=== PATIENT | male | born 1945 | race Caucasian/White ===

== ENCOUNTER 2016-12-29 17:23 | Inpatient (IN) | payer OTHER ==
[~2016-12-29] VITALS: Ht 177.8 cm; Wt 87.8 kg
--- NOTE | 2016-12-29 17:45 | EMERGENCY ROOM VISIT NOTE ---
History Report prepared by Lane: Trevon Dewitt Under the Supervision of: Dr. Fritz Camacho M.D. First contact with patient: 17:33 Chief Complaint: CHEST PAIN Stated Complaint: CHEST PAIN Nursing Triage Summary: PT VERBALIZES HX OF BYPASS WITH STENTS. RECENTLY AT [facility]. PT HAS CARDIOLOGY APPT IN JANUARY FOR NUC STRESS TEST, ECHO, AND BLOODWORK. TODAY PT WALKED UP STREET ABOUT 100 YARDS WHEN HE DEVELOPED CHEST PAIN WITH NUMBNESS IN LEFT ARM AND LEFT SHOULDER. TOOK BP AT HOME FOR 174/85. TOOK 1 NITRO WITH RELIEF. History of Present Illness The patient is a 71 year old male who presents to the Emergency Room with complaints of centralized chest pain that occurred recently. The patient is currently not in any pain. He was walking up the road when the pain began. He went home and he took Nitroglycerin PO, and then the pain went away. When the pain was occurring, he was mildly short of breath and his pain was radiating toward his left arm. This is the second time this has happened to the patient, the first time being last week. The patient states that he took a baby Aspirin today like usual. He has a history of a heart surgery that occurred in 2002 and heart stents that were placed in 2014. He currently has no symptoms and is feeling well. Source of History: patient Onset: recently Position: chest Symptom Intensity: 0/10 Quality: numbness Timing: resolved Modifying Factors (Worsening): exertion Associated Symptoms: + SOB Review of Systems See HPI for pertinent positives & negatives. A total of 10 systems reviewed and were otherwise negative. Past Medical & Surgical Medical Problems: (1) CAD (coronary artery disease) (2) DM type 2 (diabetes mellitus, type 2) (3) Heart disease (4) Hypertension (5) Hypothyroidism (6) NSTEMI (non-ST elevated myocardial infarction) (7) Paroxysmal atrial fibrillation Surgical Problems: (1) H/O heart artery stent (2) S/P CABG x 5 (3) S/P coronary artery stent placement Family History Omitted due to age. Social History Smoking Status: Current Some Day Smoker Smokeless Tobacco Use: Unknown Drug Use: none Marital Status: Housing Status: lives with family Current/Historical Medications Scheduled Aspirin (Aspirin Ec), 81 MG PO DAILY Atenolol (Tenormin), 50 MG PO DAILY Atorvastatin (Lipitor), 80 MG PO DAILY Clopidogrel (Plavix), 75 MG PO DAILY Glimepiride (Glimepiride), 1 TAB PO UD Levothyroxine Sodium (Levothyroxine Sodium), 1 TAB PO DAILY Losartan Potassium (Cozaar), 50 MG PO DAILY Metformin Hcl (Glucophage), 1,000 MG PO BID Multiple Vitamins W/ Minerals (Adult Gummy), 1 TABS PO DAILY Nitroglycerin (Nitrostat), 0.4 MG UT PRN Allergies Coded Allergies: No Known Allergies (Unverified , 12/29/16) Physical Exam Vital Signs Date Time Temp Pulse Resp B/P Pulse Ox O2 Delivery O2 Flow Rate FiO2 12/29/16 19:07 54 16 167/82 96 Room Air 12/29/16 18:04 60 18 145/79 96 Room Air 12/29/16 17:48 69 12/29/16 17:46 63 18 168/77 96 Room Air 12/29/16 17:27 36.7 58 18 160/78 96 Room Air Physical Exam GENERAL: Patient is well appearing and in no acute distress. HEENT: No acute trauma, normocephalic atraumatic, mucous membranes moist, no nasal congestion, no scleral icterus. NECK: No stridor, no adenopathy, no meningismus, trachea is midline. LUNGS: No dyspnea. Clear to auscultation and equal bilaterally. No wheeze, no rhonchi. HEART: Regular rate and rhythm. No murmurs, rubs, gallops appreciated. ABDOMEN: Soft, nontender, bowel sounds positive, no masses appreciated, no peritonitis. BACK: No midline tenderness, no CVA tenderness EXTREMITIES: Normal motion all extremities, no cyanosis, no edema. NEUROLOGIC: Alert and oriented, no acute motor or sensory deficits, no focal weakness, cranial nerves grossly intact. SKIN: No rash, no jaundice, no diaphoresis. Medical Decision & Procedures ER Provider Diagnostic Interpretation: X ray results are stated below per my interpretation and the radiologist's interpretation. CHEST ONE VIEW PORTABLE HISTORY: Atypical Chest Pain COMPARISON: None. FINDINGS: The lungs are clear. Cardiac silhouette is normal in size. No pleural effusions. No pneumothorax. Poststernotomy changes. IMPRESSION: No acute process. Electronically signed by: Domenic Wells M.D. 12/29/2016 6:11 PM Dictated Date/Time: 12/29/2016 6:09 PM Laboratory Results 12/29/16 17:40 Red Blood Count 4.81, Mean Corpuscular Volume 95.2, Mean Corpuscular Hemoglobin 34.1, Mean Corpuscular Hemoglobin Concent 35.8, Mean Platelet Volume 10.6, Neutrophils (%) (Auto) 59.9, Lymphocytes (%) (Auto) 24.6, Monocytes (%) (Auto) 8.0, Eosinophils (%) (Auto) 6.5, Basophils (%) (Auto) 0.6, Neutrophils # (Auto) 6.56, Lymphocytes # (Auto) 2.70, Monocytes # (Auto) 0.88, Eosinophils # (Auto) 0.71, Basophils # (Auto) 0.07 12/29/16 17:40 Test 12/29/16 17:40 White Blood Count 10.96 K/uL (4.8-10.8) Red Blood Count 4.81 M/uL (4.7-6.1) Hemoglobin 16.4 g/dL (14.0-18.0) Hematocrit 45.8 % (42-52) Mean Corpuscular Volume 95.2 fL (80-100) Mean Corpuscular Hemoglobin 34.1 pg (25-34) Mean Corpuscular Hemoglobin Concent 35.8 g/dl (32-36) Platelet Count 211 K/uL (130-400) Mean Platelet Volume 10.6 fL (7.4-10.4) Neutrophils (%) (Auto) 59.9 % Lymphocytes (%) (Auto) 24.6 % Monocytes (%) (Auto) 8.0 % Eosinophils (%) (Auto) 6.5 % Basophils (%) (Auto) 0.6 % Neutrophils # (Auto) 6.56 K/uL (1.4-6.5) Lymphocytes # (Auto) 2.70 K/uL (1.2-3.4) Monocytes # (Auto) 0.88 K/uL (0.11-0.59) Eosinophils # (Auto) 0.71 K/uL (0-0.5) Basophils # (Auto) 0.07 K/uL (0-0.2) RDW Standard Deviation 43.7 fL (36.4-46.3) RDW Coefficient of Variation 12.5 % (11.5-14.5) Immature Granulocyte % (Auto) 0.4 % Immature Granulocyte # (Auto) 0.04 K/uL (0.00-0.02) Prothrombin Time 10.5 SECONDS (9.0-12.0) Prothromb Time International Ratio 1.0 (0.9-1.1) D-Dimer 320 ug/L FEU (0-500) Anion Gap 6.0 mmol/L (3-11) Est Creatinine Clear Calc Drug Dose 63.1 ml/min Estimated GFR () 71.1 Estimated GFR (Non- 61.3 BUN/Creatinine Ratio 11.3 (10-20) Calcium Level 9.0 mg/dl (8.5-10.1) Total Creatine Kinase 115 U/L (39-308) Laboratory results as reviewed by me. Medications Administered Medications (Trade) Dose Ordered Sig/Laure Route Start Time Stop Time Status Last Admin Dose Admin Aspirin (Aspirin Chew) 324 mg NOW STAT PO 12/29/16 17:49 12/29/16 17:51 DC 12/29/16 18:03 324 MG Heparin Sodium (Porcine) (Heparin Sq 5000 Unit/0.5ml) 10,000 unit STK-MED ONCE .ROUTE 12/29/16 19:22 12/29/16 19:23 DC 12/29/16 19:25 6,000 UNIT Heparin Sodium/ Dextrose (Heparin 25,000 Unit/500ml D5W) 25,000 unit STK-MED ONCE .ROUTE 12/29/16 19:23 12/29/16 19:24 DC 12/29/16 19:26 25,000 UNIT ECG Indication: chest pain Rate (beats per minute): 63 Rhythm: normal sinus Findings: no acute ischemic change, no ectopy ED Course 1732: The patient was evaluated in room C9. A complete history and physical exam was performed. 1748: Ordered Aspirin Chew 324 mg PO 1899: I discussed the patient's case with Dr. Saravia of [facility]. They wanted me to call Cardiology to discuss the case further. 1906: I spoke with Dr. Dinh of Cardiology. They wish to start the patient on Heparin and be further evaluated by [facility]. 1921: Ordered Heparin Sodium 10,000 unit .ROUTE 1922: Heparin Sodium/ Dextrose 25,000 unit .ROUTE 1939: Upon reevaluation, the patient is resting. Discussed results and treatment plan with the patient. He verbalized understanding and agreement with the treatment plan. The patient will be evaluated for further management. Medical Decision Differential: Cardiac Ischemia (STEMI, NSTEMI, Unstable Angina, etc), Aortic Dissection, Arrhythmia, Pulmonary Embolism, Pneumonia, Pneumothorax, MSK, Infectious, Pericarditis/Myocarditis, Esophageal Rupture, Gastrointestinal, amongst other pathologies entertained. Pleasant 71 yr old male with CABG over ten years ago and stents 2 years ago who continues to smoke with several other CAD risk factors. Arrives for evaluation of exertional chest pain which relieves with rest/nitro. No pain on arrival. EKG without stemi. Given ASA 324mg PO. CXR clear. No evidence of pe, dissection, infectious etiology of symptoms. Trop is positive consistent with NSTEMI. Discussed with Cardiology who agree with heparin and bring in to hospitalist service. I discussed pros/cons of Heparin. He does not have any current nor recent contraindications to heparin use. Denies headache, head injuries, recent trauma, rectal bleeding, black/bloody stools, abdominal pain, easy bruising/bleeding, etc. Patient agrees to starting heparin. Consults Time Called: 1854 Consulting Physician: Dr. Saravia - [facility] Hospitalist Returned Call: 1899 They would like me to contact Cardiology to discuss the patient before being treated as an inpatient. Additional Consults: Time Called: 1902 Consulted Physician: Dr. Dinh - Cardiology Returned Call: 1906 Additional Comments: We discussed the patient's case. They wish to start to patient on Heparin. He will be evaluated by [facility]. Impression Primary Impression: NSTEMI (non-ST elevated myocardial infarction) Additional Impression: Crescendo angina Critical Care I have personally spent greater than 35 minutes of critical care time in the direct management of this patient. This was a life/limb threatening event. This includes time spent evaluating patient, direct bedside care, chart review, placing orders, interpretation of diagnostic studies, discussion with consultants, patient, and family members, as well as other required patient management activities. This 35 minutes is in excess of all separately billable procedures. Scribe Attestation The scribe's documentation has been prepared under my direction and personally reviewed by me in its entirety. I confirm that the note above accurately reflects all work, treatment, procedures, and medical decision making performed by me. Departure Information Dispostion Being Evaluated By Hospitalist Patient Instructions [facility] Problem Qualifiers
[2016-12-29] MEDS ORDERED: ASPIRIN 324 MG CHEW PO STA (17:49)
[2016-12-29 18:00] LABS: BASO % 0.6 %; BASO ABS # 0.07 K/uL (0-0.2); COMPLETE YES; EOS % 6.5 %; HEMATOCRIT 45.8 % (42-52); IG% 0.4 %; LYMPH % 24.6 %; MEAN CELL VOLUME 95.2 fL (80-100); MEAN CORPUSCULAR HEMOGLOBIN 34.1 pg (25-34); MEAN CORPUSCULAR HGB CONC 35.8 g/dl (32-36); MEAN PLATELET VOLUME 10.6 fL (7.4-10.4); NEUT % 59.9 %; PLATELET COUNT 211 K/uL (130-400); RED BLOOD COUNT 4.81 M/uL (4.7-6.1); WHITE BLOOD COUNT 10.96 K/uL (4.8-10.8)
[2016-12-29 18:06] LABS: BUN/CREATININE RATIO 11.3 (10-20); CREATININE 1.2 mg/dl (0.60-1.40); POTASSIUM 4.3 mmol/L (3.5-5.1)
[2016-12-29] MEDS ORDERED: ATEN50TA8 PO (18:12)
[2016-12-29] MEDS ORDERED: LEVO150T9 PO (18:12)
[2016-12-29] MEDS ORDERED: ATOR-26 PO (18:12)
[2016-12-29] MEDS ORDERED: GLIM2TAB2 PO (18:12)
[2016-12-29] MEDS ORDERED: NTRGSL/4 UT (18:12)
[2016-12-29] MEDS ORDERED: ASPI81TA28 PO (18:12)
[2016-12-29] MEDS ORDERED: MULT1CHW4 PO (18:12)
[2016-12-29] MEDS ORDERED: CLOP1TAB15 PO (18:12)
[2016-12-29] MEDS ORDERED: METF-384 PO (18:13)
--- NOTE | 2016-12-29 18:13 | DIAGNOSTIC IMAGING REPORT ---
CHEST ONE VIEW PORTABLE HISTORY: Atypical Chest Pain COMPARISON: None. FINDINGS: The lungs are clear. Cardiac silhouette is normal in size. No pleural effusions. No pneumothorax. Poststernotomy changes. IMPRESSION: No acute process. Electronically signed by: Domenic Wells M.D. 12/29/2016 6:11 PM Dictated Date/Time: 12/29/2016 6:09 PM
[2016-12-29] MEDS ORDERED: LOSA50TA54 PO (18:19)
[2016-12-29 18:20] LABS: CKMB/CK RATIO 1.5 (0-3.0)
[2016-12-29 19:14] LABS: PROTHROMBIN TIME (PATIENT) 10.5 SECONDS (9.0-12.0)
[2016-12-29] MEDS ORDERED: HEPARIN SOD 5000 UNIT/0.5 ML CARP ONE (19:22)
[2016-12-29] MEDS ORDERED: HEPARIN 25000 UNIT/500 ML D5W ONE (19:23)
[2016-12-29] MEDS ORDERED: ALUMINUM/MAGNESIUM/SIMETH (MAALOX MAX) 30 ML UDC PO PRN (19:30)
[2016-12-29] MEDS ORDERED: ZOLPIDEM TARTRATE 5 MG TAB PO PRN (19:30)
[2016-12-29] MEDS ORDERED: POLYETHYLENE (MIRALAX) 17 GM PACK PO PRN (19:30)
[2016-12-29] MEDS ORDERED: ONDANSETRON INJ 2 MG/ML 2 ML VIAL IV PRN (19:30)
[2016-12-29] MEDS ORDERED: NITROGLYCERIN 0.4 MG SL PER TAB CHARGE SL PRN (19:30)
[2016-12-29] MEDS ORDERED: MAGNESIUM HYDROXIDE SUSP 30 ML UDC PO PRN (19:30)
[2016-12-29] MEDS ORDERED: ACETAMINOPHEN 325 MG TAB PO PRN (19:30)
[2016-12-29] MEDS ORDERED: GLUCAGON FOR INJ 1 MG VIAL SQ PRN (19:45)
[2016-12-29] MEDS ORDERED: GLUCOSE 10 TABS/TUBE PO PRN (19:45)
[2016-12-29] MEDS ORDERED: GLUCOSE 40% GEL 15 GM TUBE PO PRN (19:45)
[2016-12-29] MEDS ORDERED: DEXTROSE 50% 50 ML SYR IV PRN (19:45)
[2016-12-29 20:50] VITALS: BP 189/78; PULSE 65; TEMP 36.6; O2SAT 97; Ht 177.8 cm; Wt 87.8 kg
[2016-12-29] MEDS ORDERED: HEPARIN 25,000 UNIT/500ML D5W 500 ML IV PRN (21:00)
--- NOTE | 2016-12-29 21:31 | History and Physical ---
History & Physical Date & Time of Service: Dec 29, 2016 at 20:29 Chief Complaint: Nstemi (Non-St Elevated Myocardial Infarction) Primary Care Physician: No Doctor, Assigned History of Present Illness Source: patient, clinic records This is a 71 year old male with PMH of CAD s/p CABG and stent, remote hx of post -op PAF after CABG no longer on anticoagulation, DM type 2, HTN, hypothyroidism , and other problems listed below who presents to the ED with chest pain. Pt follows with [facility] cardiology. Patient was recently hospitalized at [facility] from 12/22-12/23 for similar chest pain and [place] was ruled out with negative troponin x 3. He was seen in clinic for follow up by Analilia Ulloa PA-C. He is scheduled for stress test Jan 20 2017. He states yesterday after cleaning up small rocks in the yard then walking outside he "was not feeling right" and felt short of breath which resolved. Usually he could tolerate such activity without becoming SOB. Then today he was walking uphill on the road around 4 pm and developed substernal chest tightness. He reports associated numbness radiating to his left arm and shortness of breath. He went inside and took nitro which relieved his symptoms within minutes. Since then he is feeling asymptomatic. Patient denies diaphoresis, dizziness, syncope, URI symptoms, cough, palpitations, nausea, vomiting, diarrhea, urinary changes, calf pain, edema, weight gain, abnormal bleeding. Past Medical/Surgical History Medical Problems: (1) CAD (coronary artery disease) Status: Chronic (2) DM type 2 (diabetes mellitus, type 2) Status: Chronic (3) Heart disease Status: Resolved (4) Hypertension Status: Chronic (5) Hypothyroidism Status: Chronic (6) Paroxysmal atrial fibrillation Permanent Comment: remote, postop s/p CABG Status: Chronic Surgical Problems: (1) H/O heart artery stent Status: Resolved (2) S/P CABG x 5 Permanent Comment: CABG x5 vessel (07/28/03): ARREOLA-LAD, SVG-RCA, SVG-OM, SVG- ramus, SVG-D1 Status: Chronic (3) S/P coronary artery stent placement Permanent Comment: Cardiac catheterization 05/[place] [facility] [place] Severe buckland vessel disease w/ 95% LAD, 95% Cx, 100% prox RCA, Patent ARREOLA-LAD, Patent SVG-OM, Patent SVG-RCA - mid portion of graft with turbulence of flow secondary to valve vs thrombus but has WILY III flow through graft into distal RCA run off, Patent [id number] w/ 80% lesion in mid body of graft --> Stent placed - bare metal stent Status: Chronic Family History Diabetes mellitus FATHER SISTER Social History Smoking Status: Current Every Day Smoker (3 packs per week. counselled for smoking cessation. ) Smokeless Tobacco Use: Unknown Alcohol Use: occasionally Marital Status: Housing status: lives with significant other Allergies Coded Allergies: No Known Allergies (Unverified , 12/29/16) Home Medications Scheduled Aspirin (Aspirin Ec), 81 MG PO DAILY Atorvastatin (Lipitor), 80 MG PO DAILY Clopidogrel (Plavix), 75 MG PO DAILY Glimepiride (Glimepiride), 1 TAB PO UD Levothyroxine Sodium (Levothyroxine Sodium), 1 TAB PO DAILY Losartan Potassium (Cozaar), 50 MG PO DAILY Metformin Hcl (Glucophage), 1,000 MG PO BID Metoprolol Tartrate (Lopressor), 25 MG PO BID Multiple Vitamins W/ Minerals (Adult Gummy), 1 TABS PO DAILY Nitroglycerin (Nitrostat), 0.4 MG UT PRN Review of Systems Ten point ROS performed with pertinent positives and negatives noted in HPI. Physical Exam Vital Signs Date Time Temp Pulse Resp B/P Pulse Ox O2 Delivery O2 Flow Rate FiO2 12/29/16 19:59 53 20 153/84 96 12/29/16 19:07 54 16 167/82 96 Room Air 12/29/16 18:04 60 18 145/79 96 Room Air 12/29/16 17:48 69 12/29/16 17:46 63 18 168/77 96 Room Air 12/29/16 17:27 36.7 58 18 160/78 96 Room Air General Appearance: WD/WN, no apparent distress, + pertinent finding (pleasant 71 year old male, in good spirits, lying in bed, no distress, at bedside) Head: normocephalic, atraumatic Eyes: normal inspection, PERRL, EOMI ENT: hearing grossly normal, pharynx normal Neck: supple, no JVD, trachea midline Respiratory/Chest: chest non-tender, lungs clear, normal breath sounds, no respiratory distress, no accessory muscle use Cardiovascular: regular rate, rhythm, no murmur Abdomen/GI: normal bowel sounds, non tender, soft Extremities/Musculoskelatal: no calf tenderness (grossly nonfocal), no pedal edema Neurologic/Psych: alert, normal mood/affect, oriented x 3, + pertinent finding Skin: normal color, warm/dry Diagnostics Laboratory Results Results Past 24 Hours Test 12/29/16 17:40 Range/Units White Blood Count 10.96 4.8-10.8 K/uL Red Blood Count 4.81 4.7-6.1 M/uL Hemoglobin 16.4 14.0-18.0 g/dL Hematocrit 45.8 42-52 % Mean Corpuscular Volume 95.2 80-100 fL Mean Corpuscular Hemoglobin 34.1 25-34 pg Mean Corpuscular Hemoglobin Concent 35.8 32-36 g/dl Platelet Count 211 130-400 K/uL Mean Platelet Volume 10.6 7.4-10.4 fL Neutrophils (%) (Auto) 59.9 % Lymphocytes (%) (Auto) 24.6 % Monocytes (%) (Auto) 8.0 % Eosinophils (%) (Auto) 6.5 % Basophils (%) (Auto) 0.6 % Neutrophils # (Auto) 6.56 1.4-6.5 K/uL Lymphocytes # (Auto) 2.70 1.2-3.4 K/uL Monocytes # (Auto) 0.88 0.11-0.59 K/uL Eosinophils # (Auto) 0.71 0-0.5 K/uL Basophils # (Auto) 0.07 0-0.2 K/uL RDW Standard Deviation 43.7 36.4-46.3 fL RDW Coefficient of Variation 12.5 11.5-14.5 % Immature Granulocyte % (Auto) 0.4 % Immature Granulocyte # (Auto) 0.04 0.00-0.02 K/uL Prothrombin Time 10.5 9.0-12.0 SECONDS Prothromb Time International Ratio 1.0 0.9-1.1 Activated Partial Thromboplast Time 26.1 21.0-31.0 SECONDS Partial Thromboplastin Ratio 1.0 D-Dimer 320 0-500 ug/L FEU Sodium Level 143 136-145 mmol/L Potassium Level 4.3 3.5-5.1 mmol/L Chloride Level 106 98-107 mmol/L Carbon Dioxide Level 31 21-32 mmol/L Anion Gap 6.0 3-11 mmol/L Blood Urea Nitrogen 14 7-18 mg/dl Creatinine 1.20 0.60-1.40 mg/dl Est Creatinine Clear Calc Drug Dose 63.1 ml/min Estimated GFR () 71.1 Estimated GFR (Non- 61.3 BUN/Creatinine Ratio 11.3 10-20 Random Glucose 148 70-99 mg/dl Calcium Level 9.0 8.5-10.1 mg/dl Total Creatine Kinase 115 39-308 U/L Creatine Kinase MB 1.7 0.5-3.6 ng/ml Creatine Kinase MB Ratio 1.5 0-3.0 Troponin I 0.054 0-0.045 ng/ml Diagnostic Radiology CHEST ONE VIEW PORTABLE HISTORY: Atypical Chest Pain COMPARISON: None. FINDINGS: The lungs are clear. Cardiac silhouette is normal in size. No pleural effusions. No pneumothorax. Poststernotomy changes. IMPRESSION: No acute process. EKG NSR, 63 bpm, nonspecific STTWA in aVL, [address] elevation in V3. Compared to prior EKG in [facility] from December 23 2016- at that time had T wave inversion in I and aVL. Impression Assessment and Plan CHEST PAIN Possible ACS; pain suspicious for angina; known hx of CAD s/p CABG in 2002 and stent in 05/2015 Resolved with nitro tab EKG- nonspecific findings Initial troponin 0.054 CXR- no acute findings LV EF 55-59% on prior echo 05/2015 ER provider discussed case with on-call supervisor instant potato processing Dr. Dinh Heparin drip started in ER Received aspirin 325 mg Beta morgan changed from atenolol to Lopressor Continue aspirin, Plavix, statin, ARB Check echo Consult cardiology REMOTE H/O PAROXYSMAL AFIB Occurred postoperatively after CABG 2002 Coumadin discontinued in June 2015 to avoid triple therapy with ASA, Plavix, and Coumadin, after site monitor revealed no recurrent AF Currently in NSR On beta morgan HYPERTENSION BP is elevated Continue Losartan Beta morgan changed from atenolol to Lopressor DM TYPE 2 Hold PO antidiabetic meds Insulin sliding scale coverage HYPOTHYROIDISM Continue levothyroxine DVT PROPHYLAXIS On heparin drip CODE STATUS Full code per my discussion with the patient Patient seen in collaboration with Dr. Ann. Please see her addendum. ATTENDING ADDENDUM : pt seen and examined, in agreement with above H&P by Naty Carrasco PA-C 71 yo M with past medical hx of significant CAD S/P CABG X5 vessels in 2002 , Cardiac catheterization 05/2015 [place] [facility] [place] bare metal stent placement on Diagonal graft recent admission to [facility] with similar complain discharged with Cardiology follow and scheduled out pt cardiac stress test presented with typical anginal symptom with chest heaviness , radiation to left arm symptom resolved with SL nitro currently chest pain free EKG -T wave flattening in lateral leads Troponin elevated 0.054 with normal CK/CKMB P/E : GEN : no apparent distress, comfortable HEENT; sclera non icteric , PERRLA/EOMI HT ; regular S1/S2 , no JVD , no lower ext edema Lungs; CTA , no wheeze or rales abdomen : soft, non tender Ext ; no lower ext edema Neuro : no focal neurological deficit A/p : CHEST PAIN /UNSTABLE ANGINA : symptom concerning for cardiac ischemia /angina recent admission at [facility] with similar symptom o Scheduled to have out pt cardiac stress test in January pt will be admitted to Tele at present chest pain free, no complain of SOB or orthopnea IV heparin wt based protocol serial cardiac markers ECHO to assess wall motion abnormality Cardiology eval requested -known to [facility] Cardiology team may need cardiac angiogram given hx of CAD /recurrent angina pt will be kept NPO past midnight rest of the chronic problems as outlined above VTE Prophylaxis VTE Risk Assessment Done? Y/N: Yes Risk Level: Moderate
[2016-12-29] MEDS: INSULIN HUMAN REGULAR SC SCH (21:44)
[2016-12-29] MEDS: CLOPIDOGREL BISULFATE 75 MG TAB PO SCH (21:47)
[2016-12-29] MEDS: METOPROLOL TARTRATE 25 MG TAB PO SCH (21:47)
[2016-12-29] MEDS: ATORVASTATIN 40 MG TAB PO SCH (21:47)
[2016-12-29 23:05] VITALS: BP 124/68; PULSE 54; TEMP 36.5; O2SAT 96
[2016-12-30] VITALS (30 sets, daily range): BP systolic 121–161; BP diastolic 50–75; PULSE 50–63; TEMP 36.4–36.8; O2SAT 94–97
[2016-12-30 01:35] LABS: PARTIAL THROMBOPLASTIN RATIO 3.1
[2016-12-30] MEDS: LEVOTHYROXINE 150 MCG TAB PO SCH (05:38)
[2016-12-30] MEDS: INSULIN HUMAN REGULAR SC SCH ×4 (07:00→20:55)
[2016-12-30] MEDS ORDERED: PERFLUTREN LIPID MICROSPHERE (DEFINITY) IV ONE (07:30)
[2016-12-30] MEDS: ASPIRIN 81 MG ECTAB PO SCH (07:34)
[2016-12-30] MEDS: CEROVITE ADV FORMULA TAB PO SCH (07:34)
[2016-12-30] MEDS: CLOPIDOGREL BISULFATE 75 MG TAB PO SCH (07:34)
[2016-12-30] MEDS: LOSARTAN POTASSIUM 50 MG TAB PO SCH (07:34)
[2016-12-30] MEDS: METOPROLOL TARTRATE 25 MG TAB PO SCH ×2 (07:34→21:00)
[2016-12-30] MEDS: ATORVASTATIN 40 MG TAB PO SCH (07:34)
[2016-12-30 08:36] LABS: PARTIAL THROMBOPLASTIN RATIO 2.1
[2016-12-30 08:38] LABS: HEMATOCRIT 44.8 % (42-52); MEAN CELL VOLUME 95.1 fL (80-100); MEAN CORPUSCULAR HEMOGLOBIN 33.8 pg (25-34); MEAN CORPUSCULAR HGB CONC 35.5 g/dl (32-36); MEAN PLATELET VOLUME 10.5 fL (7.4-10.4); PLATELET COUNT 176 K/uL (130-400); RED BLOOD COUNT 4.71 M/uL (4.7-6.1); WHITE BLOOD COUNT 11.48 K/uL (4.8-10.8)
[2016-12-30 09:00] LABS: CALCIUM 8.7 mg/dl (8.5-10.1); CREATININE 1.1 mg/dl (0.60-1.40); MAGNESIUM 1.8 mg/dl (1.8-2.4); POTASSIUM 3.9 mmol/L (3.5-5.1)
[2016-12-30] MEDS ORDERED: ASPIRIN 81 MG ECTAB PO SCH (09:00)
[2016-12-30 09:03] LABS: CHOLESTEROL/HDL RATIO 5.4
[2016-12-30 09:30] LABS: ESTIMATED AVERAGE GLUCOSE 157 mg/dl; HA1C FLAG Normal (Normal)
--- NOTE | 2016-12-30 10:06 | ECHOCARDIOGRAM REPORT ---
*NOTICE TO RECEIVING [employer] This information is strictly Confidential and protected under [place] law. [place] law prohibits you from making any further disclosure of this information unless further disclosure is expressly permitted by the written consent of the person to whom it pertains or is authorized by law. A general authorization for the release of medical or other information is not sufficient for this purpose. Hospital accepts no responsibility if the information is made available to any other person, INCLUDING THE PATIENT. Interpretation Summary * Name: BRIDGET ZHAO Study Date: 12/30/2016 07:00 AM BP: 128/73 mmHg * Patient Location: C.2E\S\E202\S\1 HR: 58 * : 1945 (M/d/yyyy) Gender: Male Height: 69 in * Age: 71 yrs Ethnicity: CA Weight: 189 lb * Ordering Physician: Marisol Ann * Performed By: Kate Pablo RDCS * * Reason For Study: AMI * BSA: 2.0 m2 * -- Conclusions -- * Normal LV chamber size with mild concentric LVH. * Normal LV systolic function, EF 55-60%. * No segmental left ventricular wall motion abnormalities are noted. * Grade II diastolic dysfunction. * Aortic valve sclerosis mild, without significant aortic valvular stenosis. Procedure Details * A complete two-dimensional transthoracic echocardiogram was performed (2D, M-mode, Doppler and color flow Doppler). * A contrast injection of Definity was performed to improve assessment of LV function. * Contrast was injected into an intravenous site in the right arm. * One vial of Definity ultrasound contrast was diluted in normal saline to a total volume of 10 ml. A total of '2' ml of solution was administered during imaging. * Lot # [id number] of Definity utilized for procedure. * Expiration date 1 NOV 09. * The attending nurse who injected the contrast agent was Vincent Bazzi RN. Left Ventricle * The left ventricle is normal in size. * There is mild concentric left ventricular hypertrophy. * Left ventricular systolic function is normal. * No segmental left ventricular wall motion abnormalities are noted. * Ejection Fraction = 55-60%. * The left ventricular wall motion is normal. Right Ventricle * The right ventricular cavity size is normal (basal dimension <4.2 cm in right ventricular apical 4-chamber view). * The right ventricular systolic function is normal as assessed by tricuspid annular plane systolic excursion (TAPSE) (normal >1.5 cm). Atria * The left atrial size is normal. * Right atrial size is normal. * No ASD detected; PFO is not assessed. Mitral Valve * The mitral valve leaflets appear normal. There is no evidence of stenosis, fluttering, or prolapse. Tricuspid Valve * The tricuspid valve is normal. Aortic Valve * The aortic valve is trileaflet. * Aortic valve sclerosis mild, without significant aortic valvular stenosis. * No hemodynamically significant valvular aortic stenosis. * There is no significant aortic regurgitation. Pulmonic Valve * The pulmonary valve is not well seen, but the Doppler examination is normal without significant regurgitation or stenosis. Great Vessels * The aortic root and proximal ascending aorta are normal sized. Pericardium/Pleural * There is no pericardial effusion. Left Ventricular Diastolic Function * Diastolic dysfunction, Grade II (pseudonormalization pattern). MMode 2D Measurements and Calculations IVSd 1.2 cm IVSs 1.9 cm LVIDd 5.2 cm LVIDs 3.6 cm LVPWd 1.3 cm LVPWs 1.7 cm IVS/LVPW 0.97 FS 30.3 % EDV(Teich) 130.5 ml ESV(Teich) 55.8 ml EF(Teich) 57.3 % EDV(cubed) 142.0 ml ESV(cubed) 48.1 ml EF(cubed) 66.1 % % IVS thick 53.7 % % LVPW thick 37.5 % LV mass(C)d 261.8 grams LV mass(C)dI 129.8 grams/m\S\2 LV mass(C)s 276.9 grams LV mass(C)sI 137.3 grams/m\S\2 CO(Teich) 4.3 l/min CI(Teich) 2.1 l/min/m\S\2 SV(Teich) 74.7 ml SI(Teich) 37.0 ml/m\S\2 CO(cubed) 5.4 l/min CI(cubed) 2.7 l/min/m\S\2 SV(cubed) 93.9 ml SI(cubed) 46.6 ml/m\S\2 ACS 2.5 cm asc Aorta Diam 3.4 cm LVOT diam 2.1 cm LVOT area 3.5 cm\S\2 LVAd ap4 32.7 cm\S\2 LVLd ap4 8.3 cm EDV(MOD-sp4) 106.0 ml LVAs ap4 19.1 cm\S\2 LVLs ap4 7.0 cm ESV(MOD-sp4) 45.6 ml EF(MOD-sp4) 57.0 % LVAd ap2 38.0 cm\S\2 LVLd ap2 9.1 cm EDV(MOD-sp2) 132.0 ml LVAs ap2 22.4 cm\S\2 LVLs ap2 7.2 cm ESV(MOD-sp2) 56.8 ml EF(MOD-sp2) 57.0 % CO(MOD-sp4) 3.4 l/min CI(MOD-sp4) 1.7 l/min/m\S\2 SV(MOD-sp4) 60.4 ml SI(MOD-sp4) 30.0 ml/m\S\2 CO(MOD-sp2) 4.3 l/min CI(MOD-sp2) 2.1 l/min/m\S\2 SV(MOD-sp2) 75.2 ml SI(MOD-sp2) 37.3 ml/m\S\2 Doppler Measurements and Calculations MV E max marylou 58.7 cm/sec MV A max marylou 53.8 cm/sec MV E/A 1.1 MV P1/2t max marylou 65.2 cm/sec MV P1/2t 96.9 msec MVA(P1/2t) 2.3 cm\S\2 MV dec slope 196.9 cm/sec\S\2 MV dec time 0.35 sec Ao V2 max 101.8 cm/sec Ao max PG 4.1 mmHg Ao max PG (full) 1.2 mmHg DANIAL(V,A) 2.9 cm\S\2 DANIAL(V,D) 2.9 cm\S\2 LV V1 max PG 2.9 mmHg LV V1 max 85.4 cm/sec PA V2 max 112.7 cm/sec PA max PG 5.1 mmHg
--- NOTE | 2016-12-30 10:51 | Cardiology Consultation ---
Cardiology Consultation Date of Service Dec 30, 2016. (Analilia Ulloa, GLORIA) Cardiology Consultation SUBJECTIVE: Yonatan Carver Jr. is a 71 year old year old male who carries a PMH significant for remote CABG x5 vessel (07/28/03): ARREOLA-LAD, SVG-RCA, SVG-OM , SVG-ramus, SVG-D1. In 05/2015 patient was admitted to [facility] for NSTEMI, transferred to [facility] for cardiac catheterization with ROT-Eciue-Sjdn w/ 80% lesion in mid body of graft - bare metal stent placed. Otherwise severe [place] vessel disease noted w/ 95% LAD, 95% Cx, 100% prox RCA, with Patent ARREOLA- LAD, patent SVG-OM. Patent SVG-RCA - mid graft turbulence, but WILY III flow. Other history includes questionable medication compliance, history of post op afib stopping Coumadin in 2014 when Plavix initiated to avoid triple therapy, hypertension, dyslipidemia, DM type II, He was recently hospitalized at [facility] for complaints of chest pain. Cardiac enzymes were unremarkable. He had ST/T wave changes in lateral leads noted on EKG. Stress testing was recommended, however patient declined, preferring out patient treatment. He was subsequently evaluated last week by the undersigned in the cardio office. At that time he had no recurrent chest pain, but did admit to mild worsening of dyspnea with exertional activities. He was scheduled for updated 2D echo and nuclear stress testing. Over the weekend patient states he was doing "light" yard work, moving small rocks/stones into a wheelbarrow. He denies actual chest discomfort but states he did not feel well after this activity. The rest of the day he felt "off" but no specific complaints and he rested and took it easy. Friday after orthodox he went for a 100 yard walk and developed chest tightness and SOB. He noted left shoulder pain and numbness down his arm. He took 1 SL nitro with quick resolution of his symptoms. He came to ER for evaluation. Initial troponin mildly elevated. EKG demosntrated wided QRS, consistent wiht incomplete LBBB and mild ST/T wave inversion in lateral leads. He was started on IV heparin and admitted for further observation/treatment. Repeat cardiac enzymes were unremarkable. At time of consult, patient is feeling ok. He denies worsening chest pain or SOB since admission. He is concerned with his symptoms that are now occurring with minimal walking/exertional activities. He denies current symptoms. No palpitations, dizziness, syncope. No SOB at rest. No orthopnea, PND or edema. No cough. He does anticipate oral surgery in the future. Extensive ROS: A Complete Review of 10 Systems is as stated above or negative. Patient Active Problem List HYPOTHYROIDISM OLD MYOCARDIAL INFARCT PAROXYSMAL ATRIAL FIBRILLATION Aortocoronary bypass status Type 2 diabetes mellitus with hemoglobin A1c goal of less than 7.5% Dyslipidemia, goal LDL below 70 Coronary arteriosclerosis in [place] artery History of non-ST elevation myocardial infarction (NSTEMI) HTN, goal below STRENGTH Clinical Trial Zachery Parson [id number] Past Surgical History: CABG, ARTERY-VEIN, FIVE 2002 COLONOSCOPY 06/26 diverticulosis. Repeat 5-10 years CORONARY ANGIOGRAPHY W/LEFT HEART CATH 05/25/2015 CORONARY ANGIOGRAPHY W/LEFT HEART CATH performed by Bruce Ocampo DO at [facility] Social History Smoking status: Former Smoker Packs/day: 0.50 Quit date: 09/22/1968 Smokeless tobacco: Never Used Alcohol use Yes - Occasional Family History: No history of premature CAD or sudden . Review of patient's allergies indicates: No Known Allergies Reported Home Medications Medications Dose Route/Sig Max Daily Dose Days Date Category Dose Instructions Cozaar (Losartan Potassium) 50 Mg Tab 50 Mg PO DAILY 12/29/16 Reported Glucophage (Metformin Hcl) 1,000 Mg Tab 1,000 Mg PO BID 12/29/16 Reported Levothyroxine Sodium 150 Mcg Tab 1 Tab PO DAILY 90 12/29/16 Reported Nitrostat (Nitroglycerin) 0.4 Mg Tab 0.4 Mg UT PRN 12/29/16 Reported Lipitor (Atorvastatin Calcium) 80 Mg Tab 80 Mg PO DAILY 12/29/16 Reported Plavix (Clopidogrel Bisulfate) 75 Mg Tab 75 Mg PO DAILY 12/29/16 Reported Adult Gummy (Multiple Vitamins W/ Minerals) 1 Chw Chw 1 Tabs PO DAILY 12/29/16 Reported Aspirin Ec (Aspirin) 81 Mg Tab 81 Mg PO DAILY 12/29/16 Reported Tenormin (Atenolol) 50 Mg Tab 50 Mg PO DAILY 12/29/16 Reported Glimepiride 2 Mg Tab 1 Tab PO UD 90 12/29/16 Reported 1 tablet with smaller meals and 2 tablets with largest meal tonya the day OBJECTIVE/PHYSICAL EXAMINATION: Last 8 Hrs Date Time Temp Pulse Resp B/P Pulse Ox O2 Delivery O2 Flow Rate FiO2 12/30/16 08:17 36.8 56 22 133/70 97 Room Air 12/30/16 04:00 Room Air 12/30/16 03:34 36.5 58 18 128/73 95 Room Air General: no acute distress and stated age Eyes: conjunctiva are pink and non-injected, sclera clear Neck: normal jugular venous pulse, no hepatojugular reflux Chest: normal shape and normal respiratory effort Lungs: clear to auscultation and percussion Cardiac Exam: - regular heart sounds, no murmurs, rubs, or gallops Abdomen: abdomen soft, non-tender, no abnormal masses and no hepatosplenomegaly Musculoskeletal: no gait disturbance, no weakness Extremities: no edema and no cyanosis Neuro: grossly normal exam Psych: appropriate affect and insight. Data: EKG on admission: Normal sinus rhythm Nonspecific ST/T wave abnormality in lateral leads Compared with prior EKG's in [facility], no significant changes noted. Telemetry reviewed: NSR with rare PVC Echo pending Chest xray on admission - No acute cardiopulmonary process. Last 24 Hours Test 12/29/16 17:40 12/29/16 20:36 12/30/16 01:10 12/30/16 06:32 White Blood Count 10.96 K/uL Red Blood Count 4.81 M/uL Hemoglobin 16.4 g/dL Hematocrit 45.8 % Mean Corpuscular Volume 95.2 fL Mean Corpuscular Hemoglobin 34.1 pg Mean Corpuscular Hemoglobin Concent 35.8 g/dl Platelet Count 211 K/uL Mean Platelet Volume 10.6 fL Neutrophils (%) (Auto) 59.9 % Lymphocytes (%) (Auto) 24.6 % Monocytes (%) (Auto) 8.0 % Eosinophils (%) (Auto) 6.5 % Basophils (%) (Auto) 0.6 % Neutrophils # (Auto) 6.56 K/uL Lymphocytes # (Auto) 2.70 K/uL Monocytes # (Auto) 0.88 K/uL Eosinophils # (Auto) 0.71 K/uL Basophils # (Auto) 0.07 K/uL RDW Standard Deviation 43.7 fL RDW Coefficient of Variation 12.5 % Immature Granulocyte % (Auto) 0.4 % Immature Granulocyte # (Auto) 0.04 K/uL Prothrombin Time 10.5 SECONDS Prothromb Time International Ratio 1.0 Activated Partial Thromboplast Time 26.1 SECONDS 80.1 SECONDS Partial Thromboplastin Ratio 1.0 3.1 D-Dimer 320 ug/L FEU Sodium Level 143 mmol/L Potassium Level 4.3 mmol/L Chloride Level 106 mmol/L Carbon Dioxide Level 31 mmol/L Anion Gap 6.0 mmol/L Blood Urea Nitrogen 14 mg/dl Creatinine 1.20 mg/dl Est Creatinine Clear Calc Drug Dose 63.1 ml/min Estimated GFR () 71.1 Estimated GFR (Non- 61.3 BUN/Creatinine Ratio 11.3 Random Glucose 148 mg/dl Calcium Level 9.0 mg/dl Total Creatine Kinase 115 U/L Creatine Kinase MB 1.7 ng/ml 1.2 ng/ml Creatine Kinase MB Ratio 1.5 Troponin I 0.054 ng/ml 0.040 ng/ml Bedside Glucose 75 mg/dl 127 mg/dl Test 12/30/16 08:13 White Blood Count 11.48 K/uL Red Blood Count 4.71 M/uL Hemoglobin 15.9 g/dL Hematocrit 44.8 % Mean Corpuscular Volume 95.1 fL Mean Corpuscular Hemoglobin 33.8 pg Mean Corpuscular Hemoglobin Concent 35.5 g/dl RDW Standard Deviation 44.1 fL RDW Coefficient of Variation 12.6 % Platelet Count 176 K/uL Mean Platelet Volume 10.5 fL Activated Partial Thromboplast Time 54.5 SECONDS Partial Thromboplastin Ratio 2.1 Sodium Level 142 mmol/L Potassium Level 3.9 mmol/L Chloride Level 106 mmol/L Carbon Dioxide Level 29 mmol/L Anion Gap 7.0 mmol/L Blood Urea Nitrogen 13 mg/dl Creatinine 1.10 mg/dl Est Creatinine Clear Calc Drug Dose 65.4 ml/min Estimated GFR () 79.0 Estimated GFR (Non- 68.1 BUN/Creatinine Ratio 12.0 Random Glucose 143 mg/dl Calcium Level 8.7 mg/dl Magnesium Level 1.8 mg/dl Triglycerides Level 173 mg/dl Cholesterol Level 140 mg/dl HDL Cholesterol 26 mg/dl LDL Cholesterol, Calculated 79 mg/dl VLDL Cholesterol, Calculated 35 mg/dl Cholesterol/HDL Ratio 5.4 ttecho 05/26/15: The qualitative LV ejection fraction is 55-59% (normal). There is a small sized basal septal and inferior wall motion abnormality with akinesis of the segments. The right ventricular cavity is mildly dilated. The right ventricular systolic function is qualitatively normal. No significant valvular disease is present. ASSESSMENT: 70 year old male 1. Recent chest pain, concerning for crescendo angina --initial troponin mildly elevated --ST/T wave changes noted in lateral leads compared to prior EKG's (also noted during admission to [facility]) -echo pending 2. History of CAD s/p remote CABG with bare mental stent to SV-Diagonal in 2014. 3. History of paroxysmal afib post op - coumadin discontinued when plavix initiated in 2014. No known recurrence. 4. Hypertension - borderline. Patient has not been taking losartan 5. Dyslipidemia - Patient has not been taking atorvastatin 6. Plans for future oral surgery for teeth extraction PLAN: Continue IV heparin Patient is NPO Plan for cardiac catheterization this AM with Dr. Dinh. In the interim, continue ASA, plavix, metoprolol, atorvastatin, losartan. Further plans pending catheterization findings. Discussed case with Dr. Dinh. Patient agreeable to this plan. Will follow. (Analilia Ulloa, PA-C) Patient seen and examined, agree with assessment as ablove. 71 yo with history of known coronary artery disease, prior CABG now with accelerating angina. Plan cardiac cath today, procedure and risks explained in detail. Elijah Dinh MD (Elijah DinhMJuliette.)
[2016-12-30] MEDS ORDERED: FENTANYL CITRATE INJ 50 MCG/1 ML 2 ML VIAL ONE (13:30)
[2016-12-30] MEDS ORDERED: HEPARIN SOD (PORCINE) 1000 UNIT/ML 10 ML VIAL ONE (13:30)
[2016-12-30] MEDS ORDERED: NiCARDipine HCL INJ 2.5 MG/ML 10 ML AMP ONE (13:30)
[2016-12-30] MEDS ORDERED: MIDAZOLAM HCL 1 MG/ML 2ML VIAL ONE (13:30)
[2016-12-30] MEDS ORDERED: NITROGLYCERIN/D5W 100MCG/ML 20ML SYR ONE (13:31)
[2016-12-30] MEDS ORDERED: DIAZEPAM 5MG TAB ONE (13:45)
[2016-12-30] MEDS ORDERED: EPTIFIBATIDE 0.75 MG/ML 75MG VIAL IV ONE (15:28)
[2016-12-30] MEDS ORDERED: EPTIFIBATIDE 2 MG/ML 10 ML VIAL IV ONE (15:28)
[2016-12-30] MEDS ORDERED: MoRPHine SULFATE 2 MG/ML CARP IV PRN (16:30)
[2016-12-30] MEDS ORDERED: EPTIFIBATIDE BOLUS / DRIP IV ONE (16:30)
[2016-12-30] MEDS ORDERED: ACETAMINOPHEN 325 MG TAB PO PRN (16:30)
[2016-12-30] MEDS ORDERED: ONDANSETRON INJ 2 MG/ML 2 ML VIAL IV PRN (16:30)
[2016-12-30] MEDS ORDERED: ATROPINE SULFATE 0.1 MG/ML 5ML SYR IV PRN (16:30)
--- NOTE | 2016-12-30 16:42 | Procedure Note ---
Post-Mod Sedation Assessment General Date of Moderate Sedation Dec 30, 2016. Vital Signs: Vital Signs Past 12 Hours Date Time Temp Pulse Resp B/P Pulse Ox O2 Delivery O2 Flow Rate FiO2 12/30/16 16:30 59 18 138/56 95 Room Air 12/30/16 16:15 57 18 142/66 96 Room Air 155/58 12/30/16 16:00 71 18 151/73 99 Nasal Cannula 4 12/30/16 12:20 Room Air 12/30/16 11:53 36.6 59 20 144/75 94 Room Air 12/30/16 09:38 Room Air 12/30/16 08:17 36.8 56 22 133/70 97 Room Air Review - Discharge Criteria Vital Signs Stable: Yes Alert/Oriented/Conversant: Yes Returned to Baseline Mental St: Yes Nausea Absent/Minimal: Yes Pain/Discomfort/Absent/Minimal: Yes Normal/Baseline Respirations: Yes Active Bleeding?: No Pt Received D/C Instructions: N/A Prescriptions Given: None Specific Proced. D/C Criteria Distal Pulses Present (Cardiac: Yes Groin site assessed-Card Cath: Yes (Sheath still in place) Voided Prior To Discharge: No Discharged Patients Adult Escort/Transportation: N/A
[2016-12-30 17:04] LABS: BASO % 0.3 %; BASO ABS # 0.04 K/uL (0-0.2); HEMATOCRIT 42.5 % (42-52); IG% 0.2 %; LYMPH % 13.8 %; LYMPH ABS # 1.76 K/uL (1.2-3.4); MEAN CELL VOLUME 94.2 fL (80-100); MEAN CORPUSCULAR HEMOGLOBIN 34.1 pg (25-34); MEAN PLATELET VOLUME 10.2 fL (7.4-10.4); MONO % 7.3 %; NEUT % 74.4 %; PLATELET COUNT 163 K/uL (130-400); RED BLOOD COUNT 4.51 M/uL (4.7-6.1); WHITE BLOOD COUNT 12.75 K/uL (4.8-10.8)
--- NOTE | 2016-12-30 17:05 | Cardiac Catheterization ---
Procedure Note Procedure Date Dec 30, 2016. Pre-Procedure Diagnosis Non STEMI AUC Score 9 for PCI Post-Procedure Diagnosis Severe CAD, Successful PCI Procedure(s) Performed Coronary Angiography, Drug Eluting Stent Stretch Box Tender Dr. Colby Tobacco Weigher(s) Jeannine Auguste, Estimated Blood Loss 25 ml Medication(s) Fentanyl, Heparin, Integrilin, Nicardipine (intracoronary), Versed, Lidocaine 1% Summary of Findings Clinical indications: Severe stenosis in saphenous vein graft to left circumflex marginal and LAD diagonal. History of bare metal stent to the vein graft performed at [facility] in [place]. The previously deployed stent was a 2.5 x 18 millimeter bare metal stent. This stenosis was located in the mid segment of the vein graft just distal to the previously deployed stent. Diagnostic angiography performed by Dr. Elijah Dinh. Please see Dr. Dinh's report for complete indications for diagnostic catheterization, symptom and testing classifications, and diagnostic angiographic findings. Catheterization site: 6 Italian sheath right femoral artery. Interventional equipment and protocol: A 6 Italian 3DRC guide catheter was 1st used to cannulate the vein graft. Through this guide catheter a [place] guidewire was attempted to be passed through the vein graft stenosis. The catheter would not traverse a previously deployed 2.5 x 18 millimeter bare metal stent. This stent was located proximal to the stenosis. The guide catheter did not provide good backup. It was exchanged for a 6 Italian left coronary bypass guide catheter. This catheter would not cannulate the vein graft. The vein graft was recannulated with the 3DRC guide catheter. A luge guidewire was able to traverse the previous stent. Its tip was placed in the left circumflex marginal. A 2.5 x 12 millimeter Medtronic Resolute drug- eluting stent was then advanced over the wire. It was deployed in a primary fashion to the stenosis in the mid segment of the vein graft. It was placed in overlapping fashion with the previously deployed bare metal stent. it was deployed at a pressure of 16 atmospheres for duration of 45 seconds. The overlap site of the stents was post dilated with the stent delivery balloon to a pressure of 16 atmospheres for duration of 15 seconds. Intravenous Integrilin and heparin had been given prior to intervention. A therapeutic activated clotting time was documented. It was then attempted to perform repeat angiography after the stent delivery balloon was withdrawn. However, the guide catheter lost position. Guidewire position was lost. Follow-up angiography was then performed with the guide catheter without the guidewire in place. On initial angiography there was no Re flow in the distal segment of the vein graft to the LAD diagonal. After administration of intra coronary nicardipine WILY 3 flow was established. There is no evidence of dissection, thrombus, perforation, or distal embolic event on final angiography. Angiography was performed from orthogonal projections. At the completion of procedure the patient was without any anginal-type complaints. He is hemodynamically stable. Plan: He will remain on intravenous Integrilin for 18 hours. Will remain on aspirin, angiotensin receptor morgan, clopidogrel, beta-morgan, and statin therapy. When the sheath was inserted at time of diagnostic angiography there was the presence of a significant amount of scar tissue. Because of this is planned for the sheath to be removed when the ACT is less than 150 seconds. Manual pressure will be used to achieve hemostasis. The patient will continue to have cardiology follow-up with the [facility] cardiology service. postprocedure CBC, electrocardiogram, and troponin I will be assessed. Hemodynamics Rest Ao: 148/59/90 millimeters Hg Final Ao: 139/53/86 millimeters Hg LV: na Recommendations Medical therapy and/or Counseling, PCI without planned CABG Specimens None Radiation Exposure (mGy) TOTAL OF 4213 FOR BOTH DIAGNOSTIC AND INTERVENTIONAL PROCEDURES. Contrast (mls) TOTAL OF 330 MILLILITERS VISIPAQUE FOR BOTH PROCEDURES. Fluids (cc crystalloids) TOTAL OF 440 MILLILITERS FOR BOTH PROCEDURES. Drains none Anesthesia Intravenous Versed and fentanyl. Procedural Complication(s) None Disposition ICU ACC Data Cardiac Status Clinical evaluation leading to the procedure CAD Presntation: Non STEMI Diagnostic Physician's Name: Elijah Dinh M.D. Status: Elective Closure Device Percutaneous Entry Location: Femoral Closure Device: none - manual hold Recommendations: Medical therapy and/or Counseling, PCI without planned CABG PCI Indication: PCI for high risk Non-STEMI Lesion Segment Name: SVG to left circumfllex marginal. Mid segment. Culprit Artery: Yes Stenosis Prior to Rx (%): 90 Chronic Total Occlusion: No IVUS: No FFR: No Pre-Procedure WILY Flow: 3 Lesion Complexity: Non-High/Non-C Lesion Length (mm): 8 Thrombus Present: Yes Bifurcation Lesion: No Guidewire Across Lesion: Yes Guidewire: Stenosis Post-Procedure (%): 0 Post-Procedure WILY Flow: 3 Type of Device(s): Medtronic Resolute 2.5 x 12 millimeter drug eluting stent Intraprocedure Events Significant Dissection: No Perforation: No
[2016-12-30 17:08] LABS: COMPLETE YES; MEAN CORPUSCULAR HGB CONC 36.2 g/dl (32-36)
[2016-12-30] MEDS: SODIUM CHLORIDE 0.9% 1000ML 1,000 ML IV SCH (17:31)
--- NOTE | 2016-12-30 18:44 | Critical Care Consultation ---
Critical Care Consultation Date of Consultation: Dec 30, 2016. Attending Physician: Ivonne Bishop MD Reason for Consultation: ICU Management History of Present Illness Mr Carver is a 71 year old male with history of known CAD, s/p 5 vessel CABG, who presents to the ICU after a successful cardiac catheterization for an NSTEMI. He initially presented 12/29/16 and was admitted for evaluation of recurrent chest pain with exertion. He underwent cardiac cath with Dr Dinh and then intervention with Dr Colby today. He was found to have severe stenosis in saphenous vein graft to left circumflex marginal and LAD diagonal. His catheterization was done via the R femoral approach. Currently, he is awake and alert. He denies any further chest pain or shortness of breath. He does report still smoking 3-4 cigarettes per day. He reports he also has diabetes and is not on insulin. Past Medical/Surgical History Medical Problems: (1) CAD (coronary artery disease) (2) DM type 2 (diabetes mellitus, type 2) (3) Heart disease (4) Hypertension (5) Hypothyroidism (6) NSTEMI (non-ST elevated myocardial infarction) (7) Paroxysmal atrial fibrillation Surgical Problems: (1) H/O heart artery stent (2) S/P CABG x 5 (3) S/P coronary artery stent placement Family History Diabetes mellitus FATHER SISTER Social History Smoking Status: Current Every Day Smoker (4 cigarettes per day) Smokeless Tobacco Use: Unknown Alcohol Use: occasionally Marital Status: Housing Status: lives with family Occupation Status: retired Allergies Coded Allergies: No Known Allergies (Unverified , 12/29/16) Home Medications Scheduled Aspirin (Aspirin Ec), 81 MG PO DAILY Atenolol (Tenormin), 50 MG PO DAILY Atorvastatin (Lipitor), 80 MG PO DAILY Clopidogrel (Plavix), 75 MG PO DAILY Glimepiride (Glimepiride), 1 TAB PO UD Levothyroxine Sodium (Levothyroxine Sodium), 1 TAB PO DAILY Losartan Potassium (Cozaar), 50 MG PO DAILY Metformin Hcl (Glucophage), 1,000 MG PO BID Multiple Vitamins W/ Minerals (Adult Gummy), 1 TABS PO DAILY Nitroglycerin (Nitrostat), 0.4 MG UT PRN Current Inpatient Medications Current Inpatient Medications Medications (Trade) Dose Ordered Sig/Laure Route Start Time Stop Time Status Last Admin Dose Admin Acetaminophen (Tylenol Tab) 650 mg Q4H PRN PO 12/29/16 19:30 01/28/17 19:29 Al Hydrox/Mg Hydrox/Simethicone (Maalox Max Susp) 15 ml Q4H PRN PO 12/29/16 19:30 01/28/17 19:29 Magnesium Hydroxide (Milk Of Magnesia Susp) 30 ml Q12H PRN PO 12/29/16 19:30 01/28/17 19:29 Zolpidem Tartrate (Ambien Tab) 5 mg HSZ PRN PO 12/29/16 19:30 01/28/17 19:29 Ondansetron HCl (Zofran Inj) 4 mg Q6H PRN IV 12/29/16 19:30 01/28/17 19:29 Nitroglycerin (Nitrostat Tab) 0.4 mg UD PRN SL 12/29/16 19:30 01/28/17 19:29 Polyethylene (Miralax Powder Packet) 17 gm DAILY PRN PO 12/29/16 19:30 01/28/17 19:29 Aspirin (Ecotrin Tab) 81 mg DAILY PO 12/30/16 09:00 01/29/17 08:59 12/30/16 07:34 81 MG Atorvastatin Calcium (Lipitor Tab) 80 mg DAILY PO 12/29/16 21:30 01/28/17 21:29 12/30/16 07:34 80 MG Clopidogrel Bisulfate (plAVix TAB) 75 mg DAILY PO 12/29/16 21:30 01/28/17 21:29 12/30/16 07:34 75 MG Levothyroxine Sodium (Synthroid Tab) 150 mcg DAILYBB PO 12/30/16 06:00 01/29/17 05:59 12/30/16 05:38 150 MCG Losartan Potassium (coZAAR TAB) 50 mg DAILY PO 12/30/16 09:00 01/29/17 08:59 12/30/16 07:34 50 MG Multivitamins/ Minerals (Multivitamin W/ Minerals Tab) 2 tab QAM PO 12/30/16 09:00 01/29/17 08:59 12/30/16 07:34 2 TAB Metoprolol Tartrate (Lopressor Tab) 12.5 mg BID PO 12/29/16 21:30 01/28/17 21:29 12/30/16 07:34 12.5 MG Insulin Human Regular (novoLIN-R) SLIDING SCALE IF C... ACHS SC 12/29/16 21:00 01/28/17 20:59 Glucose (Glucose 40% Gel) 15-30 GRAMS 15 GRAMS... UD PRN PO 12/29/16 19:45 01/28/17 19:44 Glucose (Glucose Chew Tab) 4-8 Tablets 4 Tabl... UD PRN PO 12/29/16 19:45 01/28/17 19:44 Dextrose (Dextrose 50% 50ML Syringe) 25-50ML OF 50% DW IV FOR... UD PRN IV 12/29/16 19:45 01/28/17 19:44 Glucagon 1 mg 1 mg UD PRN SQ 12/29/16 19:45 01/28/17 19:44 Sodium Chloride (Nss 1000ml) 1,000 ml @ 125 mls/hr Q8H IV 12/30/16 16:30 01/29/17 16:29 12/30/16 17:31 125 MLS/HR Atropine Sulfate (Atropine Sulfate 0.1MG/Ml Inj) 0.5 mg ONE PRN IV 12/30/16 16:30 01/29/17 16:29 Ondansetron HCl (Zofran Inj) 4 mg Q6H PRN IV 12/30/16 16:30 01/29/17 16:29 Morphine Sulfate 2 mg 2 mg Q5M PRN IV 12/30/16 16:30 01/13/17 16:29 Eptifibatide (Integrilin Inj) 100 ml @ 14 mls/hr Q7H9M IV 12/30/16 22:00 12/31/16 09:30 Miscellaneous (Stop Order) 1 ea TODAY@0930 ONCE N/A 12/31/16 09:30 12/31/16 09:31 Review of Systems See HPI for pertinent positives & negatives. A total of 10 systems reviewed and were otherwise negative. Physical Exam Date Time Temp Pulse Resp B/P Pulse Ox O2 Delivery O2 Flow Rate FiO2 12/30/16 17:45 57 18 140/55 95 Room Air 12/30/16 17:30 56 16 138/53 94 Room Air 12/30/16 17:15 59 13 129/50 95 4/10/17 17:11 36.7 63 16 144/67 94 Room Air 12/30/16 17:00 36.7 61 16 147/54 94 Room Air 12/30/16 17:00 56 16 152/60 93 Room Air 12/30/16 17:00 36.7 56 16 152/60 94 Room Air 4.0 12/30/16 17:00 Room Air 12/30/16 16:45 55 18 132/55 95 Room Air 12/30/16 16:30 59 18 138/56 95 Room Air 12/30/16 16:15 57 18 142/66 96 Room Air 155/58 12/30/16 16:00 71 18 151/73 99 Nasal Cannula 4 12/30/16 12:20 Room Air 12/30/16 11:53 36.6 59 20 144/75 94 Room Air 12/30/16 09:38 Room Air 12/30/16 08:17 36.8 56 22 133/70 97 Room Air 12/30/16 04:00 Room Air 12/30/16 03:34 36.5 58 18 128/73 95 Room Air 12/30/16 00:00 Room Air 12/29/16 23:05 36.5 54 18 124/68 96 Room Air 12/29/16 20:50 36.6 65 18 189/78 97 Room Air 12/29/16 19:59 53 20 153/84 96 12/29/16 19:07 54 16 167/82 96 Room Air General Appearance: well-appearing, WD/WN, no apparent distress Head: normocephalic, atraumatic Eyes: PERRLA, no discharge ENT: poor dentition (missing front teeth) Neck: no tenderness, trachea midline, supple Respiratory: breath sounds normal, clear to auscultation, clear to percussion Cardiovasular: regular rate/rhythm, normal S1S2, no M/G/R Abdomen: non tender, normal bowel sounds, no rebound, no guarding Back: other (laying flat ) Upper Extremities: no edema Lower Extremities: no edema, no deformity, normal ROM Neuro: alert, oriented x 3 Psychiatric: normal affect Laboratory Results Last 24 Hours Test 12/29/16 20:36 12/30/16 01:10 12/30/16 06:32 12/30/16 08:13 Bedside Glucose 75 mg/dl 127 mg/dl Activated Partial Thromboplast Time 80.1 SECONDS 54.5 SECONDS Partial Thromboplastin Ratio 3.1 2.1 Creatine Kinase MB 1.2 ng/ml Creatine Kinase MB Ratio Troponin I 0.040 ng/ml White Blood Count 11.48 K/uL Red Blood Count 4.71 M/uL Hemoglobin 15.9 g/dL Hematocrit 44.8 % Mean Corpuscular Volume 95.1 fL Mean Corpuscular Hemoglobin 33.8 pg Mean Corpuscular Hemoglobin Concent 35.5 g/dl RDW Standard Deviation 44.1 fL RDW Coefficient of Variation 12.6 % Platelet Count 176 K/uL Mean Platelet Volume 10.5 fL Sodium Level 142 mmol/L Potassium Level 3.9 mmol/L Chloride Level 106 mmol/L Carbon Dioxide Level 29 mmol/L Anion Gap 7.0 mmol/L Blood Urea Nitrogen 13 mg/dl Creatinine 1.10 mg/dl Est Creatinine Clear Calc Drug Dose 65.4 ml/min Estimated GFR () 79.0 Estimated GFR (Non- 68.1 BUN/Creatinine Ratio 12.0 Random Glucose 143 mg/dl Estimated Average Glucose 157 mg/dl Hemoglobin A1c 7.1 % Calcium Level 8.7 mg/dl Magnesium Level 1.8 mg/dl Triglycerides Level 173 mg/dl Cholesterol Level 140 mg/dl HDL Cholesterol 26 mg/dl LDL Cholesterol, Calculated 79 mg/dl VLDL Cholesterol, Calculated 35 mg/dl Cholesterol/HDL Ratio 5.4 Test 12/30/16 09:25 12/30/16 09:29 12/30/16 11:28 12/30/16 15:10 Creatine Kinase MB 1.2 ng/ml Troponin I 0.039 ng/ml Creatine Kinase MB Ratio Bedside Glucose 138 mg/dl [place] Activated Coagulation Time 137 SECONDS Test 12/30/16 15:25 12/30/16 16:01 12/30/16 16:47 12/30/16 16:55 Kaolin Activated Coagulation Time 271 SECONDS 276 SECONDS 229 SECONDS White Blood Count 12.75 K/uL Red Blood Count 4.51 M/uL Hemoglobin 15.4 g/dL Hematocrit 42.5 % Mean Corpuscular Volume 94.2 fL Mean Corpuscular Hemoglobin 34.1 pg Mean Corpuscular Hemoglobin Concent 36.2 g/dl Platelet Count 163 K/uL Mean Platelet Volume 10.2 fL Neutrophils (%) (Auto) 74.4 % Lymphocytes (%) (Auto) 13.8 % Monocytes (%) (Auto) 7.3 % Eosinophils (%) (Auto) 4.0 % Basophils (%) (Auto) 0.3 % Neutrophils # (Auto) 9.48 K/uL Lymphocytes # (Auto) 1.76 K/uL Monocytes # (Auto) 0.93 K/uL Eosinophils # (Auto) 0.51 K/uL Basophils # (Auto) 0.04 K/uL RDW Standard Deviation 43.3 fL RDW Coefficient of Variation 12.6 % Immature Granulocyte % (Auto) 0.2 % Immature Granulocyte # (Auto) 0.03 K/uL Test 12/30/16 17:18 Bedside Glucose 100 mg/dl Diagnostic Results CXR 12/29/16: IMPRESSION: No acute process. EKG: Sinus bradycardia, 57bpm Assessment & Plan Problem list: 1. Successful PCI s/p cardiac catheterization 2. Known CAD, s/p CABG x 5 vessels 3. Persistent tobacco use 4. Hyperlipidemia 5. Type 2 DM 6. History of paroxysmal atrial fibrilltation 7. Hypertension 8. Hypothyroidism NEURO: GCS 15. For pain, has morphine / Tylenol ordered. CVS: Is on Integrillin after cath. We will monitor BP / HR as we are holding his PO hypertension medications. RESP: Oxygenating well. Continue to monitor. ENDO: Metformin on hold. Insulin sliding scale coverage. Restart Synthroid when taking PO. RENAL: Electrolytes WNL, will continue to monitor. GI/NUTRITION: Regular diet HEME: Hb/Hct stable. DVT Prophylaxis: Integrillin CODE STATUS: FULL Resident Physician Supervision Note: Dr. Nichole was resident physician during care of patient. I separately evaluated patient and did history and exam. I discussed the case with the resident and generally agree with the findings and plan. 18 hours of Integrilin, close monitoring in ICU. Documented By: Omkar Morton DO Resident Tracking Resident Involvement: Resident Care Provided Care Provided: Adult Hospital Medicine (ICU)
--- NOTE | 2016-12-30 19:08 | Progress Note ---
Medicine Progress Note Date & Time of Visit: Dec 30, 2016 at 18:57. Subjective Patient seen and examined. Had cardiac catheterization today without complication. Denies chest pain or SOB. Objective Last 8 Hrs Date Time Temp Pulse Resp B/P Pulse Ox O2 Delivery O2 Flow Rate FiO2 12/30/16 18:47 53 16 143/53 95 Room Air 12/30/16 17:45 57 18 140/55 95 Room Air 12/30/16 17:30 56 16 138/53 94 Room Air 12/30/16 17:15 59 13 129/50 95 12/30/16 17:11 36.7 63 16 144/67 94 Room Air 12/30/16 17:00 36.7 61 16 147/54 94 Room Air 12/30/16 17:00 56 16 152/60 93 Room Air 12/30/16 17:00 36.7 56 16 152/60 94 Room Air 4.0 12/30/16 17:00 Room Air 12/30/16 16:45 55 18 132/55 95 Room Air 12/30/16 16:30 59 18 138/56 95 Room Air 12/30/16 16:15 57 18 142/66 96 Room Air 155/58 12/30/16 16:00 71 18 151/73 99 Nasal Cannula 4 12/30/16 12:20 Room Air 12/30/16 11:53 36.6 59 20 144/75 94 Room Air Physical Exam: General-awake; alert; NAD Eyes-EOMI; no scleral icterus Neck-no stridor; trachea midline Lungs-CTA bilaterally anteriorly Heart-RRR; no m/r/g Abdomen-soft; NTND; nBS Extremities-no c/c/e; no deformity Neuro-no focal deficits Laboratory Results: Last 24 Hours Test 12/29/16 20:36 12/30/16 01:10 12/30/16 06:32 12/30/16 08:13 Bedside Glucose 75 mg/dl 127 mg/dl Activated Partial Thromboplast Time 80.1 SECONDS 54.5 SECONDS Partial Thromboplastin Ratio 3.1 2.1 Creatine Kinase MB 1.2 ng/ml Creatine Kinase MB Ratio Troponin I 0.040 ng/ml White Blood Count 11.48 K/uL Red Blood Count 4.71 M/uL Hemoglobin 15.9 g/dL Hematocrit 44.8 % Mean Corpuscular Volume 95.1 fL Mean Corpuscular Hemoglobin 33.8 pg Mean Corpuscular Hemoglobin Concent 35.5 g/dl RDW Standard Deviation 44.1 fL RDW Coefficient of Variation 12.6 % Platelet Count 176 K/uL Mean Platelet Volume 10.5 fL Sodium Level 142 mmol/L Potassium Level 3.9 mmol/L Chloride Level 106 mmol/L Carbon Dioxide Level 29 mmol/L Anion Gap 7.0 mmol/L Blood Urea Nitrogen 13 mg/dl Creatinine 1.10 mg/dl Est Creatinine Clear Calc Drug Dose 65.4 ml/min Estimated GFR () 79.0 Estimated GFR (Non- 68.1 BUN/Creatinine Ratio 12.0 Random Glucose 143 mg/dl Estimated Average Glucose 157 mg/dl Hemoglobin A1c 7.1 % Calcium Level 8.7 mg/dl Magnesium Level 1.8 mg/dl Triglycerides Level 173 mg/dl Cholesterol Level 140 mg/dl HDL Cholesterol 26 mg/dl LDL Cholesterol, Calculated 79 mg/dl VLDL Cholesterol, Calculated 35 mg/dl Cholesterol/HDL Ratio 5.4 Test 12/30/16 09:25 12/30/16 09:29 12/30/16 11:28 12/30/16 15:10 Creatine Kinase MB 1.2 ng/ml Troponin I 0.039 ng/ml Creatine Kinase MB Ratio Bedside Glucose 138 mg/dl Kaolin Activated Coagulation Time 137 SECONDS Test 12/30/16 15:25 12/30/16 16:01 12/30/16 16:47 12/30/16 16:55 Kaolin Activated Coagulation Time 271 SECONDS 276 SECONDS 229 SECONDS White Blood Count 12.75 K/uL Red Blood Count 4.51 M/uL Hemoglobin 15.4 g/dL Hematocrit 42.5 % Mean Corpuscular Volume 94.2 fL Mean Corpuscular Hemoglobin 34.1 pg Mean Corpuscular Hemoglobin Concent 36.2 g/dl Platelet Count 163 K/uL Mean Platelet Volume 10.2 fL Neutrophils (%) (Auto) 74.4 % Lymphocytes (%) (Auto) 13.8 % Monocytes (%) (Auto) 7.3 % Eosinophils (%) (Auto) 4.0 % Basophils (%) (Auto) 0.3 % Neutrophils # (Auto) 9.48 K/uL Lymphocytes # (Auto) 1.76 K/uL Monocytes # (Auto) 0.93 K/uL Eosinophils # (Auto) 0.51 K/uL Basophils # (Auto) 0.04 K/uL RDW Standard Deviation 43.3 fL RDW Coefficient of Variation 12.6 % Immature Granulocyte % (Auto) 0.2 % Immature Granulocyte # (Auto) 0.03 K/uL Test 12/30/16 17:18 Bedside Glucose 100 mg/dl Date/Time Source Procedure Growth Status 12/30/16 00:00 Nasal MRSA DNA Surveillance Screen Pending Received Assessment & Plan CHEST PAIN Presented with accelerating angina Cardiology consulted [facility] with PCI 12/30/16 Continue Integrilin for 18 hours TTE with pEF, no wall motion abnormalities and grade 2 diastolic dysfunction Continue aspirin, losartan, metoprolol (atenolol was discontinued), atorvastatin , clopidogrel HYPERTENSION Continue Losartan and metoprolol DM TYPE 2 Hold PO medications Insulin sliding scale coverage HYPOTHYROIDISM Continue levothyroxine DVT PROPHYLAXIS SCD's CODE STATUS Full code Consultants: Cardiology Procedures: TTE * Normal LV chamber size with mild concentric LVH. * Normal LV systolic function, EF 55-60%. * No segmental left ventricular wall motion abnormalities are noted. * Grade II diastolic dysfunction. * Aortic valve sclerosis mild, without significant aortic valvular stenosis. [facility] A 6 Indian 3DRC guide catheter was 1st used to cannulate the vein graft. Through this guide catheter a [place] guidewire was attempted to be passed through the vein graft stenosis. The catheter would not traverse a previously deployed 2.5 x 18 millimeter bare metal stent. This stent was located proximal to the stenosis. The guide catheter did not provide good backup. It was exchanged for a 6 Indian left coronary bypass guide catheter. This catheter would not cannulate the vein graft. The vein graft was recannulated with the 3DRC guide catheter. A luge guidewire was able to traverse the previous stent. Its tip was placed in the left circumflex marginal. A 2.5 x 12 millimeter Medtronic Resolute drug-eluting stent was then advanced over the wire. It was deployed in a primary fashion to the stenosis in the mid segment of the vein graft. It was placed in overlapping fashion with the previously deployed bare metal stent. it was deployed at a pressure of 16 atmospheres for duration of 45 seconds. The overlap site of the stents was post dilated with the stent delivery balloon to a pressure of 16 atmospheres for duration of 15 seconds. Intravenous Integrilin and heparin had been given prior to intervention. A therapeutic activated clotting time was documented. It was then attempted to perform repeat angiography after the stent delivery balloon was withdrawn. However, the guide catheter lost position. Guidewire position was lost. Follow -up angiography was then performed with the guide catheter without the guidewire in place. On initial angiography there was no Re flow in the distal segment of the vein graft to the LAD diagonal. After administration of intra coronary nicardipine WILY 3 flow was established. There is no evidence of dissection, thrombus, perforation, or distal embolic event on final angiography. Angiography was performed from orthogonal projections. At the completion of procedure the patient was without any anginal-type complaints. He is hemodynamically stable. Current Inpatient Medications: Current Inpatient Medications Medications (Trade) Dose Ordered Sig/Laure Route Start Time Stop Time Status Last Admin Dose Admin Acetaminophen (Tylenol Tab) 650 mg Q4H PRN PO 12/29/16 19:30 01/28/17 19:29 Al Hydrox/Mg Hydrox/Simethicone (Maalox Max Susp) 15 ml Q4H PRN PO 12/29/16 19:30 01/28/17 19:29 Magnesium Hydroxide (Milk Of Magnesia Susp) 30 ml Q12H PRN PO 12/29/16 19:30 01/28/17 19:29 Zolpidem Tartrate (Ambien Tab) 5 mg HSZ PRN PO 12/29/16 19:30 01/28/17 19:29 Ondansetron HCl (Zofran Inj) 4 mg Q6H PRN IV 12/29/16 19:30 01/28/17 19:29 Nitroglycerin (Nitrostat Tab) 0.4 mg UD PRN SL 12/29/16 19:30 01/28/17 19:29 Polyethylene (Miralax Powder Packet) 17 gm DAILY PRN PO 12/29/16 19:30 01/28/17 19:29 Aspirin (Ecotrin Tab) 81 mg DAILY PO 12/30/16 09:00 01/29/17 08:59 12/30/16 07:34 81 MG Atorvastatin Calcium (Lipitor Tab) 80 mg DAILY PO 12/29/16 21:30 01/28/17 21:29 12/30/16 07:34 80 MG Clopidogrel Bisulfate (plAVix TAB) 75 mg DAILY PO 12/29/16 21:30 01/28/17 21:29 12/30/16 07:34 75 MG Levothyroxine Sodium (Synthroid Tab) 150 mcg DAILYBB PO 12/30/16 06:00 01/29/17 05:59 12/30/16 05:38 150 MCG Losartan Potassium (coZAAR TAB) 50 mg DAILY PO 12/30/16 09:00 01/29/17 08:59 12/30/16 07:34 50 MG Multivitamins/ Minerals (Multivitamin W/ Minerals Tab) 2 tab QAM PO 12/30/16 09:00 01/29/17 08:59 12/30/16 07:34 2 TAB Metoprolol Tartrate (Lopressor Tab) 12.5 mg BID PO 12/29/16 21:30 01/28/17 21:29 12/30/16 07:34 12.5 MG Insulin Human Regular (novoLIN-R) SLIDING SCALE IF C... ACHS SC 12/29/16 21:00 01/28/17 20:59 Glucose (Glucose 40% Gel) 15-30 GRAMS 15 GRAMS... UD PRN PO 12/29/16 19:45 01/28/17 19:44 Glucose (Glucose Chew Tab) 4-8 Tablets 4 Tabl... UD PRN PO 12/29/16 19:45 01/28/17 19:44 Dextrose (Dextrose 50% 50ML Syringe) 25-50ML OF 50% DW IV FOR... UD PRN IV 12/29/16 19:45 01/28/17 19:44 Glucagon 1 mg 1 mg UD PRN SQ 12/29/16 19:45 01/28/17 19:44 Sodium Chloride (Nss 1000ml) 1,000 ml @ 125 mls/hr Q8H IV 12/30/16 16:30 01/29/17 16:29 12/30/16 17:31 125 MLS/HR Atropine Sulfate (Atropine Sulfate 0.1MG/Ml Inj) 0.5 mg ONE PRN IV 12/30/16 16:30 01/29/17 16:29 Ondansetron HCl (Zofran Inj) 4 mg Q6H PRN IV 12/30/16 16:30 01/29/17 16:29 Morphine Sulfate 2 mg 2 mg Q5M PRN IV 12/30/16 16:30 01/13/17 16:29 Eptifibatide (Integrilin Inj) 100 ml @ 14 mls/hr Q7H9M IV 12/30/16 22:00 12/31/16 09:30 Miscellaneous (Stop Order) 1 ea TODAY@0930 ONCE N/A 12/31/16 09:30 12/31/16 09:31
[2016-12-30] MEDS: EPTIFIBATIDE INJ 75 MG PREMIXED IV SCH (21:09)
[2016-12-31] VITALS: BP 125/64; PULSE 56; TEMP 36.6; O2SAT 93
[2016-12-31 02:01] VITALS: BP 146/57; PULSE 56; O2SAT 95
[2016-12-31 04:00] VITALS: BP 147/69; PULSE 59; TEMP 36.6; O2SAT 95
[2016-12-31] MEDS: EPTIFIBATIDE INJ 75 MG PREMIXED IV SCH (04:43)
[2016-12-31] MEDS: SODIUM CHLORIDE 0.9% 1000ML 1,000 ML IV SCH (04:44)
[2016-12-31 05:48] LABS: BUN/CREATININE RATIO 10.2 (10-20); CALCIUM 8.3 mg/dl (8.5-10.1); CREATININE 1.2 mg/dl (0.60-1.40); MAGNESIUM 1.9 mg/dl (1.8-2.4)
[2016-12-31 05:51] LABS: BASO % 0.3 %; BASO ABS # 0.03 K/uL (0-0.2); COMPLETE YES; EOS % 4.2 %; IG% 0.2 %; LYMPH % 16.6 %; LYMPH ABS # 1.79 K/uL (1.2-3.4); MEAN CELL VOLUME 93.8 fL (80-100); MEAN CORPUSCULAR HEMOGLOBIN 33.4 pg (25-34); MEAN CORPUSCULAR HGB CONC 35.6 g/dl (32-36); MEAN PLATELET VOLUME 10.3 fL (7.4-10.4); MONO % 8.3 %; NEUT % 70.4 %; PLATELET COUNT 176 K/uL (130-400); RED BLOOD COUNT 4.37 M/uL (4.7-6.1); WHITE BLOOD COUNT 10.81 K/uL (4.8-10.8)
[2016-12-31] MEDS: LEVOTHYROXINE 150 MCG TAB PO SCH (06:26)
[2016-12-31 08:00] VITALS: BP 131/72; PULSE 62; TEMP 36.6; O2SAT 96
[2016-12-31] MEDS ORDERED: CLOPIDOGREL BISULFATE 75 MG TAB PO SCH (09:00)
[2016-12-31] MEDS ORDERED: METOPROLOL TARTRATE 25 MG TAB PO SCH (09:05)
[2016-12-31] MEDS: INSULIN HUMAN REGULAR SC SCH (09:06)
[2016-12-31] MEDS: ATORVASTATIN 40 MG TAB PO SCH (09:07)
[2016-12-31] MEDS: ASPIRIN 81 MG ECTAB PO SCH (09:07)
[2016-12-31] MEDS: CLOPIDOGREL BISULFATE 75 MG TAB PO SCH (09:07)
[2016-12-31] MEDS: CEROVITE ADV FORMULA TAB PO SCH (09:08)
[2016-12-31] MEDS: LOSARTAN POTASSIUM 50 MG TAB PO SCH (09:08)
[2016-12-31] MEDS ORDERED: Integrelin infusion --> STOP ORDER ONE (09:30)
--- NOTE | 2016-12-31 09:33 | Critical Care Progress Note ---
Critical Care Progress Note Date of Service Dec 31, 2016. ICU Day ICU Day Number: [address] Morton Subjective Feels well today. Slept well overnight. No further chest pain. No cath site pain or drainage. Objective General Appearance: well-appearing, WD/WN, no apparent distress Head: normocephalic, atraumatic Eyes: PERRLA, no discharge ENT: poor dentition (missing front teeth) Neck: no tenderness, trachea midline, supple Respiratory: breath sounds normal, clear to auscultation, clear to percussion Cardiovasular: regular rate/rhythm, normal S1S2, no M/G/R Abdomen: non tender, normal bowel sounds, no rebound, no guarding Back: other (laying flat ) Upper Extremities: no edema Lower Extremities: no edema, no deformity, normal ROM Neuro: alert, oriented x 3 Psychiatric: normal affect Assessment & Plan Problem list: 1. Successful PCI s/p cardiac catheterization 2. Known CAD, s/p CABG x 5 vessels 3. Persistent tobacco use 4. Hyperlipidemia 5. Type 2 DM 6. History of paroxysmal atrial fibrilltation 7. Hypertension 8. Hypothyroidism NEURO: GCS 15. For pain, has morphine / Tylenol ordered. CVS: Completed 18 hours of Integrillin. Home meds restarted/ adjusted per Cardiology. RESP: Oxygenating well. Continue to monitor. ENDO: Metformin on hold. Insulin sliding scale coverage. Restart Synthroid when taking PO. RENAL: Electrolytes WNL, will continue to monitor. GI/NUTRITION: Regular diet HEME: Hb/Hct stable. CODE STATUS: FULL The patient was discharged home 12/31/16. Resident Physician Supervision Note: Dr. Nichole was resident physician during care of patient. I separately evaluated patient and did history and exam. I discussed the case with the resident and generally agree with the findings and plan. Discharge today per cardiology Documented By: Omkra Morton DO Consults & Procedures Consultants: Dr Colby Procedures: Cardiac Cath, 12/30/16 Data Medications: Current Inpatient Medications Medications (Trade) Dose Ordered Sig/Laure Route Start Time Stop Time Status Last Admin Dose Admin Acetaminophen (Tylenol Tab) 650 mg Q4H PRN PO 12/29/16 19:30 01/28/17 19:29 Al Hydrox/Mg Hydrox/Simethicone (Maalox Max Susp) 15 ml Q4H PRN PO 12/29/16 19:30 01/28/17 19:29 Magnesium Hydroxide (Milk Of Magnesia Susp) 30 ml Q12H PRN PO 12/29/16 19:30 01/28/17 19:29 Zolpidem Tartrate (Ambien Tab) 5 mg HSZ PRN PO 12/29/16 19:30 01/28/17 19:29 Nitroglycerin (Nitrostat Tab) 0.4 mg UD PRN SL 12/29/16 19:30 01/28/17 19:29 Polyethylene (Miralax Powder Packet) 17 gm DAILY PRN PO 12/29/16 19:30 01/28/17 19:29 Aspirin (Ecotrin Tab) 81 mg DAILY PO 12/30/16 09:00 01/29/17 08:59 12/31/16 09:07 81 MG Atorvastatin Calcium (Lipitor Tab) 80 mg DAILY PO 12/29/16 21:30 01/28/17 21:29 12/31/16 09:07 80 MG Clopidogrel Bisulfate (plAVix TAB) 75 mg DAILY PO 12/29/16 21:30 01/28/17 21:29 12/31/16 09:07 75 MG Levothyroxine Sodium (Synthroid Tab) 150 mcg DAILYBB PO 12/30/16 06:00 01/29/17 05:59 12/31/16 06:26 150 MCG Losartan Potassium (coZAAR TAB) 50 mg DAILY PO 12/30/16 09:00 01/29/17 08:59 12/31/16 09:08 50 MG Multivitamins/ Minerals (Multivitamin W/ Minerals Tab) 2 tab QAM PO 12/30/16 09:00 01/29/17 08:59 12/31/16 09:08 2 TAB Insulin Human Regular (novoLIN-R) SLIDING SCALE IF C... ACHS SC 12/29/16 21:00 01/28/17 20:59 Glucose (Glucose 40% Gel) 15-30 GRAMS 15 GRAMS... UD PRN PO 12/29/16 19:45 01/28/17 19:44 Glucose (Glucose Chew Tab) 4-8 Tablets 4 Tabl... UD PRN PO 12/29/16 19:45 01/28/17 19:44 Dextrose (Dextrose 50% 50ML Syringe) 25-50ML OF 50% DW IV FOR... UD PRN IV 12/29/16 19:45 01/28/17 19:44 Glucagon 1 mg 1 mg UD PRN SQ 12/29/16 19:45 01/28/17 19:44 Sodium Chloride (Nss 1000ml) 1,000 ml @ 125 mls/hr Q8H IV 12/30/16 16:30 01/29/17 16:29 12/31/16 04:44 125 MLS/HR Atropine Sulfate (Atropine Sulfate 0.1MG/Ml Inj) 0.5 mg ONE PRN IV 12/30/16 16:30 01/29/17 16:29 Ondansetron HCl (Zofran Inj) 4 mg Q6H PRN IV 12/30/16 16:30 01/29/17 16:29 Morphine Sulfate 2 mg 2 mg Q5M PRN IV 12/30/16 16:30 01/13/17 16:29 Eptifibatide (Integrilin Inj) 100 ml @ 14 mls/hr Q7H9M IV 12/30/16 22:00 12/31/16 09:30 12/31/16 04:43 14 MLS/HR Miscellaneous (Stop Order) 1 ea TODAY@0930 ONCE N/A 12/31/16 09:30 12/31/16 09:31 Metoprolol Tartrate (Lopressor Tab) 25 mg BID PO 12/31/16 09:05 01/30/17 09:04 UNV I & O: 24-Hour Column 12/31/16 08:00 Intake Total 2252 ml Output Total 1050 ml Balance 1202 ml Vital Signs: Date Time Temp Pulse Resp B/P Pulse Ox O2 Delivery O2 Flow Rate FiO2 12/31/16 04:00 Room Air 12/31/16 04:00 36.6 59 16 147/69 95 Room Air 12/31/16 02:01 56 11 146/57 95 Room Air 12/31/16 00:00 36.6 56 13 125/64 93 Room Air 12/31/16 00:00 Room Air 12/30/16 22:30 56 16 126/65 96 Room Air 12/30/16 22:00 54 16 126/64 94 12/30/16 21:45 54 16 136/69 94 12/30/16 21:30 56 16 145/74 95 4/10/17 21:15 55 15 154/75 95 12/30/16 21:00 54 12 121/67 95 12/30/16 20:50 53 12 136/67 94 12/30/16 20:48 58 16 142/70 95 12/30/16 20:46 54 18 145/68 94 12/30/16 20:44 53 16 137/66 95 12/30/16 20:42 56 16 132/71 94 12/30/16 20:40 57 17 123/63 95 12/30/16 20:40 57 17 123/63 95 12/30/16 20:38 56 16 123/68 94 12/30/16 20:36 55 13 139/70 94 12/30/16 20:34 54 11 145/73 95 12/30/16 20:32 57 15 161/74 94 12/30/16 20:30 55 16 138/73 97 12/30/16 20:28 50 16 148/64 95 12/30/16 20:00 36.4 52 16 145/74 95 Room Air 12/30/16 20:00 Room Air 12/30/16 20:00 36.6 55 11 149/56 95 12/30/16 19:45 54 16 125/62 95 12/30/16 19:00 52 16 159/57 96 12/30/16 18:47 53 16 143/53 95 Room Air 12/30/16 17:45 57 18 140/55 95 Room Air 12/30/16 17:30 56 16 138/53 94 Room Air 12/30/16 17:15 59 13 129/50 95 12/30/16 17:11 36.7 63 16 144/67 94 Room Air 12/30/16 17:00 36.7 61 16 147/54 94 Room Air 12/30/16 17:00 56 16 152/60 93 Room Air 12/30/16 17:00 36.7 56 16 152/60 94 Room Air 4.0 12/30/16 17:00 Room Air 12/30/16 16:45 55 18 132/55 95 Room Air 12/30/16 16:30 59 18 138/56 95 Room Air 12/30/16 16:15 57 18 142/66 96 Room Air 155/58 12/30/16 16:00 71 18 151/73 99 Nasal Cannula 4 12/30/16 12:20 Room Air 12/30/16 11:53 36.6 59 20 144/75 94 Room Air 12/30/16 09:38 Room Air Laboratory Results: Last 24 Hours Test 12/30/16 11:28 12/30/16 15:10 12/30/16 15:25 12/30/16 16:01 Bedside Glucose 138 mg/dl Kaolin Activated Coagulation Time 137 SECONDS 271 SECONDS 276 SECONDS Test 12/30/16 16:47 12/30/16 16:55 12/30/16 17:18 12/30/16 19:06 Kaolin Activated Coagulation Time 229 SECONDS 167 SECONDS White Blood Count 12.75 K/uL Red Blood Count 4.51 M/uL Hemoglobin 15.4 g/dL Hematocrit 42.5 % Mean Corpuscular Volume 94.2 fL Mean Corpuscular Hemoglobin 34.1 pg Mean Corpuscular Hemoglobin Concent 36.2 g/dl Platelet Count 163 K/uL Mean Platelet Volume 10.2 fL Neutrophils (%) (Auto) 74.4 % Lymphocytes (%) (Auto) 13.8 % Monocytes (%) (Auto) 7.3 % Eosinophils (%) (Auto) 4.0 % Basophils (%) (Auto) 0.3 % Neutrophils # (Auto) 9.48 K/uL Lymphocytes # (Auto) 1.76 K/uL Monocytes # (Auto) 0.93 K/uL Eosinophils # (Auto) 0.51 K/uL Basophils # (Auto) 0.04 K/uL RDW Standard Deviation 43.3 fL RDW Coefficient of Variation 12.6 % Immature Granulocyte % (Auto) 0.2 % Immature Granulocyte # (Auto) 0.03 K/uL Bedside Glucose 100 mg/dl Test 12/30/16 19:51 12/30/16 20:05 12/30/16 20:24 12/31/16 05:00 Bedside Glucose 88 mg/dl Kaolin Activated Coagulation Time 152 SECONDS 142 SECONDS White Blood Count 10.81 K/uL Red Blood Count 4.37 M/uL Hemoglobin 14.6 g/dL Hematocrit 41.0 % Mean Corpuscular Volume 93.8 fL Mean Corpuscular Hemoglobin 33.4 pg Mean Corpuscular Hemoglobin Concent 35.6 g/dl Platelet Count 176 K/uL Mean Platelet Volume 10.3 fL Neutrophils (%) (Auto) 70.4 % Lymphocytes (%) (Auto) 16.6 % Monocytes (%) (Auto) 8.3 % Eosinophils (%) (Auto) 4.2 % Basophils (%) (Auto) 0.3 % Neutrophils # (Auto) 7.62 K/uL Lymphocytes # (Auto) 1.79 K/uL Monocytes # (Auto) 0.90 K/uL Eosinophils # (Auto) 0.45 K/uL Basophils # (Auto) 0.03 K/uL RDW Standard Deviation 43.3 fL RDW Coefficient of Variation 12.5 % Immature Granulocyte % (Auto) 0.2 % Immature Granulocyte # (Auto) 0.02 K/uL Activated Partial Thromboplast Time 25.4 SECONDS Partial Thromboplastin Ratio 1.0 Sodium Level 142 mmol/L Potassium Level 4.0 mmol/L Chloride Level 107 mmol/L Carbon Dioxide Level 30 mmol/L Anion Gap 5.0 mmol/L Blood Urea Nitrogen 12 mg/dl Creatinine 1.20 mg/dl Est Creatinine Clear Calc Drug Dose 60.0 ml/min Estimated GFR () 71.1 Estimated GFR (Non- 61.3 BUN/Creatinine Ratio 10.2 Random Glucose 168 mg/dl Calcium Level 8.3 mg/dl Magnesium Level 1.9 mg/dl Test 12/31/16 06:27 Bedside Glucose 162 mg/dl Resident Tracking Resident Involvement: Resident Care Provided Care Provided: Adult Hospital Medicine
--- NOTE | 2016-12-31 10:16 | CARDIOLOGY PROGRESS NOTE ---
DATE: 12/31/2016 DATE: 12/31/2016. The patient seen and examined. Chart, medications, telemetry reviewed. SUBJECTIVE: The patient feels improved this morning. Right groin is intact. Notes no chest pains or shortness of breath. Notes no dizziness or lightheadedness. OBJECTIVE: VITAL SIGNS: Heart rate is 59, blood pressure is 147/69. NECK: Thin. There is no jugular venous distention. No carotid bruits. LUNGS: Clear. CARDIOVASCULAR EXAMINATION: Regular. There is no S3 gallop. ABDOMEN: Soft. EXTREMITIES: Reveal intact right groin. LABORATORY DATA: White cell count 10.8. Sodium is 142, potassium 4.0, chloride is 107, bicarbonate 30, BUN is 12, creatinine is 1.2. IMPRESSION: A 71-year-old male admitted with crescendo angina, acute coronary syndrome, status post successful coronary intervention with stenting of the vein graft to the diagonal sequentially to the ramus intermedius with good clinical result. PLAN: Continue previous outpatient medications including aspirin, clopidogrel with change from atenolol to Toprol 25 mg twice per day. Low threshold for outpatient adjustment losartan dose from 50 to 100 mg per day depending on blood pressure. Would continue current lipid reduction with atorvastatin 80 mg per day. Followup will be arranged with Dr. Samano in the next months' time. Cardiac rehab consultation will be placed to [facility].
[2016-12-31] MEDS ORDERED: LPR25 PO (10:32)
--- NOTE | 2016-12-31 10:35 | Discharge Instructions ---
Discharge Instructions Date of Service Dec 31, 2016. Admission Reason for Admission: Nstemi (Non-St Elevated Myocardial Infarction) Discharge Discharge Diagnosis / Problem: Non-St Elevated Myocardial Infarction Discharge Goals Goal(s): Improve disease control, Therapeutic intervention Activity Recommendations Activity Limitations: resume your previous activity . Instructions / Follow-Up Instructions / Follow-Up Please follow up with Cardiology Dr. Samano on January 09 on 9:45am. Atenolol has been stopped. Metoprolol 25mg twice a day was started. Please start this prescription this evening as your received a dose this morning in the hospital. Please wait to restart your Metformin until 01/02/17. Current Hospital Diet Patient's current hospital diet: AHA Diet (Heart Healthy), Diabetes Type 2 Diet Discharge Diet Recommended Diet: AHA Diet (Heart Healthy), Diabetes Type 2 Diet Pending Studies Studies pending at discharge: no Laboratory Results Hemoglobin A1c Test 12/30/16 08:13 Range/Units Estimated Average Glucose 157 mg/dl Hemoglobin A1c 7.1 H 4.5-5.6 % Lipid Panel Test 12/30/16 08:13 Range/Units Triglycerides Level 173 H 0-150 mg/dl Cholesterol Level 140 0-200 mg/dl HDL Cholesterol 26 mg/dl Cholesterol/HDL Ratio 5.4 LDL Cholesterol, Calculated 79 mg/dl Medical Emergencies . Who to Call and When: Medical Emergencies: If at any time you feel your situation is an emergency, please call 911 immediately. . Non-Emergent Contact Non-Emergency issues call your: Primary Care Provider, Copper Plate [employer]inter . . "Provider Documentation" section prepared by Ivonne Singh. VTE Core Measure Inpt VTE Proph given/why not?: Other Anticoagulation
--- NOTE | 2016-12-31 10:40 | Discharge Summary ---
Discharge Summary Date of Service Dec 31, 2016. Discharge Summary Admission Date: Dec 29, 2016 at 19:27 Discharge Date: Dec 31, 2016 Discharge Disposition: Home Principal Diagnosis: NSTEMI s/p PCI Procedures: TTE * Normal LV chamber size with mild concentric LVH. * Normal LV systolic function, EF 55-60%. * No segmental left ventricular wall motion abnormalities are noted. * Grade II diastolic dysfunction. * Aortic valve sclerosis mild, without significant aortic valvular stenosis. [facility] A 6 Nigerien 3DRC guide catheter was 1st used to cannulate the vein graft. Through this guide catheter a Sandy guidewire was attempted to be passed through the vein graft stenosis. The catheter would not traverse a previously deployed 2.5 x 18 millimeter bare metal stent. This stent was located proximal to the stenosis. The guide catheter did not provide good backup. It was exchanged for a 6 Nigerien left coronary bypass guide catheter. This catheter would not cannulate the vein graft. The vein graft was recannulated with the 3DRC guide catheter. A luge guidewire was able to traverse the previous stent. Its tip was placed in the left circumflex marginal. A 2.5 x 12 millimeter Medtronic Resolute drug-eluting stent was then advanced over the wire. It was deployed in a primary fashion to the stenosis in the mid segment of the vein graft. It was placed in overlapping fashion with the previously deployed bare metal stent. it was deployed at a pressure of 16 atmospheres for duration of 45 seconds. The overlap site of the stents was post dilated with the stent delivery balloon to a pressure of 16 atmospheres for duration of 15 seconds. Intravenous Integrilin and heparin had been given prior to intervention. A therapeutic activated clotting time was documented. It was then attempted to perform repeat angiography after the stent delivery balloon was withdrawn. However, the guide catheter lost position. Guidewire position was lost. Follow -up angiography was then performed with the guide catheter without the guidewire in place. On initial angiography there was no Re flow in the distal segment of the vein graft to the LAD diagonal. After administration of intra coronary nicardipine WILY 3 flow was established. There is no evidence of dissection, thrombus, perforation, or distal embolic event on final angiography. Angiography was performed from orthogonal projections. At the completion of procedure the patient was without any anginal-type complaints. He is hemodynamically stable. Consultations: Cardiology Medication Reconciliation New Medications: Metoprolol Tartrate (Lopressor) 25 Mg Tab 25 MG PO BID for 30 Days, #60 TAB Continued Medications: Aspirin (Aspirin Ec) 81 Mg Tab 81 MG PO DAILY Atorvastatin (Lipitor) 80 Mg Tab 80 MG PO DAILY, TAB Clopidogrel (Plavix) 75 Mg Tab 75 MG PO DAILY, TAB Glimepiride (Glimepiride) 2 Mg Tab 1 TAB PO UD for 90 Days, TAB 3 Refills 1 tablet with smaller meals and 2 tablets with largest meal tonya the day Levothyroxine Sodium (Levothyroxine Sodium) 150 Mcg Tab 1 TAB PO DAILY for 90 Days, #90 TAB 3 Refills Losartan Potassium (Cozaar) 50 Mg Tab 50 MG PO DAILY, TAB Metformin Hcl (Glucophage) 1,000 Mg Tab 1000 MG PO BID, TAB Multiple Vitamins W/ Minerals (Adult Gummy) 1 Chw Chw 1 TABS PO DAILY Nitroglycerin (Nitrostat) 0.4 Mg Tab 0.4 MG UT PRN, BTL Discontinued Medications: Atenolol (Tenormin) 50 Mg Tab 50 MG PO DAILY, TAB Admission Information HPI (per Admitting provider): This is a 71 year old male with PMH of CAD s/p CABG and stent, remote hx of post -op PAF after CABG no longer on anticoagulation, DM type 2, HTN, hypothyroidism , and other problems listed below who presents to the ED with chest pain. Pt follows with [facility] cardiology. Patient was recently hospitalized at [facility] from 12/22-12/23 for similar chest pain and MD was ruled out with negative troponin x 3. He was seen in clinic for follow up by Analilia Ulloa PA-C. He is scheduled for stress test Jan 20 2017. He states yesterday after cleaning up small rocks in the yard then walking outside he "was not feeling right" and felt short of breath which resolved. Usually he could tolerate such activity without becoming SOB. Then today he was walking uphill on the road around 4 pm and developed substernal chest tightness. He reports associated numbness radiating to his left arm and shortness of breath. He went inside and took nitro which relieved his symptoms within minutes. Since then he is feeling asymptomatic. Patient denies diaphoresis, dizziness, syncope, URI symptoms, cough, palpitations, nausea, vomiting, diarrhea, urinary changes, calf pain, edema, weight gain, abnormal bleeding. Physical Exam (per Admitting): General Appearance: WD/WN, no apparent distress, + pertinent finding ( pleasant 71 year old male, in good spirits, lying in bed, no distress, at bedside) Head: normocephalic, atraumatic Eyes: normal inspection, PERRL, EOMI ENT: hearing grossly normal, pharynx normal Neck: supple, no JVD, trachea midline Respiratory/Chest: chest non-tender, lungs clear, normal breath sounds, no respiratory distress, no accessory muscle use Cardiovascular: regular rate, rhythm, no murmur Abdomen/GI: normal bowel sounds, non tender, soft Extremities/Musculoskelatal: no calf tenderness (grossly nonfocal), no pedal edema Neurologic/Psych: alert, normal mood/affect, oriented x 3, + pertinent finding Skin: normal color, warm/dry Hospital Course Patient presented with symptom of accelerating angina. Cardiology was consulted. Patient had LHC with PCI on 12/30/16. Patient received Integrilin post procedure. TTE showed pEF, no wall motion abnormalities and grade 2 diastolic dysfunction. Atenolol was discontinued and patient was started on metoprolol. The remainder of patient's medications were continued on discharge. Patient was instructed to hold metformin for 48 hours post catheterization and then resume. Patient deemed stable for discharge with Cardiology follow up. PE on discharge: General- awake; alert; NAD Eyes- EOMI; no scleral icterus Neck- no stridor; trachea midline Lungs- CTA bilaterally; no wheezes/crackles Heart- RRR; no m/r/g Abdomen- soft; NTND; nBS Back- no gross abnormalities Extremities- no c/c/e; no deformity Neuro- no focal deficits Skin- no rash or bruise . Total time spent on discharge = This includes examination of the patient, discharge planning, medication reconciliation, and communication with other providers. Discharge Instructions Discharge Instructions Date of Service Dec 31, 2016. Admission Reason for Admission: Nstemi (Non-St Elevated Myocardial Infarction) Discharge Discharge Diagnosis / Problem: Non-St Elevated Myocardial Infarction Discharge Goals Goal(s): Improve disease control, Therapeutic intervention Activity Recommendations Activity Limitations: resume your previous activity . Instructions / Follow-Up Instructions / Follow-Up Please follow up with Cardiology Dr. Samano on January 09 on 9:45am. Atenolol has been stopped. Metoprolol 25mg twice a day was started. Please start this prescription this evening as your received a dose this morning in the hospital. Please wait to restart your Metformin until 01/02/17. Current Hospital Diet Patient's current hospital diet: AHA Diet (Heart Healthy), Diabetes Type 2 Diet Discharge Diet Recommended Diet: AHA Diet (Heart Healthy), Diabetes Type 2 Diet Pending Studies Studies pending at discharge: no Laboratory Results Hemoglobin A1c Test 12/30/16 08:13 Range/Units Estimated Average Glucose 157 mg/dl Hemoglobin A1c 7.1 H 4.5-5.6 % Lipid Panel Test 12/30/16 08:13 Range/Units Triglycerides Level 173 H 0-150 mg/dl Cholesterol Level 140 0-200 mg/dl HDL Cholesterol 26 mg/dl Cholesterol/HDL Ratio 5.4 LDL Cholesterol, Calculated 79 mg/dl Medical Emergencies . Who to Call and When: Medical Emergencies: If at any time you feel your situation is an emergency, please call 911 immediately. . Non-Emergent Contact Non-Emergency issues call your: Primary Care Provider, Site Identification Specialist . . "Provider Documentation" section prepared by Ivonne Singh. VTE Core Measure Inpt VTE Proph given/why not?: Other Anticoagulation Additional Copies To Vick Samano D.O.
[2016-12-31 10:57] VITALS: BP 131/72; PULSE 62; TEMP 36.6; O2SAT 96
--- NOTE | 2017-01-03 17:53 | CARDIAC CATH REPORT ---
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 BRIEF HISTORY OF PRESENT ILLNESS: The patient is a 71-year-old male who carries a history of prior coronary bypass grafting, receiving a ARREOLA graft to the LAD, a saphenous vein graft to the right coronary artery, a saphenous vein graft to an obtuse marginal and a sequential saphenous ferrara grafts from the ramus to the first diagonal branch in 2002. In 2014, he underwent coronary intervention with stenting of the vein graft to the ramus diagonal with bare metal stent. There was noted chronic severe multivessel disease and moderate eccentric lesion in the mid vein graft to the right coronary artery. He presents now with symptoms of chest pain with exertion in a crescendo pattern with recent hospitalization for similar symptoms in the last month at [facility]. Initial enzymes are mildly elevated. Anginal pattern is 3+. He has had no heart failure. He has had no history of cardiogenic shock. PROCEDURE: Left heart catheterization, coronary and graft angiography. ACCESS: Right femoral artery. CATHETERS: A 5-Monegasque arterial sheath, 5-Monegasque JL4, 5-[place]onegas[place] 3DRC, 5-[place]onegasque straight pigtail, 5-Monegasque left coronary bypass graft. MEDICATIONS: Prior to procedure, the patient received Valium 5 mg and Benadryl 25 mg p.o. CONTRAST: Nonionic x150 mL Visipaque. RADIATION EXPOSURE: Fluoroscopy 13.3 minutes, 2338 milligrays, DAP score 16,855. COMPLICATIONS: None. RESULTS: CORONARY ANGIOGRAPHY: 1. Left main: Left main is short and bifurcates to give rise to left anterior descending and left circumflex and a ramus intermedius. Left main is without disease. There is moderate calcification. 2. Left anterior descending: Left anterior descending is type 3 in distribution and is occluded shortly after its origin giving rise to a small septal branch that has a 100% occlusion. The distal vessel fills via the ARREOLA graft to the LAD with the vessel beyond the graft anastomosis and modest in caliber, but reached to the apex with moderate diffuse irregularities. It also fills retrograde from the graft anastomosis to near point of occlusion, but the overall caliber of the vessel is thin. 3. Ramus intermedius: This is occluded at its origin but fills via a vein graft anastomosis to the diagonal branch and ramus intermedius. The diagonal branch can be seen to be multi-branching and moderate in caliber. The ramus intermedius is long and trifurcating and has a good flow. 4. Left circumflex: Left circumflex is thin and diffusely diseased and has a long 70% in its origin. It is largest vessel. The obtuse marginal was occluded beyond the area of the obtuse marginal extending along the AV groove giving 2 small posterolateral branches. 5. Right coronary artery: The right coronary is dominant in distribution and is occluded at its origin. The distal vessel fills via right vein graft to its anastomosis. The right coronary at the acute margin is antegrade. It demonstrates thin caliber vessel and has a long 50% stenosis prior to the AV groove, along the AV groove a small posterior descending artery and 3 small posterior ventricular branches and retrograde to the vein graft fills the right coronary to its mid portion with this vessel being extremely thin in caliber. 6. ARREOLA graft to the LAD: This is a widely patent vessel with excellent flow and good distal anastomosis without compromise. 7. Saphenous vein graft sequentially to the ramus intermedius and diagonal branch. This is a graft that was previously stented, the area of previous stent is patent, but shortly after area stenting, there is an additional eccentric high grade 80-90% stenosis compromising both branches of the sequential graft. 8. Saphenous vein graft to the right coronary artery this is a large caliber graft that has a very eccentric venous valve in its mid portion, narrowing the vessel by 50-60% with similar to prior descriptions of the valve from last diagnostic cardiac catheterization. 9. Saphenous vein graft to the obtuse marginal. This graft is also widely patent and supplies a large obtuse marginal at its anastomosis point, antegrade demonstrating 3 subbranches, all of good caliber and flow. 10. LV angiography not performed. 11. Hemodynamics: Initial aortic root pressure was 145/50. LV pressure was 147/16. On pullback to the aortic root, there is no transaortic valve gradient. PROCEDURE DATA: The patient has a significant amount of scar tissue at the right femoral artery, was very difficult to access at this time access site and possibly extensive scar tissue formation at site of prior catheterizations and closure devices. FINAL IMPRESSIONS: 1. Severe [place] vessel coronary disease with 100% occlusion of the left anterior descending, 100% occlusion of the left anterior descending diagonal, 100% occlusion of the ramus intermedius, and 100% proximal occlusion of the right coronary artery and diffuse disease of the proximal circumflex with 100% occlusion of its largest obtuse marginal. 2. Patent left internal mammary artery graft to the left anterior descending. 3. Patent saphenous vein graft to the obtuse marginal. 4. Large saphenous vein graft to the right coronary artery with eccentric mid vessel area of ulceration versus turbulent flow and valvular area similar to prior discussion descriptions. 5. Saphenous vein graft sequential from the ramus intermedius to the diagonal with an eccentric high grade 80-90% stenosis distal to the area of prior stenting reflecting culprit lesion. RECOMMENDATIONS: The patient is referred in the same setting for coronary interventions of vein graft for indications class 3 angina pectoris. YANNICK
== END 2016-12-31 11:58 | disposition home or self-care (01) | DRG 247 ==
LOC: ENRESERVDT → ENRESERVTM → C.EDB 17:27 → C.2E 19:27 → C.MSICU 12-30 16:56
PROVIDERS: ADMIT Hospitalist; ATTEND Internal Medicine
PROC: B2121ZZ Fluoroscopy of Single Coronary Artery Bypass Graft using Low Osmolar Contrast (ICD-10-PCS; principal; 2016-12-30 11:00)
PROC: 027034Z Dilation of Coronary Artery, One Artery with Drug-eluting Intraluminal Device, Percutaneous Approach (ICD-10-PCS; principal; 2016-12-30 11:00)
DX: I21.4 Non-ST elevation (NSTEMI) myocardial infarction (principal); I25.810 Atherosclerosis of coronary artery bypass graft(s) without angina pectoris; I25.10 Atherosclerotic heart disease of native coronary artery without angina pectoris; E11.9 Type 2 diabetes mellitus without complications; I10 Essential (primary) hypertension; E78.5 Hyperlipidemia, unspecified; E03.9 Hypothyroidism, unspecified; F17.210 Nicotine dependence, cigarettes, uncomplicated; I25.2 Old myocardial infarction; Z95.1 Presence of aortocoronary bypass graft; Z95.5 Presence of coronary angioplasty implant and graft; Z79.82 Long term (current) use of aspirin; Z79.02 Long term (current) use of antithrombotics/antiplatelets; Z79.84 Long term (current) use of oral hypoglycemic drugs; Z79.899 Other long term (current) drug therapy

== ENCOUNTER → 2017-01-02 | Outpatient (CLI) | payer OTHER ==
[~2017-01-02] MED LIST: ASPI81TA28 PO; ATOR-26 PO; CLOP1TAB15 PO; GLIM2TAB2 PO; LEVO150T9 PO; LOSA50TA54 PO; LPR25 PO; METF-384 PO; MULT1CHW4 PO; NTRGSL/4 UT
[2017-01-02 14:59] LABS: BLOOD UREA NITROGEN 13 mg/dl (7-18); BUN/CREATININE RATIO 10.5 (10-20); CALCIUM 8.9 mg/dl (8.5-10.1); CARBON DIOXIDE 27 mmol/L (21-32); CHLORIDE 106 mmol/L (98-107); GLUCOSE 213 mg/dl (70-99); SODIUM 141 mmol/L (136-145)
== END | disposition home or self-care (01) ==
LOC: C.LABMFLN 08:15
DX: Z01.89 Encounter for other specified special examinations (principal)

== ENCOUNTER 2017-09-17 17:40 | Inpatient (IN) | payer OTHER ==
[~2017-09-17] VITALS: Ht 177.8 cm; Wt 83.0 kg
[2017-09-17] VITALS (11 sets, daily range): BP systolic 128–145; BP diastolic 64–82; PULSE 54–94; TEMP 36.6–36.7; O2SAT 94–97; Ht 177.8 cm; Wt 83.0 kg
[2017-09-17] MEDS ORDERED: SODIUM CHLORIDE 0.9% 1000ML 1,000 ML IV STA (17:44)
[2017-09-17] MEDS ORDERED: NITROGLYCERIN OINT 2% 1GM PACKET EXT ONE (17:45)
--- NOTE | 2017-09-17 17:49 | EMERGENCY ROOM VISIT NOTE ---
History Report prepared by Lane: Balbina Parisi Under the Supervision of: Dr. Ame Denton M.D. First contact with patient: 17:36 Chief Complaint: HEART ALERT Stated Complaint: HEART ALERT History of Present Illness The patient is a 72 year old male who presents to the Emergency Room with complaints of chest pain occurring at 1500 today. He states that he was cutting down wood when he got the pain. He also reports that he had pain down both of his arms and states that he was also dizzy, pale, and sweaty. He states that his pain is currently rated at a 1/10. Per nursing staff, the patient had 4 nitroglycerin and 324 mg of aspirin prior to arrival. The patient states that he has not had a cold recently. He reports a history of a CABG done 14 years ago. He states that he had a heart catheterization done in December but had no new stents placed. Source of History: patient Onset: 1500 today Position: chest Symptom Intensity: rated at a 1/10 Timing: intermittent Associated Symptoms: + diaphoresis, + weakness (dizziness) Note: additional symptom: pallor Review of Systems See HPI for pertinent positives & negatives. A total of 10 systems reviewed and were otherwise negative. Past Medical & Surgical Medical Problems: (1) CAD (coronary artery disease) (2) DM type 2 (diabetes mellitus, type 2) (3) Heart disease (4) Hypertension (5) Hypothyroidism (6) NSTEMI (non-ST elevated myocardial infarction) (7) Paroxysmal atrial fibrillation Surgical Problems: (1) H/O heart artery stent (2) S/P CABG x 5 (3) S/P coronary artery stent placement Family History Diabetes mellitus FATHER SISTER Social History Smoking Status: Current Every Day Smoker Marital Status: Housing Status: lives with family Occupation Status: retired Current/Historical Medications Scheduled Aspirin (Aspirin Ec), 81 MG PO DAILY Atorvastatin (Lipitor), 80 MG PO DAILY Clopidogrel (Plavix), 75 MG PO DAILY Glimepiride (Glimepiride), 2 MG PO QID Levothyroxine Sodium (Levothyroxine Sodium), 150 MCG PO DAILY Losartan Potassium (Cozaar), 50 MG PO DAILY Metformin Hcl (Glucophage), 1,000 MG PO BID Metoprolol Succ (Toprol Xl) (Toprol-Xl), 25 MG PO DAILY Multiple Vitamins W/ Minerals (Adult Gummy), 1 TABS PO DAILY Nitroglycerin (Nitrostat), 0.4 MG UT PRN Allergies Coded Allergies: No Known Allergies (Unverified , 12/29/16) Physical Exam Vital Signs Date Time Temp Pulse Resp B/P (MAP) Pulse Ox O2 Delivery O2 Flow Rate FiO2 09/17/17 20:30 66 137/67 (84) 95 09/17/17 20:15 54 128/64 (91) 09/17/17 20:12 54 131/66 (84) 95 09/17/17 19:55 56 18 140/77 (98) 95 Room Air 09/17/17 19:45 56 18 137/77 (97) 95 Room Air 09/17/17 17:58 62 18 100 Nasal Cannula 2.0 09/17/17 17:46 60 09/17/17 17:43 96 Room Air 09/17/17 17:43 36.6 69 18 170/79 97 Room Air 09/17/17 17:43 96 Nasal Cannula 2.0 Physical Exam Vital signs reviewed. General: Well-appearing male, in no significant distress. HEENT: No scleral icterus, PERRLA, neck supple. Atraumatic. Cardiovascular: Regular rate and rhythm, no extra sounds. Pulmonary: Clear to auscultation bilaterally, normal work of breathing. Abdomen: Soft, nontender, nondistended, positive bowel sounds. Musculoskeletal: Atraumatic, no peripheral edema. Neurologic: Patient awake alert and oriented x 3, full strength in all 4 extremities. Cranial nerves 2 through 12 grossly intact. Skin: Warm, dry, no rash Medical Decision & Procedures ER Provider Diagnostic Interpretation: Radiology results as stated below per my review and radiologist interpretation: CHEST ONE VIEW PORTABLE CLINICAL HISTORY: Heart alert. COMPARISON STUDY: Chest radiograph December 29, 2016. FINDINGS: There are median sternotomy wires and mediastinal surgical clips. Borderline cardiomegaly is noted without evidence of pulmonary edema. There is no consolidation. There is no pneumothorax or pleural effusion. IMPRESSION: No acute cardiopulmonary findings. Electronically signed by: Tonio Diehl M.D. 09/17/2017 6:07 PM Dictated Date/Time: 09/17/2017 5:57 PM Laboratory Results Test 09/17/17 17:42 09/17/17 17:47 09/17/17 17:52 09/17/17 19:33 Prothrombin Time 10.1 SECONDS (9.0-12.0) Prothromb Time International Ratio 1.0 (0.9-1.1) Activated Partial Thromboplast Time 21.7 SECONDS (21.0-31.0) Partial Thromboplastin Ratio 0.8 Total Bilirubin 0.5 mg/dl (0.2-1) Direct Bilirubin 0.1 mg/dl (0-0.2) Aspartate Amino Transf (AST/SGOT) 17 U/L (15-37) Alanine Aminotransferase (ALT/SGPT) 33 U/L (12-78) Alkaline Phosphatase 68 U/L (45-117) Total Creatine Kinase 142 U/L (39-308) Creatine Kinase MB 2.2 ng/ml (0.5-3.6) Creatine Kinase MB Ratio 1.5 (0-3.0) Total Protein 7.3 gm/dl (6.4-8.2) Albumin 4.0 gm/dl (3.4-5.0) Lipase 86 U/L (73-393) Bedside Troponin I < 0.030 ng/ml (0-0.045) Bedside Hemoglobin 14.6 g/dl (14.0-18.0) Bedside Hematocrit 43 % (42-52) Bedside Sodium 141 mEq/L (135-144) Bedside Potassium 4.5 mEq/L (3.3-5.0) Bedside Chloride 104 mEq/L (101-112) Bedside Total CO2 26 mEq/l (24-31) Bedside Blood Urea Nitrogen 17 mg/dl (7-18) Bedside Creatinine 1.3 mg/dl (0.6-1.3) Bedside Glucose (other) 218 mg/dl (70-99) Bedside Ionized Calcium (Melia) 1.12 mmol/l (1.12-1.32) Kaolin Activated Coagulation Time 230 SECONDS (94-140) Date/Time Source Procedure Growth Status 09/17/17 20:10 Nasal MRSA DNA Surveillance Screen - Final Specimen Negative for MRSA by DNA Probe Complete Laboratory results per my review. Medications Administered Medications (Trade) Dose Ordered Sig/Laure Route Start Time Stop Time Status Last Admin Dose Admin Sodium Chloride 1,000 ml @ 100 mls/hr Q10H STAT IV 09/17/17 17:44 09/17/17 20:38 DC 09/17/17 17:44 100 MLS/HR Midazolam HCl (Versed Inj) 2 mg STK-MED ONCE .ROUTE 09/17/17 17:50 09/17/17 17:51 DC 09/17/17 17:50 2 MG Fentanyl Citrate (Fentanyl Inj) 100 mcg STK-MED ONCE .ROUTE 09/17/17 17:50 09/17/17 17:51 DC 09/17/17 17:50 100 MCG Heparin Sodium (Porcine) (Heparin Iv Bolus) 10,000 unit STK-MED ONCE .ROUTE 09/17/17 17:50 09/17/17 17:51 DC 09/17/17 17:50 10,000 UNIT Nicardipine HCl (Cardene Iv) 25 mg STK-MED ONCE .ROUTE 09/17/17 17:50 09/17/17 17:51 DC 09/17/17 17:50 25 MG Heparin Sodium/ Sodium Chloride (Heparin Sod/Ns 2 Units/Ml) 3,000 unit STK-MED ONCE .ROUTE 09/17/17 17:50 09/17/17 17:51 DC 09/17/17 17:50 3,000 UNIT Nitroglycerin/ Dextrose (Nitroglycerin/ D5w 100 Mcg/Ml 20ML SYRINGE) 2,000 mcg STK-MED ONCE .ROUTE 09/17/17 17:50 09/17/17 17:51 DC 09/17/17 17:50 2,000 MCG Heparin Sodium (Porcine) (Heparin Iv Bolus) 10,000 unit STK-MED ONCE .ROUTE 09/17/17 18:37 09/17/17 18:38 DC 09/17/17 18:37 10,000 UNIT Eptifibatide (Integrilin Inj) 20 mg STK-MED ONCE IV 09/17/17 18:38 09/17/17 18:39 DC 09/17/17 18:38 20 MG Eptifibatide (Integrilin Inj) 20 mg STK-MED ONCE IV 09/17/17 18:38 09/17/17 18:39 DC 09/17/17 18:38 20 MG Eptifibatide (Integrilin Inj) 75 mg STK-MED ONCE IV 09/17/17 18:38 09/17/17 18:39 DC 09/17/17 18:38 75 MG Adenosine (Adenosine Iv) 6 mg STK-MED ONCE .ROUTE 09/17/17 19:10 09/17/17 19:11 DC 09/17/17 19:10 6 MG Atropine Sulfate (Atropine Sulfate) 1 mg STK-MED ONCE .ROUTE 09/17/17 19:18 09/17/17 19:19 DC 09/17/17 19:18 1 MG Clopidogrel Bisulfate (plAVix TAB) 300 mg STK-MED ONCE PO 09/17/17 19:50 09/17/17 19:51 DC 09/17/17 19:50 300 MG Sodium Chloride 1,000 ml @ 100 mls/hr Q10H IV 09/17/17 20:00 09/18/17 03:29 DC 09/17/17 20:05 100 MLS/HR Acetaminophen (Tylenol Tab) 650 mg Q4H PRN PO 09/17/17 20:00 10/17/17 19:59 09/19/17 00:15 650 MG ECG Indication: chest pain Rate (beats per minute): 58 Rhythm: sinus bradycardia, sinus with SA Findings: other (inferior ST elevation with reciprocal change ) ED Course 1742: Past medical records reviewed. The patient was evaluated in room B1. A complete history and physical examination was performed. 1744: Ordered Sodium Chloride 1,000 ml @ 100 mls/hr IV. 1745: Ordered Nitroglycerin 1 inch EXT. 1750: Ordered Nitroglycerin/Dextrose 2,000 mcg, Heparin Sodium/Sodium Chloride 3 ,000 unit, Cardene Iv 25 mg, Heparin Sodium (Porcine) 10,000 unit, Fentanyl Citrate 100 mcg, Versed Inj 2 mg. 1751: Dr. Yoo-Cardiology is taking the patient to the catheter lab. Medical Decision Differential Diagnoses: Acute coronary syndrome, pulmonary embolus, aortic dissection, musculoskeletal pain, pneumonia, pleural effusion, pneumothorax This patient was evaluated and appeared to be in no significant distress. IV access was obtained and laboratory work was drawn. The patient had received aspirin and nitroglycerin prior to arrival. IV hydration was initiated. A heart alert had been called prior to arrival. Dr. Yoo of interventional cardiology arrived in the emergency department. The patient was informed of the findings and Dr. Yoo plan to taken to the catheterization lab for the ST elevation CT on EKG. The patient is aware of the plan and agrees. Medication Reconcilliation Current Medication List: was personally reviewed by me Blood Pressure Screening Patient's blood pressure: Elevated blood pressure will be monitored by hospitalist Impression Primary Impression: STEMI (ST elevation myocardial infarction) Scribe Attestation The scribe's documentation has been prepared under my direction and personally reviewed by me in its entirety. I confirm that the note above accurately reflects all work, treatment, procedures, and medical decision making performed by me. Departure Information Dispostion Being Evaluated By Hospitalist Referrals No Doctor, Assigned (PCP) Patient Instructions My [facility]
[2017-09-17] MEDS ORDERED: NiCARDipine HCL INJ 2.5 MG/ML 10 ML AMP ONE (17:50)
[2017-09-17] MEDS ORDERED: MIDAZOLAM HCL 1 MG/ML 2ML VIAL ONE ×2 (17:50→19:01)
[2017-09-17] MEDS ORDERED: FENTANYL CITRATE INJ 50 MCG/1 ML 2 ML VIAL ONE ×2 (17:50→19:01)
[2017-09-17] MEDS ORDERED: HEPARIN SOD (PORCINE) 1000 UNIT/ML 10 ML VIAL ONE ×2 (17:50→18:37)
[2017-09-17] MEDS ORDERED: NITROGLYCERIN/D5W 100MCG/ML 20ML SYR ONE (17:50)
[2017-09-17 17:59] LABS: BASO % 0.4 %; BASO ABS # 0.05 K/uL (0-0.2); EOS % 1.7 %; EOS ABS # 0.24 K/uL (0-0.5); HEMATOCRIT 41.4 % (42-52); HEMOGLOBIN 14.4 g/dL (14.0-18.0); IG# 0.05 K/uL (0.00-0.02); LYMPH % 8.8 %; LYMPH ABS # 1.22 K/uL (1.2-3.4); MEAN CELL VOLUME 97.9 fL (80-100); MEAN CORPUSCULAR HGB CONC 34.8 g/dl (32-36); MEAN PLATELET VOLUME 10.1 fL (7.4-10.4); MONO % 6.9 %; MONO ABS # 0.95 K/uL (0.11-0.59); NEUT % 81.8 %; NEUT ABS # 11.33 K/uL (1.4-6.5); PLATELET COUNT 200 K/uL (130-400); RED CELL DISTRIBUTION WIDTH CV 13.7 % (11.5-14.5); RED CELL DISTRIBUTION WIDTH SD 48.4 fL (36.4-46.3); WHITE BLOOD COUNT 13.84 K/uL (4.8-10.8)
[2017-09-17 18:04] LABS: ISTAT CREATININE 1.3 mg/dl (0.6-1.3); ISTAT IONIZED CALCIUM 1.12 mmol/l (1.12-1.32); ISTAT POTASSIUM 4.5 mEq/L (3.3-5.0)
[2017-09-17] MEDS ORDERED: METO25TA3 PO (18:04)
[2017-09-17 18:08] LABS: PTT PATIENT 21.7 SECONDS (21.0-31.0)
--- NOTE | 2017-09-17 18:08 | DIAGNOSTIC IMAGING REPORT ---
CHEST ONE VIEW PORTABLE CLINICAL HISTORY: Heart alert. COMPARISON STUDY: Chest radiograph December 29, 2016. FINDINGS: There are median sternotomy wires and mediastinal surgical clips. Borderline cardiomegaly is noted without evidence of pulmonary edema. There is no consolidation. There is no pneumothorax or pleural effusion. IMPRESSION: No acute cardiopulmonary findings. Electronically signed by: Tonio Diehl M.D. 09/17/2017 6:07 PM Dictated Date/Time: 09/17/2017 5:57 PM
[2017-09-17 18:21] LABS: CALCIUM 9.1 mg/dl (8.5-10.1); CREATININE 1.51 mg/dl (0.60-1.40); POTASSIUM 4.4 mmol/L (3.5-5.1)
[2017-09-17 18:24] LABS: CKMB 2.2 ng/ml (0.5-3.6); TOTAL PROTEIN 7.3 gm/dl (6.4-8.2)
[2017-09-17] MEDS ORDERED: EPTIFIBATIDE 2 MG/ML 10 ML VIAL IV ONE ×2 (18:38)
[2017-09-17] MEDS ORDERED: EPTIFIBATIDE 0.75 MG/ML 75MG VIAL IV ONE (18:38)
[2017-09-17] MEDS ORDERED: ADENOSINE IV SOLN 3 MG/ML 2 ML VIAL ONE (19:10)
[2017-09-17] MEDS ORDERED: ATROPINE SULFATE 0.1 MG/ML 10 ML SYR ONE (19:18)
[2017-09-17] MEDS ORDERED: CLOPIDOGREL BISULFATE 300 MG TAB PO ONE (19:50)
[2017-09-17] MEDS ORDERED: SODIUM CHLORIDE 0.9% 1000ML 1,000 ML IV SCH (20:00)
[2017-09-17] MEDS ORDERED: EPTIFIBATIDE BOLUS / DRIP IV ONE (20:00)
[2017-09-17] MEDS ORDERED: NITROGLYCERIN 0.4 MG SL PER TAB CHARGE SL PRN (20:00)
[2017-09-17] MEDS ORDERED: ONDANSETRON INJ 2 MG/ML 2 ML VIAL IV PRN (20:00)
--- NOTE | 2017-09-17 20:05 | NUR ---
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 JOINER HELPER PLACED ON PATIENT AND DISPLAYS SR HR 90S-VSS-ABD SOFT, NONTENDER WITH +BS-SKIN APPEARS WARM, DRY AND INTACT WITH NO BLE EDEMA NOTED AND +PALPABLE PULSES PRESENT-LEFT GROIN CARDIAC CATH SITE INTACT WITH 2X2 AND TEGADERM-SLIGHT SWELLING NOTED-AREA APPEARS SOFT TO TOUCH WITH NO BRUISING AT THIS TIME-CLEAR LUNG SOUNDS HEARD-NS INFUSING @ 100 ML/HR WITH INTEGRILIN @ 2 MCG/KG/MIN VIA LEFT ARM IV SITE-ADMISSION PAPERWORK COMPLETED-PATIENT EDUCATED ON LYING FLAT IN BED POST CARDIAC CATH PROCEDURE-YELLOW SOCKS IN PLACE-PATIENT APPEARS CALM AND COMFORTABLE IN BED WITH CALL BARNARD IN REACH-DISCHARGE PLANNING UNKNOWN AT THIS TIME-PRIMARY NURSING CARE TRANSFERRED TO LAYO MOYER
--- NOTE | 2017-09-17 20:06 | Pre Sedation Assessment ---
Pre Sedation Assessment General Date of Sedation: Sep 17, 2017. Vital Signs Past 12 Hours Date Time Temp Pulse Resp B/P (MAP) Pulse Ox O2 Delivery O2 Flow Rate FiO2 09/17/17 19:55 56 18 140/77 (98) 95 Room Air 09/17/17 19:45 56 18 137/77 (97) 95 Room Air 09/17/17 17:58 62 18 100 Nasal Cannula 2.0 09/17/17 17:46 60 09/17/17 17:43 96 Room Air 09/17/17 17:43 36.6 69 18 170/79 97 Room Air 09/17/17 17:43 96 Nasal Cannula 2.0 Review Cardiovascular: regular rate, rhythm, no edema Lungs: chest non-tender, lungs clear Pre-Sedation Airway Assessment Smoking Status: Former Smoker Hx of Sleep Apnea: No Hx of difficult intubation: No Short Thick Neck: No Thyro-mental Distance: > 3 Finger Breadths Oral Cavity: Dental Abnormalities Mallampati Classification: Class III ASA Classification: Class IV Procedure Planning Contraindications for Sedation: None Current Medications Reviewed: Yes Notes The planned sedation has been discussed with the patient. Informed Consent was obtained. I have identified the patient, determined the appropriateness of sedation and have assessed the patient immediately prior to the procedure. All medicine(s) and interventions are by my order.
--- NOTE | 2017-09-17 20:06 | Post Sedation Assessment ---
Post Sedation Assessment General Date of Sedation Sep 17, 2017. Vital Signs: Vital Signs Past 12 Hours Date Time Temp Pulse Resp B/P (MAP) Pulse Ox O2 Delivery O2 Flow Rate FiO2 09/17/17 19:55 56 18 140/77 (98) 95 Room Air 09/17/17 19:45 56 18 137/77 (97) 95 Room Air 09/17/17 17:58 62 18 100 Nasal Cannula 2.0 09/17/17 17:46 60 09/17/17 17:43 96 Room Air 09/17/17 17:43 36.6 69 18 170/79 97 Room Air 09/17/17 17:43 96 Nasal Cannula 2.0 Post Procedure Recovery Score Activity: (2) Moves 4 extremities * Respiration: (2) Deep breath/cough Circulation: (2) +/-20% PreAnes Value Consciousness: (2) Fully Awake Oxygen Saturation: (2) > 92% On Room Air Post Anesthesia Score: 10 Discharge Sedation Level of Care: Fast Track Phase II Post Sedation Plan On clinical assessment, the patient appears to have tolerated the sedation without complications. Patient is recovering as anticipated. Patient will continue to be monitored by nursing and may be discharged when sedation discharge criteria are met per below protocol. Upon Completions of procedure and additional 15 minutes continue every 5 minute vital signs and the P.A.R. score; then discharge to a Phase I or Fast Track to Phase II per the following guidelines: * Discharge Patient to appropriate Phase II area if PAR is 8 or greater or return to pre- procedure baseline. The post - procedure orders will be as directed. * If PAR score is less than 8 or not return to pre-procedure baseline then patient will follow Phase I monitoring till PAR is reached for Phase II. The Phase I may be done in procedure room or may call to secure a Phase I area. * If naloxone or flumazenil are used for reversal, hold in Phase I for an additional 60 -120 minutes before discharge to Phase II. Please call the Sedation Physician to re-evaluate and complete post-note for discharge to Phase II area. Do NOT discharge from procedure sedation or Phase 1 until post- sedation evaluation note is complete by procedure /sedation MD Sedation Discharge Instructions to be given to the patient at discharge to home.
--- NOTE | 2017-09-17 20:10 | NUR ---
A: NOTED VERY MINOR SWELLING IN GRION. CMS INTACT IN LEFT LEG. CLASSIFIER TENDER RN AND RN FELT , DID NOT FEEL LIKE HEMATOMA. WILL CONTINUE TO MONITOR.
--- NOTE | 2017-09-17 20:29 | Cardiac Catheterization ---
Procedure Note Procedure Date Sep 17, 2017. Pre-Procedure Diagnosis STEMI AUC Score 9 Post-Procedure Diagnosis Severe CAD Procedure(s) Performed Coronary Angiography, Drug Eluting Stent, Bypass Graft Angiography, Femoral Artery Angiography Parole Supervisor Fredo Forming Department Supervisor(s) Cory Estimated Blood Loss 20 Medication(s) Atropine, Clopidogrel, Fentanyl, Heparin, Integrilin, Nicardipine, Nitroglycerin , Versed, Lidocaine 1%, Adenosine Summary of Findings Indication: STEMI/Heart Alert Access: 6Fr Left PECAN MALLOW DIPPER Catheters: JL4, JR4; Multipurpose guide Findings: LM - Luminal irregularities LAD - 95% mid stenosis; Competitive flow from ARREOLA in distal segment Circumflex - Diffuse 90% proximal stenosis; OM occluded ostially RCA - Occluded proximally Ramus - Occluded at ostium [id number] -- widely patent SVG-OM - Widely patent SVG-RCA - acutely occluded ARREOLA-LAD - not visualized - previously widely patent; competitive flow in LAD -- PCI -- Antithrombotic therapy: Heparin; Clopidogrel, Integrilin Procedure: SVG-RCA cannulated with MPA guide BMW wire passed across occlusion into [place] vessel SVG lesion predilated with 2.5 compliant balloon BMW wire exchanged for Filter wire placed in distal SVG Mid SVG stented with 3.5 x 38 [place] RICCO Proximal SVG stented with overlapping 3.5 x 15 [place] RICCO No-reflow post stenting Filter wire removed Treated with intra-vessel integrilin, and nitro, nicardipine and adenosine given through OTW balloon to distal vasculature with limited improvement. A 3rd RICCO placed to distal vein graft overlapping initial stent (3.5 x 22 [place]) TIMI1 flow persisted despite 2nd round of nitro, nicardipine and adenosine. Patient chest pain free, hemodynamically and electrically stable and procedure completed. Arterial Closure: StarClose Summary: 1. Inferior STEMI/Occluded SVG-RCA 2. Severe [place] vessel coronary artery disease -- unchanged from 12/2016 3. Patent SVG-OM, [id number] (prior stent patent). 4. Partially successful PCI of SVG-RCA with 3 overlapping RICCO (3.5 x 15, 3.5 x 38, 3.5 x 22 [place]) to vein graft with resolution of chest pain. 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 Continue integrilin infusion for 18 hours Continue dual-antiplatelet therapy indefinitely Trend troponins until peak, Check Echo Uptitrate beta-morgan/CECILIA as BP allows High-dose statin Consult cardiac Rehab Hemodynamics Rest Ao: 151/60/95 Final Ao: 125/50/73 LV: -- Recommendations PCI without planned CABG Specimens None Radiation Exposure (mGy) 3088 Contrast (mls) 110 Fluids (cc crystalloids) 180 Drains None Anesthesia Moderate Procedural Complication(s) None Disposition ICU ACC Data Cardiac Status Clinical evaluation leading to the procedure CAD Presntation: STEMI Anginal Classification: CCS IV Heart Failure: No, NYHA Class: CCS I Cardiogenic Shock w/in 24Hrs: No Cardiac Arrest w/in 24Hrs: No Imaging studies past 6 months: No Stress studies past 6 months: No Closure Device Percutaneous Entry Location: Femoral Closure Device: StarClose Recommendations: PCI without planned CABG PCI Indication: Immediate PCI for STEMI Lesion Segment Name: SVG-RCA Culprit Artery: Yes Stenosis Prior to Rx (%): 100 Chronic Total Occlusion: No IVUS: No FFR: No Pre-Procedure WILY Flow: 0 Previously Treated Lesion: No Lesion Complexity: High/C Lesion Length (mm): 30 Thrombus Present: Yes Bifurcation Lesion: No Guidewire Across Lesion: Yes Guidewire: Stenosis Post-Procedure (%): 0 Post-Procedure WILY Flow: 1 Device(s) Deployed: Yes Intraprocedure Events Significant Dissection: No Perforation: No
--- NOTE | 2017-09-17 20:45 | NUR ---
A: UPDATE TO [facility] AT BEDSIDE. DR. STACK LOOK AT LEFT GRION FELT SMALL HEMATOMA. DIRECT PRESSURE HELD FOR 15 MINUTES. CMS INTACT IN LEFT FOOT/LEG. WILL CONTINUE TO MONITOR.
--- NOTE | 2017-09-17 20:52 | Critical Care Consultation ---
Critical Care Consultation Date of Consultation: Sep 17, 2017. Attending Physician: Lyle Fatima MD Reason for Consultation: 72-year-old male status post PTCA with RICCO 3 to graft vein. Currently on Integrilin for 18 hours. Close cardiac monitoring in the acute setting. History of Present Illness Patient is a 72-year-old male with a significant past medical history of coronary artery disease with multiple interventions, hypertension, hyperlipidemia, chronic tobacco use, and diabetes who presented to the ER earlier this evening with an inferior STEMI requiring PTCA with RICCO 3 deployment to the SVG-RCA. Per interventional list and notes, the patient received 300 mg clopidogrel in the component lab tech as well as intra-vascular Integrilin , nitro, and adenosine. Post RICCO deployment, the vessel was noted to have "sluggish" flow. Regardless, the patient became chest pain free and has had no symptoms otherwise. At the time of transfer to ICU, the patient offers no complaints. He denies any chest discomfort as a point in his pain is 0/10. The patient reports that earlier today, while chopping wood, he developed central chest discomfort with radiation of pain down the bilateral arms. He equates this to his previous cardiac events. He contacted EMS and was brought emergently to the ER. The patient reports a significant history of CABG 5 as well as PCI 2 status post CABG. The patient does admit to continued smoking daily. Patient currently denies any headaches, dizziness, lightheadedness, chest pain, palpitations, shortness breath, pleuritic pain, nausea, vomiting, abdominal pain , or numbness/weakness to the extremities. Past Medical/Surgical History Medical Problems: (1) CAD (coronary artery disease) (2) DM type 2 (diabetes mellitus, type 2) (3) Heart disease (4) Hypertension (5) Hypothyroidism (6) NSTEMI (non-ST elevated myocardial infarction) (7) Paroxysmal atrial fibrillation Surgical Problems: (1) H/O heart artery stent (2) S/P CABG x 5 (3) S/P coronary artery stent placement Family History Diabetes mellitus FATHER SISTER noncontributory Social History Smoking Status: Current Every Day Smoker Smokeless Tobacco Use: No Alcohol Use: occasionally Drug Use: none Marital Status: Housing Status: lives with family Occupation Status: retired Allergies Coded Allergies: No Known Allergies (Unverified , 12/29/16) Home Medications Scheduled Aspirin (Aspirin Ec), 81 MG PO DAILY Atorvastatin (Lipitor), 80 MG PO DAILY Clopidogrel (Plavix), 75 MG PO DAILY Glimepiride (Glimepiride), 2 MG PO QID Levothyroxine Sodium (Levothyroxine Sodium), 150 MCG PO DAILY Losartan Potassium (Cozaar), 50 MG PO DAILY Metformin Hcl (Glucophage), 1,000 MG PO BID Metoprolol Succ (Toprol Xl) (Toprol-Xl), 25 MG PO DAILY Multiple Vitamins W/ Minerals (Adult Gummy), 1 TABS PO DAILY Nitroglycerin (Nitrostat), 0.4 MG UT PRN Current Inpatient Medications Current Inpatient Medications Medications (Trade) Dose Ordered Sig/Laure Route Start Time Stop Time Status Last Admin Dose Admin Nitroglycerin (Nitrostat Tab) 0.4 mg UD PRN SL 09/17/17 20:00 10/17/17 19:59 Sodium Chloride 1,000 ml @ 100 mls/hr Q10H IV 09/17/17 20:00 09/18/17 03:29 Ondansetron HCl (Zofran Inj) 4 mg Q6H PRN IV 09/17/17 20:00 10/17/17 19:59 Aspirin (Ecotrin Tab) 81 mg QAM PO 09/18/17 09:00 10/18/17 08:59 Atorvastatin Calcium (Lipitor Tab) 80 mg QAM PO 09/18/17 09:00 10/18/17 08:59 Acetaminophen (Tylenol Tab) 650 mg Q4H PRN PO 09/17/17 20:00 10/17/17 19:59 Levothyroxine Sodium (Synthroid Tab) 150 mcg DAILYBB PO 09/18/17 06:00 10/18/17 06:59 Losartan Potassium (coZAAR TAB) 50 mg DAILY PO 09/18/17 09:00 10/18/17 08:59 Metoprolol Succinate (Toprol Xl Tab) 25 mg DAILY PO 09/18/17 09:00 10/18/17 08:59 Multivitamins (Flintstones Complete Tab) 1 tab DAILY PO 09/18/17 09:00 10/18/17 08:59 Eptifibatide 100 ml @ 7 mls/hr [id number] IV 09/17/17 20:45 09/18/17 14:00 Miscellaneous (Stop Order) 1 ea TODAY@1400 ONCE N/A 09/18/17 14:00 09/18/17 14:01 Pantoprazole Sodium (Protonix Tab) 40 mg QAM PO 09/18/17 09:00 09/21/17 08:59 Pantoprazole Sodium (Protonix Tab) 40 mg 2100 ONCE PO 09/17/17 21:00 09/17/17 21:01 Clopidogrel Bisulfate (plAVix TAB) 75 mg QAM PO 09/18/17 09:00 10/18/17 08:59 Review of Systems A complete 10-point Review of Systems was discussed with the patient, with pertinent positives and negatives listed in the History of Present Illness. All remaining Review of Systems questions can be considered negative unless otherwise specified. Physical Exam Date Time Temp Pulse Resp B/P (MAP) Pulse Ox O2 Delivery O2 Flow Rate FiO2 09/17/17 19:55 56 18 140/77 (98) 95 Room Air 09/17/17 19:45 56 18 137/77 (97) 95 Room Air 09/17/17 17:58 62 18 100 Nasal Cannula 2.0 09/17/17 17:46 60 09/17/17 17:43 96 Room Air 09/17/17 17:43 36.6 69 18 170/79 97 Room Air 09/17/17 17:43 96 Nasal Cannula 2.0 VITAL SIGNS - Vital signs and nursing notes were reviewed. GENERAL - 72-year-old male appearing his stated age who is in no acute distress. Communicates well with provider and answers questions appropriately. HEAD - NC/AT. EYES - PERRL with EOMI bilaterally. Sclera anicteric. Palpebral conjunctiva pink and moist with no injection noted. EARS - No deformities of external structures noted on gross examination bilaterally. NOSE - Midline and without cyanosis. No epistaxis or purulent drainage noted. MOUTH/OROPHARYNX - Without perioral cyanosis. Buccal mucosa pink and moist and without leukoplakia. Tongue midline with equal elevation of palate bilaterally. NECK - Neck with FROM. Supple to palpation. LUNGS - Chest wall symmetric without accessory muscle use, intercostals retractions, or central cyanosis. Normal vesicular breath sounds CTA B/L. No wheezes, rales, or rhonchi appreciated. CARDIAC - RRR with S1/S2. No murmur, rubs, or gallops appreciated. No reproducible tenderness to palpation appreciated over the anterior chest wall. ABDOMEN - Abdominal contour flat and without pulsations or visible masses. BS normoactive all four quadrants. No tenderness, palpable masses, hepatosplenomegaly, or ascites noted. EXTREMITIES - No clubbing or peripheral cyanosis. No pretibial edema present. +3 /5 radial and dorsalis pedis pulses palpated throughout. +5/5 strength noted in UE/LE bilaterally. NEUROLOGIC - Cranial nerves II through XII grossly intact. Sensory intact to light touch throughout. PSYCH - A&Ox3 and cooperates fully with examiner. Pt is very pleasant and interacts well with examiner. Laboratory Results Last 24 Hours Test 09/17/17 17:42 09/17/17 17:52 09/17/17 18:30 09/17/17 19:33 White Blood Count 13.84 K/uL Red Blood Count 4.23 M/uL Hemoglobin 14.4 g/dL Hematocrit 41.4 % Mean Corpuscular Volume 97.9 fL Mean Corpuscular Hemoglobin 34.0 pg Mean Corpuscular Hemoglobin Concent 34.8 g/dl Platelet Count 200 K/uL Mean Platelet Volume 10.1 fL Neutrophils (%) (Auto) 81.8 % Lymphocytes (%) (Auto) 8.8 % Monocytes (%) (Auto) 6.9 % Eosinophils (%) (Auto) 1.7 % Basophils (%) (Auto) 0.4 % Neutrophils # (Auto) 11.33 K/uL Lymphocytes # (Auto) 1.22 K/uL Monocytes # (Auto) 0.95 K/uL Eosinophils # (Auto) 0.24 K/uL Basophils # (Auto) 0.05 K/uL RDW Standard Deviation 48.4 fL RDW Coefficient of Variation 13.7 % Immature Granulocyte % (Auto) 0.4 % Immature Granulocyte # (Auto) 0.05 K/uL Prothrombin Time 10.1 SECONDS Prothromb Time International Ratio 1.0 Activated Partial Thromboplast Time 21.7 SECONDS Partial Thromboplastin Ratio 0.8 Sodium Level 137 mmol/L Potassium Level 4.4 mmol/L Chloride Level 106 mmol/L Carbon Dioxide Level 28 mmol/L Anion Gap 3.0 mmol/L 17.0 mmol/L Blood Urea Nitrogen 17 mg/dl Creatinine 1.51 mg/dl Est Creatinine Clear Calc Drug Dose 49.0 ml/min Estimated GFR () 53.5 Estimated GFR (Non- 46.1 BUN/Creatinine Ratio 11.0 Random Glucose 219 mg/dl Calcium Level 9.1 mg/dl Magnesium Level 1.9 mg/dl Total Bilirubin 0.5 mg/dl Direct Bilirubin 0.1 mg/dl Aspartate Amino Transf (AST/SGOT) 17 U/L Alanine Aminotransferase (ALT/SGPT) 33 U/L Alkaline Phosphatase 68 U/L Total Creatine Kinase 142 U/L Creatine Kinase MB 2.2 ng/ml Creatine Kinase MB Ratio 1.5 Total Protein 7.3 gm/dl Albumin 4.0 gm/dl Lipase 86 U/L Bedside Hemoglobin 14.6 g/dl Bedside Hematocrit 43 % Bedside Sodium 141 mEq/L Bedside Potassium 4.5 mEq/L Bedside Chloride 104 mEq/L Bedside Total CO2 26 mEq/l Bedside Blood Urea Nitrogen 17 mg/dl Bedside Creatinine 1.3 mg/dl Bedside Glucose (other) 218 mg/dl Bedside Ionized Calcium (Melia) 1.12 mmol/l Kaolin Activated Coagulation Time 191 SECONDS 230 SECONDS Diagnostic Results Radiological imaging and reports were reviewed by myself. Radiologist's Interpretation as follows: CHEST ONE VIEW PORTABLE CLINICAL HISTORY: Heart alert. COMPARISON STUDY: Chest radiograph December 29, 2016. FINDINGS: There are median sternotomy wires and mediastinal surgical clips. Borderline cardiomegaly is noted without evidence of pulmonary edema. There is no consolidation. There is no pneumothorax or pleural effusion. IMPRESSION: No acute cardiopulmonary findings. Assessment & Plan (1) STEMI (ST elevation myocardial infarction) (2) DM type 2 (diabetes mellitus, type 2) (3) Hypertension (4) Hypothyroidism (5) CAD (coronary artery disease) (6) Paroxysmal atrial fibrillation (7) S/P coronary artery stent placement (8) S/P CABG x 5 Reason Critically Ill: 72-year-old male status post PTCA with RICCO 3 to graft vein. Currently on Integrilin for 18 hours. Close cardiac monitoring in the acute setting. Neuro - * CAM ICU: NEGATIVE * No c/o pain at this time. * PRN Morphine for breakthrough pain. * Neuro checks per protocol in the setting of Integrilin gtt. Cardiac - * Acute Inferior STEMI/Occluded SVG-RCA s/p PCI of SVG-RCA w/ DESx3: * Loaded with Clopidogrel 300 mg in component lab tech. * Required Intra-vessel Integrilin, Nitro, Adenosine. * Integrilin x18hrs * Trend Troponins * DAPT (indefinitely), BB, CECILIA, High Dose Statin * Cardiac Rehab. * AM Echo * Monitor on Telemetry. * Daily EKGs/EKGs with chest pain. * Consult Patient's primary cardiology services - [facility] (Dr. Samano). * Patient developed several runs of V-tach requiring Amiodarone Bolus/gtt. * Likely largely to reprofusion. Sustained rhythm of concern given the patients multivessel disease. * Will defer further to cardiology. Respiratory - * No h/o pulmonary disease. * H/o chronic tobacco use. * Smoking cessation. * Nicotine patch PRN. GI - * AHA Diet RENAL/LYTES - * Slight XOCHITL in the setting of IVC for procedure - monitor closely. * Monitor electrolytes closely - replace appropriately. - * No Bhat at this point. * Strict I&Os ENDO - * History of DMII: * Continue home Rx. * ISS per protocol as needed. HEME - * Stable H&H - monitor daily. * Monitor closely for bleeding in the setting of Integrilin gtt/Plavix. * Integrilin gtt for 18hrs. ID - * No concerns for infection at this point. * Monitor fever curve. LINES/IV ACCESS - * PIVs intact DVT PROPHYLAXIS - * No chemical prophylaxis at this time 2/2 Integrilin gtt/Plavix. * DAPT after Integrilin gtt off. I have personally spent 35 minutes of critical care time in the direct management of this patient. This is a life/limb threatening event. This includes time spent evaluating patient, direct bedside care, chart review, placing orders, interpretation of diagnostic studies, discussion with consultants, patient, and family members, as well as other required patient management activities. This time is exclusive of all separately billable procedures, and teaching time and separate from and in addition to any other critical care service time. Thank you for this consultation allow us to be part of this patient's care. Please refer to my attending physician's documentation for any further recommendations. I have seen and examined the patient with my PA. The patient went in to [facility] and he was boluse with Amiodarone and currently he is on Amiodarone drip. Getting an ECHO. Final results are pending. Will continue with current plan of care as prescribed. Agree with above. DR. Akila Moses critical care services.
[2017-09-17] MEDS ORDERED: PANTOprazole SOD 40 MG TAB PO ONE (21:00)
[2017-09-17] MEDS ORDERED: GLUCOSE 40% GEL 15 GM TUBE PO PRN (21:30)
[2017-09-17] MEDS ORDERED: GLUCOSE 10 TABS/TUBE PO PRN (21:30)
[2017-09-17] MEDS ORDERED: GLUCAGON FOR INJ 1 MG VIAL SQ PRN (21:30)
[2017-09-17] MEDS ORDERED: DEXTROSE 50% 50 ML SYR IV PRN (21:30)
[2017-09-17] MEDS: EPTIFIBATIDE INJ 75 MG PREMIXED IV SCH (21:54)
--- NOTE | 2017-09-17 22:00 | NUR ---
A: ON SCHEDULED CHECK, VERY SMALL HEMATOMA NOTED AT LEFT GROIN SITE. DIME SIZE DRAINAGE NOTED ON NEW DRESSING. DIRECT PRESSURE HELD FOR 10 MINUTES. GROIN SOFT. CMS IN LEG/FOOT INTACT. NO FURTHER BLEEDING NOTED.
[2017-09-18] VITALS (16 sets, daily range): BP systolic 117–160; BP diastolic 57–92; PULSE 53–74; TEMP 36.7–36.9; O2SAT 63–97
--- NOTE | 2017-09-18 | NUR ---
A: Assessment completed. See EMR for full assessment. Patient resting in bed. Awakens to verbal stimuli. AAOX4. Denies chest pain or shortness of breath. Lungs clear on RA. O2 sat 95%. Patient having 13-15 beat runs of V-Tach. Patient asymptomatic. VSS. Yuri Velasquez PA-C at bedside. EKG obtained. Amiodarone bolus and drip started as per order. Integrilin at 7 ml/hr and NSS at 100 ml/hr infusing without difficulty. Left groin cath site intact, site soft to touch. +PP. 2x2 and opsite dressing changed. No bleeding noted. Will continue to monitor. Call walker within reach.
[2017-09-18] MEDS ORDERED: AMIODARONE IV BOLUS / DRIP IV STA (00:03)
[2017-09-18] MEDS ORDERED: AMIODARONE 150MG / 100ML D5W ONE (00:06)
[2017-09-18] MEDS ORDERED: AMIODARONE / D5W 100 ML IV SCH (00:15)
--- NOTE | 2017-09-18 00:23 | HISTORY & PHYSICAL EXAMINATION ---
DATE OF ADMISSION: 09/17/2017 PRIMARY CARE PHYSICIAN: Dr. Burgos from [facility]. CHIEF COMPLAINT: Chest pain following exertion this afternoon. HISTORY OF PRESENT COMPLAINT: He is a 72-year-old male with significant past medical history including CABG x5, old myocardial infarction, paroxysmal atrial fibrillation, type 2 diabetes, hypothyroidism, hyperlipidemia, history of prostate cancer, hypertension; apparently has been cutting small or lifting small this afternoon when he got chest pain. He was rushed into the Emergency Room and he was noted to have inferior ST elevation TX. He was taken to the cardiac medical lab director at that time and underwent cardiac catheterization by Dr. Yoo and he was noted to have 95% mid LAD stenosis with competitive flow from ARREOLA to distal segment, diffuse 90% proximal stenosis of circumflex, OM occluded ostially, RCA occluded proximally, and Ramus occluded at ostium. SVG widely patent. SVG-OM widely patent. SVG-RCA acutely occluded. ARREOLA to LAD not visualized. He is status post 3 overlapping RICCO placed in SVG-RcA, and following that he is free from pain and he is in ICU, resting comfortably. He has been getting Integrilin drip and also he was loaded with Plavix 300 mg and he will get usual aspirin, beta morgan and also Plavix for tomorrow. He denies to have any symptoms during my examination in the ICU. PAST MEDICAL HISTORY: Significant for CAD status post 5-vessel bypass graft in 2002, history of old myocardial infarction, paroxysmal atrial fibrillation, type 2 diabetes, hypertension, hyperlipidemia, hypothyroidism, and remote history of tobacco use disorder. PAST SURGICAL HISTORY: Significant for CABG in 2002, another coronary artery bypass with left heart catheterization in 2014. FAMILY HISTORY: Father has diabetes. Sister has diabetes. Mother at 65 and had emphysema. SOCIAL HISTORY: He is . He has 3 children. He quit smoking in 1968. He uses alcohol occasionally and he has been reasonably ambulant. ALLERGIES: No known allergies. MEDICATIONS: He has been on aspirin 81 mg daily, Lipitor 80 mg daily, Plavix 75 mg daily, glimepiride 2 mg 4 times daily, metformin 1000 mg daily, nitroglycerin 0.4 mg as directed, levothyroxine sodium 150 mcg daily, losartan 50 mg daily, metoprolol 25 mg daily, multivitamin 1 tablet daily. REVIEW OF SYSTEMS: CENTRAL NERVOUS SYSTEM: No headache, no blurred vision, no numbness or tingling in the extremities. No weakness involving any side. RESPIRATORY: No fever, chills or rigors. No cough or shortness of breath. CARDIOVASCULAR: Did have chest pain with acute ST elevation TX, but nothing now. No palpitation. GASTROINTESTINAL: No problem with urine and no abdominal pain, nausea or vomiting. GENITOURINARY: Denies to have any problem with urine and/or bowel habit. MUSCULOSKELETAL: No acute arthritis. SKIN: Generally does not have any rash and/or enlargement of lymph nodes. ENT: Denies to have any problem with ear, nose or throat. LABORATORY DATA: Noted today white count was 13.84, H&H 14.4/41.4, platelets 200. Sodium 141, potassium 4.5, chloride 104, carbon dioxide 28, BUN 17, creatinine 1.51, glucose of 218, calcium 9.1. Normal LFTs. CK, CK-MB ratio unremarkable. Chest x-ray reported as no acute cardiopulmonary findings. EKG showed acute inferior ST elevation [place]. Cardiac catheterization as mentioned before. IMPRESSION AND PLAN: 1. Severe coronary artery disease status post ST elevation inferior myocardial infarction status post cardiac catheterization with placement of 3 RICCO stent in venous graft in right coronary artery. He received a loaded dose of Plavix and he has been getting Integrilin which will be continued for 18 hours. He will be continued with aspirin, Plavix, beta-morgan and statin as ordered. A cardiology evaluation in the morning. Summary of Cardiac Cath as per cardiology:Summary: 1. Inferior STEMI/Occluded SVG-RCA 2. Severe [place] vessel coronary artery disease -- unchanged from 12/2016 3. Patent SVG-OM, [id number] (prior stent patent). 4. Partially successful PCI of SVG-RCA with 3 overlapping RICCO (3.5 x 15, 3.5 x 38, 3.5 x 22 Ge[place]) to vein graft with resolution of chest pain. - Procedure complicated by no-reflow and post-procedure TIMI1 flow 2. Diabetes. On oral medications. We will hold his oral medication right now, put him on sliding scale insulin coverage while in the hospital. We will check hemoglobin A1c tomorrow. 3. Hypertension. stable. Continue with current medication. 4. Hyperlipidemia. Continue with statin. 5. Hypothyroidism. Continue with replacement. 6. Gastrointestinal prophylaxis with Protonix. 7. Deep venous thrombosis prophylaxis, has been on Integrilin. 8. Code status. He will be full code. In my clinical judgment, the beneficiary meets criteria as per CMS for 2 midnight stay in the hospital. YANNICK
[2017-09-18] MEDS ORDERED: AMIODARONE / D5W 200 ML IV SCH (00:30)
[2017-09-18] MEDS ORDERED: NICOTINE 21 MG/24 HR TDSY TD PRN (01:30)
--- NOTE | 2017-09-18 02:00 | NUR ---
A: Patient resting in bed. No complaints voiced. VSS. SR on monitor. No ectopy noted. HR in the 60's. Amiodarone infusing at 33.3 ml/hr. Left groin cath site soft touch, no bleeding noted.
--- NOTE | 2017-09-18 04:00 | NUR ---
A: No change in assessment. Patient had a 9 beat run of V-Tach. Patient asymptomatic. VSS. Amiodarone continues to infuse at 33.3 ml/hr. uYri Velasquez PA-C made aware. Integrilin and IV fluids continue to infuse. Left groin site remains soft, no further bleeding noted.
[2017-09-18] MEDS: LEVOTHYROXINE 150 MCG TAB PO SCH (05:24)
[2017-09-18] MEDS: AMIODARONE / D5W 200 ML IV SCH ×2 (05:26→18:32)
--- NOTE | 2017-09-18 06:00 | NUR ---
A: Patient continues to rest in bed. No complaints voiced. VSS. Amiodarone infusing at 16.7 ml/hr. SR on monitor. Voided 500 ml of concentrated, yellow urine. Will continue to monitor.
[2017-09-18 06:01] LABS: BASO % 0.3 %; BASO ABS # 0.03 K/uL (0-0.2); EOS % 2.4 %; EOS ABS # 0.28 K/uL (0-0.5); HEMATOCRIT 39.2 % (42-52); HEMOGLOBIN 13.6 g/dL (14.0-18.0); IG# 0.03 K/uL (0.00-0.02); LYMPH % 13.6 %; LYMPH ABS # 1.57 K/uL (1.2-3.4); MEAN CORPUSCULAR HEMOGLOBIN 33.7 pg (25-34); MEAN CORPUSCULAR HGB CONC 34.7 g/dl (32-36); MEAN PLATELET VOLUME 9.9 fL (7.4-10.4); MONO % 9.6 %; MONO ABS # 1.11 K/uL (0.11-0.59); NEUT % 73.8 %; NEUT ABS # 8.56 K/uL (1.4-6.5); PLATELET COUNT 162 K/uL (130-400); RED CELL DISTRIBUTION WIDTH CV 13.7 % (11.5-14.5); RED CELL DISTRIBUTION WIDTH SD 48.4 fL (36.4-46.3); WHITE BLOOD COUNT 11.58 K/uL (4.8-10.8)
[2017-09-18 06:30] LABS: HEMOGLOBIN A1C 7.4 % (4.5-5.6)
[2017-09-18 06:36] LABS: CALCIUM 8.2 mg/dl (8.5-10.1); CREATININE 1.08 mg/dl (0.60-1.40); POTASSIUM 3.6 mmol/L (3.5-5.1)
--- NOTE | 2017-09-18 08:00 | NUR ---
A: Patient awake, alert and oriented. Sinus rhythm. Denies chest pain/discomfort. Lungs clear. Amiodarone infusion continues at .5 mg/hour. Integrilin infusion remains in place. Right groin site dry and intact, no s/s hematoma. Voiding adequate amount of concentrated yellow urine. Call walker within reach, demonstrates ability to ring for assistance as needed.
[2017-09-18] MEDS ORDERED: PERFLUTREN LIPID MICROSPHERE (DEFINITY) IV ONE (08:08)
[2017-09-18] MEDS: INSULIN ASPART 100 UNITS/ML 3 ML PEN SC SCH ×4 (08:12→20:38)
[2017-09-18] MEDS: LOSARTAN POTASSIUM 50 MG TAB PO SCH (08:12)
[2017-09-18] MEDS: ASPIRIN 81 MG ECTAB PO SCH (08:13)
[2017-09-18] MEDS: FLINTSTONES COMPLETE CHEWABLE TAB PO SCH (08:13)
[2017-09-18] MEDS: ATORVASTATIN 40 MG TAB PO SCH (08:14)
[2017-09-18] MEDS: CLOPIDOGREL BISULFATE 75 MG TAB PO SCH (08:14)
[2017-09-18] MEDS: PANTOprazole SOD 40 MG TAB PO SCH (08:14)
[2017-09-18] MEDS: METOPROLOL SUCC 25MG EXT REL TAB PO SCH (08:15)
--- NOTE | 2017-09-18 09:22 | CARDIOLOGY CONSULTATION ---
DATE OF CONSULTATION: 09/18/2017 DATE OF CONSULTATION: 09/18/2017 REFERR[facility]IC[facility] REASON FOR CONSULTATION: Post-STEMI. HISTORY OF PRESENT ILLNESS: This is a 72-year-old male patient who is usually followed by Dr. Samano through our clinic. He has a history of coronary artery disease and in 2002 underwent coronary artery bypass surgery receiving 5 bypasses in 2002 at [facility]. In December of this year, he presented with crescendo angina and underwent a repeat cardiac catheterization and received a drug-eluting stent within the obtuse marginal branch. This stent was distal to a previous bare metal stent that was placed at [facility] in 2014. The patient had been doing well until yesterday. He began to have some chest discomfort late in the day and presented to the Emergency Department where he was taken emergently to the cardiac catheterization lab for a STEMI. All his bypass grafts were patent except for the saphenous vein graft to the right coronary artery which was occluded. The patient received drug-eluting stents within the right coronary artery with poor distal runoff. He was admitted to the ICU and is in stable condition. He is currently pain free. Through the night, he had some ventricular ectopy which was treated with IV amiodarone. ALLERGIES: No known medical allergies. PAST MEDICAL HISTORY: As outlined above, the patient has a history of previous coronary artery bypass surgery and coronary interventions. The patient also is a diabetic with a history of hypertension, dyslipidemia, hypertension and treated hypothyroidism. He also has paroxysmal atrial fibrillation which occurred mainly after his coronary artery bypass surgery. The patient was taken off of Coumadin in 2014. He remained on dual antiplatelet therapy post-PCI. SOCIAL HISTORY: The patient stopped smoking in December 2016. He is and lives with his family. FAMILY MEDICAL HISTORY: Significant for diabetes. REVIEW OF SYSTEMS: A 10-point review of systems is otherwise negative except for the history of chief complaint. PHYSICAL EXAMINATION: GENERAL: He is alert and oriented, in no acute distress. VITAL SIGNS: Blood pressure is 150/70, pulse is regular at 60 beats per minute. He is currently in sinus rhythm. HEAD, EYES, EARS, NOSE, AND THROAT: He is normocephalic. Pupils are equal and reactive to light. Extraocular muscles are intact bilaterally. NECK: The neck veins are flat. Carotids have good upstrokes bilaterally without bruits. Thyroid is nonpalpable. RESPIRATORY: Breath sounds equal bilaterally and clear to auscultation. CARDIOVASCULAR: Heart has a regular rhythm. Normal S1, S2. No S3, S4. No cardiac rubs or murmurs. GASTROINTESTINAL: Abdomen is soft, nontender without organomegaly. EXTREMITIES: Free of edema, digit clubbing, or cyanosis. NEUROLOGIC: Grossly intact. SKIN: Warm to touch. LYMPH NODES: Negative to palpation. IMPRESSION: 1. STEMI due to closure of the vein graft to the right coronary artery. 2. Drug-eluting stents placed within the vein graft to the right coronary artery. 3. Previous drug-eluting stent placed in the saphenous vein graft to the obtuse marginal, December 2016. 4. Previous coronary artery bypass surgery 2002. 5. Diabetes mellitus. 6. Previous smoking history. RECOMMENDATIONS: The patient is currently clinically stable. I would continue the amiodarone at least an additional 24 hours and then if he has no additional ectopy it can be discontinued. I would tend to ambulate the patient later today. We will follow along with you during his hospital stay.
--- NOTE | 2017-09-18 10:00 | NUR ---
A: Patient sleeping for short intervals, awakens easily to voice. Denies chest pain.
--- NOTE | 2017-09-18 10:20 | Critical Care Progress Note ---
Critical Care Progress Note Date of Service Sep 18, 2017. ICU Day ICU Day Number: [address] Chavez Subjective Patient is a 72-year-old male with a significant past medical history of coronary artery disease with multiple interventions, hypertension, hyperlipidemia, chronic tobacco use, and diabetes who presented to the ER earlier this evening with an inferior STEMI requiring PTCA with RICCO 3 deployment to the SVG-RCA. Per interventional list and notes, the patient received 300 mg clopidogrel in the [employer] as well as intra-vascular Integrilin , nitro, and adenosine. Post RICCO deployment, the vessel was noted to have "sluggish" flow. Regardless, the patient became chest pain free and has had no symptoms otherwise. During the night, patient vent in to [facility] and was bolused with Amiodarone and currently he is on 0.5 mg of Amiodarone drip and is in sinus. Currently he is resting and is not in any acute distress. No chest pain or abdominal pain or N/Vomitting. Objective Elderly male is lying in the bed and is resting comfortably. Not in any acute distress. HEENT: JESÚS. Oral cavity is without any lesions. NECK: Supple , no JVD. No Lymphadenopathy. CHEST: Bilateral air entry, clear lungs. HEART: S1/S2 heard. GI: Soft. Non tender. No mass felt. BS positive. NEURO: Alert, awake and is oriented X 3. Moving all the extremities. EXTREMITIES: no edema. No clubbing. Non tender calf muscle. SKIN : no rash or the lesion. Current SOFA Score SOFA Score Response (Comments) Value PaO2/FiO2 (mmHg) < 400 1 SaO2 / FIO2 221 - 301 1 Platelets (x10) > 150 0 Bilirubin (mg/dL) < 1.2 0 Ibrahima Coma Score 15 0 Level of Hypotension No Hypotension 0 Creatinine (mg/dL) < 1.2 0 Total 2 Assessment & Plan (1) STEMI (ST elevation myocardial infarction) (1) STEMI (ST elevation myocardial infarction) (2) DM type 2 (diabetes mellitus, type 2) (3) Hypertension (4) Hypothyroidism (5) CAD (coronary artery disease) (6) Paroxysmal atrial fibrillation (7) S/P coronary artery stent placement (8) S/P CABG x 5 NEURO: Neuro checks per protocol in the setting of Integrilin gtt. 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 * Required Intra-vessel Integrilin, Nitro, Adenosine. * Integrilin x18hrs * Trend Troponins * DAPT (indefinitely), BB, CECILIA, High Dose Statin * Cardiac Rehab. * Echo was done. Results pending. * Monitor on Telemetry. * Daily EKGs/EKGs with chest pain. During the night, patient went in to [facility] and he was started on Amiodarone. Currently he remains on the Amiodarone. * The patient was evaluated by the cardiology and will follow their recommendations, * Patient developed several runs of V-tach requiring Amiodarone Bolus/gtt. * Likely largely to reperfusion. Sustained rhythm of concern given the patients multivessel disease. * Will defer further to cardiology.No h/o pulmonary disease. * H/o chronic tobacco use. * Smoking cessation. * Nicotine patch PRN. RESPIRATORY: No h/o pulmonary disease. * H/o chronic tobacco use. * Smoking cessation. * Nicotine patch PRN. RENAL: Slight XOCHITL in the setting of IVC for procedure - monitor closely. * Monitor electrolytes closely - replace appropriately. GI: Overall remains stable and will be started on AHA diet. HEME: Stable H&H - monitor daily. * Monitor closely for bleeding in the setting of Integrilin gtt/Plavix. * Integrilin gtt for 18hrs. : No issues at this time. ENDO: No issues at this time. ID: Overall remains stable and no issues at this time. DVT prophylaxis in place. The patient is full code. Has peripheral lines. Spent greater than 35 minutes of non critical care time. DR. Akila [facility]. (2) DM type 2 (diabetes mellitus, type 2) (3) Hypertension (4) Hypothyroidism (5) CAD (coronary artery disease) (6) Paroxysmal atrial fibrillation (7) S/P coronary artery stent placement (8) S/P CABG x 5 Consults & Procedures Consultants: Cardiology: Candelario Bajwa. Procedures: CARDIAC CATH: Nico Yoo. Data Medications: Current Inpatient Medications Medications (Trade) Dose Ordered Sig/Laure Route Start Time Stop Time Status Last Admin Dose Admin Nitroglycerin (Nitrostat Tab) 0.4 mg UD PRN SL 09/17/17 20:00 10/17/17 19:59 Ondansetron HCl (Zofran Inj) 4 mg Q6H PRN IV 09/17/17 20:00 10/17/17 19:59 Aspirin (Ecotrin Tab) 81 mg QAM PO 09/18/17 09:00 10/18/17 08:59 09/18/17 08:13 81 MG Atorvastatin Calcium (Lipitor Tab) 80 mg QAM PO 09/18/17 09:00 10/18/17 08:59 09/18/17 08:14 80 MG Acetaminophen (Tylenol Tab) 650 mg Q4H PRN PO 09/17/17 20:00 10/17/17 19:59 Levothyroxine Sodium (Synthroid Tab) 150 mcg DAILYBB PO 09/18/17 06:00 10/18/17 06:59 09/18/17 05:24 150 MCG Losartan Potassium (coZAAR TAB) 50 mg DAILY PO 09/18/17 09:00 10/18/17 08:59 09/18/17 08:12 50 MG Metoprolol Succinate (Toprol Xl Tab) 25 mg DAILY PO 09/18/17 09:00 10/18/17 08:59 09/18/17 08:15 25 MG Multivitamins (Flintstones Complete Tab) 1 tab DAILY PO 09/18/17 09:00 10/18/17 08:59 09/18/17 08:13 1 TAB Eptifibatide 100 ml @ 7 mls/hr [id number] IV 09/17/17 20:45 09/18/17 14:00 09/17/17 21:54 7 MLS/HR Miscellaneous (Stop Order) 1 ea TODAY@1400 ONCE N/A 09/18/17 14:00 09/18/17 14:01 Pantoprazole Sodium (Protonix Tab) 40 mg QAM PO 09/18/17 09:00 09/21/17 08:59 09/18/17 08:14 40 MG Clopidogrel Bisulfate (plAVix TAB) 75 mg QAM PO 09/18/17 09:00 10/18/17 08:59 09/18/17 08:14 75 MG Insulin Aspart (novoLOG ASPART) SLIDING SCALE G... ACHS SC 09/18/17 06:45 10/18/17 06:44 09/18/17 08:12 2 UNITS Glucose (Glucose 40% Gel) 15-30 GRAMS 15 GRAMS... UD PRN PO 09/17/17 21:30 10/17/17 21:29 Glucose (Glucose Chew Tab) 4-8 Tablets 4 Tabl... UD PRN PO 09/17/17 21:30 10/17/17 21:29 Dextrose (Dextrose 50% 50ML Syringe) 25-50ML OF 50% DW IV FOR... UD PRN IV 09/17/17 21:30 10/17/17 21:29 Glucagon (Glucagon Inj) 1 mg UD PRN SQ 09/17/17 21:30 10/17/17 21:29 Amiodarone HCL/ Dextrose 200 ml @ 16.7 mls/hr [id number] IV 09/18/17 06:30 10/18/17 06:29 09/18/17 05:26 16.7 MLS/HR Nicotine (Nicoderm Cq 21MG Patch) 1 patch QAM PRN TD 09/18/17 01:30 10/18/17 01:29 Miscellaneous (Remove Nicoderm Patch) 1 ea DAILY@2100 PRN N/A 09/18/17 01:30 10/18/17 01:29 Vital Signs: Date Time Temp Pulse Resp B/P (MAP) Pulse Ox O2 Delivery O2 Flow Rate FiO2 09/18/17 06:00 60 18 157/75 (102) 94 Room Air 09/18/17 04:00 36.8 60 20 152/81 (104) 95 Room Air 09/18/17 04:00 95 Room Air 09/18/17 02:00 62 117/92 (100) 96 09/18/17 01:22 62 131/72 (91) 96 09/18/17 01:00 62 138/71 (93) 09/18/17 00:04 74 158/80 (106) 96 09/18/17 00:00 36.8 66 144/79 (100) 96 09/17/17 23:59 94 Room Air 09/17/17 22:00 36.7 59 144/77 (105) 97 09/17/17 21:45 70 145/82 (105) 96 09/17/17 21:30 68 144/75 (94) 94 09/17/17 21:15 69 142/73 (98) 95 09/17/17 21:00 36.6 69 129/80 (99) 95 09/17/17 20:45 55 131/71 (98) 96 09/17/17 20:36 36.6 94 20 128/76 94 Room Air 09/17/17 20:30 66 137/67 (84) 95 09/17/17 20:15 54 128/64 (91) 09/17/17 20:12 54 131/66 (84) 95 09/17/17 19:55 56 18 140/77 (98) 95 Room Air 09/17/17 19:45 56 18 137/77 (97) 95 Room Air 09/17/17 17:58 62 18 100 Nasal Cannula 2.0 09/17/17 17:46 60 09/17/17 17:43 96 Room Air 09/17/17 17:43 36.6 69 18 170/79 97 Room Air 09/17/17 17:43 96 Nasal Cannula 2.0 Laboratory Results: Last 24 Hours Test 09/17/17 17:42 09/17/17 17:52 09/17/17 17:55 09/17/17 18:30 White Blood Count 13.84 K/uL Red Blood Count 4.23 M/uL Hemoglobin 14.4 g/dL Hematocrit 41.4 % Mean Corpuscular Volume 97.9 fL Mean Corpuscular Hemoglobin 34.0 pg Mean Corpuscular Hemoglobin Concent 34.8 g/dl Platelet Count 200 K/uL Mean Platelet Volume 10.1 fL Neutrophils (%) (Auto) 81.8 % Lymphocytes (%) (Auto) 8.8 % Monocytes (%) (Auto) 6.9 % Eosinophils (%) (Auto) 1.7 % Basophils (%) (Auto) 0.4 % Neutrophils # (Auto) 11.33 K/uL Lymphocytes # (Auto) 1.22 K/uL Monocytes # (Auto) 0.95 K/uL Eosinophils # (Auto) 0.24 K/uL Basophils # (Auto) 0.05 K/uL RDW Standard Deviation 48.4 fL RDW Coefficient of Variation 13.7 % Immature Granulocyte % (Auto) 0.4 % Immature Granulocyte # (Auto) 0.05 K/uL Prothrombin Time 10.1 SECONDS Prothromb Time International Ratio 1.0 Activated Partial Thromboplast Time 21.7 SECONDS Partial Thromboplastin Ratio 0.8 Sodium Level 137 mmol/L Potassium Level 4.4 mmol/L Chloride Level 106 mmol/L Carbon Dioxide Level 28 mmol/L Anion Gap 3.0 mmol/L 17.0 mmol/L Blood Urea Nitrogen 17 mg/dl Creatinine 1.51 mg/dl Est Creatinine Clear Calc Drug Dose 49.0 ml/min Estimated GFR () 53.5 Estimated GFR (Non- 46.1 BUN/Creatinine Ratio 11.0 Random Glucose 219 mg/dl Calcium Level 9.1 mg/dl Magnesium Level 1.9 mg/dl Total Bilirubin 0.5 mg/dl Direct Bilirubin 0.1 mg/dl Aspartate Amino Transf (AST/SGOT) 17 U/L Alanine Aminotransferase (ALT/SGPT) 33 U/L Alkaline Phosphatase 68 U/L Total Creatine Kinase 142 U/L Creatine Kinase MB 2.2 ng/ml Creatine Kinase MB Ratio 1.5 Total Protein 7.3 gm/dl Albumin 4.0 gm/dl Lipase 86 U/L Bedside Hemoglobin 14.6 g/dl Bedside Hematocrit 43 % Bedside Sodium 141 mEq/L Bedside Potassium 4.5 mEq/L Bedside Chloride 104 mEq/L Bedside Total CO2 26 mEq/l Bedside Blood Urea Nitrogen 17 mg/dl Bedside Creatinine 1.3 mg/dl Bedside Glucose (other) 218 mg/dl Bedside Ionized Calcium (Melia) 1.12 mmol/l Bedside Glucose 198 mg/dl Kaolin Activated Coagulation Time 191 SECONDS Test 09/17/17 19:33 09/17/17 21:43 09/17/17 22:12 09/18/17 05:43 Kaolin Activated Coagulation Time 230 SECONDS Bedside Glucose 156 mg/dl Troponin I 4.740 ng/ml 28.600 ng/ml White Blood Count 11.58 K/uL Red Blood Count 4.04 M/uL Hemoglobin 13.6 g/dL Hematocrit 39.2 % Mean Corpuscular Volume 97.0 fL Mean Corpuscular Hemoglobin 33.7 pg Mean Corpuscular Hemoglobin Concent 34.7 g/dl Platelet Count 162 K/uL Mean Platelet Volume 9.9 fL Neutrophils (%) (Auto) 73.8 % Lymphocytes (%) (Auto) 13.6 % Monocytes (%) (Auto) 9.6 % Eosinophils (%) (Auto) 2.4 % Basophils (%) (Auto) 0.3 % Neutrophils # (Auto) 8.56 K/uL Lymphocytes # (Auto) 1.57 K/uL Monocytes # (Auto) 1.11 K/uL Eosinophils # (Auto) 0.28 K/uL Basophils # (Auto) 0.03 K/uL RDW Standard Deviation 48.4 fL RDW Coefficient of Variation 13.7 % Immature Granulocyte % (Auto) 0.3 % Immature Granulocyte # (Auto) 0.03 K/uL Sodium Level 138 mmol/L Potassium Level 3.6 mmol/L Chloride Level 105 mmol/L Carbon Dioxide Level 25 mmol/L Anion Gap 7.0 mmol/L Blood Urea Nitrogen 15 mg/dl Creatinine 1.08 mg/dl Est Creatinine Clear Calc Drug Dose 65.7 ml/min Estimated GFR () 80.2 Estimated GFR (Non- 69.2 BUN/Creatinine Ratio 13.5 Random Glucose 159 mg/dl Estimated Average Glucose 166 mg/dl Hemoglobin A1c 7.4 % Calcium Level 8.2 mg/dl Triglycerides Level 205 mg/dl Cholesterol Level 181 mg/dl HDL Cholesterol 24 mg/dl LDL Cholesterol, Calculated 116 mg/dl VLDL Cholesterol, Calculated 41 mg/dl Cholesterol/HDL Ratio 7.5 Hepatitis C Antibody Screen NEG
--- NOTE | 2017-09-18 11:15 | NUR ---
A: Patient awake, alert and oriented. Sinus rhythm.
[2017-09-18] MEDS: ACETAMINOPHEN 325 MG TAB PO PRN ×2 (11:33→18:31)
--- NOTE | 2017-09-18 12:00 | NUR ---
A: Patient out of bed to chair. Exhibits tolerance to increased activity. Denies chest pain/discomfort.
[2017-09-18] MEDS ORDERED: MAGNESIUM SULFATE 1GM / D5W 1 GM in PREMIXED IN D5W 100 ML IV ONE (13:00)
[2017-09-18] MEDS ORDERED: PHARMACY GLYCEMIC MGMT CONSULT PRN (13:00)
[2017-09-18] MEDS ORDERED: POTASSIUM CHLORIDE 20 MEQ TABCR PO ONE (13:00)
--- NOTE | 2017-09-18 13:14 | Pharmacy Progress Note ---
Glycemic Control Intl Consult Date of Service Sep 18, 2017. Scope Glycemic Pharmacist consulted by Dr Chavez on 09/18/17 for glycemic control and to write orders per [facility] inpatient glycemic control protocol Objective Weight (Kilograms): 85.100 Accuchecks BSG (last 24hrs): Test 09/17/17 17:42 09/17/17 17:55 09/17/17 21:43 09/18/17 05:43 Random Glucose 219 mg/dl (70-99) 159 mg/dl (70-99) Bedside Glucose 198 mg/dl (70-99) 156 mg/dl (70-99) Test 09/18/17 11:02 Bedside Glucose 161 mg/dl (70-99) Laboratory Data (last 24hrs) Test 09/17/17 17:42 09/17/17 17:52 09/18/17 05:43 Anion Gap 3.0 mmol/L 17.0 mmol/L 7.0 mmol/L BUN/Creatinine Ratio 11.0 13.5 Blood Urea Nitrogen 17 mg/dl 15 mg/dl Creatinine 1.51 mg/dl 1.08 mg/dl Potassium Level 4.4 mmol/L 3.6 mmol/L Sodium Level 137 mmol/L 138 mmol/L White Blood Count 13.84 K/uL 11.58 K/uL Red Blood Count 4.23 M/uL 4.04 M/uL Hemoglobin 14.4 g/dL 13.6 g/dL Hematocrit 41.4 % 39.2 % Mean Corpuscular Volume 97.9 fL 97.0 fL Mean Corpuscular Hemoglobin 34.0 pg 33.7 pg Mean Corpuscular Hemoglobin Concent 34.8 g/dl 34.7 g/dl Platelet Count 200 K/uL 162 K/uL Mean Platelet Volume 10.1 fL 9.9 fL Neutrophils (%) (Auto) 81.8 % 73.8 % Lymphocytes (%) (Auto) 8.8 % 13.6 % Monocytes (%) (Auto) 6.9 % 9.6 % Eosinophils (%) (Auto) 1.7 % 2.4 % Basophils (%) (Auto) 0.4 % 0.3 % Neutrophils # (Auto) 11.33 K/uL 8.56 K/uL Lymphocytes # (Auto) 1.22 K/uL 1.57 K/uL Monocytes # (Auto) 0.95 K/uL 1.11 K/uL Eosinophils # (Auto) 0.24 K/uL 0.28 K/uL Basophils # (Auto) 0.05 K/uL 0.03 K/uL Hemoglobin A1c 7.4 % HbA1c Test 09/18/17 05:43 Hemoglobin A1c 7.4 % (4.5-5.6) H Recent Pertinent Medications Outpatient Anti-diabetic Regimen: * Glimepiride 2mg QID * Metformin 1gm PO BID * A1c = 7.4 % 09/18/17 The patient is currently receiving: * Basal insulin: Lantus -- units every -- hours * Correctional Insulin: Novolog Correction per scale ACHS Goal Range: Low 110 mg/dL - High 140 mg/dL Correction Factor: 25 mg/dL/unit * Prandial insulin: Per carb ratio of 1 unit per 15 grams CHO consumed * Oral Agents: None currently Risk Factors for Insulin Resistance: * IVF: Amiodarone infusion (mixed in D5W) * Recent Surgery: POD # 1 s/p cardiac cath w/ stenting * Diet: ordered [facility] diet Assessment & Plan ASSESSMENT: 09/18/17 * Type 2 diabetic, managed with oral hypoglycemics prior to admission, with A1c 7.4% indicating good control with current regimen * Admitted yesterday for STEMI, taken to [facility] and is s/p stenting * Oral hypoglycemics (metformin/glimepiride) on hold * Fasting BSG elevated this AM with no basal insulin on board, FBS 179 * Will begin basal/bolus regimen using weight and moderate stress level PLAN FOR INPATIENT GLYCEMIC CONTROL: * Lantus 8 units SQ BID * Changing correction factor to 30 mg/dl/unit * Changing carb ratio to 1 unit per 10 grams CHO consumed * Continuing goal range of Low 110 mg/dL - High 140 mg/dL * Please note that the plan above was derived based on current level of insulin resistance and hospital stress. These recommendations are appropriate for inpatient admission only. Plan of care upon discharge will need to be reassessed to avoid potential outpatient hypo/hyperglycemia. Thank you.
[2017-09-18] MEDS ORDERED: Integrelin infusion --> STOP ORDER ONE (14:00)
--- NOTE | 2017-09-18 16:00 | NUR ---
A/ID: PT ASSESSMENT COMPLETED. PT IS AWAKE, ALERT AND ORIENTED. DENIES PAIN. SB-SR ON MONITOR. IV INTACT - AMIO INFUSING AT 16.7CC/HR. VOIDING IN URINAL. FAMILY AT BEDSIDE. INTEGRILLIN WAS STOPPED BY GERSON MOYER. LEFT GROIN CATH SITE IS C/D/I. FAMILY AT BEDSIDE. CALL [facility]ARD WITHIN REACH.
[2017-09-18] MEDS: EPTIFIBATIDE INJ 75 MG PREMIXED IV SCH (16:51)
[2017-09-18] MEDS: INSULIN GLARGINE SOLOSTAR 100 UNITS/ML 3 ML PEN SC SCH (17:04)
--- NOTE | 2017-09-18 17:38 | Progress Note ---
Medicine Progress Note Date & Time of Visit: Sep 18, 2017 at 17:26. Subjective 72 yoM with h/o CAD presents with indigestion and chest discomfort found to have STEMI, sent to clinical laboratory director overnight and was sen to the clinical laboratory director. Cardiac cath revealed patent bypass grafts except for the saphenous vein graft to the Right coronary artery which was occluded. He received stents to the RCA and was admitted to the ICU. Except for some ventricular ectopy he has remained stable and is on IV amiodarone. He is tolerating PO. Cath site is c/d/i with no evidence of bruising or hematoma. He denies back pain, chest pain or shortness of breath. Family is at bedside. All questions were answered. Objective Last 8 Hrs Date Time Temp Pulse Resp B/P (MAP) Pulse Ox O2 Delivery O2 Flow Rate FiO2 09/18/17 16:00 96 Room Air 09/18/17 16:00 36.9 53 18 139/68 (91) 96 Room Air 09/18/17 14:00 61 18 146/68 (94) 96 Room Air 09/18/17 12:00 95 Room Air 09/18/17 12:00 55 20 146/68 (94) 95 Room Air 09/18/17 10:00 62 20 142/72 (95) 63 Room Air Physical Exam: GEN: WNWD, in no acute distress, alert and appropriate HEENT: NC/AT, pupils are round and equal bilaterally, normal sclerae, MMM CARDIO: reg rate, S1/2 heard without m/g/r LUNGS: CTA bilaterally, no crackles, rales or wheezes, good diaphragmatic excursion ABD: soft, non-tender, non-distended, no rebound or guarding, +BS EXTREMITY: RP and DP palpable 2+ bilat, no LE swelling or edema, extremities are warm and well-perfused, cath site on L groin covered with gauze-c/d/i NEURO: CN 2-12 grossly intact, sensation intact throughout, no gross focal deficits. MUSC: moves all extremities equally, no gross focal deficits. SKIN: warm and dry and wound as above. Laboratory Results: 09/18/17 05:43 Red Blood Count 4.04, Mean Corpuscular Volume 97.0, Mean Corpuscular Hemoglobin 33.7, Mean Corpuscular Hemoglobin Concent 34.7, Mean Platelet Volume 9.9, Neutrophils (%) (Auto) 73.8, Lymphocytes (%) (Auto) 13.6, Monocytes (%) (Auto) 9.6, Eosinophils (%) (Auto) 2.4, Basophils (%) (Auto) 0.3, Neutrophils # (Auto) 8.56, Lymphocytes # (Auto) 1.57, Monocytes # (Auto) 1.11, Eosinophils # (Auto) 0.28, Basophils # (Auto) 0.03 09/18/17 05:43 Test 09/17/17 17:42 09/17/17 17:47 09/17/17 17:52 09/17/17 19:33 Prothrombin Time 10.1 SECONDS (9.0-12.0) Prothromb Time International Ratio 1.0 (0.9-1.1) Activated Partial Thromboplast Time 21.7 SECONDS (21.0-31.0) Partial Thromboplastin Ratio 0.8 Magnesium Level 1.9 mg/dl (1.8-2.4) Total Bilirubin 0.5 mg/dl (0.2-1) Direct Bilirubin 0.1 mg/dl (0-0.2) Aspartate Amino Transf (AST/SGOT) 17 U/L (15-37) Alanine Aminotransferase (ALT/SGPT) 33 U/L (12-78) Alkaline Phosphatase 68 U/L (45-117) Total Creatine Kinase 142 U/L (39-308) Creatine Kinase MB 2.2 ng/ml (0.5-3.6) Creatine Kinase MB Ratio 1.5 (0-3.0) Total Protein 7.3 gm/dl (6.4-8.2) Albumin 4.0 gm/dl (3.4-5.0) Lipase 86 U/L (73-393) Bedside Troponin I < 0.030 ng/ml (0-0.045) Bedside Hemoglobin 14.6 g/dl (14.0-18.0) Bedside Hematocrit 43 % (42-52) Bedside Sodium 141 mEq/L (135-144) Bedside Potassium 4.5 mEq/L (3.3-5.0) Bedside Chloride 104 mEq/L (101-112) Bedside Total CO2 26 mEq/l (24-31) Bedside Blood Urea Nitrogen 17 mg/dl (7-18) Bedside Creatinine 1.3 mg/dl (0.6-1.3) Bedside Glucose (other) 218 mg/dl (70-99) Bedside Ionized Calcium (Melia) 1.12 mmol/l (1.12-1.32) Kaolin Activated Coagulation Time 230 SECONDS (94-140) Test 09/18/17 05:43 09/18/17 14:02 09/18/17 16:01 09/18/17 16:28 White Blood Count 11.58 K/uL (4.8-10.8) Red Blood Count 4.04 M/uL (4.7-6.1) Hemoglobin 13.6 g/dL (14.0-18.0) Hematocrit 39.2 % (42-52) Mean Corpuscular Volume 97.0 fL (80-100) Mean Corpuscular Hemoglobin 33.7 pg (25-34) Mean Corpuscular Hemoglobin Concent 34.7 g/dl (32-36) Platelet Count 162 K/uL (130-400) Mean Platelet Volume 9.9 fL (7.4-10.4) Neutrophils (%) (Auto) 73.8 % Lymphocytes (%) (Auto) 13.6 % Monocytes (%) (Auto) 9.6 % Eosinophils (%) (Auto) 2.4 % Basophils (%) (Auto) 0.3 % Neutrophils # (Auto) 8.56 K/uL (1.4-6.5) Lymphocytes # (Auto) 1.57 K/uL (1.2-3.4) Monocytes # (Auto) 1.11 K/uL (0.11-0.59) Eosinophils # (Auto) 0.28 K/uL (0-0.5) Basophils # (Auto) 0.03 K/uL (0-0.2) RDW Standard Deviation 48.4 fL (36.4-46.3) RDW Coefficient of Variation 13.7 % (11.5-14.5) Immature Granulocyte % (Auto) 0.3 % Immature Granulocyte # (Auto) 0.03 K/uL (0.00-0.02) Anion Gap 7.0 mmol/L (3-11) Est Creatinine Clear Calc Drug Dose 65.7 ml/min Estimated GFR () 80.2 Estimated GFR (Non- 69.2 BUN/Creatinine Ratio 13.5 (10-20) Estimated Average Glucose 166 mg/dl Hemoglobin A1c 7.4 % (4.5-5.6) Calcium Level 8.2 mg/dl (8.5-10.1) Triglycerides Level 205 mg/dl (0-150) Cholesterol Level 181 mg/dl (0-200) HDL Cholesterol 24 mg/dl LDL Cholesterol, Calculated 116 mg/dl VLDL Cholesterol, Calculated 41 mg/dl Cholesterol/HDL Ratio 7.5 Hepatitis C Antibody Screen NEG (NEG) Troponin I 34.700 ng/ml (0-0.045) Bedside Glucose 200 mg/dl (70-99) Date/Time Source Procedure Growth Status 09/17/17 20:10 Nasal MRSA DNA Surveillance Screen - Final Specimen Negative for MRSA by DNA Probe Complete Last 24 Hours Test 09/17/17 17:42 09/17/17 17:47 09/17/17 17:52 09/17/17 17:55 White Blood Count 13.84 K/uL Red Blood Count 4.23 M/uL Hemoglobin 14.4 g/dL Hematocrit 41.4 % Mean Corpuscular Volume 97.9 fL Mean Corpuscular Hemoglobin 34.0 pg Mean Corpuscular Hemoglobin Concent 34.8 g/dl Platelet Count 200 K/uL Mean Platelet Volume 10.1 fL Neutrophils (%) (Auto) 81.8 % Lymphocytes (%) (Auto) 8.8 % Monocytes (%) (Auto) 6.9 % Eosinophils (%) (Auto) 1.7 % Basophils (%) (Auto) 0.4 % Neutrophils # (Auto) 11.33 K/uL Lymphocytes # (Auto) 1.22 K/uL Monocytes # (Auto) 0.95 K/uL Eosinophils # (Auto) 0.24 K/uL Basophils # (Auto) 0.05 K/uL RDW Standard Deviation 48.4 fL RDW Coefficient of Variation 13.7 % Immature Granulocyte % (Auto) 0.4 % Immature Granulocyte # (Auto) 0.05 K/uL Prothrombin Time 10.1 SECONDS Prothromb Time International Ratio 1.0 Activated Partial Thromboplast Time 21.7 SECONDS Partial Thromboplastin Ratio 0.8 Sodium Level 137 mmol/L Potassium Level 4.4 mmol/L Chloride Level 106 mmol/L Carbon Dioxide Level 28 mmol/L Anion Gap 3.0 mmol/L 17.0 mmol/L Blood Urea Nitrogen 17 mg/dl Creatinine 1.51 mg/dl Est Creatinine Clear Calc Drug Dose 49.0 ml/min Estimated GFR () 53.5 Estimated GFR (Non- 46.1 BUN/Creatinine Ratio 11.0 Random Glucose 219 mg/dl Calcium Level 9.1 mg/dl Magnesium Level 1.9 mg/dl Total Bilirubin 0.5 mg/dl Direct Bilirubin 0.1 mg/dl Aspartate Amino Transf (AST/SGOT) 17 U/L Alanine Aminotransferase (ALT/SGPT) 33 U/L Alkaline Phosphatase 68 U/L Total Creatine Kinase 142 U/L Creatine Kinase MB 2.2 ng/ml Creatine Kinase MB Ratio 1.5 Total Protein 7.3 gm/dl Albumin 4.0 gm/dl Lipase 86 U/L Bedside Troponin I < 0.030 ng/ml Bedside Hemoglobin 14.6 g/dl Bedside Hematocrit 43 % Bedside Sodium 141 mEq/L Bedside Potassium 4.5 mEq/L Bedside Chloride 104 mEq/L Bedside Total CO2 26 mEq/l Bedside Blood Urea Nitrogen 17 mg/dl Bedside Creatinine 1.3 mg/dl Bedside Glucose (other) 218 mg/dl Bedside Ionized Calcium (Melia) 1.12 mmol/l Bedside Glucose 198 mg/dl Test 09/17/17 18:30 09/17/17 19:33 09/17/17 21:43 09/17/17 22:12 Kaolin Activated Coagulation Time 191 SECONDS 230 SECONDS Bedside Glucose 156 mg/dl Troponin I 4.740 ng/ml Test 09/18/17 05:43 09/18/17 06:32 09/18/17 11:02 09/18/17 14:02 White Blood Count 11.58 K/uL Red Blood Count 4.04 M/uL Hemoglobin 13.6 g/dL Hematocrit 39.2 % Mean Corpuscular Volume 97.0 fL Mean Corpuscular Hemoglobin 33.7 pg Mean Corpuscular Hemoglobin Concent 34.7 g/dl Platelet Count 162 K/uL Mean Platelet Volume 9.9 fL Neutrophils (%) (Auto) 73.8 % Lymphocytes (%) (Auto) 13.6 % Monocytes (%) (Auto) 9.6 % Eosinophils (%) (Auto) 2.4 % Basophils (%) (Auto) 0.3 % Neutrophils # (Auto) 8.56 K/uL Lymphocytes # (Auto) 1.57 K/uL Monocytes # (Auto) 1.11 K/uL Eosinophils # (Auto) 0.28 K/uL Basophils # (Auto) 0.03 K/uL RDW Standard Deviation 48.4 fL RDW Coefficient of Variation 13.7 % Immature Granulocyte % (Auto) 0.3 % Immature Granulocyte # (Auto) 0.03 K/uL Sodium Level 138 mmol/L Potassium Level 3.6 mmol/L Chloride Level 105 mmol/L Carbon Dioxide Level 25 mmol/L Anion Gap 7.0 mmol/L Blood Urea Nitrogen 15 mg/dl Creatinine 1.08 mg/dl Est Creatinine Clear Calc Drug Dose 65.7 ml/min Estimated GFR () 80.2 Estimated GFR (Non- 69.2 BUN/Creatinine Ratio 13.5 Random Glucose 159 mg/dl Estimated Average Glucose 166 mg/dl Hemoglobin A1c 7.4 % Calcium Level 8.2 mg/dl Troponin I 28.600 ng/ml 34.700 ng/ml Triglycerides Level 205 mg/dl Cholesterol Level 181 mg/dl HDL Cholesterol 24 mg/dl LDL Cholesterol, Calculated 116 mg/dl VLDL Cholesterol, Calculated 41 mg/dl Cholesterol/HDL Ratio 7.5 Hepatitis C Antibody Screen NEG Bedside Glucose 179 mg/dl 161 mg/dl Test 09/18/17 16:00 09/18/17 16:01 09/18/17 16:28 Bedside Glucose 200 mg/dl Date/Time Source Procedure Growth Status 09/17/17 20:10 Nasal MRSA DNA Surveillance Screen - Final Specimen Negative for MRSA by DNA Probe Complete Assessment & Plan 72 yoM with h/o CAD presents with indigestion and chest discomfort found to have STEMI, sent to clinical laboratory director overnight and was sen to the clinical laboratory director. Cardiac cath revealed patent bypass grafts except for the saphenous vein graft to the Right coronary artery which was occluded. He received stents to the RCA and was admitted to the ICU. Except for some ventricular ectopy he has remained stable and is on IV amiodarone. He is tolerating PO. Cath site is c/d/i with no evidence of bruising or hematoma. He denies back pain, chest pain or shortness of breath. Family is at bedside. All questions were answered. 1. Severe CAD s/p CABG and prior stents with new occlusion in RCA resulting in STEMI-RICCO to RCA overnight. Cont medical management per Cards team including Plavix load and Integrilin. 2. Ventricular ectopy likely 2/2/ reperfusion-pt doing well on IV amiodarone without further issue. 3. DMII-ISS/with carb coverage 4. HTN-stable, cont current meds 5. Hypothyroidism-cont Synthroid DVT proph-held while on Integrilin and other blood thinners, consider starting in am. Full code Dispo-cont [facility]: Zuleyma-Carie/[facility] ICU-[facility] Current Inpatient Medications: Current Inpatient Medications Medications (Trade) Dose Ordered Sig/Laure Route Start Time Stop Time Status Last Admin Dose Admin Nitroglycerin (Nitrostat Tab) 0.4 mg UD PRN SL 09/17/17 20:00 10/17/17 19:59 Aspirin (Ecotrin Tab) 81 mg QAM PO 09/18/17 09:00 10/18/17 08:59 09/18/17 08:13 81 MG Atorvastatin Calcium (Lipitor Tab) 80 mg QAM PO 09/18/17 09:00 10/18/17 08:59 09/18/17 08:14 80 MG Acetaminophen (Tylenol Tab) 650 mg Q4H PRN PO 09/17/17 20:00 10/17/17 19:59 09/18/17 11:33 650 MG Levothyroxine Sodium (Synthroid Tab) 150 mcg DAILYBB PO 09/18/17 06:00 10/18/17 06:59 09/18/17 05:24 150 MCG Losartan Potassium (coZAAR TAB) 50 mg DAILY PO 09/18/17 09:00 10/18/17 08:59 09/18/17 08:12 50 MG Metoprolol Succinate (Toprol Xl Tab) 25 mg DAILY PO 09/18/17 09:00 10/18/17 08:59 09/18/17 08:15 25 MG Multivitamins (Flintstones Complete Tab) 1 tab DAILY PO 09/18/17 09:00 10/18/17 08:59 09/18/17 08:13 1 TAB Pantoprazole Sodium (Protonix Tab) 40 mg QAM PO 09/18/17 09:00 09/21/17 08:59 09/18/17 08:14 40 MG Clopidogrel Bisulfate (plAVix TAB) 75 mg QAM PO 09/18/17 09:00 10/18/17 08:59 12/28/17 08:14 75 MG Insulin Aspart (novoLOG ASPART) SLIDING SCALE G... ACHS SC 09/18/17 06:45 10/18/17 06:44 09/18/17 16:54 5 UNITS Glucose (Glucose 40% Gel) 15-30 GRAMS 15 GRAMS... UD PRN PO 09/17/17 21:30 10/17/17 21:29 Glucose (Glucose Chew Tab) 4-8 Tablets 4 Tabl... UD PRN PO 09/17/17 21:30 10/17/17 21:29 Dextrose (Dextrose 50% 50ML Syringe) 25-50ML OF 50% DW IV FOR... UD PRN IV 09/17/17 21:30 10/17/17 21:29 Glucagon (Glucagon Inj) 1 mg UD PRN SQ 09/17/17 21:30 10/17/17 21:29 Amiodarone HCL/ Dextrose 200 ml @ 16.7 mls/hr [id number] IV 09/18/17 06:30 10/18/17 06:29 09/18/17 05:26 16.7 MLS/HR Nicotine (Nicoderm Cq 21MG Patch) 1 patch QAM PRN TD 09/18/17 01:30 10/18/17 01:29 Miscellaneous (Remove Nicoderm Patch) 1 ea DAILY@2100 PRN N/A 09/18/17 01:30 10/18/17 01:29 Insulin Glargine (Lantus Solostar Pen) 8 units BID SC 09/18/17 16:00 10/18/17 15:59 09/18/17 17:04 8 UNITS Miscellaneous Information (Consult Glycemic Management Pharmacy) 1 ea UD PRN N/A 09/18/17 13:00 10/18/17 12:59
--- NOTE | 2017-09-18 18:00 | NUR ---
A: PT RESTING COMFORTABLY IN BED. DENIES PAIN. IV INTACT - AMIO INFUSING PER ORDER. FAMILY AT BEDSIDE. CALL BARNARD WITHIN REACH.
--- NOTE | 2017-09-18 18:41 | ECHOCARDIOGRAM REPORT ---
*NOTICE TO RECEIVING [employer]Y This information is strictly Confidential and protected under [place] law. [place] law prohibits you from making any further disclosure of this information unless further disclosure is expressly permitted by the written consent of the person to whom it pertains or is authorized by law. A general authorization for the release of medical or other information is not sufficient for this purpose. Hospital accepts no responsibility if the information is made available to any other person, INCLUDING THE PATIENT. Interpretation Summary * Name: BRIDGET ZHAO Study Date: 09/18/2017 07:34 AM BP: 152/81 mmHg * [facility] HR: 69 * : 1945 (M/d/yyyy) Gender: Male Height: 67 in * Age: 72 yrs Ethnicity: [place] Weight: 192 lb * Ordering Physician: Nico Yoo * Referring Physician: Self, Referred * Performed By: Swathi Sweeney RDCS * * Reason For Study: Acute Myocardial Infarction * BSA: 2.0 m2 * -- Conclusions -- * There is moderate inferior wall hypokinesis. * There is moderate septal hypokinesis. * The left ventricle is normal in size. * Ejection Fraction = 60-65%. * The right ventricular systolic function is normal. * The left atrial size is normal. * Right atrial size is normal. * No significant valvular pathology. Procedure Details * A complete two-dimensional transthoracic echocardiogram was performed (2D, M-mode, Doppler and color flow Doppler). * A contrast injection of Definity was performed to improve assessment of LV function. * Contrast was injected into an intravenous site in the left arm. * One vial of Definity ultrasound contrast was diluted in normal saline to a total volume of 10 ml. A total of '2' ml of solution was administered during imaging. * Lot # [id number] of Definity utilized for procedure. * Expiration date . * The attending nurse who injected the contrast agent was Celsa Anand RN. Left Ventricle * The left ventricle is normal in size. * There is normal left ventricular wall thickness. * Ejection Fraction = 60-65%. * There is moderate inferior wall hypokinesis. * There is moderate septal hypokinesis. Right Ventricle * The right ventricle is normal size. * The right ventricular systolic function is normal. Atria * The left atrial size is normal. * Right atrial size is normal. * There is no evidence of atrial septal defect, but resolution does not allow assessment for a patent foramen ovale. Mitral Valve * The mitral valve anatomy is normal. * Significant mitral regurgitation is absent. Tricuspid Valve * The tricuspid valve is not well visualized, but is grossly normal. * Significant tricuspid regurgitation is absent. Aortic Valve * The aortic valve is tricuspid. The leaflet thickness if normal. There is no aortic stenosis, and no significant insufficiency. * No hemodynamically significant valvular aortic stenosis. * There is no significant aortic regurgitation. Pulmonic Valve * The pulmonic valve is not well seen, but is grossly normal. * There is no significant pulmonary regurgitation. Great Vessels * The aortic root and proximal ascending aorta are normal sized. Pericardium/Pleural * There is no pericardial effusion. MMode 2D Measurements and Calculations IVSd 1.1 cm IVSs 1.6 cm LVIDd 5.4 cm LVIDs 3.4 cm LVPWd 1.2 cm LVPWs 1.9 cm IVS/LVPW 0.92 FS 37.4 % EDV(Teich) 141.6 ml ESV(Teich) 46.9 ml EF(Teich) 66.9 % EDV(cubed) 157.8 ml ESV(cubed) 38.8 ml EF(cubed) 75.4 % % IVS thick 39.8 % % LVPW thick 53.6 % LV mass(C)d 255.1 grams LV mass(C)dI 128.4 grams/m\S\2 LV mass(C)s 232.1 grams LV mass(C)sI 116.8 grams/m\S\2 SV(Teich) 94.7 ml SI(Teich) 47.6 ml/m\S\2 SV(cubed) 119.1 ml SI(cubed) 59.9 ml/m\S\2 Ao root diam 3.3 cm Ao root area 8.8 cm\S\2 ACS 2.5 cm LA dimension 3.5 cm LA/Ao 1.0 LVAd ap4 42.0 cm\S\2 LVLd ap4 8.4 cm EDV(MOD-sp4) 174.0 ml EDV(sp4-el) 178.1 ml LVAs ap4 23.4 cm\S\2 LVLs ap4 7.4 cm ESV(MOD-sp4) 61.8 ml ESV(sp4-el) 62.9 ml EF(MOD-sp4) 64.5 % EF(sp4-el) 64.7 % LVAd ap2 31.2 cm\S\2 LVLd ap2 7.6 cm EDV(MOD-sp2) 107.6 ml EDV(sp2-el) 108.3 ml LVAs ap2 16.5 cm\S\2 LVLs ap2 6.9 cm ESV(MOD-sp2) 35.3 ml ESV(sp2-el) 33.7 ml EF(MOD-sp2) 67.2 % EF(sp2-el) 68.9 % LVLd %diff -10.45 % EDV(MOD-bp) 144.4 ml LVLs %diff -7.35 % ESV(MOD-bp) 48.0 ml EF(MOD-bp) 66.8 % SV(MOD-sp4) 112.2 ml SI(MOD-sp4) 56.5 ml/m\S\2 SV(MOD-sp2) 72.3 ml SI(MOD-sp2) 36.4 ml/m\S\2 SV(MOD-bp) 96.4 ml SI(MOD-bp) 48.5 ml/m\S\2 SV(sp4-el) 115.2 ml SI(sp4-el) 58.0 ml/m\S\2 SV(sp2-el) 74.6 ml SI(sp2-el) 37.5 ml/m\S\2 Doppler Measurements and Calculations MV E max marylou 67.9 cm/sec MV A max marylou 54.8 cm/sec MV E/A 1.2 MV dec time 0.25 sec Ao V2 max 116.2 cm/sec Ao max PG 5.4 mmHg Ao max PG (full) 2.4 mmHg LV V1 max PG 3.0 mmHg LV V1 max 86.8 cm/sec PA V2 max 123.5 cm/sec PA max PG 6.1 mmHg
--- NOTE | 2017-09-18 20:00 | NUR ---
A: NO ACUTE CHANGES TO PATIENT ASSESSMENT. HE IS SLEEPING, AWAKES EASILY. SB-SR ON MONITOR. VITAL SIGNS STABLE. IV INTACT - AMIO INFUSING AT 16.7CC/HR. CALL BARNARD WITHIN REACH.
--- NOTE | 2017-09-18 22:00 | NUR ---
A: PT ASLEEP AT THIS TIME. SB-SR ON MONITOR. IV INTACT - AMIO INFUSING WITHOUT DIFFICULTY.
[2017-09-19] VITALS (10 sets, daily range): BP systolic 130–177; BP diastolic 59–94; PULSE 56–62; TEMP 36.7–37.9; O2SAT 94–97
--- NOTE | 2017-09-19 | NUR ---
A: Assessment completed. See EMR for full assessment. Patient sleeping. Awakens to voice. Medicated with Tylenol for complaints of headache. Denies chest pain or shortness of breath. Lungs clear on RA. O2 sat 93%. SB on monitor. HR in the 50's. VSS. No ectopy noted. Amiodarone at 16.7 ml/hr infusing without difficulty via #18 gauge in left AC. Left groin cath site WNL. No hematoma or bleeding noted. Dressing C/D/I. Call walker within reach.
[2017-09-19] MEDS: ACETAMINOPHEN 325 MG TAB PO PRN ×4 (00:15→23:14)
--- NOTE | 2017-09-19 02:00 | NUR ---
A: Patient resting in bed. No complaints voiced. VSS. SB on monitor. HR 50's. Amiodarone continues to infuse.
--- NOTE | 2017-09-19 04:00 | NUR ---
A: Assessment completed. See EMR for full assessment. Patient sleeping. Awakens to voice. Medicated with Tylenol for complaints of headache. Denies chest pain or shortness of breath. Lungs clear on RA. O2 sat 93%. SR on monitor. HR in the 60's. VSS. No ectopy noted. Amiodarone at 16.7 ml/hr infusing without difficulty . Call walker within reach. Addendum: 09/19/17 at 0441 by Claire Lassiter RN Patient not medicated with Tylenol at this time. Denies pain or shortness of breath at this time.
[2017-09-19] MEDS: AMIODARONE / D5W 200 ML IV SCH (05:51)
[2017-09-19] MEDS: LEVOTHYROXINE 150 MCG TAB PO SCH (05:51)
[2017-09-19 05:55] LABS: BASO % 0.3 %; BASO ABS # 0.03 K/uL (0-0.2); EOS % 1.4 %; EOS ABS # 0.16 K/uL (0-0.5); HEMATOCRIT 38.9 % (42-52); HEMOGLOBIN 13.5 g/dL (14.0-18.0); IG# 0.03 K/uL (0.00-0.02); LYMPH % 12.4 %; LYMPH ABS # 1.43 K/uL (1.2-3.4); MEAN CELL VOLUME 97.7 fL (80-100); MEAN CORPUSCULAR HEMOGLOBIN 33.9 pg (25-34); MEAN CORPUSCULAR HGB CONC 34.7 g/dl (32-36); MEAN PLATELET VOLUME 10.1 fL (7.4-10.4); MONO % 12.9 %; MONO ABS # 1.49 K/uL (0.11-0.59); NEUT % 72.7 %; NEUT ABS # 8.37 K/uL (1.4-6.5); PLATELET COUNT 134 K/uL (130-400); RED CELL DISTRIBUTION WIDTH CV 13.7 % (11.5-14.5); WHITE BLOOD COUNT 11.51 K/uL (4.8-10.8)
[2017-09-19 06:23] LABS: CALCIUM 8.5 mg/dl (8.5-10.1); CREATININE 1.04 mg/dl (0.60-1.40); POTASSIUM 3.9 mmol/L (3.5-5.1)
--- NOTE | 2017-09-19 06:30 | NUR ---
A: Medicated with Tylenol for headache. SR on monitor. VSS. No ectopy noted on monitor. Amiodarone continues to infuse.
[2017-09-19 06:46] LABS: PHOSPHORUS 2.7 mg/dl (2.5-4.9)
--- NOTE | 2017-09-19 08:00 | NUR ---
A: Patient alert and oriented. Sinus rhythm. Denies chest pain. Call walker within reach.
--- NOTE | 2017-09-19 08:17 | DIAGNOSTIC IMAGING REPORT ---
CHEST ONE VIEW PORTABLE CLINICAL HISTORY: f/u COMPARISON STUDY: Chest radiograph September 17, 2017. FINDINGS: There are median sternotomy wires. Cardiomegaly is noted without evidence of pulmonary edema. No pneumothorax or pleural effusion is noted. There is no consolidation to suggest pneumonia. IMPRESSION: 1. No acute cardiopulmonary findings. 2. Mild cardiomegaly. Electronically signed by: Tonio Diehl M.D. 09/19/2017 8:16 AM Dictated Date/Time: 09/19/2017 8:15 AM
[2017-09-19] MEDS: LOSARTAN POTASSIUM 50 MG TAB PO SCH (08:28)
[2017-09-19] MEDS: FLINTSTONES COMPLETE CHEWABLE TAB PO SCH (08:28)
[2017-09-19] MEDS: ASPIRIN 81 MG ECTAB PO SCH (08:28)
[2017-09-19] MEDS: ATORVASTATIN 40 MG TAB PO SCH (08:29)
[2017-09-19] MEDS: METOPROLOL SUCC 25MG EXT REL TAB PO SCH (08:29)
[2017-09-19] MEDS: CLOPIDOGREL BISULFATE 75 MG TAB PO SCH (08:29)
[2017-09-19] MEDS: PANTOprazole SOD 40 MG TAB PO SCH (08:29)
[2017-09-19] MEDS: INSULIN GLARGINE SOLOSTAR 100 UNITS/ML 3 ML PEN SC SCH ×2 (08:33→21:12)
[2017-09-19] MEDS: INSULIN ASPART 100 UNITS/ML 3 ML PEN SC SCH ×4 (08:35→21:00)
--- NOTE | 2017-09-19 09:15 | NUR ---
A: Orders received to stop Amiodarone infusion.
--- NOTE | 2017-09-19 10:57 | PROGRESS NOTE ---
DATE: 09/19/2017 FOLLOWUP VISIT SUBJECTIVE: The patient is a 72-year-old male who has a history of coronary artery bypass surgery in 2002. In December of this year, he had a drug-eluting stent placed in the marginal branch. He was then admitted with a STEMI and received a drug-eluting stent within the saphenous vein graft to the right coronary artery with poor distal runoff. His echocardiogram shows some wall motion abnormalities inferiorly, but overall left ventricular systolic function is preserved. He has had an uneventful night. He has had no additional cardiac arrhythmias since admission and I believe his amiodarone may be discontinued. OBJECTIVE: VITAL SIGNS: Blood pressure is 130/70. Pulse is 60 and regular. He is afebrile. HEENT: He is normocephalic. Pupils are equal and reactive to light. Extraocular muscles are intact bilaterally. NECK: The neck veins are flat. Carotids have good upstrokes bilaterally without bruits. Thyroid is nonpalpable. RESPIRATORY: Breath sounds equal bilaterally and clear to auscultation. CARDIOVASCULAR: Heart has a regular rhythm. Normal S1 and S2. No S3 or S4. No cardiac rubs or murmurs. GASTROINTESTINAL: Abdomen is soft and nontender without organomegaly. EXTREMITIES: Free of edema, digit clubbing, or cyanosis. NEUROLOGIC: Grossly intact. SKIN: Warm to touch. LYMPH NODES: Negative to palpation. LABORATORY DATA: Hemoglobin is 13.5. Potassium is 3.9 and creatinine is 1.04. Troponins have peaked at 47.9. IMPRESSION: 1. ST-elevation myocardial infarction with an acute inferior wall myocardial infarction due to closure of the saphenous vein graft to the right coronary artery, receiving a drug-eluting stent with poor distal runoff. 2. Previous coronary artery bypass surgery and coronary interventions. 3. Diabetes mellitus. 4. Previous smoking history. RECOMMENDATIONS: I believe the patient may be transferred to the telemetry floor. As mentioned above, the amiodarone may be discontinued. If he remains stable and has no significant arrhythmias by tomorrow, I think he may be able to be discharged.
--- NOTE | 2017-09-19 11:07 | Pharmacy Progress Note ---
Glycemic Control Progress Note Date of Service Sep 19, 2017. Scope Glycemic Pharmacist consulted for glycemic control to write orders per [facility] inpatient glycemic control protocol. Objective Accuchecks BSG (last 24hrs): Test 09/18/17 16:28 09/18/17 20:28 09/19/17 05:30 Bedside Glucose 200 mg/dl (70-99) 142 mg/dl (70-99) Random Glucose 162 mg/dl (70-99) HbA1c: Test 09/18/17 05:43 Hemoglobin A1c 7.4 % (4.5-5.6) H Recent Pertinent Medications Outpatient Anti-diabetic Regimen: * Glimepiride 2mg QID * Metformin 1gm PO BID * A1c = 7.4 % 09/18/17 The patient is currently receiving: * Basal insulin: Lantus 8 units every 12 hours * Correctional Insulin: Novolog Correction per scale ACHS Goal Range: Low 110 mg/dL - High 140 mg/dL Correction Factor: 30 mg/dL/unit * Prandial insulin: Per carb ratio of 1 unit per 10 grams CHO consumed * Oral Agents: None currently Risk Factors for Insulin Resistance: * IVF: Amiodarone infusion (mixed in D5W) - stopped this AM * Recent Surgery: POD # 2 s/p cardiac cath w/ stenting * Diet: ordered [facility] diet Outpatient Anti-Diabetic Meds * Glimepiride 2mg QID * Metformin 1gm PO BID * A1c = 7.4 % 09/18/17 Assessment & Plan ASSESSMENT: 09/18/17 * Type 2 diabetic, managed with oral hypoglycemics prior to admission, with A1c 7.4% indicating good control with current regimen * Admitted yesterday for STEMI, taken to medical lab specialist and is s/p stenting * Oral hypoglycemics (metformin/glimepiride) on hold * Fasting BSG elevated this AM with no basal insulin on board, FBS 179 * Will begin basal/bolus regimen using weight and moderate stress level 09/19/17 * BSGs have ranged 124-200 over the last 24 hrs - only 1 BSG above 180 however * Fasting BSG 142 this AM with 8 units Lantus on board (only 50% of prescribed dose); would expect improved fasting result tomorrow after receiving second half of basal dose * CF and CR have performed well thus far, will continue the same and trend post- prandial BSGs PLAN FOR INPATIENT GLYCEMIC CONTROL: * Continue to hold oral hypoglycemics * Continue Lantus 8 units SQ BID * Continue correction factor of 30 mg/dl/unit * Continue carb ratio of 1 unit per 10 grams CHO consumed * Continuing goal range of Low 110 mg/dL - High 140 mg/dL * Please note that the plan above was derived based on current level of insulin resistance and hospital stress. These recommendations are appropriate for inpatient admission only. Plan of care upon discharge will need to be reassessed to avoid potential outpatient hypo/hyperglycemia. Thank you.
--- NOTE | 2017-09-19 11:35 | Progress Note ---
Medicine Progress Note Date & Time of Visit: Sep 19, 2017 at 11:32. Subjective 72 yoM with h/o CAD presents with STEMI. Cardiac cath revealed patent bypass grafts except for the saphenous vein graft to the Right coronary artery which was occluded. He received stents to the RCA and was admitted to the ICU. Except for some ventricular ectopy he has remained stable and is on IV amiodarone. He is tolerating PO. Cath site is c/d/i with no evidence of bruising or hematoma. He denies back pain, chest pain or shortness of breath. Objective Last 8 Hrs Date Time Temp Pulse Resp B/P (MAP) Pulse Ox O2 Delivery O2 Flow Rate FiO2 09/19/17 06:00 60 20 137/67 (90) 94 Room Air 09/19/17 04:00 96 Room Air 09/19/17 04:00 36.8 60 20 153/69 (97) 95 Room Air Physical Exam: GEN: WNWD, in no acute distress, alert and appropriate HEENT: NC/AT, pupils are round and equal bilaterally, normal sclerae, MMM CARDIO: reg rate, S1/2 heard without m/g/r LUNGS: CTA bilaterally, no crackles, rales or wheezes, good diaphragmatic excursion ABD: soft, non-tender, non-distended, no rebound or guarding, +BS EXTREMITY: RP and DP palpable 2+ bilat, no LE swelling or edema, extremities are warm and well-perfused, cath site on L groin covered with gauze-c/d/i NEURO: CN 2-12 grossly intact, sensation intact throughout, no gross focal deficits. MUSC: moves all extremities equally, no gross focal deficits. SKIN: warm and dry and wound as above. Laboratory Results: 09/19/17 05:30 Red Blood Count 3.98, Mean Corpuscular Volume 97.7, Mean Corpuscular Hemoglobin 33.9, Mean Corpuscular Hemoglobin Concent 34.7, Mean Platelet Volume 10.1, Neutrophils (%) (Auto) 72.7, Lymphocytes (%) (Auto) 12.4, Monocytes (%) (Auto) 12.9, Eosinophils (%) (Auto) 1.4, Basophils (%) (Auto) 0.3, Neutrophils # (Auto ) 8.37, Lymphocytes # (Auto) 1.43, Monocytes # (Auto) 1.49, Eosinophils # (Auto ) 0.16, Basophils # (Auto) 0.03 09/19/17 05:30 Test 09/17/17 17:42 09/17/17 17:47 09/17/17 17:52 09/17/17 19:33 Prothrombin Time 10.1 SECONDS (9.0-12.0) Prothromb Time International Ratio 1.0 (0.9-1.1) Activated Partial Thromboplast Time 21.7 SECONDS (21.0-31.0) Partial Thromboplastin Ratio 0.8 Total Bilirubin 0.5 mg/dl (0.2-1) Direct Bilirubin 0.1 mg/dl (0-0.2) Aspartate Amino Transf (AST/SGOT) 17 U/L (15-37) Alanine Aminotransferase (ALT/SGPT) 33 U/L (12-78) Alkaline Phosphatase 68 U/L (45-117) Total Creatine Kinase 142 U/L (39-308) Creatine Kinase MB 2.2 ng/ml (0.5-3.6) Creatine Kinase MB Ratio 1.5 (0-3.0) Total Protein 7.3 gm/dl (6.4-8.2) Albumin 4.0 gm/dl (3.4-5.0) Lipase 86 U/L (73-393) Bedside Troponin I < 0.030 ng/ml (0-0.045) Bedside Hemoglobin 14.6 g/dl (14.0-18.0) Bedside Hematocrit 43 % (42-52) Bedside Sodium 141 mEq/L (135-144) Bedside Potassium 4.5 mEq/L (3.3-5.0) Bedside Chloride 104 mEq/L (101-112) Bedside Total CO2 26 mEq/l (24-31) Bedside Blood Urea Nitrogen 17 mg/dl (7-18) Bedside Creatinine 1.3 mg/dl (0.6-1.3) Bedside Glucose (other) 218 mg/dl (70-99) Bedside Ionized Calcium (Melia) 1.12 mmol/l (1.12-1.32) Kaolin Activated Coagulation Time 230 SECONDS (94-140) Test 09/18/17 05:43 09/18/17 20:28 09/18/17 20:45 09/19/17 05:30 Estimated Average Glucose 166 mg/dl Hemoglobin A1c 7.4 % (4.5-5.6) Triglycerides Level 205 mg/dl (0-150) Cholesterol Level 181 mg/dl (0-200) HDL Cholesterol 24 mg/dl LDL Cholesterol, Calculated 116 mg/dl VLDL Cholesterol, Calculated 41 mg/dl Cholesterol/HDL Ratio 7.5 Hepatitis C Antibody Screen NEG (NEG) Bedside Glucose 142 mg/dl (70-99) Urine Color YELLOW Urine Appearance CLEAR (CLEAR) Urine pH 5.0 (4.5-7.5) Urine Specific [place] 1.016 (1.000-1.030) Urine Protein NEG (NEG) Urine Glucose (UA) TRACE (NEG) Urine Ketones NEG (NEG) Urine Occult Blood NEG (NEG) Urine Nitrite NEG (NEG) Urine Bilirubin NEG (NEG) Urine Urobilinogen NEG (NEG) Urine Leukocyte Esterase NEG (NEG) White Blood Count 11.51 K/uL (4.8-10.8) Red Blood Count 3.98 M/uL (4.7-6.1) Hemoglobin 13.5 g/dL (14.0-18.0) Hematocrit 38.9 % (42-52) Mean Corpuscular Volume 97.7 fL (80-100) Mean Corpuscular Hemoglobin 33.9 pg (25-34) Mean Corpuscular Hemoglobin Concent 34.7 g/dl (32-36) Platelet Count 134 K/uL (130-400) Mean Platelet Volume 10.1 fL (7.4-10.4) Neutrophils (%) (Auto) 72.7 % Lymphocytes (%) (Auto) 12.4 % Monocytes (%) (Auto) 12.9 % Eosinophils (%) (Auto) 1.4 % Basophils (%) (Auto) 0.3 % Neutrophils # (Auto) 8.37 K/uL (1.4-6.5) Lymphocytes # (Auto) 1.43 K/uL (1.2-3.4) Monocytes # (Auto) 1.49 K/uL (0.11-0.59) Eosinophils # (Auto) 0.16 K/uL (0-0.5) Basophils # (Auto) 0.03 K/uL (0-0.2) RDW Standard Deviation 49.0 fL (36.4-46.3) RDW Coefficient of Variation 13.7 % (11.5-14.5) Immature Granulocyte % (Auto) 0.3 % Immature Granulocyte # (Auto) 0.03 K/uL (0.00-0.02) Anion Gap 8.0 mmol/L (3-11) Est Creatinine Clear Calc Drug Dose 68.2 ml/min Estimated GFR () 83.9 Estimated GFR (Non- 72.4 BUN/Creatinine Ratio 10.1 (10-20) Calcium Level 8.5 mg/dl (8.5-10.1) Phosphorus Level 2.7 mg/dl (2.5-4.9) Magnesium Level 2.0 mg/dl (1.8-2.4) Troponin I 47.900 ng/ml (0-0.045) Date/Time Source Procedure Growth Status 09/17/17 20:10 Nasal MRSA DNA Surveillance Screen - Final Specimen Negative for MRSA by DNA Probe Complete Last 24 Hours Test 09/18/17 14:02 09/18/17 16:28 09/18/17 20:28 09/18/17 20:45 Troponin I 34.700 ng/ml Bedside Glucose 200 mg/dl 142 mg/dl Urine Color YELLOW Urine Appearance CLEAR Urine pH 5.0 Urine Specific [place] 1.016 Urine Protein NEG Urine Glucose (UA) TRACE Urine Ketones NEG Urine Occult Blood NEG Urine Nitrite NEG Urine Bilirubin NEG Urine Urobilinogen NEG Urine Leukocyte Esterase NEG Test 09/19/17 05:30 White Blood Count 11.51 K/uL Red Blood Count 3.98 M/uL Hemoglobin 13.5 g/dL Hematocrit 38.9 % Mean Corpuscular Volume 97.7 fL Mean Corpuscular Hemoglobin 33.9 pg Mean Corpuscular Hemoglobin Concent 34.7 g/dl Platelet Count 134 K/uL Mean Platelet Volume 10.1 fL Neutrophils (%) (Auto) 72.7 % Lymphocytes (%) (Auto) 12.4 % Monocytes (%) (Auto) 12.9 % Eosinophils (%) (Auto) 1.4 % Basophils (%) (Auto) 0.3 % Neutrophils # (Auto) 8.37 K/uL Lymphocytes # (Auto) 1.43 K/uL Monocytes # (Auto) 1.49 K/uL Eosinophils # (Auto) 0.16 K/uL Basophils # (Auto) 0.03 K/uL RDW Standard Deviation 49.0 fL RDW Coefficient of Variation 13.7 % Immature Granulocyte % (Auto) 0.3 % Immature Granulocyte # (Auto) 0.03 K/uL Sodium Level 139 mmol/L Potassium Level 3.9 mmol/L Chloride Level 106 mmol/L Carbon Dioxide Level 25 mmol/L Anion Gap 8.0 mmol/L Blood Urea Nitrogen 11 mg/dl Creatinine 1.04 mg/dl Est Creatinine Clear Calc Drug Dose 68.2 ml/min Estimated GFR () 83.9 Estimated GFR (Non- 72.4 BUN/Creatinine Ratio 10.1 Random Glucose 162 mg/dl Calcium Level 8.5 mg/dl Phosphorus Level 2.7 mg/dl Magnesium Level 2.0 mg/dl Troponin I 47.900 ng/ml Assessment & Plan 72 yoM with h/o CAD presents with STEMI. Cardiac cath revealed patent bypass grafts except for the saphenous vein graft to the Right coronary artery which was occluded. He received stents to the RCA and was admitted to the ICU. Except for some ventricular ectopy he has remained stable and is on IV amiodarone. He is tolerating PO. Cath site is c/d/i with no evidence of bruising or hematoma. He denies back pain, chest pain or shortness of breath. 1. Severe CAD s/p CABG and prior stents with new occlusion in RCA resulting in STEMI-RICCO to RCA. Cont medical management per Cards team including ASA, Plavix , BB, statin, ARB and amio which will likely be stopped today. 2. Ventricular ectopy likely 2/2 reperfusion-pt doing well on IV amiodarone without further issue. Cards likely to stop today with no further PO amio. 3. DMII-ISS/with carb coverage 4. HTN-stable, cont current meds 5. Hypothyroidism-cont Synthroid DVT proph-held while on Integrilin and other blood thinners, consider starting in am. Full code Dispo-cont ICU monitoring [facility] Consultants: Zuleyma-Carie/Fredo ICU-Scott Current Inpatient Medications: Current Inpatient Medications Medications (Trade) Dose Ordered Sig/Laure Route Start Time Stop Time Status Last Admin Dose Admin Nitroglycerin (Nitrostat Tab) 0.4 mg UD PRN SL 09/17/17 20:00 10/17/17 19:59 Aspirin (Ecotrin Tab) 81 mg QAM PO 09/18/17 09:00 10/18/17 08:59 09/19/17 08:28 81 MG Atorvastatin Calcium (Lipitor Tab) 80 mg QAM PO 09/18/17 09:00 10/18/17 08:59 09/19/17 08:29 80 MG Acetaminophen (Tylenol Tab) 650 mg Q4H PRN PO 09/17/17 20:00 10/17/17 19:59 09/19/17 06:30 650 MG Levothyroxine Sodium (Synthroid Tab) 150 mcg DAILYBB PO 09/18/17 06:00 10/18/17 06:59 09/19/17 05:51 150 MCG Losartan Potassium (coZAAR TAB) 50 mg DAILY PO 09/18/17 09:00 10/18/17 08:59 09/19/17 08:28 50 MG Metoprolol Succinate (Toprol Xl Tab) 25 mg DAILY PO 09/18/17 09:00 10/18/17 08:59 09/19/17 08:29 25 MG Multivitamins (Flintstones Complete Tab) 1 tab DAILY PO 09/18/17 09:00 10/18/17 08:59 09/19/17 08:28 1 TAB Pantoprazole Sodium (Protonix Tab) 40 mg QAM PO 09/18/17 09:00 09/21/17 08:59 09/19/17 08:29 40 MG Clopidogrel Bisulfate (plAVix TAB) 75 mg QAM PO 09/18/17 09:00 10/18/17 08:59 09/19/17 08:29 75 MG Insulin Aspart (novoLOG ASPART) SLIDING SCALE G... ACHS SC 09/18/17 06:45 10/18/17 06:44 09/19/17 08:35 3 UNITS Glucose (Glucose 40% Gel) 15-30 GRAMS 15 GRAMS... UD PRN PO 09/17/17 21:30 10/17/17 21:29 Glucose (Glucose Chew Tab) 4-8 Tablets 4 Tabl... UD PRN PO 09/17/17 21:30 10/17/17 21:29 Dextrose (Dextrose 50% 50ML Syringe) 25-50ML OF 50% DW IV FOR... UD PRN IV 09/17/17 21:30 10/17/17 21:29 Glucagon (Glucagon Inj) 1 mg UD PRN SQ 09/17/17 21:30 10/17/17 21:29 Nicotine (Nicoderm Cq 21MG Patch) 1 patch QAM PRN TD 09/18/17 01:30 10/18/17 01:29 Miscellaneous (Remove Nicoderm Patch) 1 ea DAILY@2100 PRN N/A 09/18/17 01:30 10/18/17 01:29 Insulin Glargine (Lantus Solostar Pen) 8 units BID SC 09/18/17 16:00 10/18/17 15:59 09/19/17 08:33 8 UNITS Miscellaneous Information (Consult Glycemic Management Pharmacy) 1 ea UD PRN N/A 09/18/17 13:00 10/18/17 12:59
--- NOTE | 2017-09-19 12:00 | NUR ---
A: Patient sleeping for short intervals, denies chest pain/discomfort. States persistent poor appetite. Call walker within reach, demonstrates ability to ring for assistance as needed.
--- NOTE | 2017-09-19 16:00 | NUR ---
A: Nursing assessment complete and documented. VS WNL. Medicated for ALFONSO. Denies chest pain and sob. SR per tele. Lungs cta. Independent in activity. No s/s of acute distress noted at this time. Call walker within reach. Will continue to monitor. See emr for full assessment data.
--- NOTE | 2017-09-19 19:48 | NUR ---
A: Pt found resting in bed after a busy day of having many visitors. He had no c/o pain and stated he has not had any chest pain since his heart cath. Dressing to left groin in dry and intact with no evidence of bleeding. VS remain stable and PT is NSR in the 60's. See EMR for further documentation. Pt will continue to be monitored.
[2017-09-20] VITALS (7 sets, daily range): BP systolic 120–129; BP diastolic 67–72; PULSE 59–63; TEMP 36.8–37.5; O2SAT 94–96
--- NOTE | 2017-09-20 | NUR ---
A: Pt is febrile @ 37.9 which is new for him. Pt was given Tylenol will reassess temp, all other VS WNL. Pt continues to deny chest pain and remains NSR in the 60's. See EMR for further documentation. Pt will continue to be monitored.
--- NOTE | 2017-09-20 04:00 | NUR ---
A: Pt is afebrile, VS were found to be WNL and PT continues to deny chest pain. Pt hoping to be discharged today.. See EMR for further documentation. Pt will continue to be monitored.
[2017-09-20] MEDS: LEVOTHYROXINE 150 MCG TAB PO SCH (06:12)
[2017-09-20 06:15] LABS: BASO % 0.2 %; BASO ABS # 0.02 K/uL (0-0.2); EOS % 1.5 %; EOS ABS # 0.18 K/uL (0-0.5); HEMATOCRIT 38.5 % (42-52); HEMOGLOBIN 13.3 g/dL (14.0-18.0); IG# 0.03 K/uL (0.00-0.02); LYMPH ABS # 1.53 K/uL (1.2-3.4); MEAN CELL VOLUME 97.5 fL (80-100); MEAN CORPUSCULAR HEMOGLOBIN 33.7 pg (25-34); MEAN CORPUSCULAR HGB CONC 34.5 g/dl (32-36); MEAN PLATELET VOLUME 10.2 fL (7.4-10.4); MONO % 13.5 %; MONO ABS # 1.59 K/uL (0.11-0.59); NEUT % 71.5 %; NEUT ABS # 8.46 K/uL (1.4-6.5); PLATELET COUNT 128 K/uL (130-400); RED CELL DISTRIBUTION WIDTH CV 13.6 % (11.5-14.5); RED CELL DISTRIBUTION WIDTH SD 48.3 fL (36.4-46.3); WHITE BLOOD COUNT 11.81 K/uL (4.8-10.8)
[2017-09-20 06:48] LABS: CALCIUM 8.5 mg/dl (8.5-10.1); CREATININE 1.17 mg/dl (0.60-1.40); POTASSIUM 3.6 mmol/L (3.5-5.1)
--- NOTE | 2017-09-20 08:00 | NUR ---
A: Nursing assessment complete and documented in emr. A&O. VS WNL. Denies pain and sob. SR per tele. Lungs cta. Cath site wnl. No complaints or s/s of acute distress noted at this time. Call walker within reach and pt instructed to ring for assistance. Will continue to monitor. See emr for full assessment data.
[2017-09-20] MEDS: INSULIN ASPART 100 UNITS/ML 3 ML PEN SC SCH ×2 (08:07→13:04)
[2017-09-20] MEDS: INSULIN GLARGINE SOLOSTAR 100 UNITS/ML 3 ML PEN SC SCH (08:08)
[2017-09-20] MEDS: LOSARTAN POTASSIUM 50 MG TAB PO SCH (08:09)
[2017-09-20] MEDS: ASPIRIN 81 MG ECTAB PO SCH (08:09)
[2017-09-20] MEDS: FLINTSTONES COMPLETE CHEWABLE TAB PO SCH (08:09)
[2017-09-20] MEDS: ATORVASTATIN 40 MG TAB PO SCH (08:10)
[2017-09-20] MEDS: CLOPIDOGREL BISULFATE 75 MG TAB PO SCH (08:10)
[2017-09-20] MEDS: PANTOprazole SOD 40 MG TAB PO SCH (08:10)
[2017-09-20] MEDS: METOPROLOL SUCC 25MG EXT REL TAB PO SCH (08:10)
[2017-09-20] MEDS ORDERED: ENOXAPARIN 40 MG/0.4 ML SYR SQ SCH (09:00)
--- NOTE | 2017-09-20 12:00 | NUR ---
A: Assessment complete and documented. VS WNL. Denies pain and sob. SR per tele. Lungs cta. Cath site wnl. No complaints or s/s of acute distress noted. Call walker within reach. Will continue to monitor. See emr for full assessment data.
--- NOTE | 2017-09-20 12:51 | Discharge Summary ---
Discharge Summary Date of Service Sep 20, 2017. Discharge Summary Admission Date: Sep 17, 2017 at 20:30 Discharge Date: Sep 20, 2017 Discharge Disposition: Home Principal Diagnosis: Severe CAD s/p CABG and prior stents with new occlusion in RCA resulting in STEMI s/p RICCO to RCA. Ventricular ectopy likely 2/2 reperfusion DMII HTN Hypothyroidisma Procedures: Left cardiac catheterization s/p RICCO to RCA Vaccinations: None. Consultations: Zuleyma-Carie/Fredo THURSTON-Scott Pending Studies/Follow-Up: see instructions below. Medication Reconciliation Continued Medications: Aspirin (Aspirin Ec) 81 Mg Tab 81 MG PO DAILY Atorvastatin (Lipitor) 80 Mg Tab 80 MG PO DAILY, TAB Clopidogrel (Plavix) 75 Mg Tab 75 MG PO DAILY, TAB Glimepiride (Glimepiride) 2 Mg Tab 2 MG PO QID for 90 Days, #360 TAB 3 Refills Levothyroxine Sodium (Levothyroxine Sodium) 150 Mcg Tab 150 MCG PO DAILY for 90 Days, #90 TAB 3 Refills Losartan Potassium (Cozaar) 50 Mg Tab 50 MG PO DAILY, TAB Metformin Hcl (Glucophage) 1,000 Mg Tab 1000 MG PO BID, TAB Metoprolol Succ (Toprol Xl) (Toprol-Xl) 25 Mg Tabcr 25 MG PO DAILY, #30 TAB Multiple Vitamins W/ Minerals (Adult Gummy) 1 Chw Chw 1 TABS PO DAILY Nitroglycerin (Nitrostat) 0.4 Mg Tab 0.4 MG UT PRN, BTL Admission Information HPI (per Admitting provider): HISTORY OF PRESENT COMPLAINT: He is a 72-year-old male with significant past medical history including CABG x5, old myocardial infarction, paroxysmal atrial fibrillation, type 2 diabetes, hypothyroidism, hyperlipidemia, history of prostate cancer, hypertension; apparently has been cutting small or lifting small this afternoon when he got chest pain. He was rushed into the Emergency Room and he was noted to have inferior ST elevation OK. He was taken to the cardiac cardiac catheterization technologist at that time and underwent cardiac catheterization by Dr. Yoo and he was noted to have 95% mid LAD stenosis with competitive flow from ARREOLA to distal segment, diffuse 90% proximal stenosis of circumflex, OM occluded ostially, RCA occluded proximally, and Ramus occluded at ostium. SVG widely patent. SVG-OM widely patent. SVG-RCA acutely occluded. ARREOLA to LAD not visualized. He is status post 3 overlapping RICCO placed in SVG-RcA, and following that he is free from pain and he is in ICU, resting comfortably. He has been getting Integrilin drip and also he was loaded with Plavix 300 mg and he will get usual aspirin, beta morgan and also Plavix for tomorrow. He denies to have any symptoms during my examination in the ICU. Physical Exam (per Admitting): REVIEW OF SYSTEMS: CENTRAL NERVOUS SYSTEM: No headache, no blurred vision, no numbness or tingling in the extremities. No weakness involving any side. RESPIRATORY: No fever, chills or rigors. No cough or shortness of breath. CARDIOVASCULAR: Did have chest pain with acute ST elevation OK, but nothing now. No palpitation. GASTROINTESTINAL: No problem with urine and no abdominal pain, nausea or vomiting. GENITOURINARY: Denies to have any problem with urine and/or bowel habit. MUSCULOSKELETAL: No acute arthritis. SKIN: Generally does not have any rash and/or enlargement of lymph nodes. ENT: Denies to have any problem with ear, nose or throat. Hospital Course 72 yo M presented to the ER with acute chest pain and was found to have a STEMI on EKG. He was taken emergently to the cardiac catheterization technologist where all bypass grafts were patent except for the saphenous vein graft to the right coronary artery which was occluded. He received drug-eluting stents to the RCA. He was admitted to the ICU for recovery. Throughout the night, he had some ventricular ectopy which was treated with IV amiodarone. He had no residual events on telemetry and was stable another day in the ICU and ultimately transferred to the floor where he continued to recover. On day of discharge physical exam was unremarkable including cath site on the L groin which was well-healed with no ecchymosis. Cardiopulmonary exam was normal. He was sent home in stable condition with close PCP followup. Of note, he was already on max medical therapy, so no new medications were started at discharge. Total time spent on discharge = 60 minutes This includes examination of the patient, discharge planning, medication reconciliation, and communication with other providers. Discharge Instructions [facility] [address] [place] [address] Discharge Medical Patient Name: Yonatan Carver Unit Number: [id number] Date of : 1945 Patient Status: Admitted Inpatient Attending Doctor: Mae Saravia DO DI: Medical v4 Discharge Instructions Date of Service Sep 20, 2017. Admission Reason for Admission: STEMI Discharge Discharge Diagnosis / Problem: STEMI Discharge Goals Goal(s): Prevent Disease Progression Activity Recommendations Activity Limitations: per Instructions/Follow-up section . Instructions / Follow-Up Instructions / Follow-Up Please take all medications as instructed. You have a follow-up appointment with Dr. Prado on 09/29 @ 10:45am for follow- up from this hospitalization. Please follow-up with Cardiology as instructed. It was a pleasure taking care of you! Call if you have any questions or problems. You can reach a [facility] hospitalist on duty at [facility] 24 hours a day by calling [phone]. Take care of yourself. Mae Saravia DO [facility] Hospitalist Current Hospital Diet Patient's current hospital diet: [facility] Diet (Heart Healthy) Discharge Diet Recommended Diet: [facility] Diet (Heart Healthy) Procedures Procedures Performed: Cardiac cath with stent placement Pending Studies Studies pending at discharge: no Laboratory Results Hemoglobin A1c Test 09/18/17 05:43 Range/Units Estimated Average Glucose 166 mg/dl Hemoglobin A1c 7.4 H 4.5-5.6 % Lipid Panel Test 09/18/17 05:43 Range/Units Triglycerides Level 205 H 0-150 mg/dl Cholesterol Level 181 0-200 mg/dl HDL Cholesterol 24 mg/dl Cholesterol/HDL Ratio 7.5 LDL Cholesterol, Calculated 116 mg/dl Medical Emergencies . Who to Call and When: Medical Emergencies: If at any time you feel your situation is an emergency, please call 911 immediately. . Non-Emergent Contact Non-Emergency issues call your: Primary Care Provider, Donor Services Team Leader . . "Provider Documentation" section prepared by Mae Saravia. . VTE Core Measure Inpt VTE Proph given/why not?: Enoxaparin (Lovenox)SQ, Other Anticoagulation Additional Copies To Aury Prado
[2017-09-20] MEDS ORDERED: NTRSLP4 SL (14:10)
--- NOTE | 2017-09-20 15:06 | Cardiology Follow-Up ---
Subjective General Date of Service: Sep 20, 2017. Chief Complaint: follow up chest pain Pt evaluation today including: conversation w/ patient, physical exam History of Present Illness Yonatan Carver is a 72 year old male seen in follow up. Pt feels well. No arrhythmias on telemetry. Allergies Coded Allergies: No Known Allergies (Unverified , 12/29/16) Social History Smoking Status: Current Every Day Smoker Hx Tobacco Use In Past Year?: Yes Hx Alcohol Use - Type And Amou: No Hx Substance Use - Type And Am: No Problem List Medical Problems: (1) CAD (coronary artery disease) Status: Chronic (2) Crescendo angina Status: Acute (3) DM type 2 (diabetes mellitus, type 2) Status: Chronic (4) Hypertension Status: Chronic (5) Hypothyroidism Status: Chronic (6) Paroxysmal atrial fibrillation Permanent Comment: remote, postop s/p CABG Status: Chronic (7) STEMI (ST elevation myocardial infarction) Status: Acute Surgical Problems: (1) S/P CABG x 5 Permanent Comment: CABG x5 vessel (07/28/03): ARREOLA-LAD, SVG-RCA, SVG-OM, SVG- ramus, SVG-D1 Status: Chronic (2) S/P coronary artery stent placement Permanent Comment: Cardiac catheterization 05/2015 at [facility] [place]- Severe [place] vessel disease w/ 95% LAD, 95% Cx, 100% prox RCA, Patent ARREOLA-LAD, Patent SVG-OM, Patent SVG-RCA - mid portion of graft with turbulence of flow secondary to valve vs thrombus but has WILY III flow through graft into distal RCA run off, Patent [id number] w/ 80% lesion in mid body of graft --> Stent placed - bare metal stent Status: Chronic Physical Exam Vital Signs Last Vital Signs Documentation Date Time Temp Pulse Resp B/P (MAP) Pulse Ox O2 Delivery O2 Flow Rate FiO2 09/20/17 13:37 37.5 63 18 96 Room Air 09/20/17 11:25 127/68 (87) 09/17/17 17:58 2.0 Physical Exam Constitutional: Level of Distress: NAD Head: normocephalic Neck: supple Lungs: Auscultation: no wheezing, no rales/crackles, no rhonchi Cardiovascular: Heart Auscultation: RRR, no murmurs, no rubs Extremities: no edema, no varicosities Neurologic: Gait & Station: pertinent finding (no focal deficits ) Assessment and Plan Assessment and Plan Impression: 72 year old male 1. ST-elevation myocardial infarction with an acute inferior wall myocardial infarction due to closure of the saphenous vein graft to the right coronary artery, receiving a drug-eluting stent with poor distal runoff. 2. Previous coronary artery bypass surgery and coronary interventions. 3. Diabetes mellitus. 4. Previous smoking history. 5. Transient idioventricular rhythm, likely due to RCA territory ischemia, resolved. Plan: Stable for DC to home on ASA, clopidogrel, metoprolol, losartan, atorvastatin. Follow up as outpt in 1-3 weeks. Laboratory Results Last 24 Hours Test 09/19/17 16:48 09/19/17 20:25 09/20/17 05:46 09/20/17 06:52 Bedside Glucose 242 mg/dl 103 mg/dl 187 mg/dl White Blood Count 11.81 K/uL Red Blood Count 3.95 M/uL Hemoglobin 13.3 g/dL Hematocrit 38.5 % Mean Corpuscular Volume 97.5 fL Mean Corpuscular Hemoglobin 33.7 pg Mean Corpuscular Hemoglobin Concent 34.5 g/dl Platelet Count 128 K/uL Mean Platelet Volume 10.2 fL Neutrophils (%) (Auto) 71.5 % Lymphocytes (%) (Auto) 13.0 % Monocytes (%) (Auto) 13.5 % Eosinophils (%) (Auto) 1.5 % Basophils (%) (Auto) 0.2 % Neutrophils # (Auto) 8.46 K/uL Lymphocytes # (Auto) 1.53 K/uL Monocytes # (Auto) 1.59 K/uL Eosinophils # (Auto) 0.18 K/uL Basophils # (Auto) 0.02 K/uL RDW Standard Deviation 48.3 fL RDW Coefficient of Variation 13.6 % Immature Granulocyte % (Auto) 0.3 % Immature Granulocyte # (Auto) 0.03 K/uL Sodium Level 136 mmol/L Potassium Level 3.6 mmol/L Chloride Level 103 mmol/L Carbon Dioxide Level 29 mmol/L Anion Gap 4.0 mmol/L Blood Urea Nitrogen 13 mg/dl Creatinine 1.17 mg/dl Est Creatinine Clear Calc Drug Dose 60.7 ml/min Estimated GFR () 72.8 Estimated GFR (Non- 62.8 BUN/Creatinine Ratio 11.0 Random Glucose 140 mg/dl Calcium Level 8.5 mg/dl Test 09/20/17 11:18 Bedside Glucose 198 mg/dl
--- NOTE | 2017-09-20 15:35 | NUR ---
A: Discharge instructions given to patient and all questions answered. Saline lock and tele removed. Pt d/c to home with family and all belongings.
== END 2017-09-20 15:44 | disposition home or self-care (01) | DRG 246 ==
LOC: C.EDB 17:40 → C.MSICU 20:30 → ENRESERV 09-19 15:04 → C.2T 09-19 15:48
PROVIDERS: ADMIT Internal Medicine; ATTEND Hospitalist
PROC: B211YZZ Fluoroscopy of Multiple Coronary Arteries using Other Contrast (ICD-10-PCS; principal; 2017-09-17 17:57)
PROC: 027036Z Dilation of Coronary Artery, One Artery with Three Drug-eluting Intraluminal Devices, Percutaneous Approach (ICD-10-PCS; principal; 2017-09-17 17:57)
PROC: B213YZZ Fluoroscopy of Multiple Coronary Artery Bypass Grafts using Other Contrast (ICD-10-PCS; principal; 2017-09-17 17:57)
DX: I25.810 Atherosclerosis of coronary artery bypass graft(s) without angina pectoris (principal); I21.19 ST elevation (STEMI) myocardial infarction involving other coronary artery of inferior wall; I47.2 Ventricular tachycardia; I25.10 Atherosclerotic heart disease of native coronary artery without angina pectoris; I10 Essential (primary) hypertension; E11.9 Type 2 diabetes mellitus without complications; E78.5 Hyperlipidemia, unspecified; E03.9 Hypothyroidism, unspecified; I48.0 Paroxysmal atrial fibrillation; F17.200 Nicotine dependence, unspecified, uncomplicated; I25.2 Old myocardial infarction; Z95.1 Presence of aortocoronary bypass graft; Z95.5 Presence of coronary angioplasty implant and graft; Z85.46 Personal history of malignant neoplasm of prostate; Z79.02 Long term (current) use of antithrombotics/antiplatelets; Z79.82 Long term (current) use of aspirin; Z79.84 Long term (current) use of oral hypoglycemic drugs; Z79.899 Other long term (current) drug therapy; Z83.3 Family history of diabetes mellitus; Z82.5 Family history of asthma and other chronic lower respiratory diseases

== ENCOUNTER 2022-05-31 09:17 | Inpatient (IN) ==
[2022-05-31] MEDS ORDERED: amLODIPine BESYLATE 5 MG TAB PO ONE (09:34)
[2022-05-31] MEDS ORDERED: ASPIRIN CHEW 324 MG PO STA (09:35)
--- NOTE | 2022-05-31 09:39 | Emergency Department Note ---
Impression & Plan Precordial chest pain, CAD (coronary artery disease), Elevated troponin, Hypertension ED Provider Note NAME: BRIDGET ZHAO AGE: 76 SEX: M : 1945 ARRIVES VIA: Ambulance INFORMANT: [Patient] ED PROVIDER(S): [Mario Pearson MD] CHIEF COMPLAINT: Chest pain HISTORY OF PRESENT ILLNESS: The patient is a 76-year-old male who presents to the ER with intermittent chest discomfort for the last few weeks. Yesterday, he was out in the yard and noticed some left chest, left shoulder and left jaw discomfort. The pain was a 3/10. His heart rate seemed increased and his heart seemed to pound. He was not short of breath, no nausea or sweating. He went to the house and sat down, he took a nitroglycerin. His pain resolved in about 5 to 10 minutes. The patient had a friend who recently of an RI. This morning, the patient decided to come and have an evaluation. He currently has no chest or jaw or shoulder discomfort. The patient has had 3 heart attacks. He has had a CABG x5 in has 4 coronary stents. There has been no cough or congestion. He has not had fever. He does admit to a similar episode to the one yesterday that occurred last week although, he did not take a nitroglycerin for that discomfort. REVIEW OF SYSTEMS: See HPI for pertinent positives and negatives. A total of ten systems were reviewed and were otherwise negative. PMHx/PSHx: See Below SOCIAL HISTORY: See Below. PHYSICAL EXAM: GENERAL: Patient is in no acute distress. HEENT: No acute trauma, normocephalic atraumatic, mucous membranes moist, no nasal congestion, no scleral icterus. NECK: No stridor, no adenopathy, no meningismus, trachea is midline. LUNGS: Few scattered wheezes heard, no respiratory distress, breath sounds equal. HEART: Subtle systolic murmur, regular rate and rhythm. ABDOMEN: Soft, nontender, bowel sounds positive, no peritonitis. EXTREMITIES: No cyanosis or edema, full range of motion of all the joints without pain or difficulty, no signs for acute trauma. NEUROLOGIC: Oriented x 3, no acute motor or sensory deficits, no focal weakness. SKIN: No rash, no jaundice, no diaphoresis. DIFFERENTIAL DIAGNOSIS: Cardiac ischemia, aortic dissection, pulmonary embolism, pneumothorax, pneumonia, pericarditis, myocarditis, esophageal rupture, GERD, cholecystitis, pancreatitis, musculoskeletal, as well as other pathologies. EMERGENCY DEPARTMENT COURSE/PROCEDURES: ECG: Indication was chest pain. The ECG shows a normal sinus rhythm with a rate of 65. There is an old inferior infarct. No ST elevation, no PVCs. There are some flattened T waves laterally. QTC is 463. Compared to an ECG from 04 August 2018, I see no significant change. Continuous Cardiac Monitoring: An order was placed for continuous cardiac monitoring. The monitor shows a rate of 65 with normal sinus rhythm. Critical Care Note: I have personally spent 42 minutes of critical care time in the direct management of this patient. This includes bedside care, interpretation of diagnostic studies, and testing, discussion with consultants, patient, and family members, and other required patient management activities. This 42 minutes is in excess of all separately billable procedures. MEDICAL DECISION MAKING: There is no leukocytosis or concerning anemia. There is a normal platelet count. No coagulopathy. No renal failure or significant electrolyte abnormality. No worrisome liver enzyme elevation. No evidence for pancreatitis. ECG shows a normal sinus rhythm, no obvious ischemia. Cardiac enzyme testing x1 is elevated at around 1000, this is concerning for cardiac injury or strain. Chest x-ray did not show pneumonia or CHF. COVID test returned negative. The patient presented hypertensive. He had developed chest pain/arm and jaw pain yesterday while out in his yard. His pain was relieved with nitroglycerin and rest. He really had no discomfort in his chest today. Patient was given nitroglycerin paste, 2 inches. He was given 10 mg of oral amlodipine as he had not taken this medication yet today. He was given oral aspirin. I did speak with Dr. Darnell of cardiology, he recommended a hospital stay and further cardiac work-up. No reason for emergent cardiac intervention as the patient is without chest discomfort today. I am concerned for the possibility of an RI. This event likely would have happened yesterday. Further testing and care in the hospital is warranted. I spoke with the patient and case management, the on-call hospitalist was consulted. Past Med/Surg History Medical History Anxiety CAD (coronary artery disease) S/p CABG in 2002, RICCO x 3 in 09/07, RICCO x 1 in 01/06 Chest pain DM type 2 (diabetes mellitus, type 2) HLD (hyperlipidemia) Hypertension Hypertensive emergency Hypothyroidism NSTEMI (non-ST elevated myocardial infarction) Paroxysmal atrial fibrillation "remote, postop s/p CABG" Situational anxiety Tobacco use disorder Surgical History S/P CABG x 5 "CABG x5 vessel (07/28/03): ARREOLA-LAD, SVG-RCA, SVG-OM, SVG-ramus, SVG-D1" S/P coronary artery stent placement "Cardiac catheterization 05/2015 at [facility] [place]- Severe [place] vessel disease w/ 95% LAD, 95% Cx, 100% prox RCA, Patent ARREOLA-LAD, Patent SVG-OM, Patent SVG-RCA - mid portion of graft with turbulence of flow secondary to valve vs thrombus but has WILY III flow through graft into distal RCA run off, Patent [id number] w/ 80% lesion in mid body of graft --> Stent placed - bare metal stent" On 12/29/16 20:54 Dianne Carrasco wrote "Cardiac catheterization 05/2015 at [facility] [place]- stenosis in the [id number], BMS placed" Family History Other Diabetes Social History Smoking Status: Never smoker Tobacco Type: Cigarettes Second Hand Exposure: No; Hx Alcohol Use: No Hx Substance Use: No Preferred Language: Dutch Communication Ability: Effective Visual Impairment: No Limitations Hearing Ability: Normal Panel Beater Required: No Beliefs That Will Affect Care: None Current Living Situation: Spouse Feels Safe at Home: Yes Safety Concerns: Feels Safe At This Time Assistive Devices: None Allergies Allergies Allergy/AdvReac Type Severity Reaction Status Date / Time No Known Allergies Allergy Unverified 08/03/18 14:42 Home Meds Home Medications Medication Instructions Recorded Confirmed aspirin 81 mg tablet,delayed 81 mg PO QAM 08/03/18 05/31/22 release (Aspir-) glimepiride 2 mg tablet (Amaryl) 4 mg PO QAM 08/03/18 05/31/22 levothyroxine 150 mcg tablet 150 mcg PO QAM 08/03/18 05/31/22 (Synthroid) metformin 1,000 mg tablet 1,000 mg PO QAM 08/03/18 05/31/22 metoprolol succinate 25 mg 25 mg PO QAM 08/03/18 05/31/22 tablet,extended release 24 hr Results & Data (ED) Vital Signs Vital Signs - 24 hr 05/31/22 09:20 05/31/22 09:34 05/31/22 09:50 Temperature 36.6 C Temperature Source Oral Pulse Rate 65 Pulse Rate [Apical] 64 Pulse Strength Normal Respiratory Rate 18 18 Respiratory Effort / Characteristics Non-Labored Spontaneous Non-Labored Respiratory Depth Normal Normal Blood Pressure 218/116 H Blood Pressure [Right Arm] 213/99 H Blood Pressure Mean 150 Blood Pressure Mean [Right Arm] 137 Blood Pressure Position Lying Pulse Oximetry 96 96 95 Oxygen Delivery Method Room Air Room Air Room Air Sepsis Recent Fever Within 48 Hours No Sepsis New/Unexplained Change in Mental Status No Sepsis Action Taken by Nursing No Action Required 05/31/22 10:23 05/31/22 10:47 Temperature Temperature Source Pulse Rate Pulse Rate [Apical] 61 61 Pulse Strength Respiratory Rate 16 18 Respiratory Effort / Characteristics Non-Labored Spontaneous Spontaneous Respiratory Depth Normal Normal Blood Pressure Blood Pressure [Right Arm] 212/97 H 194/87 H Blood Pressure Mean Blood Pressure Mean [Right Arm] 135 122 Blood Pressure Position Pulse Oximetry 96 96 Oxygen Delivery Method Room Air Room Air Sepsis Recent Fever Within 48 Hours Sepsis New/Unexplained Change in Mental Status Sepsis Action Taken by [facility] Medications Current Medication List: was personally reviewed by me Laboratory Data Attestation: I reviewed the patient's lab results. Result diagrams: 05/31/22 09:24 05/31/22 09:24 Lab Results 05/31/22 05/31/22 05/31/22 Range/Units 09:24 09:24 09:24 WBC 9.84 (4.8-10.8) K/ul RBC 5.05 (4.63-6.08) M/uL Hgb 15.9 (14.0-18.0) g/dl Hct 46.7 (40.1-51.0) % MCV 92.5 (80.0-100.0) fL MCH 31.5 (25.0-34.0) pg MCHC 34.0 (32.0-36.0) g/dL RDW Std Deviation 43.0 (36.4-46.3) fL RDW Coeff of [place] 12.6 (11.5-14.5) % Plt Count 213 (130-400) K/uL MPV 10.0 (9.4-12.4) fL Immature Gran % (Auto) 0.4 % Neut % (Auto) 67.0 % Lymph % (Auto) 20.0 % [place] % (Auto) 8.4 % Eos % (Auto) 3.6 % Baso % (Auto) 0.6 % Neut # (Auto) 6.59 H (1.4-6.5) K/uL Lymph # (Auto) 1.97 (1.2-3.4) K/uL [place] # (Auto) 0.83 H (0.24-0.82) K/uL Eos # (Auto) 0.35 (0-0.50) K/uL Baso # (Auto) 0.06 (0-0.2) K/uL Immature Gran # (Auto) 0.04 H (0.00-0.02) K/uL PT 10.6 (9.0-12.0) Seconds INR 1.0 (0.9-1.1) APTT 26.2 (21.0-31.0) Seconds PTT Ratio 1.0 Sodium 139 (136-145) mmol/L Potassium 4.1 (3.5-5.1) mmol/L Chloride 103 (98-107) mmol/L Carbon Dioxide 29 (21-32) mmol/L Anion Gap 7 (3-11) BUN 16 (6-23) mg/dl Creatinine 1.38 (0.6-1.4) mg/dl Est Cr Clr Drug Dosing 48.5 ml/min Est GFR ( Amer) 58.0 ml/min Est GFR (Non-Af Amer) 50.0 ml/min BUN/Creatinine Ratio 11.6 (10-20) Glucose 278 H (70-99(Fasting)) mg/dl Calcium 9.5 (8.5-10.1) mg/dl Magnesium 1.9 (1.7-2.4) mg/dl Total Bilirubin 0.8 (0.2-1.0) mg/dl AST 21 (13-39) U/L ALT 24 (7-52) U/L Alkaline Phosphatase 71 (34-104) U/L Troponin I High Sens 1022.4 H* (0-20) pg/ml Total Protein 7.1 (6.0-8.3) gm/dl Albumin 4.6 (3.4-5.0) gm/dl Globulin 2.5 (2.5-4.0) gm/dl Albumin/Globulin Ratio 1.8 (0.9-2) Lipase 18 (11-82) U/L SARS-CoV-2, RNA, NAAT (NEGATIVE) 05/31/22 Range/Units 09:52 WBC (4.8-10.8) K/ul RBC (4.63-6.08) M/uL Hgb (14.0-18.0) g/dl Hct (40.1-51.0) % MCV (80.0-100.0) fL MCH (25.0-34.0) pg MCHC (32.0-36.0) g/dL RDW Std Deviation (36.4-46.3) fL RDW Coeff of [place] (11.5-14.5) % Plt Count (130-400) K/uL MPV (9.4-12.4) fL Immature Gran % (Auto) % Neut % (Auto) % Lymph % (Auto) % [place] % (Auto) % Eos % (Auto) % Baso % (Auto) % Neut # (Auto) (1.4-6.5) K/uL Lymph # (Auto) (1.2-3.4) K/uL [place] # (Auto) (0.24-0.82) K/uL Eos # (Auto) (0-0.50) K/uL Baso # (Auto) (0-0.2) K/uL Immature Gran # (Auto) (0.00-0.02) K/uL PT (9.0-12.0) Seconds INR (0.9-1.1) APTT (21.0-31.0) Seconds PTT Ratio Sodium (136-145) mmol/L Potassium (3.5-5.1) mmol/L Chloride (98-107) mmol/L Carbon Dioxide (21-32) mmol/L Anion Gap (3-11) BUN (6-23) mg/dl Creatinine (0.6-1.4) mg/dl Est Cr Clr Drug Dosing ml/min Est GFR ( Amer) ml/min Est GFR (Non-Af Amer) ml/min BUN/Creatinine Ratio (10-20) Glucose (70-99(Fasting)) mg/dl Calcium (8.5-10.1) mg/dl Magnesium (1.7-2.4) mg/dl Total Bilirubin (0.2-1.0) mg/dl AST (13-39) U/L ALT (7-52) U/L Alkaline Phosphatase (34-104) U/L Troponin I High Sens (0-20) pg/ml Total Protein (6.0-8.3) gm/dl Albumin (3.4-5.0) gm/dl Globulin (2.5-4.0) gm/dl Albumin/Globulin Ratio (0.9-2) Lipase (11-82) U/L SARS-CoV-2, RNA, NAAT NEGATIVE (NEGATIVE) Administered Medications Aspirin (Aspirin 81 Mg Ectab) 81 mg PO [facility] Stop: 06/30/22 14:30 Last Admin: 05/31/22 15:10 Dose: 81 mg Documented By: TB Bupropion HCl (Bupropion Sr 150 Mg Tabcr) 150 mg PO BID [facility] Stop: 06/30/22 14:30 Last Admin: 05/31/22 15:12 Dose: 150 mg Documented By: TB Isosorbide Mononitrate (Isosorbide [place] Extended Rel 30 Mg Tabcr) 30 mg PO [facility] Stop: 06/30/22 14:30 Last Admin: 05/31/22 15:10 Dose: 30 mg Documented By: TB Levothyroxine Sodium (Levothyroxine Sodium 150 Mcg Tablet) [facility] Stop: 06/30/22 14:30 Last Admin: 05/31/22 15:11 Dose: 150 mcg Documented By: TB Metoprolol Succinate (Metoprolol Succ 25mg Ext Rel Tab) [facility] [place] [facility] [place]: 06/30/22 14:30 Last Admin: 05/31/22 15:11 Dose: 25 mg Documented By: TB Discontinued Medications Amlodipine Besylate (Amlodipine Besylate 5 Mg Tab) 10 mg PO NOW ONE Stop: 05/31/22 09:35 Last Admin: 05/31/22 09:50 Dose: 10 mg Documented By: REECE Aspirin (Aspirin Chew 324 Mg) 324 mg PO NOW STA Stop: 05/31/22 09:36 Last Admin: 05/31/22 09:38 Dose: Not Given Documented By: REECE Magnesium Sulfate/Dextrose (Magnesium Sulfate / D5w) 1 gm in 100 mls @ 50 mls/hr IV ONE ONE Stop: 05/31/22 13:05 Last Infusion: 05/31/22 14:02 Dose: 0 mls/hr Documented By: Admin: 05/31/22 12:02 Dose: 50 mls/hr Documented By: REECE Nitroglycerin (Nitroglycerin 2% Ointment 30gm Tube) 1 inch EXT NOW STA Stop: 05/31/22 10:45 Last Admin: 05/31/22 10:47 Dose: 1 inch Documented By: REECE Nitroglycerin (Nitroglycerin 2% Ointment 30gm Tube) 2 inch EXT NOW STA Stop: 05/31/22 11:10 Last Admin: 05/31/22 11:13 Dose: 2 inch Documented By: REECE Imaging Data Radiologist's Impression: Chest X-Ray 05/31/22 09:35 XR chest 1V portable CLINICAL HISTORY: Atypical chest pain. COMPARISON STUDY: Chest radiograph August 03, 2018. FINDINGS: Lung volumes are normal. Lungs are clear. There is no pneumothorax or pleural effusion. Cardiomegaly is stable. Median sternotomy wires. Mediastinal contours are normal. There is no evidence for pulmonary edema. IMPRESSION: No acute cardiopulmonary findings. ACT 112: Negative or not required by law. Electronically signed by: Tonio Diehl M.D. 05/31/2022 9:54 AM Discharge Plan Visit Data Chief Complaint: Chest Pain Stated Complaint: chest pain ED Provider: Mario Pearson Discharge Problem: Precordial chest pain, CAD (coronary artery disease), Elevated troponin, Hypertension Patient Disposition: Admitted As Inpatient Condition: Fair Discharge Instructions Interventions: ED Discharge Assessment Last Done: 05/31/22 14:00
[2022-05-31 09:48] LABS: Basophils # (auto) 0.06 K/uL (0-0.2); Basophils % (auto) 0.6 %; Eosinophils # (auto) 0.35 K/uL (0-0.50); Eosinophils % (auto) 3.6 %; Hematocrit (blood only) 46.7 % (40.1-51.0); Hemoglobin 15.9 g/dl (14.0-18.0); Immature Granulocytes # (auto) 0.04 K/uL (0.00-0.02); Immature Granulocytes % (auto) 0.4 %; Lymphocytes # (auto) 1.97 K/uL (1.2-3.4); Mean Corpuscular Hemoglobin 31.5 pg (25.0-34.0); Mean Corpuscular Volume 92.5 fL (80.0-100.0); Monocytes # (auto) 0.83 K/uL (0.24-0.82); Monocytes % (auto) 8.4 %; Neutrophils # (auto) 6.59 K/uL (1.4-6.5); Platelet Count 213 K/uL (130-400); RDW Coefficient of Variation 12.6 % (11.5-14.5); Red Blood Count 5.05 M/uL (4.63-6.08); White Blood Count 9.84 K/ul (4.8-10.8)
--- NOTE | 2022-05-31 09:56 | XRay Report ---
XR chest 1V portable CLINICAL HISTORY: Atypical chest pain. COMPARISON STUDY: Chest radiograph August 03, 2018. FINDINGS: Lung volumes are normal. Lungs are clear. There is no pneumothorax or pleural effusion. Car diomegaly is stable. Median sternotomy wires. Mediastinal contours are normal. There is no evidence f or pulmonary edema. IMPRESSION: No acute cardiopulmonary findings. ACT 112: Negative or not required by law. Electronically signed by: Tonio Diehl M.D. 05/31/2022 9:54 AM
[2022-05-31 10:00] LABS: Partial Thromboplastin Time 26.2 Seconds (21.0-31.0); Prothrombin Time 10.6 Seconds (9.0-12.0)
[2022-05-31 10:24] LABS: Albumin Globulin Ratio 1.8 (0.9-2); Albumin Level 4.6 gm/dl (3.4-5.0); BUN Creatinine Ratio 11.6 (10-20); Bilirubin,Total 0.8 mg/dl (0.2-1.0); Calcium 9.5 mg/dl (8.5-10.1); Creatinine Clr Calc Pharmacy 48.5 ml/min; Globulin 2.5 gm/dl (2.5-4.0); Magnesium 1.9 mg/dl (1.7-2.4); Potassium 4.1 mmol/L (3.5-5.1); Total Protein 7.1 gm/dl (6.0-8.3)
[2022-05-31 10:41] LABS: Troponin I High Sensitivity 1022.4 pg/ml (0-20)
[2022-05-31] MEDS ORDERED: NITROGLYCERIN 2% OINTMENT 30GM TUBE EXT STA ×2 (10:44→11:09)
--- NOTE | 2022-05-31 10:52 | Electrocardiogram Report ---
Test Reason : Blood Pressure : / mmHG Vent. Rate : 065 BPM Atrial Rate : 065 BPM P-R Int : 196 ms QRS Dur : 118 ms QT Int : 446 ms P-R-T Axes : 027 011 090 degrees QTc Int : 463 ms Normal sinus rhythm Possible Inferior infarct (cited on or before 17-SEP-2017) Abnormal ECG When compared with ECG of 04-AUG-2018 06:19, No significant change Confirmed by Fazal Natarajan ([id number]) on 05/31/2022 10:52:30 AM Referred By: REFERRED SELF Confirmed By:Fazal Natarajan
[2022-05-31] MEDS ORDERED: MAGNESIUM SULFATE / D5W 1 GM/100 ML BAG IV ONE (11:06)
--- NOTE | 2022-05-31 11:06 | History & Physical Report ---
Date of Service May 31, 2022 Assessment & Plan (1) CAD (coronary artery disease): (2) Chest pain: (3) Hypertensive emergency: (4) Situational anxiety: (5) DM type 2 (diabetes mellitus, type 2): (6) HLD (hyperlipidemia): (7) Hypothyroidism: Plan This is a 72yo M with a PMH of CAD (s/p CABG in 2002, RICCO x 3 in 09/07, RICCO x 1 in 01/06), DM II, HTN, HLD and other medical problems listed below who presents with chest pain over the past 24 hours. Trend troponins, SL Nitro PRN. Tighter BP control. Cards consult. Chest pain in setting of ACS: CAD: H/o of CABG in 2002, RICCO x 3 in 08/2017 and RICCO x 1 in 12/2016 -In setting of significant coronary disease -Initial troponin 1022; will trend -EKG-NSR at 65 bpm. No ischemic changes noted in comparing to ECG from -CXR negative -Nitro patch on; PRN SL Nitro -ED physician discussed case with exterminator; Dr. Darnell; hold on Heparin gtt for now. Cards Consult placed Takes Imdur; continue Hypertensive Emergency: BP 200/100 in ED Hydralazine 10 mg IV one time now; Hydralazine and Labatolol ordered PRN Does not take BP at home; continue Amlodipine Situational Anxiety: Patient reports significant stressors at home; primary caregiver of multiple grandchildren Also reports some family dynamics adding to stress Discussed situational anxiety; he has taken Xanax before and reports no interest in taking Xanax again due to reported drowsy effects Would benefit from seeing a counselor for working through coping mechanisms. Will trial hydroxyzine 25 mg PO TID PRN DM type 2 (diabetes mellitus, type 2): 02/04/22: A1c 6.9; will recheck in AM. Hold oral home agents SSI while in-patient; consult glycemic pharmacy [facility] AC HS Dyslipidemia: Statin intolerance to atorvastatin, Vytorin, rosuvastatin, pravastatin Started Repatha 3-4 months ago. 02/04/22: Total Cholesterol 207 LDL: 142 HDL: 30 T Will order Lipid panel in AM. Hypothyroidism 03/07/22: TSH 0.44 Stable; Continue home dose levothyroxine Dispo: DVT Ppx:SCDs for now Code status:DNR/DNI PCP:Eve Plan to return home after DC History of Present Illness Chief Complaint: Chest Pain Primary Care Provider: Aury Prado MD Mr. Carver presented to the [facility] today with chest discomfort. He reports that yesterday he started to feel chest discomfort 11/29 and reports it as feeling like an 'elephant was sitting on his chest'. He was not doing any strenuous work at the time. He reports that he has been experiencing intermittent shoulder and jaw pain over the past week. He stated that he just had a friend that walking through his yard and he felt overly concerned. He took one Nitro SL with relief. Patient has a complex medical history that includes a CABG x5 with 4 stents placed (6-7 years ago), additional three AMI's, DM, He denies ALFONSO, dizziness, palpitations, N/V/D, rashes. He reports he has not smoked since he was a teenager. Additional PMH includes: of CAD (s/p CABG in 2002, RICCO x 3 in 09/07, RICCO x 1 in 01/06), DM II, HTN, HLD. He follows with Dr. Samano and was recently seen in cardiology clinic on 05/07/22. He started Repatha 3-4 months ago. Is on dual antiplatelet therapy in setting of significant CAD. Is currently chest pain free. Denies headache, lightheadedness, palpitations, SOB, abdominal pain, nausea, vomiting, dysuria, diarrhea, constipation or lower extremity swelling. Pt denies smoking, alcohol or recreational drug use. Patient will be admitted for further evaluation, monitoring, and management. Please see A/P for further details. Allergies Allergy/AdvReac Type Severity Reaction Status Date / Time No Known Allergies Allergy Unverified 08/03/18 14:42 Home Medications Medication Instructions Recorded Confirmed Type aspirin 81 mg tablet,delayed 81 mg PO QAM 08/03/18 05/31/22 History release (Aspir-) glimepiride 2 mg tablet (Amaryl) 4 mg PO QAM 08/03/18 05/31/22 History levothyroxine 150 mcg tablet 150 mcg PO QAM 08/03/18 05/31/22 History (Synthroid) metformin 1,000 mg tablet 1,000 mg PO QAM 08/03/18 05/31/22 History metoprolol succinate 25 mg 25 mg PO QAM 08/03/18 05/31/22 History tablet,extended release 24 hr Past Med/Surg History Medical History (Updated 05/31/22 @ 12:14 by AMBAR Khoury) Anxiety CAD (coronary artery disease) S/p CABG in 2002, RICCO x 3 in 09/07, RICCO x 1 in 01/06 Chest pain DM type 2 (diabetes mellitus, type 2) HLD (hyperlipidemia) Hypertension Hypertensive emergency Hypothyroidism NSTEMI (non-ST elevated myocardial infarction) Paroxysmal atrial fibrillation "remote, postop s/p CABG" Situational anxiety Tobacco use disorder Surgical History S/P CABG x 5 "CABG x5 vessel (07/28/03): ARREOLA-LAD, SVG-RCA, SVG-OM, SVG-ramus, SVG-D1" S/P coronary artery stent placement "Cardiac [place] [facility] [place] Severe [place] vessel disease w/ 95% LAD, 95% Cx, 100% prox RCA, Patent ARREOLA-LAD, Patent SVG-OM, Patent SVG-RCA - mid portion of graft with turbulence of flow secondary to valve vs thrombus but has WILY III flow through graft into distal RCA run off, Patent SVG-Ramus -Diag w/ 80% lesion in mid body of graft --> Stent placed - bare metal stent" On 12/29/16 20:54 Dianne Carrasco wrote "Cardiac catheterization 05/2015 at [facility] [place] stenosis in the [id number], BMS placed" Family History Other Diabetes Social History Smoking Status: Never smoker Tobacco Type: Cigarettes Second Hand Exposure: No; Hx Alcohol Use: No Hx Substance Use: No Preferred Language: Irish Communication Ability: Effective Visual Impairment: No Limitations Hearing Ability: Normal Block Cleaner Required: No Beliefs That Will Affect Care: None Current Living Situation: Spouse Feels Safe at Home: Yes Safety Concerns: Feels Safe At This Time Assistive Devices: None Review of Systems Review of Systems: Neuro: (-) Falls, trauma, slurred speech HEENT: (-) ALFONSO, dizziness, dysphagia, visual or auditory changes CV: (-) CP, palpitations, swelling Resp: (-) SOB GI: (-) appetite changes, N/V/D, bowel changes : (-) urinary changes Skin: (-) rashes Psych: (-) anxiety, depression Physical Exam Physical Exam: Neuro: AAOx4, PERRLA, no aphagia, memory changes, CNII-XII grossly intact HEENT: head normocephalic, moist mucus membranes CV: S1/S2, (-) M/G/R, (-) edema, cap refill < 3 seconds Resp: Lungs CTA in all huffman. On RA GI: Abdomen S/NT/ND, Ax4 bowel sounds, (-) CVA tenderness Musculoskeletal: 5/5 B/L UE strength, 5/5 B/L LE strength. No gait disturbance Skin: (-) rashes , (-) erythema. Psych: euthymic mood Results & Data Results & Data ([facility]) Vital Signs (Past 12 Hours) Vital Signs Temp Pulse Pulse Resp BP BP Pulse Ox 05/31/22 10:47 61 18 194/87 H 96 05/31/22 10:23 61 16 212/97 H 96 05/31/22 09:50 64 18 213/99 H 95 05/31/22 09:34 96 05/31/22 09:20 36.6 C 65 18 218/116 H 96 O2 Del Method 05/31/22 10:47 Room Air 05/31/22 10:23 Room Air 05/31/22 09:50 Room Air 05/31/22 09:34 Room Air 05/31/22 09:20 Room Air Laboratory Results Short CBC 05/31/22 Range/Units 09:24 WBC 9.84 (4.8-10.8) K/ul Hgb 15.9 (14.0-18.0) g/dl Hct 46.7 (40.1-51.0) % Plt Count 213 (130-400) K/uL BMP 05/31/22 09:24 Sodium 139 Potassium 4.1 Chloride 103 Carbon Dioxide 29 BUN 16 Creatinine 1.38 Glucose 278 H Calcium 9.5 Liver Function 05/31/22 Range/Units 09:24 Total Bilirubin 0.8 (0.2-1.0) mg/dl AST 21 (13-39) U/L ALT 24 (7-52) U/L Alkaline Phosphatase 71 (34-104) U/L Albumin 4.6 (3.4-5.0) gm/dl Diagnostic Findings Chest X-Ray 05/31/22 09:35 XR chest 1V portable CLINICAL HISTORY: Atypical chest pain. COMPARISON STUDY: Chest radiograph August 03, 2018. FINDINGS: Lung volumes are normal. Lungs are clear. There is no pneumothorax or pleural effusion. Cardiomegaly is stable. Median sternotomy wires. Mediastinal contours are normal. There is no evidence for pulmonary edema. IMPRESSION: No acute cardiopulmonary findings. ACT 112: Negative or not required by law. Electronically signed by: Tonio Diehl M.D. 05/31/2022 9:54 AM ECG Additional Comments: Vent. Rate : 065 BPM Atrial Rate : 065 BPM P-R Int : 196 ms QRS Dur : 118 ms QT Int : 446 ms QTc Int : 463 ms Normal sinus rhythm When compared with ECG of 04-AUG-2018 06:19, No significant change Code Status & VTE Plan Code Status DNR/DNI in the event of cardiac or respiratory arrest VTE Prophylaxis Plan VTE Prophylaxis will be ordered: Yes Supervising Physician Co-Signing Physician Notes 76-year-old male with PMH of ID x 3 s/p CABG x5 & stents x4, HLD/statin intolerance, HTN, T2DM, ischemic CM presented to our ED 05/31 due to complaint of chest heaviness. Patient reports having intermittent left shoulder discomfort radiating to left jaw for last few weeks, had chest heaviness today and relieved with nitro before EMS arrived. Patient denies any headache or dizziness or chest pain or nausea/vomiting or belly pain or acute changes in bowel or bladder habits at bedside exam. Of note, patient had his best friend from massive heart attack recently and he is undergoing through a lot of family stress/mortgage issues. Patient was on Xanax in the past and would not like to go back on Xanax. Patient smoked likely from age 18 to age 24, drinks alcohol socially, denies any recreational drug use. Patient is DNR/DNI, patient's was present at bedside. Hypertensive emergency/chest heaviness: Troponin elevated, admitting EKG without acute changes, trend troponins, cardiology consult, as needed IV blood pressure medications, resume home blood pressure medication. Lipid panel and A1c in AM. EKG as needed with chest pain. Echo. Keep BP b/w 160/110 to 180/120 mmHg until nikita am, then target for more robust BP control afterwards. Anxiety: Continue home Wellbutrin, hydroxyzine as needed Resume other home medication as appropriate. Upon examination: GENERAL: Alert and oriented x3. NAD, on RA. HEENT: No pallor, no icterus. Pupils equal, round and reactive to light. Oral mucosa moist. NECK: No JVD, no neck masses. HEART: S1 and S2 heard. Regular rate and rhythm. No murmur, no gallop. Healed surgical midsternotomy scar. RESPIRATORY SYSTEM: Normal AP diameter. No accessory muscle use. No wheezing, no crackles. ABDOMEN: Soft, bowel sounds present, nontender, no distention. CENTRAL NERVOUS SYSTEM: No facial droop. Speech is clear. Obeys simple commands. Moves extremities. EXTREMITIES: No edema, no erythema seen. I have seen and examined the patient and have discussed the case with the provider above. I agree with the assessment and plan as stated.
[2022-05-31] MEDS ORDERED: METOPROLOL SUCC 25MG EXT REL TAB PO SCH (14:31)
[2022-05-31] MEDS ORDERED: hydrOXYzine HCl 25 MG TAB PO PRN (14:31)
[2022-05-31] MEDS ORDERED: PHARMACY GLYCEMIC MGMT CONSULT PRN (14:31)
--- NOTE | 2022-05-31 14:57 | Cardiology Consultation ---
Date of Consultation May 31, 2022 Assessment & Plan (1) Situational anxiety: (2) Hypertensive emergency: (3) Chest pain: (4) NSTEMI (non-ST elevated myocardial infarction): (5) CAD (coronary artery disease): (6) S/P coronary artery stent placement: Plan The patient appears to be comfortable at present. He will have additional cardiac markers drawn. His blood pressure needs to be treated more aggressively. I have increased his metoprolol succinate to 25 mg twice daily. He has a as needed hydralazine ordered. He is also been started on amlodipine. We will reevaluate him in the morning. History of Present Illness Attending Physician: Acacia Encarnacion MD History of Present Illness This is a 76-year-old male patient with a significant cardiac history as outlined below however, over the past several years he has not had any significant cardiac symptoms. Recently he had a friend who suddenly in his yard at home while doing some work. This has caused some concern for him. He is also been under a lot of stress as he and his have custody of their great-grandchildren and his daughter and her have and left him with a home that he had cosigned alone for and was responsible for the mortgage. Recently that home was sold in a big relief to him. This week he was outside cleaning up after his great-grandchildren and he developed some left- sided chest pressure radiating to his left arm for which he took a nitroglycerin. The pain was completely relieved. Yesterday he had a little bit more discomfort but did not take nitro. This morning he got up and after having some coffee he had the same left-sided upper chest discomfort and took another sublingual nitroglycerin. He then came to the emergency department. He had an elevation in his cardiac troponins and has been admitted. He is noted to be markedly hypertensive on admission. CardiacHistory: 1. S/Pinferior wall ST segment elevation myocardial infarction due to closure of the saphenous vein graft to the right coronary artery, receiving 3 overlapping drug eluting stents with poor distal runoff. (09/17/17) 2. H/OCABG x 5 in 2002 3. Unstable angina, 12/2016, repeat PCI drug-eluting stent to the saphenous vein graft to the obtuse marginal/diagonal territory, [facility] this was distal [place] [facility] [place] 4. Remote history of postoperative atrial fibrillation after CABG, no clinical recurrence, Coumadin ultimately discontinued in 2014 in favor of chronic dual anti-platelet therapy 5. Dyslipidemia with statin intolerance to atorvastatin, Vytorin, rosuvastatin, pravastatin Allergies Allergy/AdvReac Type Severity Reaction Status Date / Time No Known Allergies Allergy Unverified 08/03/18 14:42 Home Medications Medication Instructions Recorded Confirmed Type aspirin 81 mg tablet,delayed 81 mg PO QAM 08/03/18 05/31/22 History release (Aspir-) glimepiride 2 mg tablet (Amaryl) 4 mg PO QAM 08/03/18 05/31/22 History levothyroxine 150 mcg tablet 150 mcg PO QAM 08/03/18 05/31/22 History (Synthroid) metformin 1,000 mg tablet 1,000 mg PO QAM 08/03/18 05/31/22 History metoprolol succinate 25 mg 25 mg PO QAM 08/03/18 05/31/22 History tablet,extended release 24 hr Patient History Medical History Anxiety CAD (coronary artery disease) S/p CABG in 2002, RICCO x 3 in 09/07, RICCO x 1 in 01/06 Chest pain DM type 2 (diabetes mellitus, type 2) HLD (hyperlipidemia) Hypertension Hypertensive emergency Hypothyroidism NSTEMI (non-ST elevated myocardial infarction) Paroxysmal atrial fibrillation "remote, postop s/p CABG" Situational anxiety Tobacco use disorder Surgical History S/P CABG x 5 "CABG x5 vessel (07/28/03): ARREOLA-LAD, SVG-RCA, SVG-OM, SVG-ramus, SVG-D1" S/P coronary artery stent placement "[place] [facility] [place] Severe [place] vessel disease w/ 95% LAD, 95% Cx, 100% prox RCA, Patent ARREOLA-LAD, Patent SVG-OM, Patent SVG-RCA - mid portion of graft with turbulence of flow secondary to valve vs thrombus but has WILY III flow through graft into distal RCA run off, Patent [id number] w/ 80% lesion in mid body of graft --> Stent placed - bare metal stent" On 12/29/16 20:54 Dianne Carrasco wrote "Card[place] [facility] [place] in the [id number], BMS placed" Family History Other Diabetes Social History Smoking Status: Never smoker Tobacco Type: Cigarettes Second Hand Exposure: No; Hx Alcohol Use: No Hx Substance Use: No Preferred Language: Arabic Communication Ability: Effective Visual Impairment: No Limitations Hearing Ability: Normal Patient Safety Attendant Required: No Beliefs That Will Affect Care: None Current Living Situation: Spouse Feels Safe at Home: Yes Safety Concerns: Feels Safe At This Time Assistive Devices: None Review of Systems Review of Systems: Review of Systems: See HPI for pertinent positives. All other 10 point review of systems are negative. Physical Exam Physical Exam: General: no acute distress and stated age Head: normocephalic, no masses, lesions, tenderness or abnormalities Eyes: conjunctiva are pink and non-injected, sclera clear Neck: supple, no adenopathy, no bruits, normal jugular venous pulse, no hepatojugular reflux Chest: normal shape and normal respiratory effort Lungs: clear to auscultation and percussion Cardiac Exam: - regular rate & rhythm, no murmurs gallops or rubs - normal S1, normal S2 Pulses: 2(+) throughout Abdomen: abdomen soft, non-tender, no abnormal masses and no hepatosplenomegaly Musculoskeletal: no gait disturbance, no joint inflammation, no deforming arthritis Extremities: no edema and no cyanosis Neuro: grossly normal exam Results & Data ([facility]) Vital Signs (Past 12 Hours) Vital Signs Temp Pulse Pulse Resp BP BP Pulse Ox 05/31/22 14:19 36.6 C 62 16 202/96 H 95 05/31/22 13:32 62 18 179/85 H 96 05/31/22 12:01 62 16 182/88 H 96 05/31/22 10:47 61 18 194/87 H 96 05/31/22 10:23 61 16 212/97 H 96 05/31/22 09:50 64 18 213/99 H 95 05/31/22 09:34 96 05/31/22 09:20 36.6 C 65 18 218/116 H 96 O2 Del Method 05/31/22 14:19 Room Air 05/31/22 13:32 Room Air 05/31/22 12:01 Room Air 05/31/22 10:47 Room Air 05/31/22 10:23 Room Air 05/31/22 09:50 Room Air 05/31/22 09:34 Room Air 05/31/22 09:20 Room Air Laboratory Results Laboratory Results - last 24 hr 05/31/22 05/31/22 05/31/22 09:24 09:24 09:24 WBC 9.84 RBC 5.05 Hgb 15.9 Hct 46.7 MCV 92.5 MCH 31.5 MCHC 34.0 RDW Std Deviation 43.0 RDW Coeff of [place] 12.6 Plt Count 213 MPV 10.0 Immature Gran % (Auto) 0.4 Neut % (Auto) 67.0 Lymph % (Auto) 20.0 Dickson % (Auto) 8.4 Eos % (Auto) 3.6 Baso % (Auto) 0.6 Neut # (Auto) 6.59 H Lymph # (Auto) 1.97 Dickson # (Auto) 0.83 H Eos # (Auto) 0.35 Baso # (Auto) 0.06 Immature Gran # (Auto) 0.04 H PT 10.6 INR 1.0 APTT 26.2 PTT Ratio 1.0 Sodium 139 Potassium 4.1 Chloride 103 Carbon Dioxide 29 Anion Gap 7 BUN 16 Creatinine 1.38 Est Cr Clr Drug Dosing 48.5 Est GFR ( Amer) 58.0 Est GFR (Non-Af Amer) 50.0 BUN/Creatinine Ratio 11.6 Glucose 278 H POC Glucose Calcium 9.5 Magnesium 1.9 Total Bilirubin 0.8 AST 21 ALT 24 Alkaline Phosphatase 71 Troponin I High Sens 1022.4 H* B-Natriuretic Peptide Total Protein 7.1 Albumin 4.6 Globulin 2.5 Albumin/Globulin Ratio 1.8 Lipase 18 SARS-CoV-2, RNA, NAAT 05/31/22 05/31/22 05/31/22 09:52 11:24 11:24 WBC RBC Hgb Hct MCV MCH MCHC RDW Std Deviation RDW Coeff of [place] Plt Count MPV Immature Gran % (Auto) Neut % (Auto) Lymph % (Auto) Dickson % (Auto) Eos % (Auto) Baso % (Auto) Neut # (Auto) Lymph # (Auto) Dickson # (Auto) Eos # (Auto) Baso # (Auto) Immature Gran # (Auto) PT INR APTT PTT Ratio Sodium Potassium Chloride Carbon Dioxide Anion Gap BUN Creatinine Est Cr Clr Drug Dosing Est GFR ( Amer) Est GFR (Non-Af Amer) BUN/Creatinine Ratio Glucose POC Glucose Calcium Magnesium Total Bilirubin AST ALT Alkaline Phosphatase Troponin I High Sens 899.2 H* B-Natriuretic Peptide 209 H Total Protein Albumin Globulin Albumin/Globulin Ratio Lipase SARS-CoV-2, RNA, NAAT NEGATIVE 05/31/22 14:11 WBC RBC Hgb Hct MCV MCH MCHC RDW Std Deviation RDW Coeff of [place] Plt Count MPV Immature Gran % (Auto) Neut % (Auto) Lymph % (Auto) Dickson % (Auto) Eos % (Auto) Baso % (Auto) Neut # (Auto) Lymph # (Auto) Dickson # (Auto) Eos # (Auto) Baso # (Auto) Immature Gran # (Auto) PT INR APTT PTT Ratio Sodium Potassium Chloride Carbon Dioxide Anion Gap BUN Creatinine Est Cr Clr Drug Dosing Est GFR ( Amer) Est GFR (Non-Af Amer) BUN/Creatinine Ratio Glucose POC Glucose 109 H Calcium Magnesium Total Bilirubin AST ALT Alkaline Phosphatase Troponin I High Sens B-Natriuretic Peptide Total Protein Albumin Globulin Albumin/Globulin Ratio Lipase SARS-CoV-2, RNA, NAAT Medications Administered Current Inpatient Medications Amlodipine Besylate (Amlodipine Besylate 5 Mg Tab) 5 mg PO QAM [facility] Stop: 07/01/22 08:59 Aspirin (Aspirin 81 Mg Ectab) 81 mg PO QAM ABI Stop: 06/30/22 14:30 Last Admin: 05/31/22 15:10 Dose: 81 mg Bupropion HCl (Bupropion Sr 150 Mg Tabcr) 150 mg PO BID ABI Stop: 06/30/22 14:30 Last Admin: 05/31/22 15:12 Dose: 150 mg Dextrose (Dextrose 50% 50 Ml Syringe) 25 - 50 ml IV UD PRN; Protocol PRN Reason: Hypoglycemia Protocol Stop: 06/30/22 15:44 Glucagon (Glucagon For Inj 1 Mg Vial) 1 mg IM UD PRN; Protocol PRN Reason: Hypoglycemia Protocol Stop: 06/30/22 15:44 Glucose (Glucose 40% Gel 15 Gm Tube) 15 - 30 gm PO UD PRN; Protocol PRN Reason: Hypoglycemia Protocol Stop: 06/30/22 15:44 Glucose (Glucose 10 Tab/Tube) 4 - 8 tab PO UD PRN; Protocol PRN Reason: Hypoglycemia Protocol Stop: 06/30/22 15:44 Hydralazine HCl (Hydralazine Hcl 20 Mg/Ml Vial) 10 mg IV Q6H PRN PRN Reason: HTN Stop: 06/30/22 14:30 Hydroxyzine HCl (Hydroxyzine Hcl 25 Mg Tab) 25 mg PO Q8H PRN PRN Reason: Anxiety Stop: 06/30/22 14:30 Insulin Aspart (Insulin Aspart Per Unit) 0 units SC ACHS [facility] Stop: 06/30/22 16:29 Isosorbide Mononitrate (Isosorbide Dickson Extended Rel 30 Mg Tabcr) 30 mg PO QAM [facility] Stop: 06/30/22 14:30 Last Admin: 05/31/22 15:10 Dose: 30 mg Levothyroxine Sodium (Levothyroxine Sodium 150 Mcg Tablet) 150 mcg PO DAILYBB [facility] Stop: 06/30/22 14:30 Last Admin: 05/31/22 15:11 Dose: 150 mcg Metoprolol Succinate (Metoprolol Succ 25mg Ext Rel Tab) 25 mg PO QAM [facility] Stop: 06/30/22 14:30 Last Admin: 05/31/22 15:11 Dose: 25 mg Miscellaneous (Carbohydrates For Hypoglycemia ) 15 - 30 gm PO UD PRN PRN Reason: Hypoglycemia Treatment Stop: 06/30/22 15:44 Miscellaneous Information (Pharmacy Glycemic Mgmt Consult) 1 each N/A UD PRN PRN Reason: Consult Stop: 06/30/22 14:30
[2022-05-31] MEDS: ASPIRIN 81 MG ECTAB PO SCH (15:10)
[2022-05-31] MEDS: ISOSORBIDE MONO EXTENDED REL 30 MG TABCR PO SCH (15:10)
[2022-05-31] MEDS: LEVOTHYROXINE SODIUM 150 MCG TABLET PO SCH (15:11)
[2022-05-31] MEDS: buPROPion SR 150 MG TABCR PO SCH ×2 (15:12→20:24)
[2022-05-31] MEDS ORDERED: DEXTROSE 50% 50 ML SYRINGE IV PRN (15:45)
[2022-05-31] MEDS ORDERED: GLUCOSE 40% GEL 15 GM TUBE PO PRN (15:45)
[2022-05-31] MEDS ORDERED: GLUCOSE 10 TAB/TUBE PO PRN (15:45)
[2022-05-31] MEDS ORDERED: CARBOHYDRATES FOR HYPOGLYCEMIA PO PRN (15:45)
[2022-05-31] MEDS ORDERED: GLUCAGON FOR INJ 1 MG VIAL IM PRN (15:45)
[2022-05-31] MEDS: INSULIN ASPART PER UNIT SC SCH ×2 (18:07→20:18)
[2022-05-31] MEDS: hydrALAZINE HCL 20 MG/ML VIAL IV PRN (21:13)
[2022-06-01] MEDS: hydrALAZINE HCL 20 MG/ML VIAL IV PRN (05:30)
[2022-06-01] MEDS: LEVOTHYROXINE SODIUM 150 MCG TABLET PO SCH (05:30)
[2022-06-01 06:33] LABS: Hematocrit (blood only) 47.6 % (40.1-51.0); Hemoglobin 16.4 g/dl (14.0-18.0); Mean Corpuscular Hemoglobin 31.5 pg (25.0-34.0); Mean Corpuscular Hgb Conc 34.5 g/dL (32.0-36.0); Mean Corpuscular Volume 91.4 fL (80.0-100.0); Mean Platelet Volume 10.1 fL (9.4-12.4); Platelet Count 223 K/uL (130-400); RDW Coefficient of Variation 12.6 % (11.5-14.5); RDW Standard Deviation 42.4 fL (36.4-46.3); Red Blood Count 5.21 M/uL (4.63-6.08); White Blood Count 13.78 K/ul (4.8-10.8)
--- NOTE | 2022-06-01 07:10 | XRay Report ---
XR chest 1V portable CLINICAL HISTORY: post-operative coughing and wheezing COMPARISON STUDY: Chest radiograph May 31, 2022. FINDINGS: Lung volumes are normal. Lungs are clear. There is no pneumothorax or pleural effusion. Car diomegaly is unchanged. There are median sternotomy wires. Mediastinal contours are normal. There is no evidence for pulmonary edema. IMPRESSION: No acute cardiopulmonary findings. ACT 112: Negative or not required by law. Electronically signed by: Tonio Diehl M.D. 06/01/2022 7:09 AM
[2022-06-01 07:22] LABS: Troponin I High Sensitivity 831.1 pg/ml (0-20)
[2022-06-01 07:29] LABS: BUN Creatinine Ratio 12.8 (10-20); Calcium 9.4 mg/dl (8.5-10.1); Chol HDL Ratio 2.5 (0-5); Creatinine Clr Calc Pharmacy 45.2 ml/min; Est GFR (African American) 53.3 ml/min; Magnesium 1.9 mg/dl (1.7-2.4)
[2022-06-01] MEDS: INSULIN ASPART PER UNIT SC SCH ×2 (08:09→12:10)
[2022-06-01 08:11] LABS: Estimated Average Glucose 160 mg/dl; Hemoglobin A1C 7.2 % (4.5-5.6)
[2022-06-01] MEDS: buPROPion SR 150 MG TABCR PO SCH (08:14)
[2022-06-01] MEDS: ASPIRIN 81 MG ECTAB PO SCH (08:14)
[2022-06-01] MEDS: ISOSORBIDE MONO EXTENDED REL 30 MG TABCR PO SCH (08:14)
[2022-06-01] MEDS ORDERED: amLODIPine BESYLATE 5 MG TAB PO SCH (09:00)
[2022-06-01] MEDS ORDERED: LANTUS PER UNIT CHARGE SQ SCH (09:00)
[2022-06-01] MEDS ORDERED: METOPROLOL SUCC 25MG EXT REL TAB PO SCH (09:00)
--- NOTE | 2022-06-01 09:03 | Cardiology Progress Note ---
Date of Service June 01, 2022 Assessment & Plan (1) NSTEMI (non-ST elevated myocardial infarction): (2) Hypertensive emergency: (3) S/P CABG x 5: (4) S/P coronary artery stent placement: Plan: -Per review of patient's medications, bupropion can be implicated in hypertension. He however has been on this medication actually prescribed by the undersigned dating back to 2016 initially prescribed to help with smoking cessation. He is now cigarette free. Not sure that this could be implicated in making his blood pressure high at present. In review of his recent outpatient vital signs, a blood pressure measurement with primary care on 05/24/2022 was 145/72, and in December, he had a reading of 162/78. At the time of discharge from this institution in 2017 his medications included losartan 50 mg daily. Per review of his outpatient chart this medication fell off his medication list in 2019 at which time there was a shortage of the medication, and there is discussion with regards to starting him on a substitute angiotensin receptor morgan, but it does not appear this ever happened. Given his degree of renal insufficiency, will start losartan again however at a lower dose 25 mg daily this morning. I do believe that the patient's symptoms are consistent with an episode of angina, EKG performed this morning reveals sinus bradycardia 56 bpm with first- degree AV block, age undetermined inferior infarct pattern (unchanged compared to 2016) and on specific lateral T wave flattening, which is unchanged compared to his previous outpatient tracing dating back to 2020, and previous tracing at this institution dating back to 2018. High-sensitivity troponin had initially been 1022, and has since trended down to 831 PG per mL. So would label him as having had a non-ST segment elevation myocardial infarction. Question now is what the best treatment for him is with regards to it having occurred in the setting of elevated blood pressure. The patient does have remote history of CABG and past vein graft interventions. I had a marilee discussion with the patient with regards to options with regards to ongoing medication therapy, or repeat cardiac catheterization. At present I think would be reasonable to proceed with trial of intensified antihypertensive medication therapy. His metoprolol as an antianginal has already been titrated to 25 mg twice daily, continue his chronic dose of isosorbide mononitrate, proceed with a walk in the hallway today. He is angina free, can likely be discharged. If symptoms return, either today or in the near future as an outpatient, would instead consider referral for high risk cardiac catheterizat ion. Admission and Anticipated Discharge Date Admission Date: May 31, 2022 Subjective Patient seen in cardiology follow-up. Patient well-known to the undersigned as I have followed him on an inpatient and outpatient basis for several years. He most recently been seen by the undersigned as an outpatient in June, at which time stable cardiac signs and symptoms were noted. Patient feeling well. He presented with symptoms onset 2 days ago of the pain in his left upper arm rating to his jaw, that were reminiscent of his previous angina. There could when he was doing a physical chores, per his description sounds as if it was quite intense, and above the threshold that I would recommend for someone with his degree of heart history. Recurrent angina overnight thus far, although he has not been out of bed much. His systolic blood pressure remains high as of 715 this morning 174/86. He has now taken his morning medication. CardiacHistory: 1. S/Pinferior wall ST segment elevation myocardial infarction due to closure of the saphenous vein graft to the right coronary artery, receiving 3 overlapping drug eluting stents with poor distal runoff. (09/17/17) 2. H/OCABG x 5 in 2002 3. Unstable angina, 12/2016, repeat PCI drug-eluting stent to the saphenous vein graft to the obtuse marginal/diagonal territory, [facility] this was distal to the previous stent placed at [facility] in 2014 4. Remote history of postoperative atrial fibrillation after CABG, no clinical recurrence, Coumadin ultimately discontinued in 2014 in favor of chronic dual anti-platelet therapy 5. Dyslipidemia with statin intolerance to atorvastatin, Vytorin, rosuvastatin, pravastatin -Lipids ideally controlled on a combination of ezetimibe 10 mg, and Repatha 140 mg subcu every 2 weeks Physical Exam Constitutional: WD/WN, vitals as above Respiratory: normal respiratory effort, lungs clear to auscultation Cardiovascular: RRR, no murmur, no edema Gastrointestinal (Abdomen): normal bowel sounds, soft, nontender, no hepatosplenomegaly Neurologic: PERRL, EOMI, accommodation nl, no face palsy, no dysarthria Results & Data ([facility]) Vital Signs (Past 12 Hours) Vital Signs Temp Pulse Pulse Resp BP Pulse Ox O2 Del Method 06/01/22 07:15 59 L 06/01/22 07:12 36.7 C 60 18 174/86 H 96 Room Air 06/01/22 05:00 162/78 H 06/01/22 03:14 36.5 C 57 L 20 151/71 H 94 Room Air 06/01/22 01:07 36.7 C 56 L 16 168/71 H 96 Nasal Cannula 05/31/22 23:05 166/80 H 05/31/22 23:06 36.4 C L 63 16 171/74 H 97 Room Air 05/31/22 22:47 55 L 05/31/22 21:00 54 L 167/80 H Laboratory Results Cardiac Enzymes 05/31/22 05/31/22 05/31/22 Range/Units 09:24 11:24 11:24 AST 21 (13-39) U/L Troponin I High Sens 1022.4 H* 899.2 H* (0-20) pg/ml B-Natriuretic Peptide 209 H (0-100) pg/ml 05/31/22 05/31/22 06/01/22 Range/Units 16:42 23:10 05:50 AST (13-39) U/L Troponin I High Sens 1108.5 H* D 966.9 H* 831.1 H* (0-20) pg/ml B-Natriuretic Peptide (0-100) pg/ml Coagulation 05/31/22 05/31/22 Range/Units 09:24 11:24 PT 10.6 (9.0-12.0) Seconds APTT 26.2 (21.0-31.0) Seconds B-Natriuretic Peptide 209 H (0-100) pg/ml Lipids 06/01/22 Range/Units 05:50 Triglycerides 170 H (0-150) mg/dl Cholesterol 88 (0-200) mg/dl HDL Cholesterol 35 mg/dl Cholesterol/HDL Ratio 2.5 (0-5) CBC 05/31/22 06/01/22 Range/Units 09:24 05:50 WBC 9.84 13.78 H (4.8-10.8) K/ul RBC 5.05 5.21 (4.63-6.08) M/uL Hgb 15.9 16.4 (14.0-18.0) g/dl Hct 46.7 47.6 (40.1-51.0) % Plt Count 213 223 (130-400) K/uL Neut # (Auto) 6.59 H (1.4-6.5) K/uL Lymph # (Auto) 1.97 (1.2-3.4) K/uL [place] # (Auto) 0.83 H (0.24-0.82) K/uL Eos # (Auto) 0.35 (0-0.50) K/uL Baso # (Auto) 0.06 (0-0.2) K/uL Comprehensive Metabolic Panel 05/31/22 06/01/22 Range/Units 09:24 05:50 Sodium 139 139 (136-145) mmol/L Potassium 4.1 4.0 (3.5-5.1) mmol/L Chloride 103 104 (98-107) mmol/L Carbon Dioxide 29 27 (21-32) mmol/L BUN 16 19 (6-23) mg/dl Creatinine 1.38 1.48 H (0.6-1.4) mg/dl Glucose 278 H 147 H (70-99(Fasting)) mg/dl Calcium 9.5 9.4 (8.5-10.1) mg/dl AST 21 (13-39) U/L ALT 24 (7-52) U/L Alkaline Phosphatase 71 (34-104) U/L Total Protein 7.1 (6.0-8.3) gm/dl Albumin 4.6 (3.4-5.0) gm/dl Intake and Output 05/31/22 06/01/22 06/01/22 22:59 06:59 14:59 Intake Total 100 / 200 Balance 100 / 200 Intake: Oral 100 / 100 Other: Weight 73.9 kg Weight Measurement Method Built in [facility] Diagnostic Findings EKG performed this morning 06/01/2022 revealed sinus bradycardia 56 bpm, first- degree AV block, WA interval 210 ms, age-indeterminate inferior infarct pattern, unchanged compared to 2017, nonspecific lateral T wave flattening. Compared to previous tracing, the tracing is relatively unchanged compared to outpatient tracing dated 07/12/2021, and previous tracing performed during 2018 admission to OR. Echocardiogram performed today and reviewed independently revealed a moderate sized wall motion abnormality with septal and inferior akinesis at the mid and basal levels. LVEF 40 to 45%. Mild mitral gravitation, grade 1 diastolic dysfunction, unchanged compared to images obtained at the time of the previous study dated at OR 07/25/2018.
[2022-06-01] MEDS ORDERED: LOSARTAN POTASSIUM 25 MG TAB PO SCH (10:45)
--- NOTE | 2022-06-01 10:59 | Electrocardiogram Report ---
Test Reason : Blood Pressure : / mmHG Vent. Rate : 056 BPM Atrial Rate : 056 BPM P-R Int : 210 ms QRS Dur : 118 ms QT Int : 492 ms P-R-T Axes : 043 013 090 degrees QTc Int : 474 ms Sinus bradycardia with 1st degree A-V block Possible Inferior infarct (cited on or before 17-SEP-2017) LVH with QRS widening Abnormal ECG When compared with ECG of 31-MAY-2022 09:28, No significant change was found Confirmed by Goyo Dacosta ([id number]) on 06/01/2022 10:58:55 AM Referred By: REFERRED SELF Confirmed By:Goyo Dacosta
[2022-06-01] MEDS ORDERED: ISOSORBIDE MONO EXTENDED REL 30 MG TABCR PO ONE (12:48)
--- NOTE | 2022-06-01 12:54 | Hospitalist Progress Note ---
Date of Service June 01, 2022 Assessment & Plan (1) CAD (coronary artery disease): (2) Chest pain: (3) Hypertensive emergency: (4) Situational anxiety: (5) DM type 2 (diabetes mellitus, type 2): (6) HLD (hyperlipidemia): (7) Hypothyroidism: Plan Patient is a 72 yr male with H/O CAD (s/p CABG in 2002, RICCO x 3 in 09/07, RICCO x 1 in 01/06), DM II, HTN, HLD and other medical problems listed below who presents with chest pain over the past 24 hours. NSTEMI Hypertensive Urgency H/O CAD S/ P CABG in 2002, RICCO x 3 in 08/2017 and RICCO x 1 in 12/2016 Troponin trending down -CXR:No acute cardiopulmonary findings. -ECHO: Mild concentric LVH. Moderate sized septal and inferior wall motion abnormality with Akinesis of the segments. Left ventricular systolic function is mildly reduced. EF 40 to 45%. Mild mitral regurgitation. Grade 1 diastolic dysfunction. Compared to prior study 08/04/18 there has been no significant interval change. -Cardiology discussed with patient regarding options of medical therapy versus high risk cardiac catheterization. At this point patient will be managed medically. Appreciate Cardiology Input Chest pain completely resolved. No recurrence of angina when patient walked in hallway Continue aspirin, isosorbide. Is also on Repatha for hyperlipidemia as per patient Patient admits to not taking his metoprolol and amlodipine (Not a compliance issue). Resume these medications for better control of blood pressure Also started on losartan 25 mg daily Needs follow-up with cardiology upon discharge Hypertensive Emergency: BP better today Resume amlodipine, metoprolol Also started on losartan Continue Isosorbide as well Situational Anxiety: Patient reports significant stressors at home; primary caregiver of multiple grandchildren Also reports some family dynamics adding to stress Would benefit from seeing a counselor for working through coping mechanisms. Will trial hydroxyzine 25 mg PO TID PRN Advised to follow up with PCP for further management DM II HbA1C:7.2 Hold oral home agents SSI while in-patient; consult glycemic pharmacy [facility] AC HS Dyslipidemia: H/O Statin intolerance to atorvastatin, Vytorin, rosuvastatin, pravastatin Currently on Repatha Hypothyroidism 03/07/22: TSH 0.44 Stable Continue levothyroxine DVT Px: SCDs for now Code status: DNR/DNI PCP:Eve Disposition Home Admission and Anticipated Discharge Date Admission Date: May 31, 2022 Subjective Patient is seen and examined at bedside Chest pain completely resolved Denies any dyspnea, dizziness, nausea, abdominal pain Offers no complaints currently Discussed with cardiology today Review of Systems Review of Systems: All systems reviewed & are unremarkable except as noted in Subjective Physical Exam Physical Exam: Physical Exam: Vitals signs as noted above General Appearance:Moderately built and nourished, no apparent distress Head: normocephalic, Atraumatic Eyes: normal inspection, EOMI Neck: supple, Trachea midline Respiratory/Chest: Normal breath sounds, CTA, No accessory muscle use Cardiovascular: S1, S2, No murmur Abdomen/GI:Soft, Non tender, Bowel sounds present Extremities/Musculoskeletal:normal inspection, no edema Neurologic/Psych:AAOX3, grossly no focal neurological deficits Skin: normal color, warm Results & Data Results & Data ([facility]) Vital Signs (Past 12 Hours) Vital Signs Temp Pulse Pulse Resp BP Pulse Ox O2 Del Method 06/01/22 12:38 171/83 H 06/01/22 11:09 36.7 C 59 L 19 168/78 H 97 Room Air 06/01/22 07:15 59 L 06/01/22 07:12 36.7 C 60 18 174/86 H 96 Room Air 06/01/22 05:00 162/78 H 06/01/22 03:14 36.5 C 57 L 20 151/71 H 94 Room Air 06/01/22 01:07 36.7 C 56 L 16 168/71 H 96 Nasal Cannula Laboratory Results Short CBC 06/01/22 Range/Units 05:50 WBC 13.78 H (4.8-10.8) K/ul Hgb 16.4 (14.0-18.0) g/dl Hct 47.6 (40.1-51.0) % Plt Count 223 (130-400) K/uL BMP 06/01/22 05:50 Sodium 139 Potassium 4.0 Chloride 104 Carbon Dioxide 27 BUN 19 Creatinine 1.48 H Glucose 147 H Calcium 9.4
--- NOTE | 2022-06-01 12:56 | Communication Note ---
Date of Service: June 01, 2022 I called the patient's outpatient [facility] pharmacy. The only antihypertensive he has recently filled was isosorbide mononitrate 30 mg daily. Per his [facility] chart he is to be on metoprolol succinate 25 mg daily, amlodipine 5 mg daily. He has not filled the amlodipine even though a prescription was sent by his primary care provider in Jan, 2022. The last time a annual prescription for metoprolol succinate was sent was in 2019. Medication plan: Currently, blood pressure is still above goal on most recent check however patient feels well having eaten and taken a walk several laps in the hallway. Is currently on metoprolol succinate 25 mg twice daily (and I speculate that he was taking no metoprolol prior to coming to the hospital) He is taking isosorbide mononitrate 30 mg daily, in the hospital, and this has been a chronic medication for him. He is now back on amlodipine 5 mg daily. Losartan 25 mg reinitiated (of note he had been on 50 mg but has not taken it since 2019). I think at this point, we have made significant changes in his medication list and I hesitate in making further changes for fear of inducing symptomatic hypotension. I do not think the patient's presentation is suggestive of a thrombotic intra coronary/bypass graft event, and therefore he has not been anticoagulated with heparin. -Patient stable from a cardiac perspective for discharge on the regimen as noted above. He had a cardiology follow-up visit with me scheduled for 07/19/2022, but I am actually out of the office that day, and therefore he has been really scheduled with AMBAR Beltran on 08/05/22. I am going to place a referral for patient to establish with the cardiology [place] specialty clinic at [facility] for close follow up of his antihypertensives.
--- NOTE | 2022-06-01 13:37 | Discharge Summary ---
Date of Service June 01, 2022 Admission HPI Per Admitting Provider Mr. Carver presented to the [facility] today with chest discomfort. He reports that yesterday he started to feel chest discomfort 11/29 and reports it as feeling like an 'elephant was sitting on his chest'. He was not doing any strenuous work at the time. He reports that he has been experiencing intermittent shoulder and jaw pain over the past week. He stated that he just had a friend that walking through his yard and he felt overly concerned. He took one Nitro SL with relief. Patient has a complex medical history that includes a CABG x5 with 4 stents placed (6-7 years ago), additional three AMI's, DM, He denies ALFONSO, dizziness, palpitations, N/V/D, rashes. He reports he has not smoked since he was a teenager. Additional PMH includes: of CAD (s/p CABG in 2002, RICCO x 3 in 09/07, RICCO x 1 in 01/06), DM II, HTN, HLD. He follows with Dr. Samano and was recently seen in cardiology clinic on 05/07/22. He started Repatha 3-4 months ago. Is on dual antiplatelet therapy in setting of significant CAD. Is currently chest pain free. Denies headache, lightheadedness, palpitations, SOB, abdominal pain, nausea, vomiting, dysuria, diarrhea, constipation or lower extremity swelling. Pt denies smoking, alcohol or recreational drug use. Patient will be admitted for further evaluation, monitoring, and management. Please see A/P for further details. Admission Exam Per Admitting Provider Physical Exam Physical Exam: Neuro: AAOx4, PERRLA, no aphagia, memory changes, CNII-XII grossly intact HEENT: head normocephalic, moist mucus membranes CV: S1/S2, (-) M/G/R, (-) edema, cap refill < 3 seconds Resp: Lungs CTA in all huffman. On RA GI: Abdomen S/NT/ND, Ax4 bowel sounds, (-) CVA tenderness Musculoskeletal: 5/5 B/L UE strength, 5/5 B/L LE strength. No gait disturbance Skin: (-) rashes , (-) erythema. Psych: euthymic mood Principal Diagnosis Non-ST elevation myocardial infarction Hypertensive urgency Anxiety Discharge Data Allergies Allergy/AdvReac Type Severity Reaction Status Date / Time No Known Allergies Allergy Unverified 08/03/18 14:42 Consultations 05/31/22 11:06 Consult Cardiology Routine 05/31/22 11:07 ED Decision to Admit Stat Procedures Performed CXR: FINDINGS: Lung volumes are normal. Lungs are clear. There is no pneumothorax or pleural effusion. Cardiomegaly is unchanged. There are median sternotomy wires. Mediastinal contours are normal. There is no evidence for pulmonary edema. IMPRESSION: No acute cardiopulmonary findings. Hospital Course (1) CAD (coronary artery disease): (2) Chest pain: (3) Hypertensive emergency: (4) Situational anxiety: (5) DM type 2 (diabetes mellitus, type 2): (6) HLD (hyperlipidemia): (7) Hypothyroidism: Plan Patient is a 72 yr male with H/O CAD (s/p CABG in 2002, RICCO x 3 in 09/07, RICCO x 1 in 01/06), DM II, HTN, HLD and other medical problems listed below who presents with chest pain over the past 24 hours. NSTEMI Hypertensive Urgency H/O CAD S/ P CABG in 2002, RICCO x 3 in 08/2017 and RICCO x 1 in 12/2016 Troponin trending down -CXR:No acute cardiopulmonary findings. -ECHO: Mild concentric LVH. Moderate sized septal and inferior wall motion abnormality with Akinesis of the segments. Left ventricular systolic function is mildly reduced. EF 40 to 45%. Mild mitral regurgitation. Grade 1 diastolic dysfunction. Compared to prior study 08/04/18 there has been no significant interval change. -Cardiology discussed with patient regarding options of medical therapy versus high risk cardiac catheterization. At this point patient will be managed medically. Appreciate Cardiology Input Chest pain completely resolved. No recurrence of angina when patient walked in hallway Continue aspirin, isosorbide. Is also on Repatha for hyperlipidemia as per patient Patient admits to not taking his metoprolol and amlodipine (Not a compliance issue). Resume these medications for better control of blood pressure Also started on losartan 25 mg daily Needs follow-up with cardiology upon discharge Hypertensive Emergency: BP better today Resume amlodipine, metoprolol Also started on losartan Continue Isosorbide as well Situational Anxiety: Patient reports significant stressors at home; primary caregiver of multiple grandchildren Also reports some family dynamics adding to stress Would benefit from seeing a counselor for working through coping mechanisms. Will trial hydroxyzine 25 mg PO TID PRN Advised to follow up with PCP for further management DM II HbA1C:7.2 Hold oral home agents SSI while in-patient; consult glycemic pharmacy [facility] AC HS Dyslipidemia: H/O Statin intolerance to atorvastatin, Vytorin, rosuvastatin, pravastatin Currently on Repatha Hypothyroidism 03/07/22: TSH 0.44 Stable Continue levothyroxine DVT Px: SCDs for now Code status: DNR/DNI PCP:Eve Disposition Home Total Time Total Time Spent Total Time Spent (In Minutes): 45 minutes Discharge Plan Discharge Items Patient Disposition: Home - Self-Care Reason For Visit: chest pain Discharge Diagnosis: Non-ST elevation myocardial infarction Hypertensive urgency Anxiety Condition on Discharge: Fair Activity: Per Instructions section Exercise/Sports: Wait until after follow-up appointment Non-emergency contact: Primary Care Provider and Speech Communication Professor Call non-emergency contact if: you have any medication questions, your symptoms worsen, your pain is concerning for you and you have a fever Follow-up/Referrals: Aury Prado MD [Primary Care Provider] - Diet: Carb Consistent or DM2 and Heart Healthy Addtl Attending Provider Instructions: Follow-up with your primary care physician in 1 week. Please call for appointment Follow-up with your beauty culture teacher /AMBAR Beltran on 08/05/22 as scheduled. -- Check your blood pressure regularly at home as advised and discussed with your primary care physician for further management of your blood pressure. -- Discuss with physician regarding your anxiety and you may benefit from seeing a counselor for working through coping mechanisms Seek immediate medical attention if your symptoms reoccur or worsen Please take all medications as instructed on discharge list below. Please call if you have any questions or problems. You can reach a [facility] hospitalist on duty at [facility] 24 hours a day by calling [phone] Home Care: * Take your medications exactly as directed. Don't skip doses. * Remember that recovery after a heart attack takes time. Plan to rest for at lease 4-8 weeks while you recover. Then return to normal activity when your doctor says it's okay. * Ask your doctor about joining a heart rehabilitation program. * Tell your doctor if you are feeling depressed. Feelings of sadness are common after a heart attack, but it is important that you speak to someone if you are feeling overwhelmed by these feelings. * If you are having chest pain, call 911 for an ambulance. Do NOT drive yourself to the hospital. * Ask your family members to learn CPR. * Learn to take your own blood pressure and pulse. Keep a record of your results. Ask your doctor when you should seek emergency medical attention. He or she will tell you which blood pressure reading is dangerous. Lifestyle Changes: * Maintain a healthy weight. Get help to lose any extra pounds. * Cut back on salt. * Limit canned, dried, packaged, and fast foods. * Don't add salt to your food. * Season foods with herbs instead of salt when you cook. * Break the smoking habit. Enroll in a stop-smoking program to improve your chances of success. * Limit fatty foods. * Ask your doctor about having your lipid levels checked regularly. * Build up your activity according to your doctor's recommendation. * Ask your doctor when it's okay to resume sexual activity. * Tell your doctor about any erectile dysfunction (ED) medication you are taking. Some ED medications are not safe if you take certain heart medications. * Try to manage stress. Follow Up: It is important for you to keep your follow up appointments with your medical provider. Pending Studies at Discharge: No Stand-Alone Forms: My [facility], Smoking Cessation Medications and DC Order Prescriptions: New amlodipine [Norvasc] 5 mg Tablet 5 mg PO QAM Qty: 30 1RF losartan 25 mg Tablet 25 mg PO QAM Qty: 30 1RF hydroxyzine HCl 25 mg Tablet 25 mg PO Q8H PRN (Reason: anxiety) Qty: 15 0RF Continued aspirin [Aspir-81] 81 mg Tablet,Delayed Release (Dr/Ec) 81 mg PO QAM glimepiride [Amaryl] 2 mg Tablet 4 mg PO QAM metformin 1,000 mg Tablet 1,000 mg PO QAM levothyroxine [Synthroid] 150 mcg Tablet 150 mcg PO QAM isosorbide mononitrate 30 mg tablet extended release 24 hr 30 mg PO DAILY Qty: 30 1RF Changed metoprolol succinate 25 mg Tablet Extended Release 24 Hr 25 mg PO BID Qty: 60 1RF Discharge Orders: Discharge Order (Routine); Ordered 06/01/22 Ordered By: Eron Aguilar Admission Data Admit Date/Time: 05/31/22 11:11 Attending Provider: Eron Aguilar Admit Provider: Acacia Encarnacion Primary Care Provider: Aury Prado Other Providers: Candelario Darnell ; Acacia Encarnacion
[2022-06-02] MEDS ORDERED: ISOSORBIDE MONO EXTENDED REL 60 MG TABCR PO SCH (09:00)
== END 2022-06-01 14:17 | disposition home or self-care (01) | DRG 281 ==
LOC: ED 09:17 → 2S 11:11 → SUATTDRO 11:11 → 2S 14:00

== ENCOUNTER 2022-08-25 09:48 | Inpatient (IN) ==
--- NOTE | 2022-08-25 10:07 | XRay Report ---
XR chest 1V portable HISTORY: Atypical Chest Pain COMPARISON: Chest 06/01/2022. FINDINGS: The heart remains mildly enlarged. There are poststernotomy changes. Right coronary artery stent is again noted. The lungs are clear. No pleural effusions. No pneumothorax. IMPRESSION: No significant change compared to the prior study. No acute process. ACT 112: Negative or not required by law. Electronically signed by: Dmoenic Wells M.D. 08/25/2022 10:05 AM
[2022-08-25 10:20] LABS: Basophils # (auto) 0.07 K/uL (0-0.2); Basophils % (auto) 0.8 %; Eosinophils # (auto) 0.31 K/uL (0-0.50); Eosinophils % (auto) 3.4 %; Hematocrit (blood only) 42.9 % (40.1-51.0); Hemoglobin 14.8 g/dl (14.0-18.0); Immature Granulocytes # (auto) 0.03 K/uL (0.00-0.02); Immature Granulocytes % (auto) 0.3 %; Lymphocytes % (auto) 16.3 %; Mean Corpuscular Hemoglobin 32.7 pg (25.0-34.0); Mean Corpuscular Hgb Conc 34.5 g/dL (32.0-36.0); Mean Corpuscular Volume 94.7 fL (80.0-100.0); Mean Platelet Volume 10.2 fL (9.4-12.4); Monocytes # (auto) 0.82 K/uL (0.24-0.82); Monocytes % (auto) 8.9 %; Neutrophils # (auto) 6.45 K/uL (1.4-6.5); Neutrophils % (auto) 70.3 %; Platelet Count 186 K/uL (130-400); RDW Coefficient of Variation 12.1 % (11.5-14.5); RDW Standard Deviation 42.5 fL (36.4-46.3); Red Blood Count 4.53 M/uL (4.63-6.08); White Blood Count 9.18 K/ul (4.8-10.8)
--- NOTE | 2022-08-25 10:34 | Emergency Department Note ---
History of Present Illness General Chief complaint: Chest Pain Time Seen by Provider: 08/25/22 09:49 History of Present Illness 76-year-old male presents to the ED with a chief complaint of chest pain. He reports his pain being similar to previous episodes when he had an GA. He states that he has had 3 MIs in the past. He has at least 4 stents in his heart. He states that night he developed some chest pain that he describes as indigestion after he came home from hunting. He states that his symptoms started after he walked up a hill while he was hunting on his way home. He states that the pain radiated to the left shoulder. He did take a couple of nitroglycerin which seemed to help. He states he had an episode last evening where he required 1 nitro and again this morning while playing a [place] in [employer] he developed chest pain and required 2 nitro to resolve the pain. The patient has no discomfort now. No shortness of breath. No fevers or recent illness. History of CABG x5 in addition to stents. Home Medications Medication Instructions Recorded Confirmed Type aspirin 81 mg tablet,delayed 81 mg PO QAM 08/03/18 05/31/22 History release (Aspir-) glimepiride 2 mg tablet (Amaryl) 4 mg PO QAM 08/03/18 05/31/22 History levothyroxine 150 mcg tablet 150 mcg PO QAM 08/03/18 05/31/22 History (Synthroid) metformin 1,000 mg tablet 1,000 mg PO QAM 08/03/18 05/31/22 History amlodipine 5 mg tablet (Norvasc) 5 mg PO QAM #30 tabs 06/01/22 Rx hydroxyzine HCl 25 mg tablet 25 mg PO Q8H PRN anxiety #15 tabs 06/01/22 Rx isosorbide mononitrate 30 mg 30 mg PO DAILY #30 tabs 06/01/22 Rx tablet,extended release 24 hr losartan 25 mg tablet 25 mg PO QAM #30 tabs 06/01/22 Rx metoprolol succinate 25 mg 25 mg PO BID #60 tabs 06/01/22 Rx tablet,extended release 24 hr Allergies Allergy/AdvReac Type Severity Reaction Status Date / Time No Known Allergies Allergy Unverified 08/03/18 14:42 Past Med/Surg History Medical History Anxiety CAD (coronary artery disease) S/p CABG in 2002, RICCO x 3 in 09/07, RICCO x 1 in 01/06 Chest pain DM type 2 (diabetes mellitus, type 2) HLD (hyperlipidemia) Hypertension Hypertensive emergency Hypothyroidism NSTEMI (non-ST elevated myocardial infarction) Paroxysmal atrial fibrillation "remote, postop s/p CABG" Situational anxiety Tobacco use disorder Surgical History S/P CABG x 5 "CABG x5 vessel (07/28/03): ARREOLA-LAD, SVG-RCA, SVG-OM, SVG-ramus, SVG-D1" S/P coronary artery stent placement "Cardiac catheterization 05/2015 at [facility]- Severe [place] vessel disease w/ 95% LAD, 95% Cx, 100% prox RCA, Patent ARREOLA-LAD, Patent SVG-OM, Patent SVG-RCA - mid portion of graft with turbulence of flow secondary to valve vs thrombus but has WILY III flow through graft into distal RCA run off, Patent [id number] w/ 80% lesion in mid body of graft --> Stent placed - bare metal stent" On 12/29/16 20:54 Dianne Carrasco wrote "Cardiac catheterization 05/2015 at [facility]- stenosis in the [id number], BMS placed" Family History Other Diabetes Social History Smoking Status: Never smoker Tobacco Type: Cigarettes Second Hand Exposure: No; Hx Alcohol Use: No Hx Substance Use: No Preferred Language: Nigerien Communication Ability: Effective Visual Impairment: No Limitations Hearing Ability: Normal Dextrine Mixer Required: No Beliefs That Will Affect Care: None Current Living Situation: Spouse Feels Safe at Home: Yes Assistive Devices: None Review of Systems A total of 10 systems reviewed and were otherwise negative Physical Exam Vital Signs Vital Signs - 24 hr 08/25/22 09:54 08/25/22 09:56 08/25/22 09:56 Temperature 36.7 C Temperature Source Oral Pulse Rate 70 Pulse Rate [Apical] Pulse Rate from SpO2 Sensor Pulse Rhythm [Apical] Pulse Strength [Apical] Respiratory Rate 20 Respiratory Effort / Characteristics Non-Labored Spontaneous Respiratory Depth Normal Respiratory Pattern Regular Blood Pressure 182/82 H Blood Pressure [Left Arm] Blood Pressure Mean 115 Blood Pressure Mean [Left Arm] Pulse Oximetry 97 97 Oxygen Delivery Method Room Air Room Air Room Air Sepsis Recent Fever Within 48 Hours No Sepsis New/Unexplained Change in Mental Status No Sepsis Action Taken by Nursing No Action Required 08/25/22 09:56 08/25/22 09:56 08/25/22 10:00 Temperature Temperature Source Pulse Rate 68 57 L Pulse Rate [Apical] 70 Pulse Rate from SpO2 Sensor 61 Pulse Rhythm [Apical] Pulse Strength [Apical] Respiratory Rate 20 12 14 Respiratory Effort / Characteristics Non-Labored Spontaneous Respiratory Depth Normal Respiratory Pattern Regular Blood Pressure 161/81 H Blood Pressure [Left Arm] 182/82 H Blood Pressure Mean 107 Blood Pressure Mean [Left Arm] 115 Pulse Oximetry 97 99 Oxygen Delivery Method Room Air Sepsis Recent Fever Within 48 Hours Sepsis New/Unexplained Change in Mental Status Sepsis Action Taken by Nursing 08/25/22 10:19 08/25/22 10:19 08/25/22 10:30 Temperature Temperature Source Pulse Rate 56 L Pulse Rate [Apical] Pulse Rate from SpO2 Sensor 56 L Pulse Rhythm [Apical] Pulse Strength [Apical] Respiratory Rate 19 Respiratory Effort / Characteristics Respiratory Depth Respiratory Pattern Blood Pressure 168/76 H 161/81 H Blood Pressure [Left Arm] Blood Pressure Mean 106 107 Blood Pressure Mean [Left Arm] Pulse Oximetry 97 Oxygen Delivery Method Sepsis Recent Fever Within 48 Hours Sepsis New/Unexplained Change in Mental Status Sepsis Action Taken by Nursing 08/25/22 10:30 08/25/22 11:01 08/25/22 11:00 Temperature Temperature Source Pulse Rate 56 L 53 L Pulse Rate [Apical] 54 L Pulse Rate from SpO2 Sensor 55 L Pulse Rhythm [Apical] Regular Pulse Strength [Apical] Normal Respiratory Rate 16 20 16 Respiratory Effort / Characteristics Non-Labored Spontaneous Respiratory Depth Normal Respiratory Pattern Regular Blood Pressure Blood Pressure [Left Arm] 172/72 H Blood Pressure Mean Blood Pressure Mean [Left Arm] 105 Pulse Oximetry 98 96 96 Oxygen Delivery Method Room Air Sepsis Recent Fever Within 48 Hours Sepsis New/Unexplained Change in Mental Status Sepsis Action Taken by Nursing 08/25/22 11:01 08/25/22 11:01 Temperature Temperature Source Pulse Rate 63 Pulse Rate [Apical] Pulse Rate from SpO2 Sensor Pulse Rhythm [Apical] Pulse Strength [Apical] Respiratory Rate 14 Respiratory Effort / Characteristics Respiratory Depth Respiratory Pattern Blood Pressure 172/72 H Blood Pressure [Left Arm] Blood Pressure Mean 105 Blood Pressure Mean [Left Arm] Pulse Oximetry Oxygen Delivery Method Sepsis Recent Fever Within 48 Hours Sepsis New/Unexplained Change in Mental Status Sepsis Action Taken by Nursing CONSTITUTIONAL/VITAL SIGNS: Reviewed / noted above. GENERAL: Non-toxic in appearance. INTEGUMENTARY: Warm, dry, and [place]. HEAD: Normocephalic. EYES: without scleral icterus or trauma. ENT/OROPHARYNX: clear and moist. LYMPHADENOPATHY/NECK: Is supple without lymphadenopathy or meningismus. RESPIRATORY: Clear to auscultation bilaterally. No increased work of breathing. CARDIOVASCULAR: Regular rate and rhythm. GI/ABDOMEN: Soft and nontender. No organomegaly or pulsatile mass. EXTREMITIES: Warm and well perfused. BACK: No CVA tenderness. NEUROLOGICAL: Intact without focal deficits. PSYCHIATRIC: normal affect. MUSCULOSKELETAL: Normally developed with good muscle tone. TRIAGE NURSING DOCUMENTATION REVIEWED. Medical Decision Making Differential Diagnosis Differential includes myocardial infarction, unstable angina, anemia, other. The differential that also was considered includes acute myocardial infarction, acute coronary syndrome, myocarditis, pericarditis, pericardial effusions /tamponade, esophageal perforation, thoracic aortic dissection, pulmonary embolism, pneumonia, pneumothorax, pancreatitis, shingles, acute cholecystitis, perforated abdominal viscus. Medical Records Attestation: I reviewed the patient's medical records. Home Medications Current Medication List: was personally reviewed by me Laboratory Data Attestation: I reviewed the patient's lab results. Result diagrams: 08/25/22 10:02 08/25/22 10:02 Lab Results 08/25/22 08/25/22 Range/Units 10:02 10:02 WBC 9.18 (4.8-10.8) K/ul RBC 4.53 L (4.63-6.08) M/uL Hgb 14.8 (14.0-18.0) g/dl Hct 42.9 (40.1-51.0) % MCV 94.7 (80.0-100.0) fL MCH 32.7 (25.0-34.0) pg MCHC 34.5 (32.0-36.0) g/dL RDW Std Deviation 42.5 (36.4-46.3) fL RDW Coeff of [place] 12.1 (11.5-14.5) % Plt Count 186 (130-400) K/uL MPV 10.2 (9.4-12.4) fL Immature Gran % (Auto) 0.3 % Neut % (Auto) 70.3 % Lymph % (Auto) 16.3 % [place] % (Auto) 8.9 % Eos % (Auto) 3.4 % Baso % (Auto) 0.8 % Neut # (Auto) 6.45 (1.4-6.5) K/uL Lymph # (Auto) 1.50 (1.2-3.4) K/uL [place] # (Auto) 0.82 (0.24-0.82) K/uL Eos # (Auto) 0.31 (0-0.50) K/uL Baso # (Auto) 0.07 (0-0.2) K/uL Immature Gran # (Auto) 0.03 H (0.00-0.02) K/uL Sodium 139 (136-145) mmol/L Potassium 4.2 (3.5-5.1) mmol/L Chloride 105 (98-107) mmol/L Carbon Dioxide 27 (21-32) mmol/L Anion Gap 7 (3-11) BUN 23 (6-23) mg/dl Creatinine 1.31 (0.6-1.4) mg/dl Est Cr Clr Drug Dosing 51.1 ml/min Est GFR ( Amer) 61.7 ml/min Est GFR (Non-Af Amer) 53.3 ml/min BUN/Creatinine Ratio 17.6 (10-20) Glucose 208 H (70-99(Fasting)) mg/dl Calcium 9.0 (8.5-10.1) mg/dl Total Bilirubin 0.7 (0.2-1.0) mg/dl AST 18 (13-39) U/L ALT 27 (7-52) U/L Alkaline Phosphatase 63 (34-104) U/L Troponin I High Sens 52.6 H* D (0-20) pg/ml Total Protein 6.8 (6.0-8.3) gm/dl Albumin 4.4 (3.4-5.0) gm/dl Globulin 2.4 L (2.5-4.0) gm/dl Albumin/Globulin Ratio 1.8 (0.9-2) Lipase 16 (11-82) U/L Imaging Data Radiologist's Impression: Chest X-Ray 08/25/22 09:49 XR chest 1V portable HISTORY: Atypical Chest Pain COMPARISON: Chest 06/01/2022. FINDINGS: The heart remains mildly enlarged. There are poststernotomy changes. Right coronary artery stent is again noted. The lungs are clear. No pleural effusions. No pneumothorax. IMPRESSION: No significant change compared to the prior study. No acute process. ACT 112: Negative or not required by law. Electronically signed by: Domenic Wells M.D. 08/25/2022 10:05 AM ECG Data Attestation: I personally reviewed and interpreted this ECG as follows: Additional Comments: Twelve-lead EKG: Per my interpretation shows a sinus rhythm at a rate of 63 with a left bundle branch block. This appears to be new compared to an EKG dated 06/01/2022. MDM Narrative 76-year-old male presents with some exertional chest pain last couple of days. Nitro seems to help. Currently in no discomfort although he has had 3 episodes of chest discomfort with exertion over the past 3 days. This is atypical for him. He had to use nitro each day for resolution of his symptoms. The patient's EKG shows normal sinus rhythm with left bundle branch block. This appears to be new compared to a previous EKG. Troponin was 52. CBC was normal. Chemistry panel was unremarkable. Chest x-ray did not show acute process. The patient was told the results of the test. He will be seen by the hospitalist for further evaluation and care. Impression & Plan Angina pectoris, unstable Discharge Plan Visit Data Chief Complaint: Chest Pain ED Provider: Puma Whipple Discharge Problem: Angina pectoris, unstable Patient Disposition: Being Evaluated by Hospitalist Forms Stand Alone Forms: [facility] [place] [employer] Prescriptions Prescriptions: No Action aspirin [Aspir-81] 81 mg Tablet,Delayed Release (Dr/Ec) 81 mg PO QAM glimepiride [Amaryl] 2 mg Tablet 4 mg PO QAM metformin 1,000 mg Tablet 1,000 mg PO QAM levothyroxine [Synthroid] 150 mcg Tablet 150 mcg PO QAM amlodipine [Norvasc] 5 mg Tablet 5 mg PO QAM Qty: 30 1RF losartan 25 mg Tablet 25 mg PO QAM Qty: 30 1RF hydroxyzine HCl 25 mg Tablet 25 mg PO Q8H PRN (Reason: anxiety) Qty: 15 0RF isosorbide mononitrate 30 mg tablet extended release 24 hr 30 mg PO DAILY Qty: 30 1RF metoprolol succinate 25 mg Tablet Extended Release 24 Hr 25 mg PO BID Qty: 60 1RF Referrals Referrals: Aury Prado MD [Outside Practitioners] -
[2022-08-25 10:48] LABS: Albumin Globulin Ratio 1.8 (0.9-2); Albumin Level 4.4 gm/dl (3.4-5.0); BUN Creatinine Ratio 17.6 (10-20); Bilirubin,Total 0.7 mg/dl (0.2-1.0); Creatinine Clr Calc Pharmacy 51.1 ml/min; Est GFR (African American) 61.7 ml/min; Est GFR (Non-African American) 53.3 ml/min; Globulin 2.4 gm/dl (2.5-4.0); Potassium 4.2 mmol/L (3.5-5.1); Total Protein 6.8 gm/dl (6.0-8.3)
[2022-08-25 11:05] LABS: Troponin I High Sensitivity 52.6 pg/ml (0-20)
[2022-08-25] MEDS ORDERED: ASPIRIN CHEW 324 MG PO STA (11:15)
--- NOTE | 2022-08-25 11:38 | History & Physical Report ---
Date of Service August 25, 2022 Assessment & Plan (1) Angina pectoris, unstable: (2) Chest pain: (3) Elevated troponin: (4) CAD (coronary artery disease): (5) S/P CABG x 5: (6) S/P coronary artery stent placement: (7) Hypertension: (8) HLD (hyperlipidemia): Plan: - Admit to tele - Trend cardiac biomarkers, initial set was 52, next set at 1600, during previous hospital stay in May was> 1000 - EKG reviewed as above - Check limited 2 D echo. 06/01/22 showed mild concentric left ventricular hypertrophy, LVEF = 40 to 45%, mild mitral regurg, grade 1 diastolic dysfunction. -Currently chest pain-free, if develops chest pain then will start on heparin d rip, patient is on DAPT with ASA 81 mg and Plavix. -Patient completed 7-day ZIO monitor as outpatient without acute findings, last visit with cardiology mentioned nuclear stress testing if worsening shortness of breath or angina. Cardiac cath possible if cardiology recommends this. - n.p.o. after midnight, allow diet today - PT/OT consulted - Pt had not yet taken morning medications so were ordered in the ER, these include: Metoprolol succinate 25 mg, Imdur 30 mg, Plavix 75 mg, amlodipine 5 mg, losartan 25 mg -Question patient compliance with taking medications in the morning, noted on outpatient chart that he had not taken BP meds during cardiology appointment which was at 9:00 AM. Revisit during hospital stay. (9) DM type 2 (diabetes mellitus, type 2): Plan: -ISS with Accu-Cheks ACHS, holding glimepiride and metformin -Last A1c was 7.4 -Allow heart healthy diabetic diet (10) Hypothyroidism: Plan: -Continue levothyroxine 150 mcg daily DVT PPx: - scds, aspirin and Plavix, if worsening chest pain then start heparin drip CODE: DNR/DNI Dispo: From home, likely to remain in the hospital x 1-2 days History of Present Illness Chief Complaint: chest pain Primary Care Provider: Terrence Cho MD This is a 76 yo M with a PMH of CAD (s/p CABG x 5 vessels in 2002, RICCO x 3 in 09/07, RICCO x 1 in 01/06), ischemic cardiomyopathy, LBBB diagnosed July 2022, remote history of postop A. fib after CABG without clinical recurrence, DM II, HTN, HLD, hypothyroidism. Pt was recently hospitalized in May this fall for NSTEMI where high sensitivity troponin was elevated at >1000. He had hospital follow-up with his magnetic observer about 2 weeks ago. At that point in time he was instructed to complete a 7-day ZIO monitor to rule out any worsening conduction system disease. There were some considerations at that time of proceeding with of nuclear stress testing if the patient should start to experience any symptoms of angina or shortness of breath. Patient also recently completed course of antibiotics due to a sinus infection. Pt presents to the hospital today after developing chest pain with exertion several times since last . He was hunting last while he was walking up a hill and noticed worsening shortness of breath which required him to stop a few times. Later evening after eating [place] shrimp he felt that he was developing indigestion, but then proceeded to develop into a left- sided chest pain and radiated to his left shoulder. He took nitro x2 which improved his pain and was able to go to sleep. He has never taken any nitro before this event. Last evening he again felt sensation of indigestion with left-sided chest pain and radiation to the left shoulder while he was sitting at rest, and proceeded to take another 1 tablet of nitro which improved his pain. 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 He had to sit down and took an additional 1 tablet of nitro which again improved his pain. His proceeded to bring him to the ER this morning. He is currently chest pain-free. The patient was seen and examined this morning. Patient reports feeling well notes that he had a close friend 3 weeks ago from a heart attack, and learned that he was living on nitro for chest pain and feels that part of his taking more nitro tablets could be somewhat because of this. He has been taking his normally scheduled medications as prescribed. Pt notes Repatha injection has not yet been delievered in the mail, so did not take it on Aug 22 like when it was due. Typically uses this bimonthly. Patient did not take home po medicine yet today except for the nitro and a full dose aspirin. He last ate breakfast this morning around 0800. Allergies Allergy/AdvReac Type Severity Reaction Status Date / Time ibuprofen AdvReac Mild Unknown Verified 08/25/22 12:32 Home Medications Medication Instructions Recorded Confirmed Type glimepiride 2 mg tablet (Amaryl) 4 mg PO QAM 08/03/18 08/25/22 History levothyroxine 150 mcg tablet 150 mcg PO QAM 08/03/18 08/25/22 History (Synthroid) metformin 1,000 mg tablet 1,000 mg PO QAM 08/03/18 08/25/22 History amlodipine 5 mg tablet (Norvasc) 5 mg PO QAM #30 tabs 06/01/22 08/25/22 Rx hydroxyzine HCl 25 mg tablet 25 mg PO Q8H PRN anxiety #15 tabs 06/01/22 08/25/22 Rx isosorbide mononitrate 30 mg 30 mg PO DAILY #30 tabs 06/01/22 08/25/22 Rx tablet,extended release 24 hr losartan 25 mg tablet 25 mg PO QAM #30 tabs 06/01/22 08/25/22 Rx metoprolol succinate 25 mg 25 mg PO BID #60 tabs 06/01/22 08/25/22 Rx tablet,extended release 24 hr aspirin 81 mg capsule 81 mg PO QAM 08/25/22 08/25/22 History bupropion HCl 150 mg tablet,12 hr 150 mg PO BID 08/25/22 08/25/22 History sustained-release clopidogrel 75 mg tablet 75 mg PO QAM 08/25/22 08/25/22 History evolocumab 140 mg/mL subcutaneous 140 mg subcut UD 08/25/22 08/25/22 History pen injector (Repatha SureJuanick) nitroglycerin 0.4 mg sublingual 0.4 mg sublingual USEASDIRECTD 08/25/22 08/25/22 History tablet Past Med/Surg History Medical History Anxiety CAD (coronary artery disease) S/p CABG in 2002, RICCO x 3 in 09/07, RICCO x 1 in 01/06 Chest pain DM type 2 (diabetes mellitus, type 2) HLD (hyperlipidemia) Hypertension Hypertensive emergency Hypothyroidism NSTEMI (non-ST elevated myocardial infarction) Paroxysmal atrial fibrillation "remote, postop s/p CABG" Situational anxiety Tobacco use disorder Surgical History S/P CABG x 5 "CABG x5 vessel (07/28/03): ARREOLA-LAD, SVG-RCA, SVG-OM, SVG-ramus, SVG-D1" S/P coronary artery stent placement "Cardiac [place] [facility] [place] vessel disease w/ 95% LAD, 95% Cx, 100% prox RCA, Patent ARREOLA-LAD, Patent SVG-OM, Patent SVG-RCA - mid portion of graft with turbulence of flow secondary to valve vs thrombus but has WILY III flow through graft into distal RCA run off, Patent FLE-Nygax-Oaea w/ 80% lesion in mid body of graft --> Stent placed - bare metal stent" On 12/29/16 20:54 Dianne Carrasco wrote "Cardiac catheterization 05/2015 at [facility] [place] stenosis in the [id number], BMS placed" Family History Other Diabetes Social History Smoking Status: Current some day smoker Tobacco Type: Cigarettes Cigarettes Per Day: 7-8/day; Second Hand Exposure: No; Do You Dip or Chew Tobacco: No; Hx Alcohol Use: No Hx Substance Use: No Preferred Language: Portuguese Communication Ability: Effective Visual Impairment: No Limitations Hearing Ability: Normal Athletic Coordinator Required: No Beliefs That Will Affect Care: None Current Living Situation: Spouse Other Information That Helps Us Care for You: No Feels Safe at Home: Yes Safety Concerns: Feels Safe At This Time Assistive Devices: Contacts and Denture - Upper Review of Systems Review of Systems: Constitutional: No fever, sweats or chills Eyes: No diplopia, no worsening or blurred vision ENT: normal hearing, no trouble swallowing Respiratory: No cough, sputum, as per HPI with dyspnea with hunting last , currently no dyspnea at rest Cardiovascular: As per HPI, currently no chest pain, tightness or palpitations Abdomen: No pain, nausea, vomiting, diarrhea or constipation Musculoskeletal: No joint pain, calf pain, swelling Neurologic: No weakness, numbness/tingling, or balance problems Psychiatric: No anxiety or depression Skin: No rash or itch Physical Exam Physical Exam: General: awake, alert, no apparent distress, appears younger than stated age. Head: Normocephalic, atraumatic ENT: PERRL, EOMI, no pharyngeal exudate, mucous membranes moist Chest: Clear to auscultation, on room air, no adventitious breath sounds Cardiac: Regular rate and rhythm, no murmur, no JVD, normal peripheral pulses, good capillary refill Abdominal: NABS x 4 quadrants, soft, nondistended, nontender to palpation, no rebound or guarding Extremities: Normal inspection, no peripheral edema or erythema, calfs nontender to palpation Psych: Normal mood and affect Neuro: AAO x 3, strength intact bilaterally and rated 5/5, no motor deficits, speech is clear, no peripheral sensory deficits Results & Data Results & Data ([facility]) Vital Signs (Past 12 Hours) Vital Signs Temp Pulse Pulse Resp BP BP Pulse Ox 08/25/22 11:01 63 14 08/25/22 11:01 172/72 H 08/25/22 11:00 53 L 16 96 08/25/22 11:01 54 L 20 172/72 H 96 08/25/22 10:30 56 L 16 98 08/25/22 10:30 161/81 H 08/25/22 10:19 56 L 19 97 08/25/22 10:19 168/76 H 08/25/22 10:00 57 L 14 161/81 H 08/25/22 09:56 68 12 99 08/25/22 09:56 70 20 182/82 H 97 08/25/22 09:56 97 08/25/22 09:56 36.7 C 70 20 182/82 H 97 08/25/22 09:54 O2 Del Method 08/25/22 11:01 08/25/22 11:01 08/25/22 11:00 08/25/22 11:01 Room Air 08/25/22 10:30 08/25/22 10:30 08/25/22 10:19 08/25/22 10:19 08/25/22 10:00 08/25/22 09:56 08/25/22 09:56 Room Air 08/25/22 09:56 Room Air 08/25/22 09:56 Room Air 08/25/22 09:54 Room Air Laboratory Results 08/25/22 08/25/22 10:02 10:02 WBC 9.18 RBC 4.53 L Hgb 14.8 Hct 42.9 MCV 94.7 MCH 32.7 MCHC 34.5 RDW Std Deviation 42.5 RDW Coeff of [place] 12.1 Plt Count 186 MPV 10.2 Immature Gran % (Auto) 0.3 Neut % (Auto) 70.3 Lymph % (Auto) 16.3 [place] % (Auto) 8.9 Eos % (Auto) 3.4 Baso % (Auto) 0.8 Neut # (Auto) 6.45 Lymph # (Auto) 1.50 [place] # (Auto) 0.82 Eos # (Auto) 0.31 Baso # (Auto) 0.07 Immature Gran # (Auto) 0.03 H Sodium 139 Potassium 4.2 Chloride 105 Carbon Dioxide 27 Anion Gap 7 BUN 23 Creatinine 1.31 Est Cr Clr Drug Dosing 51.1 Est GFR ( Amer) 61.7 Est GFR (Non-Af Amer) 53.3 BUN/Creatinine Ratio 17.6 Glucose 208 H Calcium 9.0 Total Bilirubin 0.7 AST 18 ALT 27 Alkaline Phosphatase 63 Troponin I High Sens 52.6 H* D Total Protein 6.8 Albumin 4.4 Globulin 2.4 L Albumin/Globulin Ratio 1.8 Lipase 16 Diagnostic Findings Chest X-Ray 08/25/22 09:49 XR chest 1V portable HISTORY: Atypical Chest Pain COMPARISON: Chest 06/01/2022. FINDINGS: The heart remains mildly enlarged. There are poststernotomy changes. Right coronary artery stent is again noted. The lungs are clear. No pleural effusions. No pneumothorax. IMPRESSION: No significant change compared to the prior study. No acute process. ACT 112: Negative or not required by law. Electronically signed by: Domenic Wells M.D. 08/25/2022 10:05 AM ECG Additional Comments: Reviewed on MUSE showing left bundle branch block, noted to be new since July [address] wave inversions or signs of ischemia Code Status & VTE Plan Code Status DNR/DNI-discussed with patient at bedside Supervising Physician Co-Signing Physician Notes Patient is a 76-year-old male with history of coronary artery disease S/P CABG, hypertension, hyperlipidemia, diabetes mellitus and other medical problems presents with history of increasing frequency of intermittent chest pain both with exertion and at rest, retrosternal, dull, intermittently radiates to left shoulder, 3/10 intensity, improved with nitroglycerin use. Denies any associated dyspnea, dizziness, nausea, fever, cough. Currently patient is chest pain-free. Blood pressure slightly elevated while in ED. Admits to taking medications regularly and reports that his BP at home is well controlled. Please review HPI for complete details of presentation. Blood work suggestive of glucose elevated at 208, mild troponin elevation 52.6 otherwise within normal limits. Chest x-ray showed no acute process. EKG showed normal sinus rhythm, left bundle branch block (Also noted on outpatient EKG). On exam patient is moderately built and nourished, no apparent distress, normocephalic atraumatic, EOMI, normal breath sounds, clear to auscultation, S1-S2, no murmur,+ bradycardia, no pedal edema, abdomen soft, nontender, normal bowel sounds, alert, awake, oriented, grossly no focal deficits. Patient is admitted for management of chest pain rule out ACS. Continue aspirin, Plavix, metoprolol, isosorbide. Nitroglycerin as needed. If patient develops chest pain or troponins trend to rise, low threshold to start IV heparin. Cardiology consulted. Check resting echo. Resume home medications to control blood pressure. Utilize insulin while hospitalized for management of diabetes mellitus. I personally reviewed the record. Patient is interviewed and examined at bedside. Patient's care is coordinated with Hayley Jones PA-C. Please refer to the documentation above for details of patient's presentation and for discussion of other issues. (1) CAD (coronary artery disease) Associated angina: unspecified whether angina present Coronary Disease- Associated Artery/Lesion type: unspecified vessel or lesion type [place] vs. transplanted heart: [place] heart Qualified Code(s): I25.10 - Atherosclerotic heart disease of [place] coronary artery without angina pectoris (2) Hypertension Hypertension type: unspecified Qualified Code(s): I10 - Essential (primary) hypertension
[2022-08-25] MEDS ORDERED: LOSARTAN POTASSIUM 25 MG TAB PO STA (12:23)
[2022-08-25] MEDS ORDERED: METOPROLOL SUCC 25MG EXT REL TAB PO STA (12:23)
[2022-08-25] MEDS ORDERED: ISOSORBIDE MONO EXTENDED REL 30 MG TABCR PO ONE (12:23)
[2022-08-25] MEDS ORDERED: amLODIPine BESYLATE 5 MG TAB PO ONE (12:23)
[2022-08-25] MEDS ORDERED: amLODIPine BESYLATE 5 MG TAB ONE (12:28)
[2022-08-25] MEDS ORDERED: CLOPIDOGREL BISULFATE 75 MG TAB PO ONE (12:46)
[2022-08-25] MEDS ORDERED: CLOPIDOGREL BISULFATE 75 MG TAB ONE (12:53)
[2022-08-25] MEDS ORDERED: ACETAMINOPHEN 325 MG TAB PO PRN (15:11)
[2022-08-25] MEDS ORDERED: DEXTROSE 50% 50 ML SYRINGE IV PRN (15:11)
[2022-08-25] MEDS ORDERED: CARBOHYDRATES FOR HYPOGLYCEMIA PO PRN (15:11)
[2022-08-25] MEDS ORDERED: GLUCOSE 10 TAB/TUBE PO PRN (15:11)
[2022-08-25] MEDS ORDERED: GLUCOSE 40% GEL 15 GM TUBE PO PRN (15:11)
[2022-08-25] MEDS ORDERED: GLUCAGON FOR INJ 1 MG VIAL SQ PRN (15:11)
[2022-08-25] MEDS ORDERED: hydrOXYzine HCl 25 MG TAB PO PRN (15:11)
[2022-08-25] MEDS ORDERED: NITROGLYCERIN SL 0.4 MG/TAB TAB SL PRN (15:11)
[2022-08-25] MEDS ORDERED: PNEUMOCOCCAL POLYSACCHARIDES 25 MCG/0.5 ML VIAL/SYR IM ONE (15:31)
[2022-08-25] MEDS: INSULIN ASPART PER UNIT SC SCH ×2 (17:08→21:53)
[2022-08-25] MEDS: buPROPion SR 150 MG TABCR PO SCH (20:32)
[2022-08-25] MEDS: METOPROLOL SUCC 25MG EXT REL TAB PO SCH (20:32)
[2022-08-25] MEDS: LANTUS PER UNIT CHARGE SQ SCH (20:36)
[2022-08-25] MEDS: HEPARIN SOD 5,000 UNIT/0.5 ML VIAL SQ SCH (23:09)
[2022-08-26] MEDS: HEPARIN SOD 5,000 UNIT/0.5 ML VIAL SQ SCH ×2 (05:46→16:03)
[2022-08-26] MEDS: LEVOTHYROXINE SODIUM 150 MCG TABLET PO SCH (05:46)
[2022-08-26 07:15] LABS: Hematocrit (blood only) 40.4 % (40.1-51.0); Hemoglobin 14.1 g/dl (14.0-18.0); Mean Corpuscular Hemoglobin 32.6 pg (25.0-34.0); Mean Corpuscular Hgb Conc 34.9 g/dL (32.0-36.0); Mean Corpuscular Volume 93.5 fL (80.0-100.0); Mean Platelet Volume 10.2 fL (9.4-12.4); Platelet Count 188 K/uL (130-400); RDW Coefficient of Variation 11.9 % (11.5-14.5); RDW Standard Deviation 41.4 fL (36.4-46.3); Red Blood Count 4.32 M/uL (4.63-6.08); White Blood Count 9.95 K/ul (4.8-10.8)
[2022-08-26 07:38] LABS: BUN Creatinine Ratio 17.2 (10-20); Calcium 8.8 mg/dl (8.5-10.1); Creatinine Clr Calc Pharmacy 44.3 ml/min; Est GFR (Non-African American) 44.9 ml/min; Magnesium 1.9 mg/dl (1.7-2.4); Potassium 4.1 mmol/L (3.5-5.1)
[2022-08-26] MEDS: INSULIN ASPART PER UNIT SC SCH ×4 (08:30→20:57)
--- NOTE | 2022-08-26 08:30 | Cardiology Consultation ---
Date of Consultation August 26, 2022 Assessment & Plan (1) CAD (coronary artery disease): (2) Angina pectoris, unstable: (3) Elevated troponin: (4) Hypertension: (5) LBBB (left bundle branch block): (6) HLD (hyperlipidemia): Plan Patient with complex history of CAD s/p remote CABG and multiple interventions to vein grafts in 2014 and 2016. Recent symptoms concerning for crescendo angina patterns. Minimally elevated HS troponin noted. LBBB on EKG also noted, which appeared to be new in June 2022. Echo results pending. Currently patient is chest pain free. Options discussed. Given his progressive symptoms, and his 2nd admission in several months for recurrent chest pain, recommend proceeding with repeat cardiac catheterization. Patient is agreeable. He is on appropriate medical and antianginal therapies including ASA, plavix, amlodipine, metoprolol, isosorbide, losartan. He has history of statin intolerances and uses Repatha as an outpatient. Echo is also pending given recent symptoms and LBBB. Case discussed with Dr. Dinh. Patient NPO for cardiac cath later today. Supervising Physician Co-Signing Physician Notes Patient was seen and personally examined. Evaluation as well outlined above. Vigorous male with complex coronary artery disease and past coronary interventions Clinical history consistent with accelerating anginal pattern with chest pain yesterday at low-level exertion all episodes relieved by sublingual nitroglycerin. EKG nondiagnostic secondary to left bundle branch block Troponins elevated with peak and fall Exam no congestive heart failure intact femoral pulses Plan as above referral for diagnostic coronary angiography later today as lab availability allows History of Present Illness Reason for Consultation: Chest pain; history of CAD; CABG Requesting Physician: Dr. Aguilar Attending Physician: Eron Aguilar MD History of Present Illness Patient is a 76 year old male know to [facility] cardiology, Dr. Samano, for history of complex CAD: history includes: 1. S/P inferior wall ST segment elevation myocardial infarction due to closure of the saphenous vein graft to the right coronary artery, receiving 3 overlapping drug eluting stents with poor distal runoff. (09/17/17) 2. H/O CABG x 5 in 2002 3. Unstable angina, 12/2016, repeat PCI drug-eluting stent to the saphenous vein graft to the obtuse marginal/diagonal territory, [facility] this was distal to the previous [place] [facility] [place] 4. Remote history of postoperative atrial fibrillation after CABG, no clinical recurrence, Coumadin ultimately discontinued in 2014 in favor of chronic dual anti-platelet therapy 5. Dyslipidemia with statin intolerance to atorvastatin, Vytorin, rosuvastatin, pravastatin -Lipids ideally controlled on a combination of ezetimibe 10 mg, and Repatha 140 mg subcu every 2 weeks 6. Admission in May 2022 for NSTEMI, chest pain/hypertension in setting of non compliance with medications. Medications resumed and symptoms improved. Patient had cardiology follow-up in June 2022 post admission for non-STEMI and medication noncompliance. He had resumed all medications and had no recent chest pain. He was found to have low heart rates on exam and EKG demonstrated sinus bradycardia with new left bundle branch block. He was asymptomatic. He underwent outpatient ZIO monitor which demonstrated sinus bradycardia with an average heart rate in the low 50s. Metoprolol was reduced from 25 mg twice daily to 25 mg daily. Over the last 3 weeks, patient had several episodes of concerning chest pain. The first episode occurred while he was in [place] getting ready to go fishing. He walked several 100 yards and developed substernal chest tightness/chest pain radiating to his left shoulder. He sat down and took 1 sublingual nitro with no significant relief. He took a second sublingual nitro and symptoms resolved after several minutes. He was told he looked "pratt and pale" during this episode. After 2nd SL nitro, he felt well and continued on his fishing trip. Several weeks later, patient reported walking in the [place] hunting with his son. After walking 100 to 200 yards, he had to stop and rest to catch his breath. He felt more fatigued and dyspneic with this exertion but denied chest pain. Finally over the last several days, patient was moving boxes in his basement and developed substernal chest pain with relief with 1 sublingual nitro. [facility] then [facility] and developed substernal chest pain once again with relief of nitro on route to the hospital. Due to recurrent symptoms increasing in frequency, he decided to come to the emergency room for evaluation. High- sensitivity troponin minimally elevated peaking at 102, and trending down this morning. EKG with sinus bradycardia with LBBB. New compared to May admission, but similar to Jun 2022 outpatient EKG. At time of consult, patient resting in bed comfortably. No recurrent chest pain or shortness of breath overnight or since admission. No sense of palpitations or tachypalpitations. No fever, cough, chills. No orthopnea, PND, lower extremity edema. Overall he feels symptoms of chest discomfort have been progressive over the last 3 weeks increasing in frequency and duration and becoming more severe with less exertion. He reports compliance with all medications Allergies Allergy/AdvReac Type Severity Reaction Status Date / Time ibuprofen AdvReac Mild Unknown Verified 08/25/22 12:32 Home Medications Medication Instructions Recorded Confirmed Type glimepiride 2 mg tablet (Amaryl) 4 mg PO QAM 08/03/18 08/25/22 History levothyroxine 150 mcg tablet 150 mcg PO QAM 08/03/18 08/25/22 History (Synthroid) metformin 1,000 mg tablet 1,000 mg PO QAM 08/03/18 08/25/22 History amlodipine 5 mg tablet (Norvasc) 5 mg PO QAM #30 tabs 06/01/22 08/25/22 Rx hydroxyzine HCl 25 mg tablet 25 mg PO Q8H PRN anxiety #15 tabs 06/01/22 08/25/22 Rx isosorbide mononitrate 30 mg 30 mg PO DAILY #30 tabs 06/01/22 08/25/22 Rx tablet,extended release 24 hr losartan 25 mg tablet 25 mg PO QAM #30 tabs 06/01/22 08/25/22 Rx metoprolol succinate 25 mg 25 mg PO BID #60 tabs 06/01/22 08/25/22 Rx tablet,extended release 24 hr aspirin 81 mg capsule 81 mg PO QAM 08/25/22 08/25/22 History bupropion HCl 150 mg tablet,12 hr 150 mg PO BID 08/25/22 08/25/22 History sustained-release clopidogrel 75 mg tablet 75 mg PO QAM 08/25/22 08/25/22 History evolocumab 140 mg/mL subcutaneous 140 mg subcut UD 08/25/22 08/25/22 History pen injector (Stef Ovalle) nitroglycerin 0.4 mg sublingual 0.4 mg sublingual USEASDIRECTD 08/25/22 08/25/22 History tablet Patient History Medical History Anxiety CAD (coronary artery disease) S/p CABG in 2002, RICCO x 3 in 09/07, RICCO x 1 in 01/06 Chest pain DM type 2 (diabetes mellitus, type 2) HLD (hyperlipidemia) Hypertension Hypertensive emergency Hypothyroidism NSTEMI (non-ST elevated myocardial infarction) Paroxysmal atrial fibrillation "remote, postop s/p CABG" Situational anxiety Tobacco use disorder Surgical History S/P CABG x 5 "CABG x5 vessel (07/28/03): ARREOLA-LAD, SVG-RCA, SVG-OM, SVG-ramus, SVG-D1" S/P coronary artery stent placement "[place]iac [place] [facility] Severe [place] vessel disease w/ 95% LAD, 95% Cx, 100% prox RCA, Patent ARREOLA-LAD, Patent SVG-OM, Patent SVG-RCA - mid portion of graft with turbulence of flow secondary to valve vs thrombus but has WILY III flow through graft into distal RCA run off, Patent [id number] w/ 80% lesion in mid body of graft --> Stent placed - bare metal stent" On 12/29/16 20:54 Dianne Carrasco wrote "Cardiac catheter[place] 05/2015 [place] [facility] stenosis in the NZP-Rupyx-Yktxitcy, BMS placed" Family History Other Diabetes Social History Smoking Status: Current some day smoker Tobacco Type: Cigarettes Cigarettes Per Day: 7-8/day; Second Hand Exposure: No; Do You Dip or Chew Tobacco: No; Hx Alcohol Use: No Hx Substance Use: No Preferred Language: Danish Communication Ability: Effective Visual Impairment: No Limitations Hearing Ability: Normal Dry Sander Required: No Beliefs That Will Affect Care: None Current Living Situation: Spouse Other Information That Helps Us Care for You: No Feels Safe at Home: Yes Safety Concerns: Feels Safe At This Time Assistive Devices: Contacts and Denture - Upper Review of Systems Review of Systems: All systems reviewed & are unremarkable except as noted in HPI & below Physical Exam Constitutional: WD/WN, vitals as above well developed; no acute distress Neck: trachea midline, no thyromegaly Respiratory: normal respiratory effort, lungs clear to auscultation Cardiovascular: Rate/Rhythm: regular rate and regular rhythm Heart Sounds: no murmur Palpation: + abnormal PMI Vessels: no JVD Extremities: no edema Gastrointestinal (Abdomen): normal bowel sounds, soft, nontender, no hepatosplenomegaly Results & Data ([facility]) Vital Signs (Past 12 Hours) Vital Signs Temp Pulse Pulse Resp BP Pulse Ox O2 Del Method 08/26/22 07:47 53 L 08/26/22 07:00 36.4 C L 54 L 16 151/75 H 95 Room Air 08/26/22 03:21 36.5 C 50 L 18 137/59 L 94 Room Air 08/25/22 23:30 52 L 08/25/22 23:02 36.6 C 50 L 18 130/63 94 Room Air Laboratory Results Cardiac Enzymes 08/25/22 08/25/22 08/25/22 Range/Units 10:02 15:35 21:38 AST 18 (13-39) U/L Troponin I High Sens 52.6 H* D 99.6 H* D 102.7 H* (0-20) pg/ml 08/26/22 Range/Units 06:54 AST (13-39) U/L Troponin I High Sens 72.0 H* (0-20) pg/ml CBC 08/25/22 08/26/22 Range/Units 10:02 06:54 WBC 9.18 9.95 (4.8-10.8) K/ul RBC 4.53 L 4.32 L (4.63-6.08) M/uL Hgb 14.8 14.1 (14.0-18.0) g/dl Hct 42.9 40.4 (40.1-51.0) % Plt Count 186 188 (130-400) K/uL Neut # (Auto) 6.45 (1.4-6.5) K/uL Lymph # (Auto) 1.50 (1.2-3.4) K/uL [place] # (Auto) 0.82 (0.24-0.82) K/uL Eos # (Auto) 0.31 (0-0.50) K/uL Baso # (Auto) 0.07 (0-0.2) K/uL Comprehensive Metabolic Panel 08/25/22 08/26/22 Range/Units 10:02 06:54 Sodium 139 137 (136-145) mmol/L Potassium 4.2 4.1 (3.5-5.1) mmol/L Chloride 105 105 (98-107) mmol/L Carbon Dioxide 27 29 (21-32) mmol/L BUN 23 26 H (6-23) mg/dl Creatinine 1.31 1.51 H (0.6-1.4) mg/dl Glucose 208 H 141 H (70-99(Fasting)) mg/dl Calcium 9.0 8.8 (8.5-10.1) mg/dl AST 18 (13-39) U/L ALT 27 (7-52) U/L Alkaline Phosphatase 63 (34-104) U/L Total Protein 6.8 (6.0-8.3) gm/dl Albumin 4.4 (3.4-5.0) gm/dl Intake and Output 08/25/22 08/26/22 08/26/22 22:59 06:59 14:59 Other: # Unmeasured Voids 1 1 Weight 79.9 kg Weight Measurement Method Built in [facility] Diagnostic Findings Telemetry reviewed: Sinus deepali and NSR in the 50-60 bpm range. Intraventricular conduction delay Repeat EKG this morning: Sinus bradycardia with LBBB EKG on admission: Sinus bradycardia with LBBB, when compared with prior EKG. LBBB was first noted in June 2022 as outpatient. Chest xray: no acute process. Outpatient ZIO monitor report reviewed dated Jul 2022: CONCLUSIONS: Preliminary Findings Patient had a min HR of 42 bpm, max HR of 136 bpm, and avg HR of 54 bpm. Predominant underlying rhythm was Sinus Rhythm. First Degree AV Block was present. Bundle Branch Block/IVCD was present. 2 Supraventricular Tachycardia runs occurred, the run with the fastest interval lasting 5 beats with a max rate of 136 bpm, the longest lasting 6 beats with an avg rate of 116 bpm. Isolated SVEs were rare (<1.0%), SVE Couplets were rare (<1.0%), and no SVE Triplets were present. Isolated VEs were rare (<1.0%), and no VE Couplets or VE Triplets were present. Ventricular Trigeminy was present. Echo report reviewed dated May 2022 during [facility] admission: Mild concentric LVH Moderate sized septal and inferior wall motion abnormality with akinesis of the segments LV systolic function is mildly reduced LVEF 40-45% Mild MR Grade I diastolic dysfunction. Compared to prior study in 2018, no significant change noted. Medications Administered Current Inpatient Medications Acetaminophen (Acetaminophen 325 Mg Tab) 650 mg PO Q4H PRN PRN Reason: Moderate Pain Stop: 09/24/22 15:10 Amlodipine Besylate (Amlodipine Besylate 5 Mg Tab) 5 mg PO QAM [facility] Stop: 09/25/22 08:59 Last Admin: 08/26/22 08:35 Dose: 5 mg Aspirin (Aspirin 81 Mg Ectab) [facility] Stop: 09/25/22 08:59 Last Admin: 08/26/22 08:35 Dose: 81 mg Bupropion HCl (Bupropion Sr 150 Mg Tabcr) 150 mg PO BID [facility] Stop: 09/24/22 20:59 Last Admin: 08/26/22 08:34 Dose: 150 mg Clopidogrel Bisulfate (Clopidogrel Bisulfate 75 Mg Tab) 75 mg PO QAM [facility] Stop: 09/25/22 08:59 Last Admin: 08/26/22 08:35 Dose: 75 mg Dextrose (Dextrose 50% 50 Ml Syringe) 25 - 50 ml IV UD PRN; Protocol PRN Reason: Hypoglycemia Protocol Stop: 09/24/22 15:10 Glucagon (Glucagon For Inj 1 Mg Vial) 1 mg SQ UD PRN; Protocol PRN Reason: Hypoglycemia Protocol Stop: 09/24/22 15:10 Glucose (Glucose 40% Gel 15 Gm Tube) 15 - 30 gm PO UD PRN; Protocol PRN Reason: Hypoglycemia Protocol Stop: 09/24/22 15:10 Glucose (Glucose 10 Tab/Tube) 4 - 8 tab PO UD PRN; Protocol PRN Reason: Hypoglycemia Treatment Stop: 09/24/22 15:10 Heparin Sodium (Porcine) (Heparin Sod 5,000 Unit/0.5 Ml Vial) 5,000 units SQ Q8 ABI Stop: 09/24/22 21:59 Last Admin: 08/26/22 05:46 Dose: 5,000 units Hydroxyzine HCl (Hydroxyzine Hcl 25 Mg Tab) 25 mg PO Q8H PRN PRN Reason: anxiety Stop: 09/24/22 15:10 Insulin Aspart (Insulin Aspart Per Unit) 0 units SC ACHS [facility] Stop: 09/24/22 16:29 Last Admin: 08/26/22 08:30 Dose: Not Given Insulin Glargine (Lantus Per Unit Charge) 5 units SQ BID [facility] Stop: 09/24/22 20:59 Last Admin: 08/26/22 08:34 Dose: 5 units Isosorbide Mononitrate (Isosorbide [place] Extended Rel 30 Mg Tabcr) 30 mg PO DAILY ABI Stop: 09/25/22 08:59 Last Admin: 08/26/22 08:35 Dose: 30 mg Levothyroxine Sodium (Levothyroxine Sodium 150 Mcg Tablet) 150 mcg PO DAILYBB [facility] Stop: 09/25/22 06:29 Last Admin: 08/26/22 05:46 Dose: 150 mcg Losartan Potassium (Losartan Potassium 25 Mg Tab) 25 mg PO QAM [facility] Stop: 09/25/22 08:59 Last Admin: 08/26/22 08:35 Dose: 25 mg Metoprolol Succinate (Metoprolol Succ 25mg Ext Rel Tab) 25 mg PO BID ABI Stop: 09/24/22 20:59 Last Admin: 08/26/22 08:35 Dose: 25 mg Miscellaneous (Carbohydrates For Hypoglycemia ) 15 - 30 gm PO UD PRN PRN Reason: Hypoglycemia Protocol Stop: 09/24/22 15:10 Nitroglycerin (Nitroglycerin Sl 0.4 Mg/Tab Tab) 0.4 mg SL UD PRN PRN Reason: CHEST PAIN Stop: 09/24/22 15:10 (1) CAD (coronary artery disease) Associated angina: unspecified whether angina present Coronary Disease- Associated Artery/Lesion type: unspecified vessel or lesion type [place] vs. transplanted heart: [place] heart Qualified Code(s): I25.10 - Atherosclerotic heart disease of [place] coronary artery without angina pectoris (2) Hypertension Hypertension type: unspecified Qualified Code(s): I10 - Essential (primary) hypertension
[2022-08-26] MEDS: LANTUS PER UNIT CHARGE SQ SCH ×2 (08:34→20:56)
[2022-08-26] MEDS: buPROPion SR 150 MG TABCR PO SCH ×2 (08:34→20:44)
[2022-08-26] MEDS: CLOPIDOGREL BISULFATE 75 MG TAB PO SCH (08:35)
[2022-08-26] MEDS: METOPROLOL SUCC 25MG EXT REL TAB PO SCH ×2 (08:35→20:56)
[2022-08-26] MEDS: ISOSORBIDE MONO EXTENDED REL 30 MG TABCR PO SCH (08:35)
[2022-08-26] MEDS: ASPIRIN 81 MG ECTAB PO SCH (08:35)
[2022-08-26] MEDS: amLODIPine BESYLATE 5 MG TAB PO SCH (08:35)
[2022-08-26] MEDS: LOSARTAN POTASSIUM 25 MG TAB PO SCH (08:35)
[2022-08-26] MEDS ORDERED: HEPARIN (PORCINE) 1000 UNIT/ML 10 ML (CATH LAB USE ONLY) ONE (13:22)
[2022-08-26] MEDS ORDERED: NITROGLYCERIN/D5W 100MCG/ML 20ML SYR ONE (13:22)
[2022-08-26] MEDS ORDERED: MIDAZOLAM HCL 1 MG/ML 2ML VIAL ONE (13:22)
[2022-08-26] MEDS ORDERED: fentaNYL citrate 100 MCG/2 ML VIAL ONE (13:22)
[2022-08-26] MEDS ORDERED: niCARdipine HCL INJ 2.5 MG/ML 10 ML AMP ONE (13:22)
--- NOTE | 2022-08-26 13:40 | Pre Anesthesia Assessment ---
Date of Service August 26, 2022 Pre Sedation Assessment Vital Signs Temp Pulse Pulse Resp BP Pulse Ox O2 Del Method 08/26/22 13:25 36.7 C 54 L 20 155/74 H 20 L Room Air 08/26/22 11:28 36.5 C 51 L 16 134/63 94 Room Air 08/26/22 07:47 53 L 08/26/22 07:00 36.4 C L 54 L 16 151/75 H 95 Room Air 08/26/22 03:21 36.5 C 50 L 18 137/59 L 94 Room Air 08/25/22 23:30 52 L 08/25/22 23:02 36.6 C 50 L 18 130/63 94 Room Air 08/25/22 19:54 36.6 C 51 L 18 119/54 L 96 Room Air 08/25/22 15:57 61 08/25/22 15:21 36.6 C 61 18 164/79 H 97 Room Air 08/25/22 14:00 52 L 16 95 Cardiovascular + regular rate and + bradycardic no JVD no edema Respiratory normal respiratory effort, lungs clear to auscultation Pre-Sedation Airway Assessment Smoking Status: Current some day smoker Hx Sleep Apnea: No Short, Thick Neck: No Thyromental Distance: > or= 3.5 Finger Breadths Oral Cavity: + WNL Mallampati Class: II ASA: ASA2 NPO Status Date of Last Intake of Fluids: 08/25/22 Time of Last Intake of Fluids: 22:00 Date of Last Intake of Solid Food: 08/25/22 Time of Last Intake of Solid Foods: 22:00 Procedure Planning Contraindications for Sedation: none Current Medications Reviewed: Yes Notes The planned sedation has been discussed with the patient. Informed Consent was obtained. I have identified the patient, determined the appropriateness of sedation and have assessed the patient immediately prior to the procedure. All medicine(s) and interventions are by my order.
--- NOTE | 2022-08-26 14:50 | Cardiac Catheterization ---
Cardiac Cath Procedure Brief Procedure Date August 26, 2022 Pre-Procedure Diagnosis Pre-Procedure Diagnosis: Angina AUC Score AUC Score: 8 Post-Procedure Diagnosis Post-Procedure Diagnosis: Severe CAD Procedure(s) Performed Procedure(s) Performed: Coronary Angiography, Left Heart Cath, LV Angiography and Bypass Graft Angiography Production Corrugator Elijah Dinh MD Lanolin Plant Operator(s) Margie Leroy Estimated Blood Loss Estimated Blood Loss: <15cc Recommendations Recommendations: PCI without planned CABG Fluids (cc crystalloids) Fluids (cc crystalloids): 70 Anesthesia Start time: 1406 stop time: 1440
--- NOTE | 2022-08-26 14:51 | Cardiac Catheterization ---
Cardiac Cath Procedure Full Procedure Date August 26, 2022 Pre-Procedure Diagnosis Pre-Procedure Diagnosis: Angina AUC Score AUC Score: 8 Post-Procedure Diagnosis Post-Procedure Diagnosis: Severe CAD Procedure(s) Performed Procedure(s) Performed: Coronary Angiography, Left Heart Cath, LV Angiography and Bypass Graft Angiography Panel Machine Operator Elijah Dinh MD Event Av Operator(s) Margie Leroy Estimated Blood Loss Estimated Blood Loss: <15cc Medication(s) Medication(s): Fentanyl (12.5 mcg IV), Lidocaine 1% (Local infiltration access site) and Versed (1 mg IV) Summary of Findings Impression: Severe [place]ust[place] vessel coronary artery disease, 100% occlusion proximal RCA, calcified 70% proximal circumflex, 100% proximal OM, severe diffuse disease proximal left anterior descending and left anterior descending diagonal Widely patent left internal mammary artery graft Occluded saphenous vein graft right coronary artery, occluded saphenous vein graft sequential ramus LAD diagonal High-grade stenosis saphenous vein graft obtuse marginal 80% mid graft Severe LV dysfunction EF 30% with inferior posterior infarct hypokinesis other segments Procedure: Left heart catheterization coronary, LV, graft angiography via right femoral access Catheters: 5 Guyanese arterial sheath 5 Guyanese JL 4 5 Guyanese 3 DRC 5 Guyanese straight pigtail Coronary angiography: Right dominant anatomy Left main: Moderate calcification without obstruction Left anterior descending: Type III vessel with diffuse disease in its proximal segment giving rise to a high diagonal branch shortly after its origin and 2 small second and third diagonals in its midportion. Its proximal segment is narrowed by 70 to 80% including origin of the diagonal branch. Its mid portion is filled via left internal mammary artery graft with competitive flow into the proximal segment Left circumflex: Large but nondominant historically. Its obtuse marginal is occluded bluntly after an atrial branch. It then turns along the AV groove giving rise to a long posterior lateral branch. The ostium of the circumflex has a heavily calcified 70% stenosis Right coronary artery: Occluded very proximally without distal filling Left internal mammary artery graft to left anterior descending: Widely patent Saphenous vein graft to the right coronary artery: 100% occluded Saphenous vein graft to the ramus, diagonal: 100% occluded Saphenous vein graft to the obtuse marginal: 80% mid graft stenosis LV angiography: The left ventricle was mildly enlarged. There is akinesis and mild expansion of the inferior wall at the base and mid level all the wall segments are hypokinetic EF 30% with trace mitral insufficiency only Hemodynamics Rest Ao:: 131/48/70 Final Ao: 154/56/86 LV: 153/0/13 Recommendations Recommendations: PCI without planned CABG Radiation Exposure (mGy) 1107 Contrast (mls) 170 Fluids (cc crystalloids) Fluids (cc crystalloids): 70 Anesthesia Start time: 1406 stop time: 1440 I attest to the content of the Intraoperative Record and any orders documented therein. Any exceptions are noted below. ACC Data: Automotive Instructor Cardiac Status Clinical evaluation leading to the procedure 76-year-old male with known multivessel coronary disease status post remote coronary bypass grafting 2002 presents with crescendo angina pattern and elevated troponin most recent episode occurring at minimal exertion and at rest relieved by nitroglycerin CAD Presenation: Unstable angina Anginal Classification: CCS IV Heart Failure: No Cardiogenic Shock within 24 Hours: No Cardiac Arrest within 24 Hours: No Imaging Studies Past 6 Months: Yes Stress Studies Past 6 Months: No Standard Exercise Test: No Stress Echocardiogram: No Stress Testing w/SPECT MPI: No Cardiac CTA: No STEMI OR Non-STEMI Symptom Onset Date: 08/25/22 Symptom Onset Time: 11:00 Thrombolytics: No Coronary Anatomy Dominant: Right Left Main (% Stenosis): Mid (Moderately calcified) LAD (% Stenosis): Proximal (70-80% with competitive flow from left internal mammary artery graft) D1 (% Stenosis): Proximal (80%) Circumflex (% Stenosis): Ostial (70) Grafts - LAD (%): Normal Grafts - Circumflex (%): Mid (80%) Grafts - RCA (%): Ostial (100%) Grafts - Ramus (%): Ostial (100%) Left Ventricular Angiography EF (%): 30 Mitral Regurgitation: None Diagnostic Physicians Name: Elijah Dinh MD Status: Urgent Closure Device Recommendations: PCI without planned CABG
--- NOTE | 2022-08-26 15:34 | Post Anesthesia Assessment ---
Date of Service August 26, 2022 Post Sedation Assessment Vital Signs Temp Pulse Pulse Resp BP Pulse Ox O2 Del Method 08/26/22 15:25 57 L 16 160/82 H 98 Room Air 08/26/22 15:05 54 L 16 100/62 98 Room Air 08/26/22 13:25 98.1 F 54 L 20 155/74 H 20 L Room Air 08/26/22 11:28 97.7 F 51 L 16 134/63 94 Room Air 08/26/22 07:47 53 L 08/26/22 07:00 97.5 F L 54 L 16 151/75 H 95 Room Air 08/26/22 03:21 97.7 F 50 L 18 137/59 L 94 Room Air 08/25/22 23:30 52 L 08/25/22 23:02 97.9 F 50 L 18 130/63 94 Room Air 08/25/22 19:54 97.9 F 51 L 18 119/54 L 96 Room Air 08/25/22 15:57 61 Recovery Score Activity: Moves 4 extremities Respiration: Deep Breath/Cough Circulation: +/-20% PreAnes Value Consciousness: Fully Awake Oxygen Saturation: > 92% On Room Air Post Anesthesia Score: 10 Discharge Sedation Level of Care: Fast Track Phase II Post Sedation Plan On clinical assessment, the patient appears to have tolerated the sedation without complications. Patient is recovering as anticipated. Patient will continue to be monitored by nursing and may be discharged when sedation discharge criteria are met per below protocol. Upon Completions of procedure up to 15 minutes continue every 5 minute vital signs and the P.A.R. score; then discharge to a Phase I or Fast Track to Phase II per the following guidelines: * Discharge Patient to appropriate Phase II area if PAR is 8 or greater or return to pre- procedure baseline. The post - procedure orders will be as directed. * If PAR score is less than 8 or not return to pre-procedure baseline then patient will follow Phase I monitoring till PAR is reached for Phase II. The Phase I may be done in procedure room or may call to secure a Phase I area. * If naloxone or flumazenil are used for reversal, hold in Phase I for continued monitoring from when last reversal dose was given for a minimum of 60 minutes or longer pending the nurse and/or physician discretion of patient condition before discharge to Phase II. Please call the Sedation Physician to re-evaluate and complete post-note for discharge to Phase II area. Do NOT discharge from procedure sedation or Phase 1 until post- sedation evaluation note is complete by procedure /sedation MD Sedation Discharge Instructions to be given to the patient at discharge to home.
--- NOTE | 2022-08-26 15:37 | Post Operative Brief Note ---
Cardiology Brief Post Op Date of Surgery August 26, 2022 Pre & Post Diagnosis Coronary artery disease Procedure PCI to vein graft to OM with single RICCO Associate Dean Of Students Nico Yoo MD Radio Equipment Repairer Lalo Estimated Blood Loss 15 Findings See Below Anesthesia Type RN Sedation Complications none Disposition Disposition: PCU Overlapping Procedure I was present for: the critical portions of procedure. I was immediately available: during the entire case. Back up surgeon: was not required during procedure.
[2022-08-26] MEDS ORDERED: SODIUM CHLORIDE 0.9% 500 ML IV SCH (15:45)
--- NOTE | 2022-08-26 16:45 | Electrocardiogram Report ---
Test Reason : Blood Pressure : / mmHG Vent. Rate : 063 BPM Atrial Rate : 063 BPM P-R Int : 194 ms QRS Dur : 184 ms QT Int : 476 ms P-R-T Axes : 029 050 000 degrees QTc Int : 487 ms Normal sinus rhythm Left bundle branch block Abnormal ECG When compared with ECG of 01-JUN-2022 05:26, Left bundle branch block is now Present Borderline criteria for Inferior infarct are no longer Present Confirmed by Marquise Shaver ([id number]) on 08/26/2022 4:44:39 PM Referred By: REFERRED SELF Confirmed By:Marquise Shaver
--- NOTE | 2022-08-26 17:07 | Electrocardiogram Report ---
Test Reason : Blood Pressure : / mmHG Vent. Rate : 053 BPM Atrial Rate : 053 BPM P-R Int : 218 ms QRS Dur : 182 ms QT Int : 522 ms P-R-T Axes : 041 061 115 degrees QTc Int : 489 ms Sinus bradycardia with 1st degree A-V block Left bundle branch block Abnormal ECG When compared with ECG of 25-AUG-2022 09:51, (unconfirmed) Nonspecific T wave abnormality has replaced inverted T waves in Inferior leads Confirmed by Marquise Shaver ([id number]) on 08/26/2022 5:06:55 PM Referred By: REFERRED SELF Confirmed By:Marquise Shaver
--- NOTE | 2022-08-26 18:16 | Hospitalist Progress Note ---
Date of Service August 26, 2022 Assessment & Plan (1) Angina pectoris, unstable: (2) Chest pain: (3) Elevated troponin: (4) CAD (coronary artery disease): (5) S/P CABG x 5: (6) S/P coronary artery stent placement: (7) Hypertension: (8) HLD (hyperlipidemia): Plan: Angina pectoris Severe CAD H/O CAD S/P CABG in 2002, RICCO x 3 in 08/2017 and RICCO x 1 in 12/2016 Cardiac Cath:Severe [place] vessel coronary artery disease, 100% occlusion proximal RCA, calcified 70% proximal circumflex, 100% proximal OM, severe diffuse disease proximal left anterior descending and left anterior descending diagonal Widely patent left internal mammary artery graft. Occluded saphenous vein graft right coronary artery, occluded saphenous vein graft sequential ramus LAD diagonal. High-grade stenosis saphenous vein graft obtuse marginal 80% mid graft Severe LV dysfunction EF 30% with inferior posterior infarct hypokinesis other segments --S/P Cath:PCI to vein graft to OM with single RICCO -- Continue aspirin, Plavix, metoprolol, isosorbide Appreciate cardiology input Check lipid panel Needs follow-up with cardiology upon discharge (9) DM type 2 (diabetes mellitus, type 2): Plan: -Continue ISS with Accu-Cheks ACHS hold glimepiride and metformin -Last A1c was 7.4 -Monitor BGs (10) Hypothyroidism: Plan: -Continue levothyroxine 150 mcg daily DVT Px: - Heparin SQ CODE STATUS: DNR/DNI Admission and Anticipated Discharge Date Admission Date: August 25, 2022 Subjective Patient is seen and examined at bedside prior to cardiac catheterization this morning Denies any chest pain, dyspnea, dizziness, nausea, abdominal pain Reports having minimal none expectorant cough No other complaints Review of Systems Review of Systems: All systems reviewed & are unremarkable except as noted in Subjective Results & Data Results & Data ([facility]) Vital Signs (Past 12 Hours) Vital Signs Temp Pulse Pulse Resp BP Pulse Ox O2 Del Method 08/26/22 17:20 53 L 17 153/70 H 96 Room Air 08/26/22 16:50 53 L 17 149/79 H 97 Room Air 08/26/22 16:20 52 L 17 144/70 H 93 Room Air 08/26/22 15:50 52 L 18 149/72 H 95 Room Air 08/26/22 16:00 52 L 17 151/73 H 95 Room Air 08/26/22 15:35 36.6 C 52 L 17 145/80 H 94 Room Air 08/26/22 15:25 57 L 16 160/82 H 98 Room Air 08/26/22 15:05 54 L 16 100/62 98 Room Air 08/26/22 13:25 36.7 C 54 L 20 155/74 H 20 L Room Air 08/26/22 11:28 36.5 C 51 L 16 134/63 94 Room Air 08/26/22 07:47 53 L 08/26/22 07:00 36.4 C L 54 L 16 151/75 H 95 Room Air Laboratory Results Short CBC 08/26/22 Range/Units 06:54 WBC 9.95 (4.8-10.8) K/ul Hgb 14.1 (14.0-18.0) g/dl Hct 40.4 (40.1-51.0) % Plt Count 188 (130-400) K/uL BMP 08/26/22 06:54 Sodium 137 Potassium 4.1 Chloride 105 Carbon Dioxide 29 BUN 26 H Creatinine 1.51 H Glucose 141 H Calcium 8.8 (1) CAD (coronary artery disease) Associated angina: unspecified whether angina present Coronary Disease- Associated Artery/Lesion type: unspecified vessel or lesion type [place] vs. transplanted heart: [place] heart Qualified Code(s): I25.10 - Atherosclerotic heart disease of [place] coronary artery without angina pectoris (2) Hypertension Hypertension type: unspecified Qualified Code(s): I10 - Essential (primary) hypertension
--- NOTE | 2022-08-27 00:02 | Cardiac Catheterization ---
[facility] Data: Supervisor Blood Cardiac Status Clinical evaluation leading to the procedure CAD Presenation: Unstable angina Anginal Classification: No Symptoms Diagnostic Physicians Name: Nico Yoo MD Closure Device Recommendations: PCI without planned CABG Cardiac Cath Procedure Full Procedure Date August 26, 2022 Pre-Procedure Diagnosis Pre-Procedure Diagnosis: Angina AUC Score AUC Score: 8 Post-Procedure Diagnosis Post-Procedure Diagnosis: Severe CAD and Successful PCI Procedure(s) Performed Procedure(s) Performed: Coronary Angiography, Drug Eluting Stent and Bypass Graft Angiography Clam Grower Nico Yoo MD Business Management Professor(s) Care Asst Estimated Blood Loss Estimated Blood Loss: <15cc Medication(s) Medication(s): Clopidogrel, Fentanyl (12.5 mcg IV), Heparin, Lidocaine 1% (Local infiltration access site), Nicardipine, Nitroglycerin and Versed (1 mg IV) Summary of Findings Indication: Suspected ACS, history of remote CABG, prior PCI to SVG to RCA and SVG to diagonal. Access: 6 Fr right HEAD DOFFER Catheters: JR4 guide Findings: For full details of patient's coronary angiography please see cath report dictated by Dr. Dinh. Briefly, patient found to have an 80% distal stenosis in distal aspect vein graft to OM. Decision to proceed with PCI. -- PCI -- Antithrombotic therapy: Heparin, clopidogrel Procedure: SVG to OM cannulated with JR4 guide Pre-procedure flow WILY 3 [place] Worker 50 wire passed across lesion into distal vessel Vein graft lesion stented with 3.0 x 18 mm Renick drug-eluting stent IC vasodilators administered for spasm Post procedure WILY 3 flow, stent well expanded with minimal residual stenosis and no apparent cardiac complications. Arterial Closure: Star[place] Summary: 1. Successful PCI of distal aspect of vein graft to OM with single drug-eluting stent (3.0 x 18 mm Renick). Recommendations: To PCU for continued monitoring Continue dual-antiplatelet therapy for at least 1 year, likely extended in the setting of complex CAD GDMT for cardiomyopathy and ASCVD risk factor modification per Dr. Dinh Consult cardiac Rehab Hemodynamics Rest Ao:: 154/56/86 Final Ao: 153/63/83 LV: 153/13 Recommendations Recommendations: PCI without planned CABG Specimens Specimens: None Radiation Exposure (mGy) 1592 Contrast (mls) 190 Fluids (cc crystalloids) Fluids (cc crystalloids): 100 Drains Drains: None Anesthesia Start time: 1444 stop time: 1500 Procedural Complication(s) None Disposition PCU I attest to the content of the Intraoperative Record and any orders documented therein. Any exceptions are noted below. [facility] Card Cath Procedure Codes Moderate Sedation Procedure 1: Sedation/Anesthesia: 70824 Mod Sedation by the same physician; Ea [id number] Minutes Stenting Procedure 1: Cardiovascular Stent Procedures: 63302 Perc tranluminal revascularization of or throughout CABG PG Care Time/CCT Total # of Minutes Spent Total Time Spent with Patient: Total time spent is greater than 50% in coordination of care (as documented) at patient's floor/unit and/or counseling patient:
[2022-08-27] MEDS: LEVOTHYROXINE SODIUM 150 MCG TABLET PO SCH (06:07)
[2022-08-27] MEDS: LOSARTAN POTASSIUM 25 MG TAB PO SCH (08:00)
[2022-08-27] MEDS: ASPIRIN 81 MG ECTAB PO SCH (08:00)
[2022-08-27] MEDS: ISOSORBIDE MONO EXTENDED REL 30 MG TABCR PO SCH (08:00)
[2022-08-27] MEDS: CLOPIDOGREL BISULFATE 75 MG TAB PO SCH (08:00)
[2022-08-27] MEDS: amLODIPine BESYLATE 5 MG TAB PO SCH (08:00)
[2022-08-27] MEDS: buPROPion SR 150 MG TABCR PO SCH (08:00)
[2022-08-27] MEDS: METOPROLOL SUCC 25MG EXT REL TAB PO SCH (08:00)
[2022-08-27] MEDS: LANTUS PER UNIT CHARGE SQ SCH (08:12)
[2022-08-27] MEDS: INSULIN ASPART PER UNIT SC SCH ×2 (08:12→11:41)
[2022-08-27 09:29] LABS: BUN Creatinine Ratio 19.7 (10-20); Calcium 9.1 mg/dl (8.5-10.1); Creatinine Clr Calc Pharmacy 47.1 ml/min; Est GFR (Non-African American) 48.3 ml/min; Potassium 4.1 mmol/L (3.5-5.1)
--- NOTE | 2022-08-27 10:50 | Cardiology Progress Note ---
Date of Service August 27, 2022 Assessment & Plan (1) CAD (coronary artery disease): (2) Angina pectoris, unstable: (3) Elevated troponin: (4) Hypertension: (5) LBBB (left bundle branch block): (6) HLD (hyperlipidemia): Plan Patient with complex history of CAD s/p remote CABG and multiple interventions to vein grafts in 2014 and 2016. Recent symptoms concerning for crescendo angina patterns. Minimally elevated HS troponin noted. LBBB on EKG also noted, which appeared to be new in June 2022. Patient underwent coronary angiography demonstrating complex coronary disease anatomy Severe [place] vessel coronary artery disease, 100% occlusion proximal RCA, calcified 70% proximal circumflex, 100% proximal OM, severe diffuse disease proximal left anterior descending and left anterior descending diagonal Widely patent left internal mammary artery graft Occluded saphenous vein graft right coronary artery, occluded saphenous vein graft sequential ramus LAD diagonal High-grade stenosis saphenous vein graft obtuse marginal 80% mid graft Severe LV dysfunction EF 30% with inferior posterior infarct hypokinesis other segments Patient underwent coronary invention receiving drug-eluting stent to the mid saphenous vein graft to the obtuse marginal uneventfully Recommendations: Patient to be discharged today. We will increase isosorbide mononitrate to 60 mg p.o. daily, increase losartan 50 mg p.o. Continue dual antiplatelet therapy Patient on maximally tolerated beta-morgan with resting bradycardia and bundle branch block Lipids managed with Repatha given statin intolerance Discussed potential benefits for biventricular pacer defibrillator given LV dysfunction, left bundle branch block, bradycardia Echo will be scheduled in 1 month with a EP evaluation Admission and Anticipated Discharge Date Admission Date: August 25, 2022 Subjective Patient seen and examined, chart, medications, telemetry reviewed. Doing well overnight. Minimal oozing at right groin access site (venous) No chest pain shortness of breath dizziness lightheadedness tachypalpitations. No arrhythmias on telemetry. Review of Systems Review of Systems: All systems reviewed & are unremarkable except as noted in HPI & below Physical Exam Eyes: PERRL, conjunctivae normal, anicteric sclerae ENMT: external ear and nose normal, oropharynx normal Mallampati Class: II Neck: trachea midline, no thyromegaly Respiratory: normal respiratory effort, lungs clear to auscultation Cardiovascular: Rate/Rhythm: regular rate and + bradycardic Vessels: femoral pulses present (Right groin access site healing well no hematoma); no J VD Extremities: no edema Gastrointestinal (Abdomen): normal bowel sounds, soft, nontender, no hepatosplenomegaly Results & Data ([facility]) Vital Signs (Past 12 Hours) Vital Signs Temp Pulse Pulse Resp BP Pulse Ox O2 Del Method 08/27/22 07:58 36.5 C 57 L 17 162/80 H 96 Room Air 08/27/22 07:00 54 L 08/27/22 03:13 36.8 C 51 L 16 119/45 L 96 Room Air 08/27/22 02:13 50 L 08/26/22 22:55 36.6 C 55 L 18 140/64 96 Room Air 08/26/22 23:02 73 16 144/57 H 97 Room Air Laboratory Results Laboratory Results - last 24 hr 08/26/22 08/26/22 08/27/22 16:15 20:14 07:36 Sodium Potassium Chloride Carbon Dioxide Anion Gap BUN Creatinine Est Cr Clr Drug Dosing Est GFR ( Amer) Est GFR (Non-Af Amer) BUN/Creatinine Ratio Glucose POC Glucose 126 H 147 H 153 H Calcium Triglycerides Cholesterol LDL Cholesterol, Calc VLDL Cholesterol, Calc HDL Cholesterol Cholesterol/HDL Ratio 08/27/22 08:42 Sodium 136 Potassium 4.1 Chloride 104 Carbon Dioxide 26 Anion Gap 6 BUN 28 H Creatinine 1.42 H Est Cr Clr Drug Dosing 47.1 Est GFR ( Amer) 56.0 Est GFR (Non-Af Amer) 48.3 BUN/Creatinine Ratio 19.7 Glucose 218 H POC Glucose Calcium 9.1 Triglycerides 200 H Cholesterol 101 LDL Cholesterol, Calc 27 VLDL Cholesterol, Calc 40 H HDL Cholesterol 34 Cholesterol/HDL Ratio 3.0 ECG Additional Comments: Sinus bradycardia with first-degree AV block, left bundle branch block (1) CAD (coronary artery disease) Associated angina: unspecified whether angina present Coronary Disease- Associated Artery/Lesion type: unspecified vessel or lesion type [place] vs. transplanted heart: [place] heart Qualified Code(s): I25.10 - Atherosclerotic heart disease of [place] coronary artery without angina pectoris (2) Hypertension Hypertension type: unspecified Qualified Code(s): I10 - Essential (primary) hypertension
--- NOTE | 2022-08-27 14:15 | Hospitalist Progress Note ---
Date of Service August 27, 2022 Assessment & Plan (1) Angina pectoris, unstable: (2) Chest pain: (3) Elevated troponin: (4) CAD (coronary artery disease): (5) S/P CABG x 5: (6) S/P coronary artery stent placement: (7) Hypertension: (8) HLD (hyperlipidemia): Plan: Angina pectoris Severe CAD H/O CAD S/P CABG in 2002, RICCO x 3 in 08/2017 and RICCO x 1 in 12/2016 Cardiac Cath:Severe [place] vessel coronary artery disease, 100% occlusion proximal RCA, calcified 70% proximal circumflex, 100% proximal OM, severe diffuse disease proximal left anterior descending and left anterior descending diagonal Widely patent left internal mammary artery graft. Occluded saphenous vein graft right coronary artery, occluded saphenous vein graft sequential ramus LAD diagonal. High-grade stenosis saphenous vein graft obtuse marginal 80% mid graft Severe LV dysfunction EF 30% with inferior posterior infarct hypokinesis other segments --S/P Cath:PCI to vein graft to OM with single RICCO -- Continue aspirin, Plavix, metoprolol, isosorbide, Repatha Appreciate cardiology input Isosorbide mononitrate increased to 60 mg daily Losartan increased to 50 mg daily Will need repeat echo in 1 month, EP evaluation May need biventricular pacer defibrillation Advised to follow-up with cardiology upon discharge (9) DM type 2 (diabetes mellitus, type 2): Plan: -Continue ISS with Accu-Cheks ACHS hold glimepiride and metformin -Last A1c was 7.4 -Monitor BGs (10) Hypothyroidism: Plan: -Continue levothyroxine 150 mcg daily DVT Px: - Heparin SQ CODE STATUS: DNR/DNI Admission and Anticipated Discharge Date Admission Date: August 25, 2022 Subjective Patient is seen and examined at bedside States feeling well today Denies any bleeding from catheter site access Also denies any chest pain, shortness of breath, dizziness, nausea, abdominal pain Discussed with cardiology today Plan to be discharged home today Review of Systems Review of Systems: All systems reviewed & are unremarkable except as noted in Subjective Physical Exam Physical Exam: Physical Exam: Vitals signs as noted above General Appearance:Moderately built and nourished, no apparent distress Head: normocephalic, Atraumatic Eyes: normal inspection, EOMI Neck: supple, Trachea midline Respiratory/Chest: Normal breath sounds, CTA, No accessory muscle use Cardiovascular: S1, S2, No murmur, Bradycardia Abdomen/GI:Soft, Non tender, Bowel sounds present Extremities/Musculoskeletal:normal inspection, no edema Neurologic/Psych:AAOX3, grossly no focal neurological deficits Skin: normal color, warm Results & Data Results & Data ([facility]) Vital Signs (Past 12 Hours) Vital Signs Temp Pulse Pulse Resp BP Pulse Ox O2 Del Method 08/27/22 14:02 36.4 C L 52 L 16 152/73 H 94 08/27/22 12:09 36.4 C L 52 L 16 152/73 H 94 Room Air 08/27/22 07:58 36.5 C 57 L 17 162/80 H 96 Room Air 08/27/22 07:00 54 L 08/27/22 03:13 36.8 C 51 L 16 119/45 L 96 Room Air Laboratory Results [facility] 08/27/22 08:42 Sodium 136 Potassium 4.1 Chloride 104 Carbon Dioxide 26 BUN 28 H Creatinine 1.42 H Glucose 218 H Calcium 9.1 (1) CAD (coronary artery disease) Associated angina: unspecified whether angina present Coronary Disease- Associated Artery/Lesion type: unspecified vessel or lesion type [place] vs. transplanted heart: [place] heart Qualified Code(s): I25.10 - Atherosclerotic heart disease of [place] coronary artery without angina pectoris (2) Hypertension Hypertension type: unspecified Qualified Code(s): I10 - Essential (primary) hypertension
--- NOTE | 2022-08-27 15:30 | Discharge Summary ---
Date of Service August 27, 2022 Admission HPI Per Admitting Provider This is a 76 yo M with a PMH of CAD (s/p CABG x 5 vessels in 2002, RICCO x 3 in 09/07, RICCO x 1 in 01/06), ischemic cardiomyopathy, LBBB diagnosed July 2022, remote history of postop A. fib after CABG without clinical recurrence, DM II, HTN, HLD, hypothyroidism. Pt was recently hospitalized in May this fall for NSTEMI where high sensitivity troponin was elevated at >1000. He had hospital follow-up with his black top roller about 2 weeks ago. At that point in time he was instructed to complete a 7-day ZIO monitor to rule out any worsening conduction system disease. There were some considerations at that time of proceeding with of nuclear stress testing if the patient should start to experience any symptoms of angina or shortness of breath. Patient also recently completed course of antibiotics due to a sinus infection. Pt presents to the hospital today after developing chest pain with exertion several times since last . He was hunting last while he was walking up a hill and noticed worsening shortness of breath which required him to stop a few times. Later evening after eating [employer] shrimp he felt that he was developing indigestion, but then proceeded to develop into a left- sided chest pain and radiated to his left shoulder. He took nitro x2 which improved his pain and was able to go to sleep. He has never taken any nitro before this event. Last evening he again felt sensation of indigestion with left-sided chest pain and radiation to the left shoulder while he was sitting at rest, and proceeded to take another 1 tablet of nitro which improved his pain. 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 He had to sit down and took an additional 1 tablet of nitro which again improved his pain. His proceeded to bring him to the ER this morning. He is currently chest pain-free. The patient was seen and examined this morning. Patient reports feeling well notes that he had a close friend 3 weeks ago from a heart attack, and learned that he was living on nitro for chest pain and feels that part of his taking more nitro tablets could be somewhat because of this. He has been taking his normally scheduled medications as prescribed. Pt notes Repatha injection has not yet been delievered in the mail, so did not take it on Aug 22 like when it was due. Typically uses this bimonthly. Patient did not take home po medicine yet today except for the nitro and a full dose aspirin. He last ate breakfast this morning around 0800. Admission Exam Per Admitting Provider Physical Exam Physical Exam: General: awake, alert, no apparent distress, appears younger than stated age. Head: Normocephalic, atraumatic ENT: PERRL, EOMI, no pharyngeal exudate, mucous membranes moist Chest: Clear to auscultation, on room air, no adventitious breath sounds Cardiac: Regular rate and rhythm, no murmur, no JVD, normal peripheral pulses, good capillary refill Abdominal: NABS x 4 quadrants, soft, nondistended, nontender to palpation, no rebound or guarding Extremities: Normal inspection, no peripheral edema or erythema, calfs nontender to palpation Psych: Normal mood and affect Neuro: AAO x 3, strength intact bilaterally and rated 5/5, no motor deficits, speech is clear, no peripheral sensory deficits Principal Diagnosis Unstable Angina pectoris Severe Coronary artery disease Bradycardia Discharge Data Allergies Allergy/AdvReac Type Severity Reaction Status Date / Time ibuprofen AdvReac Mild Unknown Verified 08/25/22 12:32 Consultations 08/25/22 11:27 ED Decision to Admit Stat 08/25/22 15:11 Consult Cardiology Routine 08/26/22 15:36 Consult Cardiac Rehabilitation Routine Procedures Performed Operation Date: 08/26/22 13:30 Actual Procedures p Cineradiography w/Routine Exam - Elijah Dinh MD s Drug Eluting Stent SGl Vessel - Neville Yoo MD p Cath, Left w/Cors Vent Grafts - Elijah Dinh MD Ordered Studies 08/26/22 13:47 CL Cath Imgs for PACS use only Routine Laboratory Results WBC 9.95 K/ul (4.8-10.8) 08/26/22 06:54 RBC 4.32 M/uL (4.63-6.08) L 08/26/22 06:54 Hgb 14.1 g/dl (14.0-18.0) 08/26/22 06:54 Hct 40.4 % (40.1-51.0) 08/26/22 06:54 MCV 93.5 fL (80.0-100.0) 08/26/22 06:54 MCH 32.6 pg (25.0-34.0) 08/26/22 06:54 MCHC 34.9 g/dL (32.0-36.0) 08/26/22 06:54 RDW Std Deviation 41.4 fL (36.4-46.3) 08/26/22 06:54 RDW Coeff of [place] 11.9 % (11.5-14.5) 08/26/22 06:54 Plt Count 188 K/uL (130-400) 08/26/22 06:54 MPV 10.2 fL (9.4-12.4) 08/26/22 06:54 Immature Gran % (Auto) 0.3 % 08/25/22 10:02 Neut % (Auto) 70.3 % 08/25/22 10:02 Lymph % (Auto) 16.3 % 08/25/22 10:02 [place] % (Auto) 8.9 % 08/25/22 10:02 Eos % (Auto) 3.4 % 08/25/22 10:02 Baso % (Auto) 0.8 % 08/25/22 10:02 Neut # (Auto) 6.45 K/uL (1.4-6.5) 08/25/22 10:02 Lymph # (Auto) 1.50 K/uL (1.2-3.4) 08/25/22 10:02 [place] # (Auto) 0.82 K/uL (0.24-0.82) 08/25/22 10:02 Eos # (Auto) 0.31 K/uL (0-0.50) 08/25/22 10:02 Baso # (Auto) 0.07 K/uL (0-0.2) 08/25/22 10:02 Immature Gran # (Auto) 0.03 K/uL (0.00-0.02) H 08/25/22 10:02 Sodium 136 mmol/L (136-145) 08/27/22 08:42 Potassium 4.1 mmol/L (3.5-5.1) 08/27/22 08:42 Chloride 104 mmol/L (98-107) 08/27/22 08:42 Carbon Dioxide 26 mmol/L (21-32) 08/27/22 08:42 Anion Gap 6 (3-11) 08/27/22 08:42 BUN 28 mg/dl (6-23) H 08/27/22 08:42 Creatinine 1.42 mg/dl (0.6-1.4) H 08/27/22 08:42 Est Cr Clr Drug Dosing 47.1 ml/min 08/27/22 08:42 Est GFR ( Amer) 56.0 ml/min 08/27/22 08:42 Est GFR (Non-Af Amer) 48.3 ml/min 08/27/22 08:42 BUN/Creatinine Ratio 19.7 (10-20) 08/27/22 08:42 Glucose 218 mg/dl (70-99(Fasting)) H 08/27/22 08:42 POC Glucose 133 mg/dl (70-99) H 08/27/22 11:36 Calcium 9.1 mg/dl (8.5-10.1) 08/27/22 08:42 Magnesium 1.9 mg/dl (1.7-2.4) 08/26/22 06:54 Total Bilirubin 0.7 mg/dl (0.2-1.0) 08/25/22 10:02 AST 18 U/L (13-39) 08/25/22 10:02 ALT 27 U/L (7-52) 08/25/22 10:02 Alkaline Phosphatase 63 U/L (34-104) 08/25/22 10:02 Troponin I High Sens 72.0 pg/ml (0-20) H* 08/26/22 06:54 Total Protein 6.8 gm/dl (6.0-8.3) 08/25/22 10:02 Albumin 4.4 gm/dl (3.4-5.0) 08/25/22 10:02 Globulin 2.4 gm/dl (2.5-4.0) L 08/25/22 10:02 Albumin/Globulin Ratio 1.8 (0.9-2) 08/25/22 10:02 Triglycerides 200 mg/dl (0-150) H 08/27/22 08:42 Cholesterol 101 mg/dl (0-200) 08/27/22 08:42 LDL Cholesterol, Calc 27 mg/dl 08/27/22 08:42 VLDL Cholesterol, Calc 40 mg/dl (0-30) H 08/27/22 08:42 HDL Cholesterol 34 mg/dl 08/27/22 08:42 Cholesterol/HDL Ratio 3.0 (0-5) 08/27/22 08:42 Lipase 16 U/L (11-82) 08/25/22 10:02 SARS-CoV-2, RNA, NAAT NEGATIVE (NEGATIVE) 08/25/22 12:32 Impressions Chest X-Ray 08/25/22 09:49 XR chest 1V portable HISTORY: Atypical Chest Pain COMPARISON: Chest 06/01/2022. FINDINGS: The heart remains mildly enlarged. There are poststernotomy changes. Right coronary artery stent is again noted. The lungs are clear. No pleural effusions. No pneumothorax. IMPRESSION: No significant change compared to the prior study. No acute process. ACT 112: Negative or not required by law. Electronically signed by: Domenic Wells M.D. 08/25/2022 10:05 AM Hospital Course (1) Angina pectoris, unstable: (2) Chest pain: (3) Elevated troponin: (4) CAD (coronary artery disease): (5) S/P CABG x 5: (6) S/P coronary artery stent placement: (7) Hypertension: (8) HLD (hyperlipidemia): Angina pectoris Severe CAD H/O CAD S/P CABG in 2002, RICCO x 3 in 08/2017 and RICCO x 1 in 12/2016 Cardiac Cath:Severe yuhaaviatam vessel coronary artery disease, 100% occlusion proximal RCA, calcified 70% proximal circumflex, 100% proximal OM, severe diffuse disease proximal left anterior descending and left anterior descending diagonal Widely patent left internal mammary artery graft. Occluded saphenous vein graft right coronary artery, occluded saphenous vein graft sequential ramus LAD diagonal. High-grade stenosis saphenous vein graft obtuse marginal 80% mid graft Severe LV dysfunction EF 30% with inferior posterior infarct hypokinesis other segments --S/P Cath:PCI to vein graft to OM with single RICCO -- Continue aspirin, Plavix, metoprolol, isosorbide, Repatha Appreciate cardiology input Isosorbide mononitrate increased to 60 mg daily Losartan increased to 50 mg daily Will need repeat echo in 1 month, EP evaluation May need biventricular pacer defibrillation Advised to follow-up with cardiology upon discharge (9) DM type 2 (diabetes mellitus, type 2): -Continue ISS with Accu-Cheks ACHS hold glimepiride and metformin -Last A1c was 7.4 -Monitor BGs (10) Hypothyroidism: -Continue levothyroxine 150 mcg daily DVT Px: - Heparin SQ CODE STATUS: DNR/DNI Total Time Total Time Spent Total Time Spent (In Minutes): 48 minutes Discharge Plan Discharge Items Patient Disposition: Home - Self-Care Reason For Visit: CHEST PAIN, CAD Discharge Diagnosis: Unstable Angina pectoris Severe Coronary artery disease Bradycardia Activity: Per Instructions section Exercise/Sports: Wait until after follow-up appointment Non-emergency contact: Primary Care Provider and Compliance Counsel Call non-emergency contact if: you have any medication questions, your symptoms worsen, your pain is concerning for you and you have a fever Follow-up/Referrals: Terrence Cho MD [Primary Care Provider] - 08/29/22 3:00 pm (Date & Time 08/29/2022 3:00 PM Provider Terrence Cho MD [facility] ) Elijah Dinh MD [Physician] - (The cardiology office will call you with an appointment.) Diet: Carb Consistent or DM2 and Heart Healthy Addtl Attending Provider Instructions: Follow-up with your primary care physician Dr. Marquis Ocampo on 08/29/2022 3:00 PM Follow-up with your black top roller in 2 to 4 weeks as advised. --- Your black top roller recommended repeat echocardiogram in 1 month and follow-up with cardiac weigh tank operator to assess need for biventricular pacer defibrillator placement Medication changes --Your isosorbide mononitrate is increased to 60 mg daily --Your losartan is increased to 50 mg daily Seek immediate medical attention if your symptoms reoccur or worsen Please take all medications as instructed on discharge list below. Please call if you have any questions or problems. You can reach a [facility] hospitalist on duty at [facility] 24 hours a day by calling [phone] Pending Studies at Discharge: No Stand-Alone Forms: My [facility] [employer]formerly [employer]), Smoking Cessation Medications and DC Order Prescriptions: Continued glimepiride [Amaryl] 2 mg Tablet 4 mg PO QAM metformin 1,000 mg Tablet 1,000 mg PO QAM levothyroxine [Synthroid] 150 mcg Tablet 150 mcg PO QAM amlodipine [Norvasc] 5 mg Tablet 5 mg PO QAM Qty: 30 1RF hydroxyzine HCl 25 mg Tablet 25 mg PO Q8H PRN (Reason: anxiety) Qty: 15 0RF metoprolol succinate 25 mg Tablet Extended Release 24 Hr 25 mg PO BID Qty: 60 1RF aspirin 81 mg Capsule 81 mg PO QAM bupropion HCl 150 mg tablet sustained-release 12 hr 150 mg PO BID clopidogrel 75 mg tablet 75 mg PO QAM nitroglycerin 0.4 mg tablet, sublingual 0.4 mg sublingual USEASDIRECTD MDD 1.2mg Rx Instructions: Took @0830 Repatha SureClick 140 mg/mL pen injector 140 mg SUBCUT UD Rx Instructions: Takes on and of the month Changed isosorbide mononitrate 30 mg tablet extended release 24 hr 60 mg PO DAILY Qty: 60 1RF losartan 25 mg Tablet 50 mg PO QAM Qty: 60 1RF Discharge Orders: Discharge Order (Routine); Ordered 08/27/22 Ordered By: Eron Mcginnis/Other Patient Handouts: Low-Salt Choices, Left Bundle Branch Block Admission Data Admit Date/Time: 08/25/22 11:40 Attending Provider: Eron Aguilar Admit Provider: Eron Aguilar Primary Care Provider: Terrence Cho Other Providers: Eron Aguilar ; Elijah Dinh Other Interventions: Discharge Summary Assessment (RN) Last Done: 08/27/22 14:02
--- NOTE | 2022-08-27 16:40 | Electrocardiogram Report ---
Test Reason : Blood Pressure : / mmHG Vent. Rate : 054 BPM Atrial Rate : 054 BPM P-R Int : 220 ms QRS Dur : 178 ms QT Int : 526 ms P-R-T Axes : 047 049 100 degrees QTc Int : 498 ms Sinus bradycardia with 1st degree A-V block Left bundle branch block Abnormal ECG When compared with ECG of 26-AUG-2022 05:46, No significant change was found Confirmed by Marquise Shaver ([id number]) on 08/27/2022 4:40:16 PM Referred By: REFERRED SELF Confirmed By:Marquise Shaver
[2022-08-28] MEDS ORDERED: ISOSORBIDE MONO EXTENDED REL 60 MG TABCR PO SCH (09:00)
[2022-08-28] MEDS ORDERED: LOSARTAN POTASSIUM 50 MG TAB PO SCH (09:00)
== END 2022-08-27 15:08 | disposition home or self-care (01) | DRG 247 ==
LOC: ED 09:48 → 2E 11:40

== ENCOUNTER 2025-09-18 09:21 | Inpatient (IN) ==
--- NOTE | 2025-09-18 09:59 | XRay Report ---
XR chest 1V portable CLINICAL HISTORY: Chest pain, nonspecific COMPARISON STUDY: 08/25/2022 FINDINGS: Stable CABG. There is an interval left-sided pacemaker/ICD. There is stable moderate cardio megaly without pulmonary vascular congestion. No consolidation or pleural effusion seen. No pneumotho rax. IMPRESSION: No acute findings. ACT 112: Negative or not required by law. Electronically signed by: Beny London M.D. 09/18/2025 9:58 AM
[2025-09-18 10:06] LABS: Hematocrit (blood only) 49.7 % (42.0-52.0); Hemoglobin 17.1 g/dL (14.0-18.0); Immature Granulocytes # (auto) 0.03 K/uL (0.01-0.20); Immature Granulocytes % (auto) 0.3 %; Mean Corpuscular Hemoglobin 31.5 pg (25.0-34.0); Mean Corpuscular Volume 91.5 fL (80.0-100.0); Platelet Count 182 K/uL (130-400); RDW Standard Deviation 39.9 fL (36.4-46.3); Red Blood Count 5.43 M/uL (4.70-6.10); White Blood Count 9.92 K/ul (4.8-10.8)
[2025-09-18 10:24] LABS: Alanine Aminotransferase 29.0 U/L (7-52); Albumin Globulin Ratio 1.6 (0.9-2); Albumin Level 4.4 gm/dl (3.4-5.0); Alkaline Phosphatase 65.0 U/L (34-104); Anion Gap 8.0 (3-11); Bilirubin,Total 1.0 mg/dl (0.2-1.0); Blood Urea Nitrogen 21.0 mg/dl (6-23); Calcium 9.4 mg/dl (8.6-10.3); Carbon Dioxide 27.0 mmol/L (21-32); Chloride 103.0 mmol/L (98-107); Creatinine Clr Calc Pharmacy 40.9 ml/min; Globulin 2.8 gm/dl (2.5-4.0); Glucose 271.0 mg/dl (70-99(Fasting)); Lipase 17.0 U/L (11-82); Sodium 138.0 mmol/L (136-145); Total Protein 7.2 gm/dl (6.0-8.3)
[2025-09-18 10:37] LABS: Potassium 4.6 mmol/L (3.5-5.1)
--- NOTE | 2025-09-18 10:38 | Emergency Department Note ---
Impression & Plan Chest pain, S/P CABG x 5, S/P coronary artery stent placement, CAD (coronary artery disease) ED Provider Note NAME: BRIDGET ZHAO AGE: 80 SEX: M : 1945 ARRIVES VIA: Walk-In INFORMANT: Patient, ED PROVIDER(S): Mercedes Sheehan MD CHIEF COMPLAINT: Chest pain HPI: This is a 80-year-old male presenting for chest pain. Patient notes that he has had intermittent chest pain that is increasing in severity and frequency over the past few weeks. He notes history of bypass surgeries, 7 stents and 4 previous MIs. He was concerned as his chest pain is similar to when he had his DE/NSTEMI's in the past. He notes pain is increasing in frequency and severity but is relieved by nitroglycerin at home. ROS: See above HPI for pertinent positives & negatives. A total of 10 systems reviewed and were otherwise negative. PAST MEDICAL HISTORY: See Below PAST SURGICAL HISTORY: See Below FAMILY HISTORY: See Below SOCIAL HISTORY: See Below HOME MEDICATIONS: See Below ALLERGIES: See Below VITALS: See Below PHYSICAL EXAMINATION: General: resting comfortably in no acute distress Head: Normocephalic and atraumatic Eyes: Normal inspection, extraocular muscles intact Ear, nose, throat: Normal external exam Neck: Normal range of motion Respiratory: lungs clear to auscultation bilaterally Cardiovascular: Regular rate/rhythm, no murmur GI: soft, nontender, no guarding or rebound Extremities: nontender, moves all extremities Neuro: The patient awake and alert, appropriately conversive, no focal deficits, symmetric faces Skin: Warm, dry, and intact MEDICAL DECISION MAKING: This is a 80-year-old male presents for chest pain. Patient has extensive cardiac history including previous MIs, stents, bypass surgeries. He has no persistent exertional dyspnea upon my questioning. Low concern for PE. He is on anticoagulation - Will do screening blood work, chest x-ray, EKG - ECG independently interpreted by me with dual AV paced at a rate of 66, normal ND, QRS and QTc, intraventricular conduction delay no ST segment elevations consistent with STEMI criteria - Chest Xray independently interpreted by me showing no pneumothorax, focal opacity, or pleural effusions. - Bloodwork is reviewed showing no significant leukocytosis, anemia, electrolyte or creatinine abnormality Creatinine at his baseline - Due to patient extensive cardiac history, will admit for cardiac evaluation/observation -Discussed with Dr. Rosales for admission Differential diagnosis: ACS, PE, stable presenting angina, pneumonia Independent History obtained from: Diagnostics interpreted by me: ECG: See above Cardiac Monitoring: An order was placed for continuous cardiac monitoring. The monitor shows a rate of 60 with paced rhythm. Past Med/Surg History Problem List (Updated 09/18/25 @ 16:53 by Mercedes Sheehan MD) Biventricular ICD (implantable cardioverter-defibrillator) in place Paroxysmal tachycardia, unspecified Hypertension, uncontrolled Encounter for pre-operative examination LBBB (left bundle branch block) Chest pain (Acute) Precordial chest pain (Acute) CAD (coronary artery disease) (Acute) Elevated troponin (Acute) Hypertension (Acute) Angina pectoris, unstable (Acute) Situational anxiety Anxiety Hypertensive emergency pt unsure about this?--"if he did, it wasn't something recent" Chest pain (Acute) after significant physical exertion, [facility] cardio aware, records indicate symptoms resolved with nitro Tobacco use disorder (Chronic) quit 07/2022 HLD (hyperlipidemia) (Chronic) DM type 2 (diabetes mellitus, type 2) (Chronic) NIDDM Hypertension (Chronic) Hypothyroidism (Chronic) CAD (coronary artery disease) (Chronic) S/p CABG in 2002, RICCO x 3 in 09/07, RICCO x 1 in 01/06 Paroxysmal atrial fibrillation (Chronic) "remote, postop s/p CABG" S/P coronary artery stent placement (Chronic) "Cardiac catheterization 05/2015 at [facility]- Severe [place] vessel disease w/ 95% LAD, 95% Cx, 100% prox RCA, Patent ARREOLA-LAD, Patent SVG-OM, Patent SVG-RCA - mid portion of graft with turbulence of flow secondary to valve vs thrombus but has WILY III flow through graft into distal RCA run off, Patent ABR-Wkwod-Flbf w/ 80% lesion in mid body of graft --> Stent placed - bare metal stent" "Cardiac catheterization 05/2015 at [facility]- stenosis in the [id number], BMS placed" 08/2022, having chest pain, brought to NH, 1 RICCO placed S/P CABG x 5 (Chronic) "CABG x5 vessel (07/28/03): ARREOLA-LAD, SVG-RCA, SVG-OM, SVG-ramus, SVG-D1"; [facility] in [place]; f/u dr velasco, [facility] Medical History (Updated 09/18/25 @ 16:53 by Mercedes Sheehan MD) CKD (chronic kidney disease) stage 3, GFR 30-59 ml/min Cr bump to 1.7 after medication adjustments, S cardio monitoring Ischemic cardiomyopathy EF 30% Surgical History (Updated 09/18/25 @ 16:53 by Mercedes Sheehan MD) Hx of hernia repair Family History Other Diabetes Social History Smoking Status: Former smoker Tobacco Type: Cigarettes Cigarettes Per Day: 1PPD; Smoking End Date: quit 20 years ago; Second Hand Exposure: No; Do You Dip or Chew Tobacco: No; Hx Alcohol Use: No Hx Substance Use: No Preferred Language: Trinidadian Communication Ability: Effective Visual Impairment: No Limitations Hearing Ability: Normal Cooking Chef Required: No Beliefs That Will Affect Care: None marital status: Current Living Situation: Spouse Feels Safe at Home: Yes Safety Concerns: Feels Safe At This Time Assistive Devices: Denture - Upper and Glasses Allergies Allergies Allergy/AdvReac Type Severity Reaction Status Date / Time ARB-Angiotensin Receptor Allergy Severe edema Verified 09/18/25 15:54 Antagonist face, lips, tongue valsartan Allergy Severe edema Verified 09/18/25 15:55 face, lips, tongue ibuprofen AdvReac Mild Unknown Verified 10/02/22 11:07 Home Meds Home Medications Medication Instructions Recorded Confirmed metformin 1,000 mg tablet 1,000 mg PO QAM 08/03/18 09/18/25 aspirin 81 mg capsule 81 mg PO QAM 08/25/22 09/18/25 evolocumab 140 mg/mL subcutaneous 140 mg subcut UD 08/25/22 09/18/25 pen injector (Stef Ovalle) nitroglycerin 0.4 mg sublingual 0.4 mg sublingual UD 08/25/22 09/18/25 tablet isosorbide mononitrate 30 mg 0 mg PO QAM 10/02/22 09/18/25 tablet,extended release 24 hr empagliflozin 10 mg tablet 0 mg PO DAILY 09/18/25 09/18/25 (Jardiance) glipizide 10 mg tablet, extended 10 mg PO DAILY 09/18/25 09/18/25 release 24 hr levothyroxine 175 mcg tablet 175 mcg PO QAM 09/18/25 09/18/25 losartan 25 mg tablet 0 mg PO QAM 09/18/25 09/18/25 Results & Data (ED) Vital Signs Vital Signs - 24 hr 09/18/25 09:24 09/18/25 09:27 09/18/25 09:41 Temperature 36.4 C L Temperature Source Temporal Artery Scan Pulse Rate 71 60 61 Pulse Rate [Right Finger] Pulse Rhythm Regular Respiratory Rate 20 18 Respiratory Effort / Characteristics Non-Labored Spontaneous Respiratory Depth Normal Respiratory Pattern Regular Blood Pressure 174/94 H Blood Pressure [Left Arm] Blood Pressure Mean 120 Blood Pressure Mean [Left Arm] Blood Pressure Position Sitting Pulse Oximetry 98 97 Oxygen Delivery Method Room Air Room Air Sepsis Recent Fever Within 48 Hours No Sepsis New/Unexplained Change in Mental Status No Sepsis Action Taken by Nursing No Action Required 09/18/25 11:21 Temperature Temperature Source Pulse Rate Pulse Rate [Right Finger] 60 Pulse Rhythm Respiratory Rate 18 Respiratory Effort / Characteristics Non-Labored Respiratory Depth Normal Respiratory Pattern Regular Blood Pressure Blood Pressure [Left Arm] 166/87 H Blood Pressure Mean Blood Pressure Mean [Left Arm] 113 Blood Pressure Position Pulse Oximetry 95 Oxygen Delivery Method Room Air Sepsis Recent Fever Within 48 Hours Sepsis New/Unexplained Change in Mental Status Sepsis Action Taken by Nursing Laboratory Data 09/18/25 09:38 09/18/25 09:38 Lab Results 09/18/25 Range/Units 09:38 WBC 9.92 (4.8-10.8) K/ul RBC 5.43 (4.70-6.10) M/uL Hgb 17.1 (14.0-18.0) g/dL Hct 49.7 (42.0-52.0) % MCV 91.5 (80.0-100.0) fL MCH 31.5 (25.0-34.0) pg MCHC 34.4 (32.0-36.0) g/dL RDW Std Deviation 39.9 (36.4-46.3) fL RDW Coeff of [place] 11.8 (11.5-14.5) % Plt Count 182 (130-400) K/uL MPV 10.2 (9.4-12.4) fL Immature Gran % (Auto) 0.3 % Neut % (Auto) 64.8 % Lymph % (Auto) 21.4 % [place] % (Auto) 9.0 % Eos % (Auto) 3.6 % Baso % (Auto) 0.9 % Neut # (Auto) 6.43 (1.40-6.50) K/uL Lymph # (Auto) 2.12 (1.20-3.40) K/uL [place] # (Auto) 0.89 H (0.11-0.59) K/uL Eos # (Auto) 0.36 (0.00-0.50) K/uL Baso # (Auto) 0.09 (0.00-0.20) K/uL Immature Gran # (Auto) 0.03 (0.01-0.20) K/uL Sodium 138 (136-145) mmol/L Potassium 4.6 (3.5-5.1) mmol/L Chloride 103 (98-107) mmol/L Carbon Dioxide 27 (21-32) mmol/L Anion Gap 8 (3-11) BUN 21 (6-23) mg/dl Creatinine 1.44 H (0.6-1.4) mg/dl Est Cr Clr Drug Dosing 40.9 ml/min eGFR 49.74 BUN/Creatinine Ratio 14.6 (10-20) Glucose 271 H (70-99(Fasting)) mg/dl Calcium 9.4 (8.6-10.3) mg/dl Total Bilirubin 1.0 (0.2-1.0) mg/dl AST 25 (13-39) U/L ALT 29 (7-52) U/L Alkaline Phosphatase 65 (34-104) U/L Troponin I High Sens 16.5 (0-20) pg/ml Total Protein 7.2 (6.0-8.3) gm/dl Albumin 4.4 (3.4-5.0) gm/dl Globulin 2.8 (2.5-4.0) gm/dl Albumin/Globulin Ratio 1.6 (0.9-2) Lipase 17 (11-82) U/L Administered Medications Heparin Sodium (Porcine) (Heparin Sod 5,000 Unit/0.5 Ml Vial) 5,000 units SQ Q8 ABI Stop: 10/18/25 16:14 Last Admin: 09/18/25 16:39 Dose: Not Given Documented By: FOUNDATION DIRECTOR Discontinued Medications Metoprolol Tartrate (Metoprolol Tartrate 25 Mg Tab) 25 mg PO NOW STA Stop: 09/18/25 11:52 Last Admin: 09/18/25 12:32 Dose: 25 mg Documented By: wap Imaging Data Radiologist's Impression: Chest X-Ray 09/18/25 09:27 XR chest 1V portable CLINICAL HISTORY: Chest pain, nonspecific COMPARISON STUDY: 08/25/2022 FINDINGS: Stable CABG. There is an interval left-sided pacemaker/ICD. There is stable moderate cardiomegaly without pulmonary vascular congestion. No consolidation or pleural effusion seen. No pneumothorax. IMPRESSION: No acute findings. ACT 112: Negative or not required by law. Electronically signed by: Beny London M.D. 09/18/2025 9:58 AM Discharge Plan Visit Data Chief Complaint: Chest Pain Stated Complaint: CHEST PAIN ED Provider: Mercedes Sheehan Discharge Problem: Chest pain, S/P CABG x 5, S/P coronary artery stent placement, CAD (coronary artery disease) Patient Disposition: Admitted As Inpatient Condition: Fair Discharge Instructions Interventions: ED Discharge Assessment Last Done: 09/18/25 15:01
--- NOTE | 2025-09-18 12:11 | History & Physical Report ---
Date of Service September 18, 2025 Assessment & Plan (1) Angina pectoris, unstable: (2) Paroxysmal tachycardia, unspecified: (3) Hypertension, uncontrolled: (4) DM type 2 (diabetes mellitus, type 2): (5) Hypothyroidism: (6) Ischemic cardiomyopathy: Plan Patient 80-year-old gentleman presents with symptoms consistent with unstable angina and possibly a tachyarrhythmia with his complaints of paroxysmal tachycardia, lightheadedness and dizziness. With patient's extensive cardiac history is a high risk for further cardiac issues and decompensation. Patient needs monitoring in the hospital and specialty consultation Admit to monitored unit Reviewing patient's EMR, CVA remote history of paroxysmal atrial fibrillation status post CABG. Patient's symptoms seem possibility for a arrhythmia. Possibly paroxysmal atrial fibrillation with RVR. Interrogate pacer Cardiology consultation Increase metoprolol to manage palpitations and increased blood pressure Monitor glucose and cover with sliding scale Continue other outpatient medications as ordered Check TSH Update echocardiogram at bedside and agreeable with plan of care as well. History of Present Illness Chief Complaint: Chest tightness, palpitations and dizziness for 2 to 3 weeks Primary Care Provider: Terrence Cho MD Patient is a 80-year-old gentleman with extensive coronary artery disease with bypass and stent placements in the past. Patient also has AICD placement. Patient has never had any documented arrhythmias per his knowledge. Presents to the emergency room today with a 2 to 3-week history of some chest tightness and palpitations. He reports that this is intermittent. He states the first time he noticed this was about 3 weeks ago. He was at the house and not doing anything in particular. He started to have some chest tightness but a little lightheaded and dizzy. He also states that he could tell that his heart was pounding and racing. Because of the chest tightness he took a nitroglycerin sublingually. He states all his symptoms resolved in about 5 minutes. He states that the second time this happened was about 2 weeks ago while he was shopping in [employer]. Similar symptoms with chest tightness, palpitations, heart racing and some lightheadedness and dizziness. Was able to get to his car where he took a nitroglycerin and all his symptoms resolved in about 5 minutes. He states over the past 5 days it has been more lightheadedness and dizziness that he experienced. This can occur when he is at rest or doing activity. It is not slowly associated with exertion. He does state that he can feel his heart racing when he gets the symptoms. Due to the increasing frequency and his known heart disease came to the emergency room for evaluation. In the emergency room workup was really unremarkable for acute findings. But due to his history and symptoms he was referred to our service for further evaluation. Time my evaluation patient is resting comfortably. He denies any fever or chills, no cough or cold symptoms, perhaps a little bit of shortness of breath with these activities but it is more the chest tightness palpitations and dizziness that is concerning to him. No nausea, no vomiting. Been eating and drinking well. No new changes in his bowels or bladder habit. No swelling in his hands arms legs or feet. Otherwise [place] he states he has been feeling well. He has been taking his medications as prescribed. He did mention that over the past few months he has noticed that his blood pressure is creeping up. His last time he was at his PCP his PCP question whether they would need to uptitrate the metoprolol for better blood pressure control. He states over the past week he has seen fairly high blood pressures with systolics in the 190s and the diastolics in the low 100s. Allergies Allergy/AdvReac Type Severity Reaction Status Date / Time ARB-Angiotensin Receptor Allergy Severe edema Verified 10/02/22 14:25 Antagonist face, lips, tongue ibuprofen AdvReac Mild Unknown Verified 10/02/22 11:07 valsartan Allergy Severe edema Uncoded 10/02/22 14:25 face, lips, tongue Home Medications Medication Instructions Recorded Confirmed Type glimepiride 2 mg tablet (Amaryl) 4 mg PO QAM 08/03/18 10/02/22 History levothyroxine 150 mcg tablet 150 mcg PO QAM 08/03/18 10/02/22 History (Synthroid) metformin 1,000 mg tablet 1,000 mg PO QAM 08/03/18 10/02/22 History amlodipine 5 mg tablet (Norvasc) 5 mg PO QAM #30 tabs 06/01/22 10/02/22 Rx hydroxyzine HCl 25 mg tablet 25 mg PO Q8H PRN anxiety #15 tabs 06/01/22 10/02/22 Rx metoprolol succinate 25 mg 25 mg PO BID #60 tabs 06/01/22 10/02/22 Rx tablet,extended release 24 hr aspirin 81 mg capsule 81 mg PO QAM 08/25/22 10/02/22 History bupropion HCl 150 mg tablet,12 hr 150 mg PO BID 08/25/22 10/02/22 History sustained-release clopidogrel 75 mg tablet 75 mg PO QAM 08/25/22 10/02/22 History evolocumab 140 mg/mL subcutaneous 140 mg subcut UD 08/25/22 10/02/22 History pen injector (Stef Ovalle) nitroglycerin 0.4 mg sublingual 0.4 mg sublingual UD 08/25/22 10/02/22 History tablet losartan 25 mg tablet 50 mg (2 x 25 mg) PO QAM #60 tabs 08/27/22 10/02/22 Rx isosorbide mononitrate 30 mg 60 mg PO QAM 10/02/22 10/02/22 History tablet,extended release 24 hr Past Med/Surg History Problem List (Updated 10/02/22 @ 14:40 by Cari Almaraz PA-C) Paroxysmal tachycardia, unspecified Hypertension, uncontrolled Encounter for pre-operative examination LBBB (left bundle branch block) Chest pain (Acute) Precordial chest pain (Acute) CAD (coronary artery disease) (Acute) Elevated troponin (Acute) Hypertension (Acute) Angina pectoris, unstable (Acute) Situational anxiety Anxiety Hypertensive emergency pt unsure about this?--"if he did, it wasn't something recent" Chest pain after significant physical exertion, [facility] cardio aware, records indicate symptoms resolved with nitro Tobacco use disorder (Chronic) quit 07/2022 HLD (hyperlipidemia) (Chronic) DM type 2 (diabetes mellitus, type 2) (Chronic) NIDDM Hypertension (Chronic) Hypothyroidism (Chronic) CAD (coronary artery disease) (Chronic) S/p CABG in 2002, RICCO x 3 in 09/07, RICCO x 1 in 01/06 Paroxysmal atrial fibrillation (Chronic) "remote, postop s/p CABG" S/P coronary artery stent placement (Chronic) "Cardiac catheterization 05/2015 at [facility]- Severe [place] vessel disease w/ 95% LAD, 95% Cx, 100% prox RCA, Patent ARREOLA-LAD, Patent SVG-OM, Patent SVG-RCA - mid portion of graft with turbulence of flow secondary to valve vs thrombus but has WILY III flow through graft into distal RCA run off, Patent [id number]-[id number] w/ 80% lesion in mid body of graft --> Stent placed - bare metal stent" "Cardiac catheterization 05/2015 at [facility]- stenosis in the [id number], BMS placed" 08/2022, having chest pain, brought to [place], 1 RICCO placed S/P CABG x 5 (Chronic) "CABG x5 vessel (07/28/03): ARREOLA-LAD, SVG-RCA, SVG-OM, SVG-ramus, SVG-D1"; [facility] in [place]; f/u dr velasco, [facility] Medical History (Updated 09/18/25 @ 12:08 by Tavon Lazo DO) CKD (chronic kidney disease) stage 3, GFR 30-59 ml/min Cr bump to 1.7 after medication adjustments, [facility] cardio monitoring Ischemic cardiomyopathy EF 30% Surgical History (Updated 10/02/22 @ 14:40 by Cari Almaraz PA-C) Hx of hernia repair Family History Other Diabetes Social History Smoking Status: Former smoker Tobacco Type: Cigarettes Cigarettes Per Day: 20/day when he smoked; Second Hand Exposure: No; Do You Dip or Chew Tobacco: No; Hx Alcohol Use: Yes (hx-none anymore) Hx Substance Use: No Preferred Language: Japanese Communication Ability: Effective Visual Impairment: No Limitations Hearing Ability: Normal 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 Sclera clear Neck: Soft, no adenopathy Lungs: Clear to auscultation, decreased, no wheezes rales or rhonchi CV: S1-S2, regular, faint systolic murmur Abdomen: Soft, nontender, nondistended Extremities: No significant edema Musculoskeletal: No significant joint tenderness Neuro: No focal deficits Psych: Cooperative, normal mood Results & Data Results & Data Vital Signs (Past 12 Hours) Vital Signs Temp Pulse Resp BP Pulse Ox O2 Del Method 09/18/25 09:41 61 09/18/25 09:27 60 18 97 Room Air 09/18/25 09:24 36.4 C L 71 20 174/94 H 98 Room Air Diagnostic Findings Reviewed imaging, laboratory and diagnostic studies. Pertinent findings as below. CBC within normal ranges Electrolytes within normal range Creatinine 1.44 Glucose 271 LFTs within normal limits Troponin 16.5, normal x 1 Personally reviewed chest x-ray: No acute consolidative or infiltrative proces s., No evidence of edema EKG: Sinus rhythm, paced Code Status & VTE Plan VTE Prophylaxis Plan VTE Prophylaxis will be ordered: Yes
[2025-09-18] MEDS: METOPROLOL TARTRATE 25 MG TAB PO STA (12:32)
--- NOTE | 2025-09-18 15:00 | Cardiology Consultation ---
Date of Consultation September 18, 2025 Assessment & Plan (1) Hypertension, uncontrolled: (2) CAD (coronary artery disease): (3) Chest pain: (4) DM type 2 (diabetes mellitus, type 2): (5) Biventricular ICD (implantable cardioverter-defibrillator) in place: Plan -HR currently well controlled -BP significantly elevated, not sure that he is taking the proper medications at home? (should be on Coreg not Toprol) Most recent outpatient medication rec was at the PCP office 07/2025 Cardiac medication listed at that time: ASA 81 mg daily Plavix 75 mg daily Jardiance 10 mg daily Imdur 60 mg daily Losartan 100 mg daily Coreg 12.5 mg BID Repatha 140 Q 2 weeks - repeat echo to be completed, prior echo completed last year stable with EF around 35% - will get updated remote check on his ICD, normal function in 06/2025 on remote check - Troponin level has been normal - No acute ischemic changes noted on ECG - Recommend resuming his cardiac medications as listed above, if blood pressure remains elevated can up titrate carvedilol -case discussed with attending service Case discussed with Dr. Kelly. Please see attestation for additional recommendations. AMBAR Bentley Department of Cardiology, [facility] This chart was completed in part utilizing Speech Voice Recognition Software. Grammatical errors, random word insertions, pronoun errors, and incomplete sentences are an occasional consequence of this system due to software limitations, ambient noise, and hardware issues. Any formal questions or concerns about the content, text, or information contained within the body of this dictation should be directly addressed to the provider for clarification. Supervising Physician Co-Signing Physician Notes Patient seen and examined. Past medical history, surgical history, social history and family history have been reviewed. The medical record and all the above studies have been reviewed. Case DW SRAVANTHI including management. IMP: HTN - uncontrolled Chest Pain - atypical - VT R/O Severe ICM BIVICD DM CAD CKD Recommendations: adjust anti-HTN meds keeping systolic BP between 100-140 mmHg Interrogate devise to check for any arrhythmias correct and f/u electrolytes f/u renal function Cont statin continue DAPT Increased Coreg to 25mg po bid changed Losartan to Entresto GDMT for HFrEF keeping systolic BP between 100-140 mmHg avoid hypovolemia keep patient euvolemic DVT prophylaxis keep LE elevated when sitting 1.5 L / 24 hr fluid restriction strict I&Os salt restriction counseling History of Present Illness Reason for Consultation: Chest Pain, HTN Requesting Physician: Hospitalist Attending Physician: Dr. Tavon Rosales History of Present Illness 80-year-old male seen in consultation today in regard to hypertensive urgency and chest pain. Having some elevated blood pressure readings over the last few weeks and has noticed intermittent episodes of chest tightness with lightheadedness. When these episodes occur he sits down and takes a nitroglycerin which will help alleviate the discomfort. Reports compliance with medications but was unable to specifically delineate his daily meds. On review of his outpatient cardiology notes he is to be taking carvedilol but he thinks he may have been switched to metoprolol which what is what he has been taking. Denies any changes to diet or increased Na intake. Allergies Allergy/AdvReac Type Severity Reaction Status Date / Time ARB-Angiotensin Receptor Allergy Severe edema Verified 09/18/25 15:54 Antagonist face, lips, tongue valsartan Allergy Severe edema Verified 09/18/25 15:55 face, lips, tongue ibuprofen AdvReac Mild Unknown Verified 10/02/22 11:07 Home Medications Medication Instructions Recorded Confirmed Type metformin 1,000 mg tablet 1,000 mg PO QAM 08/03/18 09/18/25 History aspirin 81 mg capsule 81 mg PO QAM 08/25/22 09/18/25 History evolocumab 140 mg/mL subcutaneous 140 mg subcut UD 08/25/22 09/18/25 History pen injector (Stef Ovalle) nitroglycerin 0.4 mg sublingual 0.4 mg sublingual UD 08/25/22 09/18/25 History tablet isosorbide mononitrate 30 mg 0 mg PO QAM 10/02/22 09/18/25 History tablet,extended release 24 hr empagliflozin 10 mg tablet 0 mg PO DAILY 09/18/25 09/18/25 History (Jardiance) glipizide 10 mg tablet, extended 10 mg PO DAILY 09/18/25 09/18/25 History release 24 hr levothyroxine 175 mcg tablet 175 mcg PO QAM 09/18/25 09/18/25 History losartan 25 mg tablet 0 mg PO QAM 09/18/25 09/18/25 History Patient History Medical History (Updated 09/18/25 @ 16:53 by Mercedes Sheehan MD) CKD (chronic kidney disease) stage 3, GFR 30-59 ml/min Cr bump to 1.7 after medication adjustments, [facility] cardio monitoring Ischemic cardiomyopathy EF 30% Surgical History (Updated 09/18/25 @ 16:53 by Mercedes Sheehan MD) Hx of hernia repair Family History Other Diabetes Social History Smoking Status: Former smoker Tobacco Type: Cigarettes Cigarettes Per Day: 1PPD; Smoking End Date: quit 20 years ago; Second Hand Exposure: No; Do You Dip or Chew Tobacco: No; Hx Alcohol Use: No Hx Substance Use: No Preferred Language: Moldovan Communication Ability: Effective Visual Impairment: No Limitations Hearing Ability: Normal Processing Spec Required: No Beliefs That Will Affect Care: None marital status: Current Living Situation: Spouse Feels Safe at Home: Yes Safety Concerns: Feels Safe At This Time Assistive Devices: Denture - Upper and Glasses Review of Systems Review of Systems: All systems reviewed & are unremarkable except as noted in HPI & below Physical Exam Constitutional: WD/WN, vitals as above well developed and well nourished; no acute distress Neck: trachea midline, no thyromegaly Respiratory: normal respiratory effort, lungs clear to auscultation Cardiovascular: RRR, no murmur, no edema Rate/Rhythm: regular rate and regular rhythm Heart Sounds: no murmur Vessels: no JVD Gastrointestinal (Abdomen): normal bowel sounds, soft, nontender, no hepatosplenomegaly Skin: no rashes, warm and dry Psychiatric: A+Ox3, euthymic affect Results & Data Vital Signs (Past 12 Hours) Vital Signs Temp Pulse Pulse Resp BP BP Pulse Ox 09/18/25 14:06 63 19 189/106 H 96 09/18/25 13:45 60 09/18/25 13:00 60 15 166/97 H 95 09/18/25 11:21 60 18 166/87 H 95 09/18/25 09:41 61 09/18/25 09:27 60 18 97 09/18/25 09:24 36.4 C L 71 20 174/94 H 98 O2 Del Method 09/18/25 14:06 Room Air 12/28/25 13:45 09/18/25 13:00 Room Air 09/18/25 11:21 Room Air 09/18/25 09:41 09/18/25 09:27 Room Air 09/18/25 09:24 Room Air Laboratory Results Cardiac Enzymes 09/18/25 Range/Units 09:38 AST 25 (13-39) U/L Troponin I High Sens 16.5 (0-20) pg/ml CBC 09/18/25 Range/Units 09:38 WBC 9.92 (4.8-10.8) K/ul RBC 5.43 (4.70-6.10) M/uL Hgb 17.1 (14.0-18.0) g/dL Hct 49.7 (42.0-52.0) % Plt Count 182 (130-400) K/uL Neut # (Auto) 6.43 (1.40-6.50) K/uL Lymph # (Auto) 2.12 (1.20-3.40) K/uL [place] # (Auto) 0.89 H (0.11-0.59) K/uL Eos # (Auto) 0.36 (0.00-0.50) K/uL Baso # (Auto) 0.09 (0.00-0.20) K/uL Comprehensive Metabolic Panel 09/18/25 Range/Units 09:38 Sodium 138 (136-145) mmol/L Potassium 4.6 (3.5-5.1) mmol/L Chloride 103 (98-107) mmol/L Carbon Dioxide 27 (21-32) mmol/L BUN 21 (6-23) mg/dl Creatinine 1.44 H (0.6-1.4) mg/dl Glucose 271 H (70-99(Fasting)) mg/dl Calcium 9.4 (8.6-10.3) mg/dl AST 25 (13-39) U/L ALT 29 (7-52) U/L Alkaline Phosphatase 65 (34-104) U/L Total Protein 7.2 (6.0-8.3) gm/dl Albumin 4.4 (3.4-5.0) gm/dl Intake and Output 09/17/25 09/18/25 09/18/25 22:59 06:59 14:59 Other: Weight 79.5 kg Weight Measurement Method Chair Scale Patient Weight 09/19/25 06:59 Weight 79.5 kg Diagnostic Findings Laboratory Results WBC 9.92 K/ul (4.8-10.8) 09/18/25 09:38 RBC 5.43 M/uL (4.70-6.10) 09/18/25 09:38 Hgb 17.1 g/dL (14.0-18.0) 09/18/25 09:38 Hct 49.7 % (42.0-52.0) 09/18/25 09:38 MCV 91.5 fL (80.0-100.0) 09/18/25 09:38 MCH 31.5 pg (25.0-34.0) 09/18/25 09:38 MCHC 34.4 g/dL (32.0-36.0) 09/18/25 09:38 RDW Std Deviation 39.9 fL (36.4-46.3) 09/18/25 09:38 RDW Coeff of [place] 11.8 % (11.5-14.5) 09/18/25 09:38 Plt Count 182 K/uL (130-400) 09/18/25 09:38 MPV 10.2 fL (9.4-12.4) 09/18/25 09:38 Immature Gran % (Auto) 0.3 % 09/18/25 09:38 Neut % (Auto) 64.8 % 09/18/25 09:38 Lymph % (Auto) 21.4 % 09/18/25 09:38 [place] % (Auto) 9.0 % 09/18/25 09:38 Eos % (Auto) 3.6 % 09/18/25 09:38 Baso % (Auto) 0.9 % 09/18/25 09:38 Neut # (Auto) 6.43 K/uL (1.40-6.50) 09/18/25 09:38 Lymph # (Auto) 2.12 K/uL (1.20-3.40) 09/18/25 09:38 [place] # (Auto) 0.89 K/uL (0.11-0.59) H 09/18/25 09:38 Eos # (Auto) 0.36 K/uL (0.00-0.50) 09/18/25 09:38 Baso # (Auto) 0.09 K/uL (0.00-0.20) 09/18/25 09:38 Immature Gran # (Auto) 0.03 K/uL (0.01-0.20) 09/18/25 09:38 Sodium 138 mmol/L (136-145) 09/18/25 09:38 Potassium 4.6 mmol/L (3.5-5.1) 09/18/25 09:38 Chloride 103 mmol/L (98-107) 09/18/25 09:38 Carbon Dioxide 27 mmol/L (21-32) 09/18/25 09:38 Anion Gap 8 (3-11) 09/18/25 09:38 BUN 21 mg/dl (6-23) 09/18/25 09:38 Creatinine 1.44 mg/dl (0.6-1.4) H 09/18/25 09:38 Est Cr Clr Drug Dosing 40.9 ml/min 09/18/25 09:38 eGFR 49.74 09/18/25 09:38 BUN/Creatinine Ratio 14.6 (10-20) 09/18/25 09:38 Glucose 271 mg/dl (70-99(Fasting)) H 09/18/25 09:38 Calcium 9.4 mg/dl (8.6-10.3) 09/18/25 09:38 Total Bilirubin 1.0 mg/dl (0.2-1.0) 09/18/25 09:38 AST 25 U/L (13-39) 09/18/25 09:38 ALT 29 U/L (7-52) 09/18/25 09:38 Alkaline Phosphatase 65 U/L (34-104) 09/18/25 09:38 Troponin I High Sens 16.5 pg/ml (0-20) 09/18/25 09:38 Total Protein 7.2 gm/dl (6.0-8.3) 09/18/25 09:38 Albumin 4.4 gm/dl (3.4-5.0) 09/18/25 09:38 Globulin 2.8 gm/dl (2.5-4.0) 09/18/25 09:38 Albumin/Globulin Ratio 1.6 (0.9-2) 09/18/25 09:38 Lipase 17 U/L (11-82) 09/18/25 09:38 Impressions Chest X-Ray 09/18/25 09:27 XR chest 1V portable CLINICAL HISTORY: Chest pain, nonspecific COMPARISON STUDY: 08/25/2022 FINDINGS: Stable CABG. There is an interval left-sided pacemaker/ICD. There is stable moderate cardiomegaly without pulmonary vascular congestion. No consolidation or pleural effusion seen. No pneumothorax. IMPRESSION: No acute findings. ACT 112: Negative or not required by law. Electronically signed by: Beny London M.D. 09/18/2025 9:58 AM PG Care Time/CCT Total # of Minutes Spent Total Time Spent with Patient: Total time spent is greater than 50% in coordination of care (as documented) at patient's floor/unit and/or counseling patient: [place] [address] IN/OBS CONSULT LVL 4,60M Patient Type New Diagnoses Hypertension, uncontrolled I10 CAD (coronary artery disease) I25.10 Associated angina: unspecified whether angina present Coronary Disease-Associated Artery/Lesion type: unspecified vessel or lesion type [place] vs. transplanted heart: [place] heart Chest pain R07.9 DM type 2 (diabetes mellitus, type 2) E11.9 Biventricular ICD (implantable cardioverter-defibrillator) in place Z95.810 (2) CAD (coronary artery disease) Associated angina: unspecified whether angina present Coronary Disease- Associated Artery/Lesion type: unspecified vessel or lesion type [place] vs. transplanted heart: [place] heart Qualified Code(s): I25.10 - Atherosclerotic heart disease of [place] coronary artery without angina pectoris
[2025-09-18] MEDS ORDERED: DEXTROSE 50% 50 ML SYRINGE IV PRN (15:48)
[2025-09-18] MEDS ORDERED: ONDANSETRON INJ 2 MG/ML 2 ML VIAL IV PRN (15:48)
[2025-09-18] MEDS ORDERED: ALUMINUM/MAGNESIUM SUSP 30 ML UDC PO PRN (15:48)
[2025-09-18] MEDS ORDERED: GLUCOSE 40% GEL 15 GM TUBE PO PRN (15:48)
[2025-09-18] MEDS ORDERED: NITROGLYCERIN SL 0.4 MG/TAB TAB SL PRN (15:48)
[2025-09-18] MEDS ORDERED: CARBOHYDRATES FOR HYPOGLYCEMIA PO PRN (15:48)
[2025-09-18] MEDS ORDERED: GLUCOSE 10 TAB/TUBE PO PRN (15:48)
[2025-09-18] MEDS ORDERED: POLYETHYLENE (MIRALAX) 17 GM PACK PO PRN (15:48)
[2025-09-18] MEDS ORDERED: GLUCAGON FOR INJ 1 MG VIAL SQ PRN (15:48)
[2025-09-18] MEDS: HEPARIN SOD 5,000 UNIT/0.5 ML VIAL SQ SCH (16:39)
[2025-09-18 17:38] LABS: Thyroid Stimulating Hormone 3.734 uIu/ml (0.300-4.500)
[2025-09-18] MEDS: INSULIN ASPART PER UNIT CHARGE SC SCH (17:40)
[2025-09-18] MEDS ORDERED: VALSARTAN/SACUBITRIL 51/49 MG TAB PO SCH (21:00)
[2025-09-18] MEDS ORDERED: METOPROLOL SUCC 50MG EXT REL TAB PO SCH (21:00)
[2025-09-19] MEDS: LEVOTHYROXINE SODIUM 150 MCG TABLET PO SCH (06:02)
[2025-09-19 06:42] LABS: Cholesterol 99.0 mg/dl (0-200); HDL Cholesterol 31.0 mg/dl; Triglycerides 312.0 mg/dl (0-150)
[2025-09-19 07:51] LABS: Hemoglobin A1C 9.1 % (4.5-5.6)
[2025-09-19] MEDS: ASPIRIN 81 MG ECTAB PO SCH (08:20)
[2025-09-19] MEDS: ISOSORBIDE MONO EXTENDED REL 60 MG TABCR PO SCH (08:20)
[2025-09-19] MEDS: CLOPIDOGREL BISULFATE 75 MG TAB PO SCH (08:21)
[2025-09-19] MEDS: LOSARTAN POTASSIUM 50 MG TAB PO SCH (08:21)
[2025-09-19] MEDS: EMPAGLIFLOZIN 10 MG TAB PO SCH (08:22)
[2025-09-19] MEDS ORDERED: LOSARTAN POTASSIUM 50 MG TAB PO SCH ×2 (09:00)
--- NOTE | 2025-09-19 10:24 | XCELERA ---
[id number] [id number]
--- NOTE | 2025-09-19 10:48 | Hospitalist Progress Note ---
Date of Service September 19, 2025 Assessment & Plan (1) Angina pectoris, unstable: (2) Paroxysmal tachycardia, unspecified: (3) Hypertension, uncontrolled: (4) DM type 2 (diabetes mellitus, type 2): (5) Hypothyroidism: (6) Ischemic cardiomyopathy: Plan 80 yo M with a PMH of CAD (s/p CABG x 5 vessels in 2002, RICCO x 3 in 09/07, RICCO x 1 in 01/06), ischemic cardiomyopathy, LBBB diagnosed July 2022, remote history of postop A. fib after CABG without clinical recurrence, DM II, HTN, HLD, hypothyroidism presents with symptoms consistent with unstable angina and possibly tachyarrhythmia with complaints of intermittent palpitation, lightheadedness and dizziness. Unstable angina Paroxysmal tachycardia Hypertensive urgency Labs fairly ok, trops x 2 neg. LDL 6, EKG w/ paced rhythm. ECHO: EF 30-35%, [place] of the inferior septum and basal inferior wall, diffuse hypokinesis otherwise. Card meds being optimized Pt denies further CP, dizziness, palpitations. BP has gotten better. T2DM: Uncontrolled, continue with sliding scale insulin. Recommend patient to follow diabetic clinic closely for ongoing management. Hypothyroidism: Continue with reduced levothyroxine dose iso tachyarrythmia concern. repeat TFT in 6 weeks. DVT prophylaxis: Heparin subcu Full code Admission and Anticipated Discharge Date Admission Date: September 18, 2025 Subjective Patient was seen and examined at bedside. Patient was sitting up in chair, on room air, NAD, resting comfortably. Patient denies any further chest pain/palpitation/shortness of breath/dizziness while in the hospital. Patient denies any flulike illness or sore throat or cough or pain or burning while passing urine or any diarrhea. Physical Exam Physical Exam: Constitutional: Alert, nontoxic, no acute distress HEENT: Mucous membranes moist. Sclera clear Neck: Soft, no adenopathy Lungs: Clear to auscultation, decreased, no wheezes rales or rhonchi CV: S1-S2, regular, faint systolic murmur Abdomen: Soft, nontender, nondistended Extremities: No significant edema Musculoskeletal: No significant joint tenderness Neuro: No focal deficits Psych: Cooperative, normal mood Results & Data Results & Data Vital Signs (Past 12 Hours) Vital Signs Temp Pulse Resp BP Pulse Ox O2 Del Method 09/19/25 07:56 36.6 C 60 20 151/75 H 95 Room Air 09/19/25 03:38 36.6 C 64 18 139/74 94 Room Air
--- NOTE | 2025-09-19 11:22 | Electrocardiogram Report ---
Test Reason : Blood Pressure : */* mmHG Vent. Rate : 66 BPM Atrial Rate : 66 BPM P-R Int : 156 ms QRS Dur : 140 ms QT Int : 472 ms P-R-T Axes : 55 95 164 degrees QTcB Int : 494 ms AV dual-paced rhythm Abnormal ECG When compared with ECG of 27-Aug-2022 06:02, Electronic ventricular pacemaker has replaced Sinus rhythm Confirmed by Michela Alves (Preet) on 09/19/2025 11:21:41 AM Referred By: REFERRED SELF Confirmed By: Michela Alves
--- NOTE | 2025-09-19 11:29 | Cardiology Progress Note ---
Date of Service September 19, 2025 Assessment & Plan (1) Hypertensive urgency: (2) Precordial chest pain: (3) Hypertension, uncontrolled: (4) CAD (coronary artery disease): (5) ASCVD (arteriosclerotic cardiovascular disease): Plan 80 year old male admitted with uncontrolled hypertension and chest discomfort. Excessive sodium intake noted along with intermittent noncompliance with medications High sensitivity troponin negative x 2 Resting echocardiography with severely reduced LV systolic function, EF 30-35%. 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 No AT/AF. No VT. No VF. BiV paced 93.9%. Optivol below threshold. Telemetry without arrhythmia. Patient with known ASCVD, ischemic cardiomyopathy CABG x5 in 2002 with postoperative atrial fibrillation, without reoccurrence. PCI to the SVG graft at [facility] in 2014 Unstable angina presentation on 12/2016, PCI with RICCO to the SVG graft and OM/diagonal territory, [facility]. Inferior STEMIT due to closure of SVG to the RCA status post 3 overlapping RICCO with poor distal runoff, 09/17/2017 NSTEMI in 05/2022, in the setting of uncontrolled hypertension NSTEMI in 08/2022. Catheterization with severe [place] vessel and bypass graft disease. Status post RICCO to mid SVG-OM graft, 08/26/2022 Status post Medronic BiV ICD implantation on 10/07/2022 Recommendations: As best I can tell, metoprolol succinate has been changed to carvedilol at 25 mg BID, Losartan increased from 50 mg/day to 100 mg/day, and amlodipine added this admission. Increase Isosorbide to 90 mg/day Continue Jardiance and Repatha (intolerance to statins Continue dual antiplatelet therapy with aspirin and clopidogrel Chart history of past intolerance to Valsartan thus no Entresto. Outpatient cardiology follow-up. Admission and Anticipated Discharge Date Admission Date: September 18, 2025 Supervising Physician Co-Signing Physician Notes I have personally performed a history and physical examination on the patient. I have reviewed the advance practitioner's documentation, and I agree with, and take responsibility for the plan of care. 80-year-old male admitted with chest discomfort, hypertensive urgency, noncompliance with medical therapies. No evidence of acute coronary syndrome. Echocardiogram demonstrating left ventricular ejection fraction of 30 to 35% which is slightly reduced compared to prior echo. Complex cardiovascular history noted above. Recommend resume carvedilol 25 mg twice daily. Discontinue metoprolol. Titrate losartan from 50 to 100 mg daily. Amlodipine added this admission. Isosorbide monohydrate increase to 90 mg daily. Possible discharge in 24 to 48 hours. Bruce Ross DO, [facility] Subjective Patient seen and examined, chart, medications, and telemetry reviewed. Blood pressure markedly elevated 3+ weeks prior to presentation; excessive sodium intake noted along with intermittent noncompliance with medications. Transient improvement in BP and angina noted with sublingual nitroglycerin use at home. BP as high as 189/106 on presentation. High sensitivity troponin negative x 2 this admission. BP improved. Last outpatient cardiology appointment was October 01. Review of Systems Review of Systems: Complete Review of systems is as stated above, negative, or noncontributory. Physical Exam Physical Exam: General: A&Ox3. NAD. HENT: Normocephalic. Atraumatic. Eyes: PER. Conjunctiva pink, sclera clear. Neck: Carotid bruits. No overt JVD. Heart: Regular, paced. No murmur. Lungs: Clear to auscultation. No wheeze. Abdomen: +BS. Soft. Nontender. No masses or organomegaly. Extremities: No clubbing, cyanosis, or edema. Limited neurological examination is without focal deficits. Pulses: Posterior tibial=1/4. Results & Data Vital Signs (Past 12 Hours) Vital Signs Temp Pulse Resp BP Pulse Ox O2 Del Method 09/19/25 07:56 36.6 C 60 20 151/75 H 95 Room Air 09/19/25 03:38 36.6 C 64 18 139/74 94 Room Air Laboratory Results Cardiac Enzymes 09/18/25 Range/Units 16:07 Troponin I High Sens 15.9 (0-20) pg/ml Lipids 09/19/25 Range/Units 05:35 Triglycerides 312 H (0-150) mg/dl Cholesterol 99 (0-200) mg/dl HDL Cholesterol 31 mg/dl Cholesterol/HDL Ratio 3.2 (0-5) Intake and Output 09/18/25 09/19/25 09/19/25 22:59 06:59 14:59 Intake Total 480 / 480 Balance 480 / 480 Intake: Oral 480 / 480 Other: Weight 79 kg 77.1 kg Weight Measurement Method Standing Scale Built in [facility] Diagnostic Findings September 18, 2025 TTE ([facility], Dr. Ross): Severely reduced LV systolic function. EF 30-35%. Moderate concentric LVH. Akinesis of the inferoseptum and basal inferior wall. Otherwise, diffuse hypokinesis. Mild MR. Mild aortic valve sclerosis without significant stenosis. LV systolic function has declined compared to 08/25/2022 study. September 18, 2025 device interrogation revealed appropriate function, 4.7 years remaining to the recommended replacement time. No AT/AF. No VT. No VF. BiV paced 93.9%. Optivol below threshold. Telemetry: Atrial paced rhythm. PG Care Time/CCT Total # of Minutes Spent Total Time Spent with Patient: Total time spent is greater than 50% in coordination of care (as documented) at patient's floor/unit and/or counseling patient: Coding Level of Care Code 31610 SUB INP/OBS CARE 3/50MIN Diagnoses Hypertensive urgency I16.0 Precordial chest pain R07.2 Hypertension, uncontrolled I10 CAD (coronary artery disease) I25.10 ASCVD (arteriosclerotic cardiovascular disease) I25.10
[2025-09-19] MEDS: ACETAMINOPHEN 325 MG TAB PO PRN (21:51)
[2025-09-20 08:08] LABS: Anion Gap 11.0 (3-11); Blood Urea Nitrogen 32.0 mg/dl (6-23); Calcium 8.8 mg/dl (8.6-10.3); Carbon Dioxide 26.0 mmol/L (21-32); Chloride 102.0 mmol/L (98-107); Creatinine Clr Calc Pharmacy 29.6 ml/min; Glucose 179.0 mg/dl (70-99(Fasting)); Magnesium 2.0 mg/dl (1.7-2.4); Potassium 3.8 mmol/L (3.5-5.1); Sodium 139.0 mmol/L (136-145)
[2025-09-20] MEDS: ISOSORBIDE MONO EXTENDED REL 30 MG TABCR PO SCH (09:27)
[2025-09-20] MEDS: SODIUM CHLORIDE 0.9% 1,000 ML IV SCH (09:35)
--- NOTE | 2025-09-20 14:13 | Cardiology Progress Note ---
Date of Service September 20, 2025 Assessment & Plan (1) Hypertensive urgency: (2) Precordial chest pain: (3) Hypertension, uncontrolled: (4) CAD (coronary artery disease): (5) ASCVD (arteriosclerotic cardiovascular disease): Plan 80 year old male admitted with uncontrolled hypertension and chest discomfort. Excessive sodium intake noted along with intermittent noncompliance with medications High sensitivity troponin negative x 2 Resting echocardiography with severely reduced LV systolic function, EF 30-35%. 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 No AT/AF. No VT. No VF. BiV paced 93.9%. Optivol below threshold. Telemetry without arrhythmia. Patient with known ASCVD, ischemic cardiomyopathy CABG x5 in 2002 with postoperative atrial fibrillation, without reoccurrence. PCI to the SVG graft at [facility] in 2014 Unstable angina presentation on 12/2016, PCI with RICCO to the SVG graft and OM/diagonal territory, [facility]. Inferior STEMIT due to closure of SVG to the RCA status post 3 overlapping RICCO with poor distal runoff, 09/17/2017 NSTEMI in 05/2022, in the setting of uncontrolled hypertension NSTEMI in 08/2022. Catheterization with severe [place] vessel and bypass graft disease. Status post RICCO to mid SVG-OM graft, 08/26/2022 Status post Medronic BiV ICD implantation on 10/07/2022 AM labs with acute on chronic kidney injury likely due to change in blood pressure, limited oral intake. Patient did not receive contrast this admission. Currently receiving 1 L IV fluid resuscitation. Recommendations: * Increase oral fluid intake. Agree with 1 L IV fluid resuscitation. * Continue medications as presently prescribed. * Patient with intolerance to Valsartan thus no Entresto. * Outpatient cardiology follow-up. * Please contact with any cardiology questions or concerns. Admission and Anticipated Discharge Date Admission Date: September 18, 2025 Supervising Physician Co-Signing Physician Notes I have personally performed a history and physical examination on the patient. I have reviewed the advance practitioner's documentation, and I agree with, and take responsibility for the plan of care. 80-year-old male admitted with chest discomfort, hypertensive urgency, noncompliance with medical therapies. No evidence of acute coronary syndrome. Echocardiogram demonstrating left ventricular ejection fraction of 30 to 35% which is slightly reduced compared to prior echo. Complex cardiovascular history noted above. Carvedilol resumed on admission. Losartan currently on hold due to elevated creatinine. Amlodipine added this admission with titration of isosorbide monohydrate to 90 mg daily. Bruce Ross DO, [facility] Subjective Patient seen and examined, chart, medications, and telemetry reviewed. Blood pressure significant improved. Patient asymptomatic, feeling well. AM labs with acute on chronic renal dysfunction. Limited oral intake noted. Urine is concentrated. Review of Systems Review of Systems: Complete Review of systems is as stated above, negative, or noncontributory. Physical Exam Physical Exam: General: A&Ox3. NAD. HENT: Normocephalic. Atraumatic. Eyes: PER. Conjunctiva pink, sclera clear. Neck: Carotid bruits. No overt JVD. Heart: Regular, paced. No murmur. Lungs: Clear to auscultation. No wheeze. Abdomen: +BS. Soft. Nontender. No masses or organomegaly. Extremities: No clubbing, cyanosis, or edema. Limited neurological examination is without focal deficits. Pulses: Posterior tibial=1/4. Results & Data Vital Signs (Past 12 Hours) Vital Signs Temp Pulse Pulse Resp BP Pulse Ox O2 Del Method 09/20/25 11:44 36.5 C 60 16 137/67 95 Room Air 09/20/25 08:00 62 09/20/25 07:45 36.5 C 63 16 130/71 94 Room Air 09/20/25 03:39 36.5 C 58 L 18 121/75 96 Room Air Laboratory Results Comprehensive Metabolic Panel 09/20/25 Range/Units 06:59 Sodium 139 (136-145) mmol/L Potassium 3.8 (3.5-5.1) mmol/L Chloride 102 (98-107) mmol/L Carbon Dioxide 26 (21-32) mmol/L BUN 32 H (6-23) mg/dl Creatinine 2.06 H D (0.6-1.4) mg/dl Glucose 179 H (70-99(Fasting)) mg/dl Calcium 8.8 (8.6-10.3) mg/dl Intake and Output 09/19/25 09/20/25 09/20/25 22:59 06:59 14:59 Intake Total 480 / 480 240 / 240 Balance 480 / 480 240 / 240 Intake: Oral 480 / 480 240 / 240 Other: Weight 77 kg Weight Measurement Method Built in [facility] Diagnostic Findings Telemetry: Atrial paced in the 60's. PG Care Time/CCT Total # of Minutes Spent Total Time Spent with Patient: Total time spent is greater than 50% in coordination of care (as documented) at patient's floor/unit and/or counseling patient: Coding Level of Care Code 95202 SUB INP/OBS CARE 2/35MIN Diagnoses Hypertensive urgency I16.0 Precordial chest pain R07.2 Hypertension, uncontrolled I10 CAD (coronary artery disease) I25.10 ASCVD (arteriosclerotic cardiovascular disease) I25.10
--- NOTE | 2025-09-20 15:30 | Hospitalist Progress Note ---
Date of Service September 20, 2025 Assessment & Plan (1) Angina pectoris, unstable: (2) Paroxysmal tachycardia, unspecified: (3) Hypertension, uncontrolled: (4) DM type 2 (diabetes mellitus, type 2): (5) Hypothyroidism: (6) Ischemic cardiomyopathy: Plan 80 yo M with a PMH of CAD (s/p CABG x 5 vessels in 2002, RICCO x 3 in 09/07, RICCO x 1 in 01/06), ischemic cardiomyopathy, LBBB diagnosed July 2022, remote history of postop A. fib after CABG without clinical recurrence, DM II, HTN, HLD, hypothyroidism presents with symptoms consistent with unstable angina and possibly tachyarrhythmia with complaints of intermittent palpitation, lightheadedness and dizziness. Unstable angina Paroxysmal tachycardia Hypertensive urgency Labs fairly ok, trops x 2 neg. LDL 6, EKG w/ paced rhythm. ECHO: EF 30-35%, Akinesia of the inferior septum and basal inferior wall, diffuse hypokinesis otherwise. Card meds being optimized Pt denies further CP, dizziness, palpitations. BP has gotten better and few towards low normal, losartan on hold see below Acute kidney injury over CKD stage III: Baseline creatinine of around 1.4, creatinine up trended to 2.06 today likely pre renal ISO aggressive blood pressure control. Hold losartan. Gentle IV fluid. Labs in AM. If no improvement consider renal ultrasound. T2DM: Uncontrolled, continue with sliding scale insulin. Recommend patient to follow diabetic clinic closely for ongoing management. Hypothyroidism: Continue with reduced levothyroxine dose iso tachyarrythmia concern. repeat TFT in 6 weeks. DVT prophylaxis: Heparin subcu Full code Admission and Anticipated Discharge Date Admission Date: September 18, 2025 Subjective Patient was seen and examined at bedside. Patient was sitting up in chair, on room air, NAD, resting comfortably. Patient denies any further chest pain/palpitation/shortness of breath/dizziness while in the hospital. Patient denies any flulike illness or sore throat or cough or pain or burning while passing urine or any diarrhea. Physical Exam Physical Exam: Constitutional: Alert, nontoxic, no acute distress HEENT: Mucous membranes moist. Sclera clear Neck: Soft, no adenopathy Lungs: Clear to auscultation, decreased, no wheezes rales or rhonchi CV: S1-S2, regular, faint systolic murmur Abdomen: Soft, nontender, nondistended Extremities: No significant edema Musculoskeletal: No significant joint tenderness Neuro: No focal deficits Psych: Cooperative, normal mood Results & Data Results & Data Vital Signs (Past 12 Hours) Vital Signs Temp Pulse Pulse Resp BP Pulse Ox O2 Del Method 09/20/25 15:24 36.5 C 63 20 94/52 L 93 Room Air 09/20/25 11:44 36.5 C 60 16 137/67 95 Room Air 09/20/25 08:00 62 09/20/25 07:45 36.5 C 63 16 130/71 94 Room Air 09/20/25 03:39 36.5 C 58 L 18 121/75 96 Room Air
[2025-09-21 03:42] VITALS: TEMP 97.5
[2025-09-21 07:12] LABS: Hematocrit (blood only) 43.5 % (42.0-52.0); Hemoglobin 14.9 g/dL (14.0-18.0); Mean Corpuscular Hemoglobin 31.6 pg (25.0-34.0); Mean Corpuscular Volume 92.2 fL (80.0-100.0); Platelet Count 160 K/uL (130-400); RDW Standard Deviation 39.4 fL (36.4-46.3); Red Blood Count 4.72 M/uL (4.70-6.10); White Blood Count 9.76 K/ul (4.8-10.8)
[2025-09-21 07:43] LABS: Anion Gap 9.0 (3-11); Blood Urea Nitrogen 33.0 mg/dl (6-23); Calcium 8.8 mg/dl (8.6-10.3); Carbon Dioxide 25.0 mmol/L (21-32); Chloride 104.0 mmol/L (98-107); Creatinine Clr Calc Pharmacy 36.9 ml/min; Glucose 150.0 mg/dl (70-99(Fasting)); Magnesium 2.1 mg/dl (1.7-2.4); Potassium 4.3 mmol/L (3.5-5.1); Sodium 138.0 mmol/L (136-145)
[2025-09-21 08:06] VITALS: PULSE 59; RESP 20; O2SAT 95
--- NOTE | 2025-09-21 09:21 | Discharge Summary ---
Date of Service September 21, 2025 Admission HPI Per Admitting Provider Patient is a 80-year-old gentleman with extensive coronary artery disease with bypass and stent placements in the past. Patient also has AICD placement. Patient has never had any documented arrhythmias per his knowledge. Presents to the emergency room today with a 2 to 3-week history of some chest tightness and palpitations. He reports that this is intermittent. He states the first time he noticed this was about 3 weeks ago. He was at the house and not doing anything in particular. He started to have some chest tightness but a little lightheaded and dizzy. He also states that he could tell that his heart was pounding and racing. Because of the chest tightness he took a nitroglycerin sublingually. He states all his symptoms resolved in about 5 minutes. He states that the second time this happened was about 2 weeks ago while he was shopping in [place]. Similar symptoms with chest tightness, palpitations, heart racing and some lightheadedness and dizziness. Was able to get to his car where he took a nitroglycerin and all his symptoms resolved in about 5 minutes. He states over the past 5 days it has been more lightheadedness and dizziness that he experienced. This can occur when he is at rest or doing activity. It is not slowly associated with exertion. He does state that he can feel his heart racing when he gets the symptoms. Due to the increasing frequency and his known heart disease came to the emergency room for evaluation. In the emergency room workup was really unremarkable for acute findings. But due to his history and symptoms he was referred to our service for further evaluation. Time my evaluation patient is resting comfortably. He denies any fever or chills, no cough or cold symptoms, perhaps a little bit of shortness of breath with these activities but it is more the chest tightness palpitations and dizziness that is concerning to him. No nausea, no vomiting. Been eating and drinking well. No new changes in his bowels or bladder habit. No swelling in his hands arms legs or feet. Otherwise [place] he states he has been feeling well. He has been taking his medications as prescribed. He did mention that over the past few months he has noticed that his blood pressure is creeping up. His last time he was at his PCP his PCP question whether they would need to uptitrate the metoprolol for better blood pressure control. He states over the past week he has seen fairly high blood pressures with systolics in the 190s and the diastolics in the low 100s. Admission Exam Per Admitting Provider Constitutional: Alert, nontoxic, no acute distress HEENT: Mucous membranes moist. Sclera clear Neck: Soft, no adenopathy Lungs: Clear to auscultation, decreased, no wheezes rales or rhonchi CV: S1-S2, regular, faint systolic murmur Abdomen: Soft, nontender, nondistended Extremities: No significant edema Musculoskeletal: No significant joint tenderness Neuro: No focal deficits Psych: Cooperative, normal mood Principal Diagnosis Unstable angina Paroxysmal tachycardia Hypertensive urgency Discharge Exam Constitutional: Alert, nontoxic, no acute distress HEENT: Mucous membranes moist. Sclera clear Neck: Soft, no adenopathy Lungs: Clear to auscultation, decreased, no wheezes rales or rhonchi CV: S1-S2, regular, faint systolic murmur Abdomen: Soft, nontender, nondistended Extremities: No significant edema Musculoskeletal: No significant joint tenderness Neuro: No focal deficits Psych: Cooperative, normal mood Discharge Data Allergies Allergy/AdvReac Type Severity Reaction Status Date / Time ARB-Angiotensin Receptor Allergy Severe edema Verified 09/18/25 15:54 Antagonist face, lips, tongue valsartan Allergy Severe edema Verified 09/18/25 15:55 face, lips, tongue ibuprofen AdvReac Mild Unknown Verified 10/02/22 11:07 Consultations 09/18/25 11:35 ED Decision to Admit Stat 09/18/25 15:48 Consult Cardiology Routine Hospital Course (1) Angina pectoris, unstable: (2) Paroxysmal tachycardia, unspecified: (3) Hypertension, uncontrolled: (4) DM type 2 (diabetes mellitus, type 2): (5) Hypothyroidism: (6) Ischemic cardiomyopathy: Plan 80 yo M with a PMH of CAD (s/p CABG x 5 vessels in 2002, RICCO x 3 in 09/07, RICCO x 1 in 01/06), ischemic cardiomyopathy, LBBB diagnosed July 2022, remote history of postop A. fib after CABG without clinical recurrence, DM II, HTN, HLD, hypothyroidism presents with symptoms consistent with unstable angina and possibly tachyarrhythmia with complaints of intermittent palpitation, lightheadedness and dizziness. Unstable angina Paroxysmal tachycardia Hypertensive urgency XOCHITL on CKD High sensitive troponin was negative twice. EKG showed paced rhythm ECHO: EF 30-35%, Akinesia of the inferior septum and basal inferior wall, d iffuse hypokinesis otherwise. Cardiology was consulted comanagement; patient was started on amlodipine. He was also started on Coreg 25 mg twice a day along with Imdur 90 mg once a day. Patient was discharged home; losartan was kept on hold. Patient to follow-up with PCP and obtain BMP prior to restarting losartan. I also discussed monitoring his blood pressure daily at home and making a log so that medication can be adjusted during follow-up with his primary care doctor Please note the above document was generated using voice recognition software. It may contain grammatical, syntax or spelling errors. Any formal questions or concerns about the content, text or information contained within the body of this dictation should be directly addressed to the provider for clarification Total Time Total Time Spent Total Time Spent (In Minutes): 45 Total Time Includes: Examination of the Patient, Discharge Planning, Medication Reconciliation, Communication With Other Providers and Other Discharge Plan Discharge Items Patient Disposition: Home - Self-Care Reason For Visit: ANGINA Discharge Diagnosis: Unstable angina Paroxysmal tachycardia Hypertensive urgency Condition on Discharge: Fair Activity: Resume your previous activity Non-emergency contact: Primary Care Provider Call non-emergency contact if: you have any medication questions and your symptoms worsen Follow-up/Referrals: Terrence Cho MD [Primary Care Provider] - (Date & Time 09/26/2025 10:20 AM Provider: Terrence Cho MD [facility] ) Diet: Regular Addtl Attending Provider Instructions: You were admitted to the hospital due to high blood pressure and chest pain. You were seen by cardiology and they recommended following medication changes. Take Imdur 90 mg once a day. Take amlodipine 10 mg once a day Take carvedilol(Coreg) 25 mg twice a day. Please take your blood pressure daily at home and make a log of it. The blood pressure should be taken in a seated position with both feet on the ground and arm rested. Please take the log of the blood pressure to your primary care doctor for adjustment of the medication. Please do not take losartan for the time being. Will need repeat blood work with your primary care doctor to check on your kidney function before taking the medication again. Pending Studies at Discharge: No Stand-Alone Forms: My [facility], Smoking Cessation Medications and DC Order Prescriptions: New carvedilol 25 mg Tablet 25 mg PO BIDM Qty: 60 0RF amlodipine 10 mg tablet 10 mg PO DAILY 30 Days Qty: 30 0RF Continued metformin 1,000 mg Tablet 1,000 mg PO QAM aspirin 81 mg Capsule 81 mg PO QAM nitroglycerin 0.4 mg tablet, sublingual 0.4 mg sublingual UD MDD 1.2mg Rx Instructions: Taken in 08/2022 @0830 Repatha SureClick 140 mg/mL pen injector 140 mg SUBCUT UD Rx Instructions: Takes on and 15 of the month levothyroxine 175 mcg tablet 175 mcg PO QAM glipizide 10 mg tablet extended release 24hr 10 mg PO DAILY Jardiance 10 mg tablet 0 mg PO DAILY Rx Instructions: NO RECENT FILLS BUT PT STATES HE TAKES IT clopidogrel 75 mg tablet 75 mg PO DAILY Qty: 60 0RF Changed isosorbide mononitrate 30 mg tablet extended release 24 hr 90 mg PO QAM Qty: 90 0RF Rx Instructions: 60 MG NO RECENT FILLS BUT PT STATES HE TAKES AT HOME Held losartan 25 mg tablet 0 mg PO QAM Hold Instructions: Resume on 09/26/25. Resume after follow up with PCP after discussion Rx Instructions: 50 MG NO RECENT FILLS PT STATES HE TAKES AT HOME Discharge Orders: Discharge Order (Routine); Ordered 09/21/25 Ordered By: Xavier Nelson Admission Data Admit Date/Time: 09/20/25 18:43 Attending Provider: Xavier Nelson Admit Provider: Tavon Lazo Primary Care Provider: Terrence Cho Other Providers: Tavon Lazo; Jonas Kelly Other Interventions: Discharge Summary Assessment (RN) Last Done: 09/21/25 09:26
[2025-09-21 09:27] VITALS: BP 146/72
== END 2025-09-21 10:39 | disposition home or self-care (01) | DRG 305 ==
LOC: 2N 09:21 → ED 09:21 → SUATTDRO 12:01 → 2N 15:01 → SUATTDRO 09-20 18:43